=== PATIENT | female | born 1995 | race Caucasian/White ===

== ENCOUNTER 2016-02-24 20:31 | Emergency (ER) | payer OTHER ==
[~2016-02-24] VITALS: Ht 154.9 cm; Wt 54.4 kg
[~2016-02-24 20:31] MED LIST: AMOX500C2 PO; CEPH-507 PO; CIPR-225 PO; FLUC100T6 PO; HYDR25CA PO; IBUP-1780 PO; OMEP20TA7 PO; ONDA4TAB11 PO; ONDA8TAB13 PO; PANT40TA2 PO; POTA-51 PO; PRD20T PO; SUCR1TAB36 PO
--- OUTSIDE RECORDS SUMMARY | 2016-02-24 20:36 | XMS REPORT | Continuity of Care Document ---
Author Author [facility] Organization [facility] Address Unknown Phone Unavailable Care Team Providers Care Hand Molder Meat Name Role Phone NO, LOCAL PHYSICIAN PCP Unavailable Insurance Providers Payer Name Policy Number Subscriber Name Relationship Self Pay Approved Full Jenniffer [id number] Peyton Garner Lydia 17 Self / Same As Patient Advance Directives Directive Response Recorded Date/Time Advance Directives No 10/08/15 6:08pm Health Care Power of Price Checker No 10/08/15 6:08pm Organ Donor Yes 10/08/15 6:08pm Resuscitation Status Full Code 10/08/15 6:08pm Chief Complaint and Reason for Visit Chief Complaint UTI,SEPSIS,METHAMPHETAMINE USE Reason for Visit Sinusitis, acute maxillary Urinary tract infection Volume depletion Problems Active Problems Medical Problem Onset Date Status Anxiety about health Unknown Acute Anxiety disorder Unknown Acute Eileen infection Unknown Acute Epigastric pain Unknown Acute GERD (gastroesophageal reflux disease) Unknown Acute Gastritis and duodenitis Unknown Acute Gastroesophageal reflux disease Unknown Acute Menstruation Unknown Acute Methamphetamine use Unknown Acute Non-cardiac chest pain Unknown Acute Pain of left upper extremity Unknown Acute Periapical abscess Unknown Acute Sepsis Unknown Acute Sinusitis, acute maxillary Unknown Acute Urinary tract infection Unknown Acute Volume depletion Unknown Acute Medications Current Home Medications Medication Dose Units Route Directions Days/Qty Instructions Start Date Ciprofloxacin Hcl 500 Mg 500 Mg Oral Twice A Day 14 10/09/15 Past Home Medications Medication Directions Ordered Status Cephalexin 500 Mg Capsule, 500 Mg Oral Three Times A Day 06/24/15 Discontinued Prednisone 20 Mg Tab, 40 Mg Oral Daily 06/24/15 Discontinued Fluconazole 100 Mg Tablet, 100 Mg Oral Daily for 7 06/24/15 Discontinued Ondansetron 8 Mg Tab.rapdis, 8 Mg Oral Every 6 Hours as needed for Nausea 12/29 Discontinued Prednisone 20 Mg Tab, 40 Mg Oral Daily 06/24/15 Discontinued Fluconazole 100 Mg Tablet, 100 Mg Oral Daily for 7 06/24/15 Discontinued Ondansetron 8 Mg Tab.rapdis, 8 Mg Oral Every 6 Hours as needed for Nausea 12/29 Discontinued Amoxicillin 500 Mg Capsule, 1000 Mg Oral Three Times A Day 06/29/15 Discontinued Ibuprofen 800 Mg Tablet, 800 Mg Oral Every 8HRS as needed for Pain 06/29/15 Discontinued Omeprazole 20 Mg Tablet.dr, 20 Mg Oral 07/02/15 Discontinued Ondansetron 4 Mg Tab.rapdis, 4 Mg Oral Every 6 Hours as needed for Nausea Discontinued Omeprazole 20 Mg Tablet.dr, 20 Mg Oral Twice A Day 07/02/15 Discontinued Hydroxyzine Pamoate 25 Mg Capsule, 25 Mg Oral Every 6 Hours as needed for Anxiety 07/02/15 Discontinued Sucralfate 1 Gm Tablet, 1 Gm Oral Before Meals And At Bedtime 08/22/15 Discontinued Pantoprazole Sodium 40 Mg Tablet.dr, 40 Mg Oral Daily 08/25/15 Discontinued Social History Social History Problem Response Recorded Date/Time Alcohol Use Rarely Uses 08/22/2015 1:25am Recreational Drug Use No 08/22/2015 1:25am Recent Foreign Travel No 10/08/2015 6:14pm Recent Infectious Disease Exposure No 10/08/2015 6:14pm Hospitalization with Isolation Denies 10/09/2015 1:17pm Sexually Transmitted Disease No 10/08/2015 6:11pm HIV/AIDS No 10/08/2015 6:11pm Smoking Status Never a Smoker 10/08/2015 6:09pm Do you dip or chew tobacco? No 08/22/2015 1:25am Drug of Choice METHAMPHETAMIN 10/08/2015 6:11pm Recent Hopitalizations No 10/08/2015 6:11pm Sexually Transmitted Disease No 10/08/2015 6:11pm Hospitalization with Isolation Denies 10/09/2015 1:17pm Query Response Start Date Stop Date Smoking Status Never a Smoker Hospital Discharge Instructions Patient Instructions Physician Instructions New, Converted or Re-Newed RX: Transmitted to Pharmacy Goal/Follow Up Appt: Sonja De Leon, October 15:40 Patient Instructions: Please take all antibiotics as prescribed. You can call [facility] at [phone] to make an appointment with one of our addictions counselors regarding your substance abuse. Return to The Hospital For: fever, blood in urine Discharge Diet: No Restrictions Activity as Tolerated: Yes Care Plan Patient Instructions:: Please take all antibiotics as prescribed. [facility] at [phone] to make an appointment with oneof our addictions counselors regarding your substance abuse. Goal:: Sonja De Leon, October 15:40 Plan of Care Discharge Date 10/09/15 1:10pm Disposition 01 HOME, SELF-CARE Instructions/Education Provided ALCOHOL AND SUBSTANCE ABUSE Urinary Tract Infection in Women (DC) Prescriptions See Medication Section Care Plan and Goals See Discharge Instructions Section Functional Status Query Response Date Recorded Patient Orientation Person Place Time Situation Eyes Open October 09, 2015 1:17pm Comprehension Ability Understands Concepts October 08, 2015 6:34pm Allergies, Adverse Reactions, Alerts Allergen Type Severity Reaction Status Last Updated ENVIRONMENTAL Allergy Unknown Active 06/24/15 Immunizations No immunization records. Vital Signs Acute Vital Signs Vital Response Date/Time Temperature (Fahrenheit) 97.3 degrees F (97.6 - 99.5) 10/09/2015 10:00am Temperature (Calculated Celsius) 36.11722 degrees C (36.4 - 37.5) 10/09/2015 10:00am Temperature Source Tympanic 10/09/2015 10:00am Pulse Rate (adult) 84 bpm (60 - 90) 10/09/2015 10:00am Respiratory Rate 18 bpm (12 - 24) 10/09/2015 10:00am O2 Sat by Pulse Oximetry 98 % (88 - 100) 10/09/2015 10:00am Blood Pressure 115/80 mm Hg 10/09/2015 10:00am Blood Pressure Mean 92 mm Hg 10/09/2015 10:00am Pain Numeric Pain Scale 0-No Pain 10/09/2015 12:00pm Height (Feet) 5 feet 10/08/2015 6:14pm Height (Inches) 1.00 inches 10/08/2015 6:14pm Height (Calculated Centimeters) 154.883791 cm 10/08/2015 6:14pm Weight (Pounds) 123 pounds 10/08/2015 6:29pm Weight (Ounces) 0.0 oz 10/08/2015 6:29pm Weight (Calculated Grams) 81182.862 gm 10/08/2015 6:29pm Weight (Calculated Kilograms) 55.232504 kilograms 10/08/2015 6:29pm Calculated BMI 23.2 10/08/2015 6:14pm Capillary Refill Capillary Refill Less Than 3 Seconds 10/08/2015 3:30pm Results Laboratory Results Test Name Result Units Flags Reference Collection Date/Time Result Date/ Time Comments White Blood Count 8.6 10^3/uL 4.3-11.0 09/17/2015 6:50pm 09/17/2015 7: 05pm Red Blood Count 4.71 10^6/uL 4.35-5.85 09/17/2015 6:50pm 09/17/2015 7: 05pm Hemoglobin 14.5 G/DL 11.5-16.0 09/17/2015 6:50pm 09/17/2015 7:05pm Hematocrit 44 % 35-52 09/17/2015 6:50pm 09/17/2015 7:05pm Mean Corpuscular Volume 93 FL 80-99 09/17/2015 6:50pm 09/17/2015 7: 05pm Mean Corpuscular Hemoglobin 31 PG 25-34 09/17/2015 6:50pm 09/17/2015 7: 05pm Mean Corpuscular Hemoglobin Concent 33 G/DL 32-36 09/17/2015 6:50pm 05/2015 7:05pm Red Cell Distribution Width 12.5 % 10.0-14.5 09/17/2015 6:50pm 2015 7:05pm Platelet Count 234 10^3/uL 130-400 09/17/2015 6:50pm 09/17/2015 7:05pm Mean Platelet Volume 9.7 FL 7.4-10.4 09/17/2015 6:50pm 09/17/2015 7: 05pm Neutrophils (%) (Auto) 59 % 42-75 09/17/2015 6:50pm 09/17/2015 7:05pm Lymphocytes (%) (Auto) 31 % 12-44 09/17/2015 6:50pm 09/17/2015 7:05pm Monocytes (%) (Auto) 9 % 0-12 09/17/2015 6:50pm 09/17/2015 7:05pm Eosinophils (%) (Auto) 0 % 0-10 09/17/2015 6:50pm 09/17/2015 7:05pm Basophils (%) (Auto) 1 % 0-10 09/17/2015 6:50pm 09/17/2015 7:05pm Neutrophils # (Auto) 5.1 X 10^3 1.8-7.8 09/17/2015 6:50pm 09/17/2015 7: 05pm Lymphocytes # (Auto) 2.7 X 10^3 1.0-4.0 09/17/2015 6:50pm 09/17/2015 7: 05pm Monocytes # (Auto) 0.8 X 10^3 0.0-1.0 09/17/2015 6:50pm 09/17/2015 7: 05pm Eosinophils # (Auto) 0.0 10^3/uL 0.0-0.3 09/17/2015 6:50pm 09/17/2015 7 :05pm Basophils # (Auto) 0.0 10^3/uL 0.0-0.1 09/17/2015 6:50pm 09/17/2015 7: 05pm D-Dimer < 0.27 UG/ML 0.00-0.49 09/17/2015 6:50pm 09/17/2015 7:21pm Sodium Level 141 MMOL/L 135-145 09/17/2015 6:50pm 09/17/2015 7:23pm Potassium Level 4.2 MMOL/L 3.6-5.0 09/17/2015 6:50pm 09/17/2015 7:23pm Chloride Level 106 MMOL/L 98-107 09/17/2015 6:50pm 09/17/2015 7:23pm Carbon Dioxide Level 26 MMOL/L 21-32 09/17/2015 6:50pm 09/17/2015 7: 23pm Anion Gap 9 MMOL/L 5-14 09/17/2015 6:50pm 09/17/2015 7:23pm Blood Urea Nitrogen 9 MG/DL 7-18 09/17/2015 6:50pm 09/17/2015 7:23pm Creatinine 0.81 MG/DL 0.60-1.30 09/17/2015 6:50pm 09/17/2015 7:23pm BUN/Creatinine Ratio 11 09/17/2015 6:50pm 09/17/2015 7:23pm Estimat Glomerular Filtration Rate > 60 09/17/2015 6:50pm 2015 7:23pm GFR INTERPRETIVE DATA UNITS FOR ESTIMATED GFR (eGFR): mL/min/1.73 M2 REFERENCE RANGE FOR ESTIMATED GFR (eGFR) eGFR NORMAL eGFR >60 MODERATELY DECREASED eGFR 30-59 SEVERLY DECREASED eGFR 15-29 KIDNEY FAILURE <15 (OR DIALYSIS) Glucose Level 89 MG/DL 70-105 09/17/2015 6:50pm 09/17/2015 7:23pm Calcium Level 9.5 MG/DL 8.5-10.1 09/17/2015 6:50pm 09/17/2015 7:23pm Magnesium Level 2.6 MG/DL H 1.8-2.4 09/17/2015 6:50pm 09/17/2015 7:23pm Total Bilirubin 0.9 MG/DL 0.1-1.0 09/17/2015 6:50pm 09/17/2015 7:23pm Alkaline Phosphatase 72 U/L 40-136 09/17/2015 6:50pm 09/17/2015 7:23pm Aspartate Amino Transf (AST/SGOT) 12 U/L 5-34 09/17/2015 6:50pm 2015 7:23pm Alanine Aminotransferase (ALT/SGPT) 8 U/L 0-55 09/17/2015 6:50pm 2015 7:23pm Troponin I < 0.30 NG/ML <0.30 09/17/2015 6:50pm 09/17/2015 7:38pm Total Protein 7.6 G/DL 6.4-8.2 09/17/2015 6:50pm 09/17/2015 7:23pm Albumin 4.9 G/DL H 3.2-4.5 09/17/2015 6:50pm 09/17/2015 7:23pm Pending Laboratory Results Test Name Collection Date/Time Procedures Procedure Status Date Provider(s) Tracing only of electrocardiogram Completed 09/17/15 MICHELLE BYERS MD Encounters Encounter Location Arrival/Admit Date Discharge/Depart Date Attending Provider Discharged Inpatient [facility] 10/08/15 5:53pm 1:10pm ZOILA RIVERO MD Departed Emergency Room [facility] 09/22/15 2:05pm 09/21 3:22pm MICHELLE BYERS MD Departed Emergency Room [facility] 09/19/15 6:04pm 09/18 7:26pm TYESHA PAEZ DO Departed Emergency Room [facility] 09/17/15 6:07pm 09/16 8:23pm MICHELLE BYERS MD Recent Diagnosis Sinusitis, acute maxillary Urinary tract infection Volume depletion
[2016-02-24] MEDS ORDERED: IBUPROFEN 800 MG (MOTRIN) TAB PO STA (21:03)
--- NOTE | 2016-02-24 21:12 | ED Lower Extremity ---
General Chief Complaint: Lower Extremity Stated Complaint: L LEG PAIN Nursing Triage Note: Pt c/o L lower leg pain starting today. Pt denies any injury. Pt reports pain started in L foot and is now hurting up left leg near [place] below the knee. Nursing Sepsis Screen: No Definite Risk Source: patient Exam Limitations: no limitations History of Present Illness Time seen by provider: 20:55 Initial Comments Here with complaint of left lower leg pain that started today. Actually she states it started yesterday in her left foot. Denies recent trauma. She is not on control. She does not smoke. No recent long plane trips or car rides. No recent surgeries. No swelling to the leg. She was concerned about blood clots because she was reading the Internet reportedly. Denies breathing problems. Onset: yesterday Severity: mild Pain/Injury Location: left leg Method of Injury: unknown Modifying Factors: Improves With Rest Allergies and Home Medications Allergies Coded Allergies: No Known Drug Allergies (Unverified , 02/24/16) Home Medications No Active Prescriptions or Reported Meds Constitutional: see HPINo chills, No fever Respiratory: no symptoms reported Cardiovascular: no symptoms reported Musculoskeletal: see HPI muscle painNo muscle stiffness Skin: no symptoms reportedNo change in color, No lesions, No rash Psychiatric/Neurological: No Symptoms Reported Past Svmwzap-Uywtav-Kkxegh Hx Patient Social History Alcohol Use: Occasionally Uses Recreational Drug Use: No Drug of Choice: METH Smoking Status: Never a Smoker Recent Foreign Travel: No Contact w/Someone Who Travel: No Recent Infectious Disease Expo: No Recent Hopitalizations: No Physical Abuse Screen: No Sexual Abuse: No Immunizations Up To Date Tetanus Booster (TDap): More than 5yrs PED Vaccines UTD: Yes Seasonal Allergies Seasonal Allergies: No Surgeries HX Surgeries: Yes (EGD) Respiratory Hx Respiratory Disorders: No Cardiovascular Hx Cardiac Disorders: No Neurological Hx Neurological Disorders: No Reproductive System Hx Reproductive Disorders: No Sexually Transmitted Disease: No HIV/AIDS: No Female Reproductive Disorders: Denies Genitourinary Hx Genitourinary Disorders: No Gastrointestinal Hx Gastrointestinal Disorders: Yes (GASTRITIS, DUODENITIS) Gastrointestinal Disorders: Gastroesophageal Reflux, Esophagitis Musculoskeletal Hx Musculoskeletal Disorders: No Endocrine Hx Endocrine Disorders: No HEENT HX ENT Disorders: No Cancer Hx Cancer: No Psychosocial Hx Psychiatric Problems: Yes Behavioral Health Disorders: Anxiety Integumentary HX Skin/Integumentary Disorder: No Blood Transfusions Hx Blood Disorders: No Reviewed Nursing Assessment Reviewed/Agree w Nursing PMH: Yes Family Medical History Significant Family History: No Pertinent Family Hx Family Medial History: Arthritis G8 SISTER Hypertension 19 MOTHER Seizure disorder 19 MOTHER Physical Exam Vital Signs Vital Sign - Last 12Hours 02/24/16 20:55 Temp 98.7 Pulse 98 Resp 18 B/P 129/79 Pulse Ox 98 O2 Delivery Room Air Capillary Refill : Less Than 3 Seconds General Appearance: WD/WN no apparent distress Neck: full range of motion supple Cardiovascular: regular rate, rhythm no murmur Respiratory: lungs clear normal breath sounds Gastrointestinal: non tender soft Back: normal inspection no CVA tenderness no vertebral tenderness Legs: bilateral leg non-tender, bilateral leg normal inspection, bilateral leg normal range of motion, bilateral leg no evidence of injury Ankles: bilateral ankle non-tender, bilateral ankle normal inspection, bilateral ankle normal range of motion, bilateral ankle no evidence of injury Feet: bilateral foot non-tender, bilateral foot normal inspection, bilateral foot normal range of motion, bilateral foot no evidence of injury Neurologic/Psychiatric: alert oriented x 3 Skin: normal color warm/dryNo rash Progress/Results/Core Measures Results/Orders Lab Results Laboratory Tests Test 02/24/16 21:15 Range/Units D-Dimer < 0.27 0.00-0.49 UG/ML My Orders Orders-MICHELLE BYERS MD Fibrin Degradation Products (02/24/16 21:03) Ibuprofen Tablet (Motrin Tablet) (02/24/16 21:03) Vital Signs/I&O Vital Sign - Last 12Hours 02/24/16 20:55 Temp 98.7 Pulse 98 Resp 18 B/P 129/79 Pulse Ox 98 O2 Delivery Room Air Blood Pressure Mean: 96 Progress Note : Progress Note Seen and evaluated. Ibuprofen 800 mg by mouth. D-dimer ordered. Monitor patient. Physical exam findings of anything of concern related to blood clots so we will rule out with d-dimer currently. 2150: D-dimer negative. Discharged home with return precautions. Patient verbalize understanding instructions and agreement with plan. Departure Impression Impression: Primary Impression: Leg pain, left Disposition: 01 HOME, SELF-CARE Condition: Improved Departure-Patient Inst. Decision time for Depature: 21:54 Referrals: [facility] (PCP/Family) Primary Care Physician Patient Instructions: Lower Extremity Muscle Strain (DC) Add. Discharge Instructions: All discharge instructions reviewed with patient and/or family. Voiced understanding. You may take Tylenol 1000 mg every 8 hours as needed for pain. You may take ibuprofen 600 mg every 8 hours as needed for pain. Drink plenty of fluids. All of with your Dr. in a few days for recheck. Return for worse pain, fever, vomiting, weakness, swelling, breathing problems or other concerns as needed. Scripts No Active Prescriptions or Reported Meds MICHELLE BYERS MD Feb 24, 2016 21:12
[2016-02-24 22:04] VITALS: BP 125/75
== END 2016-02-24 22:04 | disposition home or self-care (01) ==
LOC: EDUNIT# 20:31 → ER 20:32
DX: M79.662 Pain in left lower leg (principal)
CPT/HCPCS: 36415; 85379; 99283

== ENCOUNTER 2016-04-01 22:31 | Emergency (ER) | payer OTHER ==
[~2016-04-01] VITALS: Ht 154.9 cm; Wt 54.4 kg
--- OUTSIDE RECORDS SUMMARY | 2016-04-01 22:38 | XMS REPORT | Continuity of Care Document ---
Author Author [facility] Organization [facility] Address Unknown Phone Unavailable Care Team Providers Care Switch Tender Name Role Phone NO, LOCAL PHYSICIAN PCP Unavailable Insurance Providers Payer Name Policy Number Subscriber Name Relationship Self Pay Approved Full Jenniffer [id number] Peyton Garner Lydia 18 Self / Same As Patient Advance Directives Directive Response Recorded Date/Time Advance Directives No 10/08/15 6:08pm Health Care Power of Nut Tightener No 10/08/15 6:08pm Organ Donor Yes 10/08/15 [...] all antibiotics as prescribed. You can call [facility] at [phone] to make an appointment with one of our addictions counselors regarding your substance abuse. Return to [facility] For: fever, blood in urine Discharge Diet: No Restrictions Activity as Tolerated: Yes Care Plan Patient Instructions:: Please take all antibiotics as prescribed. You [facility] call [facility] at [phone] to make an appointment with oneof our [...] - 99.5) 10/09/2015 10:00am Temperature (Calculated Celsius) 36.09802 degrees C (36.4 - 37.5) 10/09/2015 10:00am [...] 1.00 inches 10/08/2015 6:14pm Height (Calculated Centimeters) 154.652316 cm 10/08/2015 6:14pm Weight (Pounds) 123 pounds 10/08/2015 6:29pm Weight (Ounces) 0.0 oz 10/08/2015 6:29pm Weight (Calculated Grams) 59765.862 gm 10/08/2015 6:29pm Weight (Calculated Kilograms) 55.353677 kilograms 10/08/2015 6:29pm Calculated BMI 23.2 10/08/2015 [...] Discharge/Depart Date Attending Provider Discharged Inpatient [facility] 10/08/15 5:53pm 1:10pm ZOILA RIEVRO MD Departed Emergency Room [facility] 09/22/15 2:05pm 09/21 3:22pm MICHELLE BYERS MD Departed Emergency Room [facility] 09/19/15 6:04pm 09/18 7:26pm TYESHA PAEZ DO Departed Emergency Room [facility] 09/17/15 6:07pm 09/16 8:23pm MICHELLE BYERS MD Recent Diagnosis Sinusitis, acute maxillary Urinary tract infection Volume depletion
[2016-04-01 23:06] LABS: BASOPHILS % (AUTO) 0 % (0-10); EOSINOPHILS # (AUTO) 0.1 10^3/uL (0.0-0.3); EOSINOPHILS % (AUTO) 1 % (0-10); LYMPHOCYTES # (AUTO) 3.3 X 10^3 (1.0-4.0); LYMPHOCYTES % (AUTO) 39 % (12-44); MEAN CORPUSCULAR HEMOGLOBIN 29 PG (25-34); MEAN CORPUSCULAR HGB CONC 33 G/DL (32-36); MEAN CORPUSCULAR VOLUME 89 FL (80-99); MEAN PLATELET VOLUME 9.5 FL (7.4-10.4); MONOCYTES % (AUTO) 11 % (0-12); NEUTROPHILS # (AUTO) 4.1 X 10^3 (1.8-7.8); NEUTROPHILS % (AUTO) 49 % (42-75); PLATELET COUNT 292 10^3/uL (130-400); RED BLOOD COUNT 4.33 10^6/uL (4.35-5.85); RED CELL DISTRIBUTION WIDTH 14.7 % (10.0-14.5); WHITE BLOOD COUNT 8.5 10^3/uL (4.3-11.0)
[2016-04-01 23:22] LABS: ANION GAP 12 MMOL/L (5-14); BLOOD UREA NITROGEN 8 MG/DL (7-18); BUN/CREATININE RATIO 10; CALCIUM 8.9 MG/DL (8.5-10.1); CARBON DIOXIDE 21 MMOL/L (21-32); CHLORIDE 108 MMOL/L (98-107); GFR ESTIMATED > 60; GLUCOSE 67 MG/DL (70-105); POTASSIUM 3.5 MMOL/L (3.6-5.0); SODIUM 141 MMOL/L (135-145)
--- NOTE | 2016-04-01 23:30 | ED GU-Female ---
General Chief Complaint: -Female Stated Complaint: 6W, BLEEDING, CRAMPING Nursing Triage Note: patient reports being 6-7 weeks gestation. patient reports has started having cramps and spotting Nursing Sepsis Screen: No Definite Risk Source: patient History of Present Illness Time seen by provider: 22:45 Initial Comments PT STATES SHE THINKS SHE IS 6-7 WEEKS -LMP 03/15/16 2-3 HOURS AGO, BEGAN HAVING SPOTTING AND CRAMPING--MUCH LATER, MALE WITH PT STATES IT BEGAN AFTER HAVING INTERCOURSE HAS NOT GONE THROUGH ANY PADS NO NAUSEA/VOMITING NO FEVER NO RECENT ILLNESS NO URINARY SYMPTOMS PT IS AB 0 STATES SHE DID THE SAME WITH HER FIRST AND WENT ON TO HAVE A NORMAL AND HAS NOT SEEN ANYONE FOR THIS YET MULTITUDE OF VISITS--18 VISITS SINCE SHE BEGAN COMING TO THIS HOSPITAL 07/01/15- -MANY 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 USE PCP: [facility]--NEW OB APPOINTMENT 04/12/16 Allergies and Home Medications Allergies Coded Allergies: No Known Drug Allergies (Unverified , 02/24/16) Home Medications No Active Prescriptions or Reported Meds Constitutional: no symptoms reported Respiratory: no symptoms reported Cardiovascular: no symptoms reported Gastrointestinal: see HPI abdominal painNo nausea, No vomiting Genitourinary: see HPI : Yes LMP: Mar 15, 2016 (NORMALNO CONTROL) Musculoskeletal: no symptoms reportedNo back pain Skin: no symptoms reported Psychiatric/Neurological: No Symptoms Reported Endocrine: No Symptoms Reported Hematologic/Lymphatic: No Symptoms Reported Past Vzghbmv-Cavkiw-Ckjyto Hx Patient Social History Alcohol Use: Denies Use Recreational Drug Use: Yes Drug of Choice: METH Smoking Status: Never a Smoker Recent Foreign Travel: No Contact w/Someone Who Travel: No Recent Infectious Disease Expo: No Recent Hopitalizations: No Immunizations Up To Date Tetanus Booster (TDap): More than 5yrs PED Vaccines UTD: Yes Seasonal Allergies Seasonal Allergies: No Surgeries HX Surgeries: Yes (EGD) Respiratory Hx Respiratory Disorders: No Cardiovascular Hx Cardiac Disorders: No Neurological Hx Neurological Disorders: No Reproductive System : Yes Hx : 2 Hx Para: 1 () Hx Total # of Abortions (Spona: 0 Hx Reproductive Disorders: No Sexually Transmitted Disease: No HIV/AIDS: No Female Reproductive Disorders: Denies Genitourinary Hx Genitourinary Disorders: No Gastrointestinal Hx Gastrointestinal Disorders: Yes (GASTRITIS, DUODENITIS) Gastrointestinal Disorders: Gastroesophageal Reflux, Esophagitis Musculoskeletal Hx Musculoskeletal Disorders: No Endocrine Hx Endocrine Disorders: No HEENT HX ENT Disorders: No Cancer Hx Cancer: No Psychosocial Hx Psychiatric Problems: Yes Behavioral Health Disorders: Anxiety Integumentary HX Skin/Integumentary Disorder: No Blood Transfusions Hx Blood Disorders: No Family Medical History Significant Family History: No Pertinent Family Hx Family Medial History: Arthritis G8 SISTER Hypertension 19 MOTHER Seizure disorder 19 MOTHER Physical Exam Vital Signs Vital Sign - Last 12Hours 04/01/16 04/02/16 22:37 00:42 Temp 98.8 Pulse 97 Resp 18 B/P 134/93 Pulse Ox 98 O2 Delivery Room Air Capillary Refill : Less Than 3 Seconds General Appearance: WD/WN no apparent distress other (BIZARRE AFFECT--APPEARS TO BE UNDER THE INFLUENCE OF SOME SUBSTANCE/S) Cardiovascular: regular rate, rhythm no murmur Respiratory: normal breath sounds Gastrointestinal: non tender soft no organomegaly Pelvic: other (NO VAGINAL BLEEDING AT THIS TIME) Back: normal inspection no CVA tenderness Extremities: normal inspection no pedal edema normal capillary refill Neurologic/Psychiatric: no motor/sensory deficits alert oriented x 3 Skin: normal color warm/dry Progress/Results/Core Measures Results/Orders Lab Results Laboratory Tests Test 04/01/16 22:35 04/01/16 22:55 Range/Units Ur Tricyclic Antidepressants Screen NEGATIVE NEGATIVE Urine Amphetamines Screen NEGATIVE NEGATIVE Urine Barbiturates Screen NEGATIVE NEGATIVE Urine Benzodiazepines Screen NEGATIVE NEGATIVE Urine Cannabinoids Screen NEGATIVE NEGATIVE Urine Cocaine Screen NEGATIVE NEGATIVE Urine Methadone Screen NEGATIVE NEGATIVE Urine Methamphetamines Screen NEGATIVE NEGATIVE Urine Opiates Screen NEGATIVE NEGATIVE Urine Oxycodone Screen NEGATIVE NEGATIVE Urine Phencyclidine Screen NEGATIVE NEGATIVE Urine Propoxyphene Screen NEGATIVE NEGATIVE Anion Gap 12 5-14 MMOL/L BUN/Creatinine Ratio 10 Basophils # (Auto) 0.0 0.0-0.1 10^3/uL Basophils (%) (Auto) 0 0-10 % Blood Urea Nitrogen 8 7-18 MG/DL Calcium Level 8.9 8.5-10.1 MG/DL Carbon Dioxide Level 21 21-32 MMOL/L Chloride Level 108 H 98-107 MMOL/L Creatinine 0.80 0.60-1.30 MG/DL Eosinophils # (Auto) 0.1 0.0-0.3 10^3/uL Eosinophils (%) (Auto) 1 0-10 % Estimat Glomerular Filtration Rate > 60 Glucose Level 67 L 70-105 MG/DL Hematocrit 38 35-52 % Hemoglobin 12.6 11.5-16.0 G/DL Human Chorionic Gonadotropin, Quant 3630 H <5 MIU/ML Lymphocytes # (Auto) 3.3 1.0-4.0 X 10^3 Lymphocytes (%) (Auto) 39 12-44 % Mean Corpuscular Hemoglobin 29 25-34 PG Mean Corpuscular Hemoglobin Concent 33 32-36 G/DL Mean Corpuscular Volume 89 80-99 FL Mean Platelet Volume 9.5 7.4-10.4 FL Monocytes # (Auto) 1.0 0.0-1.0 X 10^3 Monocytes (%) (Auto) 11 0-12 % Neutrophils # (Auto) 4.1 1.8-7.8 X 10^3 Neutrophils (%) (Auto) 49 42-75 % Platelet Count 292 130-400 10^3/uL Potassium Level 3.5 L 3.6-5.0 MMOL/L Red Blood Count 4.33 L 4.35-5.85 10^6/uL Red Cell Distribution Width 14.7 H 10.0-14.5 % Sodium Level 141 135-145 MMOL/L White Blood Count 8.5 4.3-11.0 10^3/uL My Orders Orders-TYESHA PAEZ DO Abo Rh Type (04/01/16 22:47) Basic Metabolic Panel (04/01/16 22:47) Cbc With Automated Diff (04/01/16 22:47) Hcg,Quantitative (04/01/16 22:47) Drug Screen Stat (Urine) (04/01/16 22:53) Urine Bedside (04/01/16 22:53) Us Ob Transvaginal [id number] (04/01/16 22:47) Vital Signs/I&O Vital Sign - Last 12Hours 04/01/16 04/02/16 22:37 00:42 Temp 98.8 Pulse 97 95 Resp 18 20 B/P 134/93 Pulse Ox 98 O2 Delivery Room Air Blood Pressure Mean: 107 Point of Care Testing Urine -Bedside: Positive Progress Note : Progress Note BLOOD TYPE O+ NO VAGINAL BLEEDING DURING ER STAY Diagnostic Imaging Comments ULTRASOUND--5W 4 DAYS IUP GESTATIONAL SAC WITH PROBABLE POLE WITHOUT DEFINITE CARDIAC ACTIVITY--PER TECH REPORT @ 1726 AND PER [facility] VIA FAX @ 8222 Reviewed: Reviewed by Me Departure Impression Impression: Primary Impression: Threatened in first trimester Disposition: 01 HOME, SELF-CARE Condition: Stable Departure-Patient Inst. Referrals: [facility] (PCP/Family) Primary Care Physician Patient Instructions: Threatened Miscarriage (DC) Add. Discharge Instructions: NOTHING IN VAGINA--NO TAMPONS, DOUCHING OR INTERCOURSE TYLENOL NEEDED FOR PAIN KEEP AN ACCURATE PAD COUNT--RETURN IF SOAKING MORE THAN 1 MAXI PAD AN HOUR FOLLOW UP WITH [facility] NEXT WEEK FOR FURTHER CARE All discharge instructions reviewed with patient and/or family. Voiced understanding. Scripts No Active Prescriptions or Reported Meds TYESHA PAEZ DO Apr 01, 2016 23:30
[2016-04-02 00:42] VITALS: BP 128/88
--- NOTE | 2016-04-02 07:44 | Diagnostic Imaging Report ---
US OB TRANSVAGINAL [id number] INDICATION: with bleeding and cramping. TECHNIQUE: Transabdominal grayscale, color Doppler and pulse duplex imaging of the pelvis was performed. FINDINGS: There is an anechoic gestational sac present within the endometrium at the level of the fundus. The mean sac diameter corresponds to a gestational age of 5 weeks and 4 days. A yolk sac is seen. Possible embryo is seen. No cardiac activity is seen at this time. Ovaries are not identified. No suspicious adnexal mass or free fluid. IMPRESSION: 1. Single intrauterine gestational sac. Based on mean sac diameter, estimated gestational age is 5 weeks and 4 days. 2. A definitive embryo is not seen at this time and there is no heart activity. This may reflect early gestational age. Follow-up beta-hCG and ultrasound is advised to assess for appropriate development. Dictated by: Dictated on workstation # [id number]
== END 2016-04-02 00:43 | disposition home or self-care (01) ==
LOC: EDUNIT# 22:31 → ER 22:34
DX: O20.0 Threatened abortion (principal); Z3A.01 Less than 8 weeks gestation of pregnancy
CPT/HCPCS: 36415; 76817; 80048; 80306; 84702; 84703; 85025; 86900; 86901; 99282

== ENCOUNTER → 2016-04-08 | Outpatient (CLI) | payer OTHER ==
[~2016-04-08] MED LIST changes: +CEPH500C PO
--- OUTSIDE RECORDS SUMMARY | 2016-04-08 10:56 | XMS REPORT | Continuity of Care Document ---
Author Author [facility] Organization [facility] Address Unknown Phone Unavailable Care Team Providers Care Poultry Offal Icer Name Role Phone NO, LOCAL PHYSICIAN PCP Unavailable Insurance Providers Payer Name Policy Number Subscriber Name Relationship Self Pay Approved Full Jenniffer [id number] Peyton Garner Lydia 18 Self / Same As Patient Advance Directives Directive Response Recorded Date/Time Advance Directives No 10/08/15 6:08pm Health Care Power of [place] Fishing Boat Crewman No 10/08/15 6:08pm Organ Donor Yes 10/08/15 [...] as prescribed. You can call [facility] at [phone] to make an appointment with one of our addictions counselors regarding your substance abuse. Return to The Hospital For: fever, blood in urine Discharge Diet: No Restrictions Activity as Tolerated: Yes Care Plan Patient Instructions:: Please take all antibiotics as prescribed. [facility] at [phone] to make an appointment with oneof our [...] - 99.5) 10/09/2015 10:00am Temperature (Calculated Celsius) 36.39388 degrees C (36.4 - 37.5) 10/09/2015 10:00am [...] 1.00 inches 10/08/2015 6:14pm Height (Calculated Centimeters) 154.118704 cm 10/08/2015 6:14pm Weight (Pounds) 123 pounds 10/08/2015 6:29pm Weight (Ounces) 0.0 oz 10/08/2015 6:29pm Weight (Calculated Grams) 47581.862 gm 10/08/2015 6:29pm Weight (Calculated Kilograms) 55.908379 kilograms 10/08/2015 6:29pm Calculated BMI 23.2 10/08/2015 [...] Discharge/Depart Date Attending Provider Discharged Inpatient [facility] 10/08/15 5:53pm 1:10pm ZOILA RIVERO MD Departed Emergency Room [facility] 09/22/15 2:05pm 09/21 3:22pm MICHELLE BYERS MD Departed Emergency Room [facility] 09/19/15 6:04pm 09/18 7:26pm TYESHA PAEZ DO Departed Emergency Room [facility] 09/17/15 6:07pm 09/16 8:23pm MICHELLE BYERS MD Recent Diagnosis Sinusitis, acute maxillary Urinary tract infection Volume depletion
--- NOTE | 2016-04-08 16:01 | Diagnostic Imaging Report ---
INDICATION: Threatened AB. COMPARISON: 04/01/2016. FINDINGS: Findings are consistent with early intrauterine . [place]-rump length is 2.6 mm. No heartbeat was demonstrated with M-mode. There is no evidence of subchorionic hemorrhage. There is a cyst in the left ovary measuring 2 cm consistent with a corpus luteal cyst. There is no free fluid. Right ovary appears normal. There is normal blood flow to both ovaries. IMPRESSION: Findings are again consistent with intrauterine . There has been very little change in appearance. No significant growth has occurred since 04/01/2016. Quantitative hCG follow-up recommended. Blighted ovum is most likely. Dictated by: Dictated on workstation # [id number]
== END ==
LOC: RAD 10:52
PROVIDERS: ATTEND Family Medicine
DX: O20.0 Threatened abortion (principal)
CPT/HCPCS: 76817

== ENCOUNTER 2016-04-10 17:31 | Emergency (ER) | payer OTHER ==
[~2016-04-10] VITALS: Ht 154.9 cm; Wt 59.0 kg
[~2016-04-10 17:31] MED LIST changes: -CEPH500C PO
--- OUTSIDE RECORDS SUMMARY | 2016-04-10 17:37 | XMS REPORT | Continuity of Care Document ---
Author Author [facility] Organization [facility] Address Unknown Phone Unavailable Care Team Providers Care Job Recruiter Name Role Phone NO, LOCAL PHYSICIAN PCP Unavailable Insurance Providers Payer Name Policy Number Subscriber Name Relationship Self Pay Approved Full Jenniffer [id number] Peyton Garner Lydia 18 Self / Same As Patient Advance Directives Directive Response Recorded Date/Time Advance Directives No 10/08/15 6:08pm Health Care Power of Lead Ruby On Rails Developer No 10/08/15 6:08pm Organ Donor Yes 10/08/15 [...] RX: Transmitted to Pharmacy Goal/Follow Up Appt: Sojna De Leon, October 15:40 Patient Instructions: Please take all antibiotics as prescribed. You can call [facility] at [phone] to make an appointment with one of our addictions counselors regarding your substance abuse. Return to The Hospital For: fever, blood in urine Discharge Diet: No Restrictions Activity as Tolerated: Yes Care Plan Patient Instructions:: Please take all antibiotics as prescribed. [facility] at [phone] to make an appointment with oneof our [...] - 99.5) 10/09/2015 10:00am Temperature (Calculated Celsius) 36.76961 degrees C (36.4 - 37.5) 10/09/2015 10:00am [...] 1.00 inches 10/08/2015 6:14pm Height (Calculated Centimeters) 154.573128 cm 10/08/2015 6:14pm Weight (Pounds) 123 pounds 10/08/2015 6:29pm Weight (Ounces) 0.0 oz 10/08/2015 6:29pm Weight (Calculated Grams) 10722.862 gm 10/08/2015 6:29pm Weight (Calculated Kilograms) 55.706663 kilograms 10/08/2015 6:29pm Calculated BMI 23.2 10/08/2015 [...] Discharge/Depart Date Attending Provider Discharged Inpatient [facility] 10/08/15 5:53pm 1:10pm ZOILA RIVERO MD Departed Emergency Room [facility] 09/22/15 2:05pm 09/21 3:22pm MICHELLE BYERS MD Departed Emergency Room [facility] 09/19/15 6:04pm 09/18 7:26pm TYESHA PAEZ DO Departed Emergency Room [facility] 09/17/15 6:07pm 09/16 8:23pm MICHELLE BYERS MD Recent Diagnosis Sinusitis, acute maxillary Urinary tract infection Volume depletion
[2016-04-10 18:19] LABS: BILIRUBIN,URINE NEGATIVE (NEGATIVE); KETONES,URINE 1+ (NEGATIVE); LEUKOCYTE ESTERASE ,URINE 2+ (NEGATIVE); NITRITE,URINE NEGATIVE (NEGATIVE); PH,URINE 5 (5-9); PROTEIN,URINE 3+ (NEGATIVE); UROBILINOGEN,URINE NORMAL (NORMAL)
[2016-04-10 18:24] LABS: SQUAMOUS EPITHELIAL CELL,UR RARE /HPF
--- NOTE | 2016-04-10 18:33 | ED GU-Female ---
General Stated Complaint: 6 WKS PREG/VAG BLEEDING/PASSING CLOTS Nursing Triage Note: PT STATES HAS VAGINAL BLEEDING FOR 2 WEEKS, PT STATES WORSE TODAY. PT HAS + TEST LMP 02/18/16. Nursing Sepsis Screen: No Definite Risk Source: patient Exam Limitations: no limitations History of Present Illness Time seen by provider: 18:33 Initial Comments 20-year-old female patient presents to the emergency department complains of two -week onset vaginal bleeding. Patient states slightly worse today. States she has used for 5 pads today. Patient was seen on April 01 in the emergency department by Dr. Gee. Was also seen at [facility] on 08 April with outpatient ultrasound and blood work performed. Also states she did have a pelvic exam performed which was negative. Patient denies any fevers, dysuria, frequency, nausea, vomiting, diarrhea. Timing/Duration: getting worse, other (2 wk onset. ) Severity/Quality: moderate, cramping Location: suprapubic Radiation: none Activities at Onset: none Prior Genitourinary Problems: similar symptoms Sexual [place] History: less than 2 months ago, single partner Modifying Factors: Worsens With Other (denies modifying factors.) Allergies and Home Medications Allergies Coded Allergies: No Known Drug Allergies (Unverified , 02/24/16) Home Medications Cephalexin 500 Mg Capsule #15 500 MG PO TID Prescribed by: WILLI QUINONES on 04/10/161914 Constitutional: No chills, No diaphoresis, No dizziness, No fever, No malaise EENTM: no symptoms reported Respiratory: No cough, No dyspnea on exertion, No short of breath Cardiovascular: No chest pain, No edema, No palpitations, No syncope Gastrointestinal: see HPI abdominal pain (suprapubic cramping)No constipation , No diarrhea, No loss of appetite, No nausea, No vomiting Genitourinary: denies burning, denies discharge, denies dysuria, denies frequency, denies flank pain, denies hematuria, pain other (vaginal bleeding) Musculoskeletal: no symptoms reported Skin: no symptoms reported Psychiatric/Neurological: No Symptoms Reported All Other Systemes Reviewed Negative Unless Noted: Yes (Negative excepted noted.) Past Rkoajkz-Aewzvg-Zlxpjx Hx Patient Social History Alcohol Use: Denies Use Recreational Drug Use: Yes Drug of Choice: METH Smoking Status: Never a Smoker Recent Foreign Travel: No Contact w/Someone Who Travel: No Recent Infectious Disease Expo: No Recent Hopitalizations: No Immunizations Up To Date Tetanus Booster (TDap): More than 5yrs PED Vaccines UTD: Yes Seasonal Allergies Seasonal Allergies: No Surgeries HX Surgeries: Yes (EGD) Respiratory Hx Respiratory Disorders: No Cardiovascular Hx Cardiac Disorders: No Neurological Hx Neurological Disorders: No Reproductive System : Yes Hx : 2 Hx Para: 1 Hx Total # of Abortions (Spona: 0 Hx Reproductive Disorders: No Sexually Transmitted Disease: No HIV/AIDS: No Female Reproductive Disorders: Denies Genitourinary Hx Genitourinary Disorders: No Gastrointestinal Hx Gastrointestinal Disorders: Yes (GASTRITIS, DUODENITIS) Gastrointestinal Disorders: Gastroesophageal Reflux, Esophagitis Musculoskeletal Hx Musculoskeletal Disorders: No Endocrine Hx Endocrine Disorders: No HEENT HX ENT Disorders: No Cancer Hx Cancer: No Psychosocial Hx Psychiatric Problems: Yes Behavioral Health Disorders: Anxiety Integumentary HX Skin/Integumentary Disorder: No Blood Transfusions Hx Blood Disorders: No Reviewed Nursing Assessment Reviewed/Agree w Nursing PMH: Yes Family Medical History Significant Family History: No Pertinent Family Hx Family Medial History: Arthritis G8 SISTER Hypertension 19 MOTHER Seizure disorder 19 MOTHER Physical Exam Vital Signs Vital Sign - Last 12Hours 04/10/16 17:40 Temp 98.5 Pulse 101 Resp 20 B/P 124/80 Pulse Ox 98 Capillary Refill : Less Than 3 Seconds General Appearance: WD/WN no apparent distress HEENT: PERRL/EOMI pharynx normal Neck: supple normal inspection Cardiovascular: normal peripheral pulses regular rate, rhythm no edema no murmur Respiratory: lungs clear normal breath sounds no respiratory distress Gastrointestinal: normal bowel sounds non tender soft no organomegalyNo distended Back: normal inspection no CVA tenderness Extremities: no pedal edema normal capillary refill Neurologic/Psychiatric: alert normal mood/affect oriented x 3 Skin: normal color warm/dry Progress/Results/Core Measures Results/Orders Lab Results Laboratory Tests Test 04/10/16 17:45 04/10/16 17:56 Range/Units Urine Bacteria TRACE /HPF Urine Bilirubin NEGATIVE NEGATIVE Urine Casts NONE /LPF Urine Clarity VERY CLOUDY H Urine Color RED H Urine Crystals NONE /LPF Urine Culture Indicated YES Urine Glucose (UA) NEGATIVE NEGATIVE Urine Ketones 1+ H NEGATIVE Urine Leukocyte Esterase 2+ H NEGATIVE Urine Mucus NEGATIVE /LPF Urine Nitrite NEGATIVE NEGATIVE Urine Protein 3+ H NEGATIVE Urine RBC TNTC H /HPF Urine RBC (Auto) 5+ H NEGATIVE Urine Specific [place] 1.025 H 1.016-1.022 Urine Squamous Epithelial Cells RARE /HPF Urine Urobilinogen NORMAL NORMAL MG/DL Urine WBC 5-10 H /HPF Urine pH 5 5-9 Human Chorionic Gonadotropin, Quant 5456 H <5 MIU/ML Vital Signs/I&O Vital Sign - Last 12Hours 04/10/16 04/10/16 17:40 19:20 Temp 98.5 Pulse 101 100 Resp 20 18 B/P 124/80 Pulse Ox 98 99 Blood Pressure Mean: 95 Point of Care Testing Urine -Bedside: Positive Departure Communication Progress Notes Laboratory findings discussed with the patient. Patient is noted to have a beta hCG that is trending upward. This was discussed with the patient. Ultrasound on Monday did show an intrauterine most likely consistent with a blighted ovum as it had not shown much growth since 04/01/16. Patient is scheduled to see Dr. Dyson on Monday. I Have instructed patient that we'll have her follow-up on Monday with Dr. Dyson as previously scheduled for repeat blood work and scheduling outpatient repeat ultrasound. Patient reports cramping is subsiding. All return precautions were discussed with the patient as described in the discharge instructions of this report. Patient voices understanding and agrees with the treatment plan. Patient case discussed with Dr. Lee, he agrees with the plan of care. Impression Impression: Primary Impression: Threatened miscarriage in early Additional Impression: Urinary tract infection Disposition: 01 HOME, SELF-CARE Condition: Improved Departure-Patient Inst. Decision time for Depature: 19:13 Referrals: AC DYSON MD (PCP/Family) Primary Care Physician Patient Instructions: Threatened Miscarriage (DC) Add. Discharge Instructions: All discharge instructions reviewed with patient and/or family. Voiced understanding. medications as instructed. Tylenol [id number]-ulnlgta as directed for pain if needed. Push fluids. No intercourse, tampons, or strenuous activity until released by Dr. Dyson. Follow-up with Dr. Dyson Monday as previously scheduled. Return to the emergency department for worsened pain, vaginal bleeding with greater than 2 pads per hour for greater than 2 hours, fever, inability to urinate, or any other concerns. Scripts Cephalexin 500 Mg [id number] Mg PO TID #15 CAP Ref 0 Prov:WILLI QUINONES 04/10/16 WILLI QUINONES Apr 10, 2016 18:33
[2016-04-10] MEDS ORDERED: CEPH500C PO (19:15)
[2016-04-10 19:20] VITALS: BP 114/82
== END 2016-04-10 19:20 | disposition home or self-care (01) ==
LOC: EDUNIT# 17:31 → ER 17:33
DX: O20.0 Threatened abortion (principal); O23.41 Unspecified infection of urinary tract in pregnancy, first trimester; Z3A.01 Less than 8 weeks gestation of pregnancy
CPT/HCPCS: 36415; 81000; 84702; 84703; 87088; 99283

== ENCOUNTER 2016-04-11 18:57 | Emergency (ER) | payer OTHER ==
[~2016-04-11] VITALS: Ht 154.9 cm; Wt 59.0 kg
[~2016-04-11 18:57] MED LIST changes: +CEPH500C PO
--- OUTSIDE RECORDS SUMMARY | 2016-04-11 19:02 | XMS REPORT | Continuity of Care Document ---
Author Author [facility] Organization [facility] Address Unknown Phone Unavailable Care Team Providers Care Shucker Name Role Phone NO, LOCAL PHYSICIAN PCP Unavailable Insurance Providers Payer Name Policy Number Subscriber Name Relationship Self Pay Approved Full Jenniffer [id number] Peyton Garner Lydia 18 Self / Same As Patient Advance Directives Directive Response Recorded Date/Time Advance Directives No 10/08/15 6:08pm Health Care Power of Reformatory Attendant No 10/08/15 6:08pm Organ Donor Yes 10/08/15 [...] all antibiotics as prescribed. You can call [facility] at [phone] to make an appointment with one of our addictions counselors regarding your substance abuse. Return to The Hospital For: fever, blood in urine Discharge Diet: No Restrictions Activity as Tolerated: Yes Care Plan Patient Instructions:: Please take all antibiotics as prescribed. [facility] at [phone] to make an appointment with oneof our [...] - 99.5) 10/09/2015 10:00am Temperature (Calculated Celsius) 36.77302 degrees C (36.4 - 37.5) 10/09/2015 10:00am [...] 1.00 inches 10/08/2015 6:14pm Height (Calculated Centimeters) 154.792403 cm 10/08/2015 6:14pm Weight (Pounds) 123 pounds 10/08/2015 6:29pm Weight (Ounces) 0.0 oz 10/08/2015 6:29pm Weight (Calculated Grams) 75337.862 gm 10/08/2015 6:29pm Weight (Calculated Kilograms) 55.998906 kilograms 10/08/2015 6:29pm Calculated BMI 23.2 10/08/2015 [...] Discharge/Depart Date Attending Provider Discharged Inpatient [facility] 10/08/15 5:53pm 1:10pm ZOILA RIVERO MD Departed Emergency Room [facility] 09/22/15 2:05pm 09/21 3:22pm MICHELLE BYERS MD Departed Emergency Room [facility] 09/19/15 6:04pm 09/18 7:26pm TYESHA PAEZ DO Departed Emergency Room [facility] 09/17/15 6:07pm 09/16 8:23pm MICHELLE BYERS MD Recent Diagnosis Sinusitis, acute maxillary Urinary tract infection Volume depletion
--- NOTE | 2016-04-11 19:33 | ED GU-Female ---
General Chief Complaint: -Female Stated Complaint: VAGINAL BLEEDING Nursing Triage Note: patient reports vaginal bleeding continues and has used 10 pads today Nursing Sepsis Screen: No Definite Risk Source: patient, old records History of Present Illness Time seen by provider: 19:20 Initial Comments PT C/O PERSISTENT VAGINAL BLEEDING WITH CLOTS SINCE 04/01/16--STATES SHE HAS GONE THROUGH 10 PADS TODAY C/O LOWER BACK AND LOWER ABDOMINAL CRAMPING PT IS APPROXIMATELY 6 WEEKS --LMP 03/15/16 THIS IS 3RD VISIT TO ER SINCE 04/01/16 FOR THIS PROBLEM QUANT [facility] ON 04/01 WAS 3630 HAD OUTPT ULTRASOUND 04/08/16-UNCHANGED FROM ULTRASOUND DONE IN ER 04/01/16-- LIKELY BLIGHTED OVUM, PER RADIOLOGIST REPORT QUANT [facility] ON 04/11/16 WAS 5456 PT HAS APPOINTMENT TOMORROW AT [facility] WITH DR. DYSON BLOOD TYPE O+ PCP: [facility], DR. DYSON Allergies and Home Medications Allergies Coded Allergies: No Known Drug Allergies (Unverified , 02/24/16) Home Medications Cephalexin 500 Mg Capsule #15 500 MG PO TID Prescribed by: WILLI QUINONES on 04/10/161914 Constitutional: no symptoms reported Respiratory: no symptoms reported Cardiovascular: no symptoms reported Gastrointestinal: see HPI Genitourinary: see HPI : Yes LMP: Mar 15, 2016 Musculoskeletal: see HPI back pain Skin: no symptoms reported Psychiatric/Neurological: No Symptoms Reported Endocrine: No Symptoms Reported Hematologic/Lymphatic: See HPI Past Hvoapnv-Gwvqsj-Qiuxnc Hx Patient Social History Alcohol Use: Rarely Uses Recreational Drug Use: Yes (EXTENSIVE DRUG USE, INCLUDING METH) Drug of Choice: METH Smoking Status: Former Smoker Recent Foreign Travel: No Contact w/Someone Who Travel: No Recent Infectious Disease Expo: No Recent Hopitalizations: No Immunizations Up To Date Tetanus Booster (TDap): More than 5yrs PED Vaccines UTD: Yes Seasonal Allergies Seasonal Allergies: No Surgeries HX Surgeries: Yes (EGD) Respiratory Hx Respiratory Disorders: No Cardiovascular Hx Cardiac Disorders: No Neurological Hx Neurological Disorders: No Reproductive System : Yes Hx Reproductive Disorders: No Sexually Transmitted Disease: No HIV/AIDS: No Female Reproductive Disorders: Denies Genitourinary Hx Genitourinary Disorders: No Gastrointestinal Hx Gastrointestinal Disorders: Yes (GASTRITIS, DUODENITIS) Gastrointestinal Disorders: Gastroesophageal Reflux, Esophagitis Musculoskeletal Hx Musculoskeletal Disorders: No Endocrine Hx Endocrine Disorders: No HEENT HX ENT Disorders: No Cancer Hx Cancer: No Psychosocial Hx Psychiatric Problems: Yes Behavioral Health Disorders: Anxiety Integumentary HX Skin/Integumentary Disorder: No Blood Transfusions Hx Blood Disorders: No Family Medical History Significant Family History: No Pertinent Family Hx Family Medial History: Arthritis G8 SISTER Hypertension 19 MOTHER Seizure disorder 19 MOTHER Physical Exam Vital Signs Vital Sign - Last 12Hours 04/11/16 19:10 Temp 98.4 Pulse 130 Resp 18 B/P 145/100 Capillary Refill : Less Than 3 Seconds General Appearance: WD/WN no apparent distress Cardiovascular: regular rate, rhythm no murmur Respiratory: normal breath sounds no respiratory distress no accessory muscle use Gastrointestinal: normal bowel sounds soft tenderness (MILD SUPRAPUBIC TENDERNESS) Pelvic: vaginal bleeding (MODERATE AMOUNT OF BLEEDING WITH TISSUE / PRODUCTS OF CONCEPTION AT CERVICAL OS. NO CLOTS NOTED AT THIS TIME) Back: no CVA tenderness Extremities: normal inspection no pedal edema normal capillary refill Neurologic/Psychiatric: no motor/sensory deficits alert normal mood/affect oriented x 3 Skin: normal color warm/dry Progress/Results/Core Measures Results/Orders Lab Results Laboratory Tests Test 04/11/16 19:31 Range/Units Hematocrit 31 L 35-52 % Hemoglobin 10.2 L 11.5-16.0 G/DL Human Chorionic Gonadotropin, Quant 3188 H <5 MIU/ML Mean Corpuscular Hemoglobin 30 25-34 PG Mean Corpuscular Hemoglobin Concent 33 32-36 G/DL Mean Corpuscular Volume 89 80-99 FL Mean Platelet Volume 9.6 7.4-10.4 FL Platelet Count 268 130-400 10^3/uL Red Blood Count 3.45 L 4.35-5.85 10^6/uL Red Cell Distribution Width 14.5 10.0-14.5 % White Blood Count 7.8 4.3-11.0 10^3/uL My Orders Orders-TYESHA PAEZ DO Cbc No Diff (04/11/16 19:20) Hcg,Quantitative (04/11/16 19:20) Vital Signs/I&O Vital Sign - Last 12Hours 04/11/16 19:10 Temp 98.4 Pulse 130 Resp 18 B/P 145/100 Blood Pressure Mean: 115 Progress Note : Progress Note PT DID NOT GO THROUGH MORE THAN 1 PAD DURING ER STAY, AND NO C/O PAIN DURING ER STAY Departure Communication Progress Notes 1950--SPOKE WITH DR. MONTIEL, PT IS TO KEEP HER APPOINTMENT WITH DR. DYSON TOMORROW AND THEY WILL RECHECK LAB TOMORROW Impression Impression: Primary Impression: Incomplete spontaneous Additional Impression: MILD BLOOD LOSS ANEMIA Disposition: HOME, SELF-CARE Condition: Stable Departure-Patient Inst. Referrals: AC DYSON MD (PCP/Family) Primary Care Physician Patient Instructions: Dealing With Miscarriage, Miscarriage (DC) Add. Discharge Instructions: KEEP AN ACCURATE PAD COUNT LOTS OF FLUIDS-DRINK ENOUGH SO YOU ARE URINATING EVERY 2 HOURS WHILE AWAKE IBUPROFEN 800 MG AND TYLENOL 1 GRAM EVERY 6 HOURS NEEDED FOR PAIN CONTINUE VITAMIN EVERY DAY TAKE ADDITIONAL IRON TABLET DAILY NOTHING IN VAGINA--NO TAMPONS, DOUCHING OR INTERCOURSE KEEP YOUR APPOINTMENT WITH DR DYSON TOMORROW SCHEDULED All discharge instructions reviewed with patient and/or family. Voiced understanding. TYESHA PAEZ DO Apr 11, 2016 19:33
[2016-04-11 19:40] LABS: MEAN PLATELET VOLUME 9.6 FL (7.4-10.4); RED BLOOD COUNT 3.45 10^6/uL (4.35-5.85); RED CELL DISTRIBUTION WIDTH 14.5 % (10.0-14.5); WHITE BLOOD COUNT 7.8 10^3/uL (4.3-11.0)
[2016-04-11 20:37] VITALS: BP 138/94
== END 2016-04-11 20:37 | disposition home or self-care (01) ==
LOC: EDUNIT# 18:57 → ER 18:58
DX: O03.4 Incomplete spontaneous abortion without complication (principal); Z3A.01 Less than 8 weeks gestation of pregnancy
CPT/HCPCS: 36415; 84702; 85027; 99282

== ENCOUNTER 2017-07-04 20:35 | Emergency (ER) | payer SELFPAY ==
[~2017-07-04] VITALS: Ht 154.9 cm; Wt 54.4 kg
--- OUTSIDE RECORDS SUMMARY | 2017-07-04 20:40 | XMS REPORT ---
Author Author GIBSON PARRA Organization [facility] Address [address] [place] [address] Care Team Providers Care Diving Board Assembler Name Role Phone GIBSON PARRA Unavailable PROBLEMS Type Condition ICD9-CM Code [id number] Code Onset Dates Condition Status SNOMED Code Problem Anxiety F41.9 Active 22538968 Problem Methamphetamine abuse F15.10 Active 040965497 Problem Alcohol abuse F10.10 Active 68664465 Problem Drug use F19.90 Active 86796706 ALLERGIES No Known Allergies SOCIAL HISTORY No smoking Hx information available PLAN OF CARE VITAL SIGNS MEDICATIONS No Known Medications RESULTS Name Result Date Reference Range TEST, URINE (IN HOUSE) 2016-03-21 RESULTS Positive Lot # [id number] Control + Exp date 05/2017 PROCEDURES Procedure Date Ordered Related Diagnosis Body Site URINE TEST Mar 21, 2016 IMMUNIZATIONS No Known Immunizations
--- OUTSIDE RECORDS SUMMARY | 2017-07-04 20:40 | XMS REPORT ---
Author Author AC DYSON [facility] Address [address] [place] [address] Care Team Providers Care Temporary Help Agency Referral Clerk Name Role Phone AC DYSON Unavailable PROBLEMS Type Condition ICD9-CM Code [id number] Code Onset Dates Condition Status SNOMED Code Problem Anxiety F41.9 Active 75234641 Problem Methamphetamine abuse F15.10 Active 977550444 Problem Alcohol abuse F10.10 Active 62047298 Problem Drug use F19.90 Active 44521666 ALLERGIES No Information SOCIAL HISTORY Never Assessed PLAN OF CARE VITAL SIGNS MEDICATIONS No Known Medications RESULTS Name Result Date Reference Range HCG, QUANTITATIVE 2016-04-08 hCG,Beta Subunit,Qnt,Serum 6168 PROCEDURES Procedure Date Ordered Result Body Site CHORIONIC GONADOTROPIN TEST Apr 08, 2016 VENIPUNCT, ROUTINE* Apr 08, 2016 IMMUNIZATIONS No Known Immunizations MEDICAL (GENERAL) HISTORY Type Description Date Medical History gastritis-alcoholic Surgical History bronchoscopy -acid reflux Hospitalization History UTI, Sepsis. Methamphetamine Use 09/2015
--- OUTSIDE RECORDS SUMMARY | 2017-07-04 20:40 | XMS REPORT ---
Author Author AC DYSON [facility] Address [address] [place] [address] Care Team Providers Care Fourth Officer Name Role Phone AC DYSON Unavailable PROBLEMS Type Condition ICD9-CM Code [id number] Code Onset Dates Condition Status SNOMED Code Problem Anxiety F41.9 Active 92524171 Problem Methamphetamine abuse F15.10 Active 166290940 Problem Alcohol abuse F10.10 Active 27972614 Problem Drug use F19.90 Active 03515687 ALLERGIES Substance Reaction Event Type Date Status N.K.D.A. Unknown Non Drug Allergy Mar, Unknown SOCIAL HISTORY No smoking Hx information available PLAN OF CARE VITAL SIGNS MEDICATIONS No Known Medications RESULTS No Results PROCEDURES No Known procedures IMMUNIZATIONS No Known Immunizations
--- OUTSIDE RECORDS SUMMARY | 2017-07-04 20:40 | XMS REPORT ---
Author Author JOSE MONTIEL [facility] Address [address] [place] [address] Care Team Providers Care Space Officer Name Role Phone JOSE MONTIEL Unavailable PROBLEMS Type Condition ICD9-CM Code BAO25-OG Code Onset Dates Condition Status SNOMED Code Problem Anxiety F41.9 Active 18945245 Problem Methamphetamine abuse F15.10 Active 602908123 Problem Alcohol abuse F10.10 Active 02565068 Problem Drug use F19.90 Active 53108869 ALLERGIES No Information SOCIAL HISTORY Never Assessed PLAN OF CARE VITAL SIGNS Height 61 in 2016-04-08 Weight 130.9 lbs 2016-04-08 BMI 24.73 kg/m2 2016-04-08 MEDICATIONS No Known Medications RESULTS No Results PROCEDURES No Known procedures IMMUNIZATIONS No Known Immunizations MEDICAL (GENERAL) HISTORY Type Description Date Medical History gastritis-alcoholic Surgical History bronchoscopy -acid reflux Hospitalization History UTI, Sepsis. Methamphetamine Use 09/2015
--- OUTSIDE RECORDS SUMMARY | 2017-07-04 20:41 | XMS REPORT ---
Author Author GIBSON PARRA Organization [facility] Address [address] [place] [address] Care Team Providers Care Fire Official Name Role Phone NATHAN PARRANETTE Unavailable PROBLEMS Type Condition ICD9-CM Code XOL45-[id number] Code Onset Dates Condition Status SNOMED Code Problem Acute cystitis without hematuria N30.00 Active 11663329 Problem Drug use F19.90 Active 46540381 Problem Alcohol abuse F10.10 Active 89702865 Assessment Acute cystitis without hematuria N30.00 Oct, Active 87756965 ALLERGIES Substance Reaction Event Type Date Status N.K.D.A. Unknown Non Drug Allergy Oct, Unknown SOCIAL HISTORY No smoking Hx information available PLAN OF CARE VITAL SIGNS Height 61 in 2015-10-16 Weight 121 lbs 2015-10-16 Heart Rate 90 bpm 2015-10-16 Respiratory Rate 16 2015-10-16 BMI 22.86 kg/m2 2015-10-16 Blood pressure systolic 120 mmHg 2015-10-16 Blood pressure diastolic 70 mmHg 2015-10-16 MEDICATIONS Medication Instructions Dosage Frequency Start Date End Date Duration Status Cipro 500 MG Orally Twice a day 1 tablet 12h Active RESULTS No Results PROCEDURES Procedure Date Ordered Related Diagnosis Body Site Office Visit, Est Pt., Level 4 Oct 16, 2015 IMMUNIZATIONS No Known Immunizations
--- OUTSIDE RECORDS SUMMARY | 2017-07-04 20:41 | XMS REPORT ---
Author Author AC DYSON [facility] Address [address] [place] [address] Care Team Providers Care Senior Analyst Developer Name Role Phone AC DYSON Unavailable PROBLEMS Type Condition ICD9-CM Code LCG70-ZW Code Onset Dates Condition Status SNOMED Code Problem Anxiety F41.9 Active 66593335 Problem Methamphetamine abuse F15.10 Active 227810701 Problem Alcohol abuse F10.10 Active 57184811 Problem Drug use F19.90 Active 32225889 ALLERGIES No Information SOCIAL HISTORY Never Assessed PLAN OF CARE VITAL SIGNS MEDICATIONS No Known Medications RESULTS No Results PROCEDURES No Known procedures IMMUNIZATIONS No Known Immunizations MEDICAL (GENERAL) HISTORY Type Description Date Medical History gastritis-alcoholic Surgical History bronchoscopy -acid reflux Hospitalization History UTI, Sepsis. Methamphetamine Use 09/2015
--- OUTSIDE RECORDS SUMMARY | 2017-07-04 20:41 | XMS REPORT ---
Author Author AC DYSON [facility] Address [address] [place] [address] Care Team Providers Care Stick Inserter Name Role Phone AC DYSON Unavailable PROBLEMS Type Condition ICD9-CM Code DWK02-JE Code Onset Dates Condition Status SNOMED Code Problem Anxiety F41.9 Active 63057162 Problem Methamphetamine abuse F15.10 Active 520637160 Problem Alcohol abuse F10.10 Active 67709036 Problem Drug use F19.90 Active 98090890 ALLERGIES No Information SOCIAL HISTORY Never Assessed PLAN OF CARE VITAL SIGNS MEDICATIONS No Known Medications RESULTS Name Result Date Reference Range HCG, QUANTITATIVE 2016-04-04 hCG,Beta Subunit,Qnt,Serum 5562 PROCEDURES Procedure Date Ordered Result Body Site CHORIONIC GONADOTROPIN TEST Apr 04, 2016 VENIPUNCT, ROUTINE* Apr 04, 2016 IMMUNIZATIONS No Known Immunizations MEDICAL (GENERAL) HISTORY Type Description Date Medical History gastritis-alcoholic Surgical History bronchoscopy -acid reflux Hospitalization History UTI, Sepsis. Methamphetamine Use 09/2015
--- OUTSIDE RECORDS SUMMARY | 2017-07-04 20:41 | XMS REPORT ---
Author Author SHOLA ESCALERA Organization [facility] Address [address] [place] [address] Care Team Providers Care Biometrics Experimentalist Name Role Phone ESCALERADONNASHOLA Unavailable PROBLEMS Type Condition ICD9-CM Code ATT25-DH Code Onset Dates Condition Status SNOMED Code Problem Acute cystitis without hematuria N30.00 Active 23466400 Problem Drug use F19.90 Active 69871317 Assessment Vaginal lesion N89.8 13 Oct, 2015 Active 382607626 Problem Alcohol abuse F10.10 Active 91494526 Assessment Screening for STD (sexually transmitted disease) Z11.3 Oct Active 696042328 ALLERGIES Substance Reaction Event Type Date Status N.K.D.A. Unknown Non Drug Allergy Oct, Unknown SOCIAL HISTORY No smoking Hx information available PLAN OF CARE VITAL SIGNS Height 61 in 2015-10-27 Weight 118.6 lbs 2015-10-27 Heart Rate 68 bpm 2015-10-27 Respiratory Rate 18 2015-10-27 BMI 22.41 kg/m2 2015-10-27 Blood pressure systolic 104 mmHg 2015-10-27 Blood pressure diastolic 66 mmHg 2015-10-27 MEDICATIONS Medication Instructions Dosage Frequency Start Date End Date Duration Status Bactrim 400-80 MG Orally Once a day 2 tablets 24h Active RESULTS Name Result Date Reference Range TRICHOMONAS (IN HOUSE) 2015-10-27 TRICHOMONAS Negative Control + Lot # [id number] Exp date BACTERIAL VAGINOSIS (IN HOUSE) 2015-10-27 RESULTS Negative Control + Lot # [id number] Exp date CULTURE, VIRAL (HSV W/ TYPING) 2015-10-27 HSV Culture/Type CULTURE, GENITAL 2015-10-27 Genital Culture, Routine Final report Result 1 GC/CHLAM PROBE (STATE) 2015-10-27 CHLAMYDIA GC PROCEDURES Procedure Date Ordered Related Diagnosis Body Site CULTURE, BACTERIA, OTHER Oct 27, 2015 DESIREE VIRUS ISOLATE, HSV Oct 27, 2015 [facility] VAG, DNA, DIR PROBE Oct 27, 2015 No Charge Oct 27, 2015 Office Visit, Est Pt., Level 3 Oct 27, 2015 TRICHOMONAS ASSAY W/OPTIC Oct 27, 2015 IMMUNIZATIONS No Known Immunizations
--- OUTSIDE RECORDS SUMMARY | 2017-07-04 20:42 | XMS REPORT ---
Author Author JOSE MONTIEL Organization [facility] Address [address] [place] [address] Care Team Providers Care Drug Abuse Counselor Name Role Phone JOSE MONTIEL Unavailable PROBLEMS Type Condition ICD9-CM Code RPP64-VS Code Onset Dates Condition Status SNOMED Code Problem Anxiety F41.9 Active 60918856 Problem Methamphetamine abuse F15.10 Active 849109552 Problem Alcohol abuse F10.10 Active 54948594 Problem Drug use F19.90 Active 98695092 ALLERGIES No Known Allergies SOCIAL HISTORY Never Assessed PLAN OF CARE Activity Details Follow Up call when decided regarding control, prn Reason: VITAL SIGNS Height 61 in 2016-04-19 Weight 128.4 lbs 2016-04-19 Temperature 99.9 degrees Fahrenheit 2016-04-19 Heart Rate 76 bpm 2016-04-19 Respiratory Rate 18 2016-04-19 BMI 24.26 kg/m2 2016-04-19 Blood pressure systolic 116 mmHg 2016-04-19 Blood pressure diastolic 76 mmHg 2016-04-19 MEDICATIONS No Known Medications RESULTS Name Result Date Reference Range HCG, QUANTITATIVE 2016-04-19 hCG,Beta Subunit,Qnt,Serum 117 PROCEDURES Procedure Date Ordered Result Body Site CHORIONIC GONADOTROPIN TEST April 19, 2016 VENIPUNCT, ROUTINE* April 19, 2016 IMMUNIZATIONS No Known Immunizations MEDICAL (GENERAL) HISTORY Type Description Date Medical History gastritis-alcoholic Surgical History bronchoscopy -acid reflux Hospitalization History UTI, Sepsis. Methamphetamine Use 09/2015
--- OUTSIDE RECORDS SUMMARY | 2017-07-04 20:42 | XMS REPORT ---
Author Author AC DYSON [facility] Address [address] [place] [address] Care Team Providers Care Compliance Assistant Name Role Phone AC DYSON Unavailable PROBLEMS Type Condition ICD9-CM Code XZJ06-GS Code Onset Dates Condition Status SNOMED Code Problem Anxiety F41.9 Active 07823201 Problem Methamphetamine abuse F15.10 Active 177973271 Problem Alcohol abuse F10.10 Active 19848735 Problem Drug use F19.90 Active 37215380 ALLERGIES No Information SOCIAL HISTORY Never Assessed PLAN OF CARE VITAL SIGNS MEDICATIONS No Known Medications RESULTS No Results PROCEDURES No Known procedures IMMUNIZATIONS No Known Immunizations MEDICAL (GENERAL) HISTORY Type Description Date Medical History gastritis-alcoholic Surgical History bronchoscopy -acid reflux Hospitalization History UTI, Sepsis. Methamphetamine Use 09/2015
--- OUTSIDE RECORDS SUMMARY | 2017-07-04 20:43 | XMS REPORT ---
Author Author ZOILA RIVERO Organization [employer] Address Unknown Phone Unavailable Care Team Providers Care Beam Dyer Recessed Vat Name Role Phone ZOILA RIVERO CP Unavailable Allergies No Known Allergies Problems No Known Problems Medications No Known Medications Results No Known Results Summary Purpose [employer] Submission
--- OUTSIDE RECORDS SUMMARY | 2017-07-04 20:43 | XMS REPORT ---
Author GIBSON Rabago Organization [employer] Address Unknown Phone Unavailable Care Team Providers Care Door Maker Name Role Phone GIBSON PARRA CP Unavailable Allergies No Known Allergies Problems No Known Problems Medications Medication Code System Code Instructions Start Date End Date Status [facility]os[facility] [address]-39 500 MG Orally Twice a day for 7 days 1 tablet Results No Known Results Summary Purpose [employer] Submission
--- OUTSIDE RECORDS SUMMARY | 2017-07-04 20:43 | XMS REPORT ---
Author GIBSON Rabago Organization [employer] Address Unknown Phone Unavailable Care Team Providers Care Vegetable Handler Name Role Phone NATHAN PARRANETTE CP Unavailable Allergies, Adverse Reactions, Alerts Substance Reaction Event Type N.K.D.A. Info Not Available Non Drug Allergy Problems Problem Type Condition Code Onset Dates Condition Status Assessment Methamphetamine abuse F15.10 Active Problem Alcohol abuse F10.10 Active Assessment Anxiety F41.9 Active Problem Methamphetamine abuse F15.10 Active Problem Acute upper respiratory infection, unspecified J06.9 Active Problem Anxiety F41.9 Active Problem Acute cystitis without hematuria N30.00 Active Problem Drug use F19.90 Active Problem Other viral agents as the cause of diseases classified elsewhere B97.89 Active Problem Palpitations R00.2 Active Assessment Palpitations R00.2 Active Assessment Other viral agents as the cause of diseases classified elsewhere B97.89 Active Assessment Acute upper respiratory infection, unspecified J06.9 Active Medications Medication Code System Code Instructions Start Date End Date Status Dosage Zyrtec Allergy [facility] [address]-96 10 mg Orally Once a day Dec 31, 2015 Jan 30, 2016 1 tablet Procedures Procedure Coding System Code Date STREP A ASSAY W/OPTIC CPT-4 41315 Dec 31, 2015 Office Visit, Est Pt., Level 4 CPT-4 94551 Dec 31, 2015 ELECTROCARDIOGRAM, TRACING CPT-4 39965 Dec 31, 2015 Vital Signs Date/Time: Dec 31, 2015 Cardiac Monitoring Heart Rate 100 bpm Weight 123.5 lbs Height 61 in BMI 23.33 Index Blood Pressure Diastolic 84 mmHg Blood Pressure Systolic 136 mmHg Results Name Result Date Reference Range Unit Abnormality Flag STREP A (IN HOUSE) ----STREP A negative [id number] ----Control + [id number] ----Lot # [id number] ----Exp date 07/20/201720151231 EKG, TRACING (IN-HOUSE) Summary Purpose [employer] Submission
--- OUTSIDE RECORDS SUMMARY | 2017-07-04 20:43 | XMS REPORT ---
Author Author SHOLA ESCALERA [facility] Address [address] [place] [address] Care Team Providers Care Cable Inspector Name Role Phone SHOLA ESCALERA Unavailable PROBLEMS Type Condition ICD9-CM Code RJD60-PN Code Onset Dates Condition Status SNOMED Code Problem Acute cystitis without hematuria N30.00 Active 63716654 Problem Drug use F19.90 Active 39003406 Problem Alcohol abuse F10.10 Active 54363871 ALLERGIES Unknown Allergies SOCIAL HISTORY No smoking Hx information available PLAN OF CARE VITAL SIGNS MEDICATIONS Medication Instructions Dosage Frequency Start Date End Date Duration Status Acyclovir 200 MG Orally Five times a day 1 capsule Oct, 10 day(s) Active RESULTS No Results PROCEDURES No Known procedures IMMUNIZATIONS No Known Immunizations
--- OUTSIDE RECORDS SUMMARY | 2017-07-04 20:43 | XMS REPORT ---
Author Author AC DYSON [facility] Address [address] [place] [address] Care Team Providers Care Fly Worker Name Role Phone AC DYSON Unavailable PROBLEMS Type Condition ICD9-CM Code FWI05-ZK Code Onset Dates Condition Status SNOMED Code Problem Anxiety F41.9 Active 01911635 Problem Methamphetamine abuse F15.10 Active 331470182 Problem Alcohol abuse F10.10 Active 41918741 Problem Drug use F19.90 Active 75188586 ALLERGIES No Information SOCIAL HISTORY Never Assessed PLAN OF CARE VITAL SIGNS MEDICATIONS No Known Medications RESULTS Name Result Date Reference Range Ultrasound : OB, Early <14 WEEKS 2016-04-08 PROCEDURES No Known procedures IMMUNIZATIONS No Known Immunizations MEDICAL (GENERAL) HISTORY Type Description Date Medical History gastritis-alcoholic Surgical History bronchoscopy -acid reflux Hospitalization History UTI, Sepsis. Methamphetamine Use 09/2015
--- OUTSIDE RECORDS SUMMARY | 2017-07-04 20:44 | XMS REPORT | Continuity of Care Document ---
Author Author [facility] Organization [facility] Address Unknown Phone Unavailable Allergies Active Description Code Type Severity Reaction Onset Reported/Identified Relationship to Patient Clinical Status Yes ENVIRONMENTAL ENVIRONMENTAL Unknown N/A 06/24/2015 Yes No Known Drug Allergies [id number] Drug Allergy Unknown N/A 02/24/2016 Medications There is no data. Problems Date Dx Coded Attending Type Code Diagnosis Diagnosed By 06/24/2015 WILLI RILEY Ot E86.9 VOLUME DEPLETION, UNSPECIFIED 06/24/2015 WILLI RILEY Ot M79.602 PAIN IN LEFT ARM 06/24/2015 WILLI RILEY Ot R07.89 OTHER CHEST PAIN 06/25/2015 WILLI RILEY Ot E86.9 VOLUME DEPLETION, UNSPECIFIED 06/25/2015 WILLI RILEY Ot M79.602 PAIN IN LEFT ARM 06/25/2015 WILLI RILEY Ot R07.89 OTHER CHEST PAIN 06/29/2015 MICHELLE BYERS MD Ot J01.00 ACUTE MAXILLARY SINUSITIS, UNSPECIFIED 06/29/2015 MICHELLE BYERS MD Ot K04.7 PERIAPICAL ABSCESS WITHOUT SINUS 06/30/2015 MICHELLE BYERS MD Ot J01.00 ACUTE MAXILLARY SINUSITIS, UNSPECIFIED 06/30/2015 MICHELLE BYERS MD Ot K04.7 PERIAPICAL ABSCESS WITHOUT SINUS 07/02/2015 WILLI RILEY Ot F41.9 ANXIETY DISORDER, UNSPECIFIED 07/02/2015 WILLI RILEY Ot K21.9 GASTRO-ESOPHAGEAL REFLUX DISEASE WITHOUT 07/03/2015 WILLI RILEY Ot F41.9 ANXIETY DISORDER, UNSPECIFIED 07/03/2015 WILLI RILEY Ot K21.9 GASTRO-ESOPHAGEAL REFLUX DISEASE WITHOUT 07/24/2015 WILLI RILEY Ot F41.9 ANXIETY DISORDER, UNSPECIFIED 07/24/2015 WILLI RILEY Ot K21.9 GASTRO-ESOPHAGEAL REFLUX DISEASE WITHOUT 08/06/2015 MICHELLE BYERS MD Ot J01.00 ACUTE MAXILLARY SINUSITIS, UNSPECIFIED 08/06/2015 MICHELLE BYERS MD Ot K04.7 PERIAPICAL ABSCESS WITHOUT SINUS 08/22/2015 DILLON DOANN MARIETT D Ot K21.9 GASTRO-ESOPHAGEAL REFLUX DISEASE WITHOUT 08/22/2015 DILLON DO, FRANCK D Ot R10.13 EPIGASTRIC PAIN 08/22/2015 DILLON DO, FRANCK D Ot Z01.818 ENCOUNTER FOR OTHER PREPROCEDURAL EXAMIN 08/22/2015 LU STUART MD Ot K21.9 GASTRO-ESOPHAGEAL REFLUX DISEASE WITHOUT 08/22/2015 DILLON DO, RFANCK D Ot K21.9 GASTRO-ESOPHAGEAL REFLUX DISEASE WITHOUT 08/22/2015 DILLON DO, FRANCK D Ot R10.13 EPIGASTRIC PAIN 08/22/2015 DILLON DOANN MARIETT D Ot Z01.818 ENCOUNTER FOR OTHER PREPROCEDURAL EXAMIN 08/24/2015 LU STUART MD Ot K21.9 GASTRO-ESOPHAGEAL REFLUX DISEASE WITHOUT 08/25/2015 DILLON DOANN MARIETT D Ot K29.70 GASTRITIS, UNSPECIFIED, WITHOUT BLEEDING 08/25/2015 ANN MARIE DILLON DOTT D Ot K29.80 DUODENITIS WITHOUT BLEEDING 09/17/2015 MICHELLE BYERS MD Ot M79.602 PAIN IN LEFT ARM 09/17/2015 MICHELLE BYERS MD Ot R07.89 OTHER CHEST PAIN 09/17/2015 MICHELLE BYERS MD Ot R07.9 CHEST PAIN, UNSPECIFIED 09/18/2015 MICHELLE BYERS MD Ot M79.602 PAIN IN LEFT ARM 09/18/2015 MICHELLE BYERS MD Ot R07.89 OTHER CHEST PAIN 09/18/2015 MICHELLE BYERS MD Ot R07.9 CHEST PAIN, UNSPECIFIED 09/19/2015 PHILIPPE DO TYESHA K Ot K21.9 GASTRO-ESOPHAGEAL REFLUX DISEASE WITHOUT 09/19/2015 PHILIPPE DO TYESHA K Ot K29.70 GASTRITIS, UNSPECIFIED, WITHOUT BLEEDING 09/19/2015 PHILIPPE DO TYESHA K Ot R07.9 CHEST PAIN, UNSPECIFIED 09/21/2015 TYESHA PAEZ DO Ot K21.9 GASTRO-ESOPHAGEAL REFLUX DISEASE WITHOUT 09/21/2015 TYESHA PAEZ DO Ot K29.70 GASTRITIS, UNSPECIFIED, WITHOUT BLEEDING 09/21/2015 PHILIPPETYESHA Hickman DO Ot R07.9 CHEST PAIN, UNSPECIFIED 09/22/2015 ZEESHAN VIRK, MICHELLE Corrigan Ot E86.0 DEHYDRATION 09/22/2015 ZEESHAN VIRK, MICHELLE Corrigan Ot F10.10 ALCOHOL ABUSE, UNCOMPLICATED 09/22/2015 ZEESHAN VIRK, MICHELLE Corrigan Ot F41.9 ANXIETY DISORDER, UNSPECIFIED 09/22/2015 ZEESHAN VIRK, MICHELLE Corrigan Ot R10.13 EPIGASTRIC PAIN 10/09/2015 FRANCK DILLON DO Ot K21.9 GASTRO-ESOPHAGEAL REFLUX DISEASE WITHOUT 10/09/2015 FRANCK DILLON DO Ot R10.13 EPIGASTRIC PAIN 10/09/2015 FRANCK DILLON DO Ot Z01.818 ENCOUNTER FOR OTHER PREPROCEDURAL EXAMIN 10/09/2015 ZOILA RIVAS MD Ot A41.9 SEPSIS, UNSPECIFIED ORGANISM 10/09/2015 ZOILA RIVAS MD Ot F15.90 OTHER STIMULANT USE, UNSPECIFIED, UNCOMP 10/09/2015 ZOILA RIVAS MD Ot K21.9 GASTRO-ESOPHAGEAL REFLUX DISEASE WITHOUT 10/09/2015 ZOILA RIVAS MD Ot N39.0 URINARY TRACT INFECTION, SITE NOT SPECIF 10/10/2015 NIESHA BADILLO MACHINED PARTS QUALITY INSPECTOR Ot F15.10 OTHER STIMULANT ABUSE, UNCOMPLICATED 10/10/2015 NIESHA BADILLO MACHINED [employer]S QUALITY INSPECTOR Ot F41.9 ANXIETY DISORDER, UNSPECIFIED 10/10/2015 NIESHA BADILLO MACHINED [employer]S QUALITY INSPECTOR Ot R53.1 WEAKNESS 10/18/2015 ANDRE VIRK, JAD Pickett Ot F10.10 ALCOHOL ABUSE, UNCOMPLICATED 10/18/2015 ANDRE VIRK, JAD Pickett Ot F15.10 OTHER STIMULANT ABUSE, UNCOMPLICATED 10/18/2015 ANDRE VIRK, JAD Pickett Ot F41.9 ANXIETY DISORDER, UNSPECIFIED 10/18/2015 ANDRE VIRK, JAD Pickett Ot R00.0 TACHYCARDIA, UNSPECIFIED 10/18/2015 ANDRE VIRK, JAD Pickett Ot R00.2 PALPITATIONS 11/06/2015 PHILIPPE MORENO, TYESHA K Ot N93.9 ABNORMAL UTERINE AND VAGINAL BLEEDING, U 11/07/2015 STACIE HAMMOND WILLI L Ot E87.6 HYPOKALEMIA 11/07/2015 WILLI RILEY Ot F10.129 ALCOHOL ABUSE WITH INTOXICATION, UNSPECI 11/07/2015 WILLI RILEY Ot R42 DIZZINESS AND GIDDINESS 11/09/2015 WILLI RILEY Ot E87.6 HYPOKALEMIA 11/09/2015 WILLI RILEY Ot F10.129 ALCOHOL ABUSE WITH INTOXICATION, UNSPECI 11/09/2015 WILLI RILEY Ot R42 DIZZINESS AND GIDDINESS 11/10/2015 ANISHA PAEZ DOA K Ot N93.9 ABNORMAL UTERINE AND VAGINAL BLEEDING, U 12/02/2015 WILLI RILEY Ot R07.81 PLEURODYNIA 12/02/2015 WILLI RILEY Ot Z76.5 MALINGERER [CONSCIOUS SIMULATION] 12/03/2015 WILLI RILEY Ot R07.81 PLEURODYNIA 12/03/2015 WILLI RILEY Ot Z76.5 MALINGERER [CONSCIOUS SIMULATION] 12/28/2015 NIESHA BADILLO APRN Ot D72.829 ELEVATED WHITE BLOOD CELL COUNT, UNSPECI 12/28/2015 NIESHA BADILLO APRN Ot F15.10 OTHER STIMULANT ABUSE, UNCOMPLICATED 12/28/2015 NIESHA BADILLO APRN Ot R06.02 SHORTNESS OF BREATH 12/28/2015 NIESHA BADILLO APRN Ot R07.89 OTHER CHEST PAIN 12/29/2015 NIESHA BADILLO APRN Ot D72.829 ELEVATED WHITE BLOOD CELL COUNT, UNSPECI 12/29/2015 NIESHA BADILLO APRN Ot F15.10 OTHER STIMULANT ABUSE, UNCOMPLICATED 12/29/2015 NIESHA BADILLO APRN Ot R06.02 SHORTNESS OF BREATH 12/29/2015 NIESHA BADILLO APRN Ot R07.89 OTHER CHEST PAIN 01/07/2016 NIESHA BADILLO APRN Ot D72.829 ELEVATED WHITE BLOOD CELL COUNT, UNSPECI 01/07/2016 NIESHA BADILLO APRN Ot F15.10 OTHER STIMULANT ABUSE, UNCOMPLICATED 01/07/2016 NIESHA BADILLO APRN Ot R06.02 SHORTNESS OF BREATH 01/07/2016 NIESHA BADILLO MACHINED PARTS QUALITY INSPECTOR Ot R07.89 OTHER CHEST PAIN 02/13/2016 NIESHA BADILLO MACH[employer]ED [employer]S QUALITY INSPECTOR Ot F41.1 GENERALIZED ANXIETY DISORDER 02/13/2016 NIESHA BADILLO MACHINED [employer]S QUALITY INSPECTOR Ot R51 HEADACHE 02/16/2016 NIESHA BADILLO MACHINED [employer]S QUALITY INSPECTOR Ot F41.1 GENERALIZED ANXIETY DISORDER 02/16/2016 NIESHA BADILLO MACHINED [employer]S QUALITY INSPECTOR Ot R51 HEADACHE 02/19/2016 NIESHA BADILLO MACHINED [employer]S QUALITY INSPECTOR Ot F41.1 GENERALIZED ANXIETY DISORDER 02/19/2016 NIESHA BADILLO MACHINED [employer]S QUALITY INSPECTOR Ot R51 HEADACHE 02/24/2016 ZEESHAN VIRK, MICHELLE Corrigan Ot M79.662 PAIN IN LEFT LOWER LEG 02/25/2016 ZEESHAN VIRK, MICHELLE Corrigan Ot M79.662 PAIN IN LEFT LOWER LEG 03/01/2016 ZEESHAN VIRK, MICHELLE Corrigan Ot M79.662 PAIN IN LEFT LOWER LEG 04/02/2016 PHILIPPE MORENO, TYESHA K Ot O20.0 THREATENED 04/02/2016 MARSHFIELD , TYESHA K Ot Z3A.01 LESS THAN 8 WEEKS GESTATION OF 04/04/2016 MARSHFIELD , TYESHA K Ot O20.0 THREATENED 04/04/2016 MARSHFIELD , TYESHA K Ot Z3A.01 LESS THAN 8 WEEKS GESTATION OF 04/07/2016 MARSHFIELD , TYESHA K Ot O20.0 THREATENED 04/07/2016 MARSHFIELD , TYESHA K Ot Z3A.01 LESS THAN 8 WEEKS GESTATION OF 04/10/2016 WILLI RILEY Ot O20.0 THREATENED 04/10/2016 WILLI RILEY Ot O23.41 UNSP INFCT OF URINARY TRACT IN 04/10/2016 WILLI RILEY Ot O46.91 ANTEPARTUM HEMORRHAGE, UNSPECIFIED, FIRS 04/10/2016 WILLI RILEY Ot Z3A.01 LESS THAN 8 WEEKS GESTATION OF 04/11/2016 ANISHA PAEZ DOA K Ot O03.4 INCOMPLETE SPONTANEOUS WITHOUT 04/11/2016 ANISHA PAEZ DOA K Ot O46.91 ANTEPARTUM HEMORRHAGE, UNSPECIFIED, FIRS 04/11/2016 PHILIPPE MORENO TYESHA K Ot Z3A.01 LESS THAN 8 WEEKS GESTATION OF 04/12/2016 WILLI RILEY Ot O20.0 THREATENED 04/12/2016 WILLI RILEY Ot O23.41 UNSP INFCT OF URINARY TRACT IN 04/12/2016 WILLI RILEY Ot O46.91 ANTEPARTUM HEMORRHAGE, UNSPECIFIED, FIRS 04/12/2016 WILLI RILEY Ot Z3A.01 LESS THAN 8 WEEKS GESTATION OF 04/13/2016 PHILIPPE DO, TYESHA K Ot O03.4 INCOMPLETE SPONTANEOUS WITHOUT 04/13/2016 PHILIPPE DO, TYESHA K Ot O46.91 ANTEPARTUM HEMORRHAGE, UNSPECIFIED, FIRS 04/13/2016 PHILIPPE DO, TYESHA K Ot Z3A.01 LESS THAN 8 WEEKS GESTATION OF 04/13/2016 KIEL VIRK, AC N Ot O20.0 THREATENED 04/14/2016 KIEL VIRK, AC N Ot O20.0 THREATENED 05/03/2016 KIEL VIRK, AC N Ot O20.0 THREATENED 05/03/2016 KIEL VIRK, AC N Ot O20.0 THREATENED 05/03/2016 KIEL VIRK, AC N Ot O20.0 THREATENED 05/04/2016 WILLI RILEY Ot E87.6 HYPOKALEMIA 05/04/2016 WILLI RILEY Ot F10.129 ALCOHOL ABUSE WITH INTOXICATION, UNSPECI 05/04/2016 WILLI RILEY Ot R42 DIZZINESS AND GIDDINESS 05/04/2016 ANISHA PAEZ DOA K Ot O20.0 THREATENED 05/04/2016 PHILIPPE DO TYESHA K Ot Z3A.01 LESS THAN 8 WEEKS GESTATION OF 05/04/2016 WILLI RILEY Ot O20.0 THREATENED 05/04/2016 WILLI RILEY Ot O23.41 UNSP INFCT OF URINARY TRACT IN 05/04/2016 WILLI RILEY Ot O46.91 ANTEPARTUM HEMORRHAGE, UNSPECIFIED, FIRS 05/04/2016 WILLI RILEY Ot Z3A.01 LESS THAN 8 WEEKS GESTATION OF 05/27/2016 NIESHA BADILLO APRN Ot F15.10 OTHER STIMULANT ABUSE, UNCOMPLICATED 05/27/2016 NIESHA BADILLO APRN Ot F41.9 ANXIETY DISORDER, UNSPECIFIED 05/27/2016 NIESHA BADILLO APRN Ot R53.1 WEAKNESS 05/27/2016 TYESHA PAEZ DO Ot N93.9 ABNORMAL UTERINE AND VAGINAL BLEEDING, U 06/10/2016 FRANCK DILLON DO Ot K21.9 GASTRO-ESOPHAGEAL REFLUX DISEASE WITHOUT 06/10/2016 FRANCK DILLON DO Ot R10.13 EPIGASTRIC PAIN 06/10/2016 FRANCK DILLON DO Ot Z01.818 ENCOUNTER FOR OTHER PREPROCEDURAL EXAMIN 06/10/2016 AC DYSON MD Ot O20.0 THREATENED 10/28/2016 AC DYSON MD Ot O20.0 THREATENED 11/10/2016 AC DYSON MD Ot O20.0 THREATENED 11/11/2016 AC DYSON MD Ot O20.0 THREATENED Procedures There is no data. Results Test Result Range Complete blood count (CBC) with automated white blood cell (WBC) differential - 09/17/15 18:50 Blood leukocytes automated count (number/volume) 8.6 10*3/uL 4.3-11.0 Blood erythrocytes automated count (number/volume) 4.71 10*6/uL 4.35-5.85 Venous blood hemoglobin measurement (mass/volume) 14.5 g/dL 11.5-16.0 Blood hematocrit (volume fraction) 44 % 35-52 Automated erythrocyte mean corpuscular volume 93 [foz_us] 80-99 Automated erythrocyte mean corpuscular hemoglobin (mass per erythrocyte) 31 pg 25-34 Automated erythrocyte mean corpuscular hemoglobin concentration measurement ( mass/volume) 33 g/dL 32-36 Automated erythrocyte distribution width ratio 12.5 % 10.0-14.5 Automated blood platelet count (count/volume) 234 10*3/uL 130-400 Automated blood platelet mean volume measurement 9.7 [foz_us] 7.4-10.4 Automated blood neutrophils/100 leukocytes 59 % 42-75 Automated blood lymphocytes/100 leukocytes 31 % 12-44 Blood monocytes/100 leukocytes 9 % 0-12 Automated blood eosinophils/100 leukocytes 0 % 0-10 Automated blood basophils/100 leukocytes 1 % 0-10 Blood neutrophils automated count (number/volume) 5.1 10*3 1.8-7.8 Blood lymphocytes automated count (number/volume) 2.7 10*3 1.0-4.0 Blood monocytes automated count (number/volume) 0.8 10*3 0.0-1.0 Automated eosinophil count 0.0 10*3/uL 0.0-0.3 Automated blood basophil count (count/volume) 0.0 10*3/uL 0.0-0.1 Fibrin D-dimer FEU measurement in platelet poor plasma (mass/volume) - 18:50 Fibrin D-dimer FEU measurement in platelet poor plasma (mass/volume) < ug/mL 0.00-0.49 Comprehensive metabolic panel - 09/17/15 18:50 Serum or plasma sodium measurement (moles/volume) 141 mmol/L 135-145 Serum or plasma potassium measurement (moles/volume) 4.2 mmol/L 3.6-5.0 Serum or plasma chloride measurement (moles/volume) 106 mmol/L 98-107 Carbon dioxide 26 mmol/L 21-32 Serum or plasma anion gap determination (moles/volume) 9 mmol/L 5-14 Serum or plasma urea nitrogen measurement (mass/volume) 9 mg/dL 7-18 Serum or plasma creatinine measurement (mass/volume) 0.81 mg/dL 0.60-1.30 Serum or plasma urea nitrogen/creatinine mass ratio 11 NRG Serum or plasma creatinine measurement with calculation of estimated glomerular filtration rate > NRG Serum or plasma glucose measurement (mass/volume) 89 mg/dL 70-105 Serum or plasma calcium measurement (mass/volume) 9.5 mg/dL 8.5-10.1 Serum or plasma total bilirubin measurement (mass/volume) 0.9 mg/dL 0.1-1.0 Serum or plasma alkaline phosphatase measurement (enzymatic activity/volume) 72 U/L 40-136 Serum or plasma aspartate aminotransferase measurement (enzymatic activity/ volume) 12 U/L 5-34 Serum or plasma alanine aminotransferase measurement (enzymatic activity/volume ) 8 U/L 0-55 Serum or plasma protein measurement (mass/volume) 7.6 g/dL 6.4-8.2 Serum or plasma albumin measurement (mass/volume) 4.9 g/dL 3.2-4.5 Magnesium - 09/17/15 18:50 Magnesium 2.6 mg/dL 1.8-2.4 Serum or plasma troponin i.cardiac measurement (mass/volume) - 09/17/15 18:50 Serum or plasma troponin i.cardiac measurement (mass/volume) < ng/ mL <0.30 Complete blood count (CBC) with automated white blood cell (WBC) differential - 09/22/15 14:12 Blood leukocytes automated count (number/volume) 6.4 10*3/uL 4.3-11.0 Blood erythrocytes automated count (number/volume) 4.44 10*6/uL 4.35-5.85 Venous blood hemoglobin measurement (mass/volume) 13.8 g/dL 11.5-16.0 Blood hematocrit (volume fraction) 42 % 35-52 Automated erythrocyte mean corpuscular volume 94 [foz_us] 80-99 Automated erythrocyte mean corpuscular hemoglobin (mass per erythrocyte) 31 pg 25-34 Automated erythrocyte mean corpuscular hemoglobin concentration measurement ( mass/volume) 33 g/dL 32-36 Automated erythrocyte distribution width ratio 12.7 % 10.0-14.5 Automated blood platelet count (count/volume) 230 10*3/uL 130-400 Automated blood platelet mean volume measurement 9.5 [foz_us] 7.4-10.4 Automated blood neutrophils/100 leukocytes 52 % 42-75 Automated blood lymphocytes/100 leukocytes 38 % 12-44 Blood monocytes/100 leukocytes 9 % 0-12 Automated blood eosinophils/100 leukocytes 1 % 0-10 Automated blood basophils/100 leukocytes 0 % 0-10 Blood neutrophils automated count (number/volume) 3.3 10*3 1.8-7.8 Blood lymphocytes automated count (number/volume) 2.4 10*3 1.0-4.0 Blood monocytes automated count (number/volume) 0.6 10*3 0.0-1.0 Automated eosinophil count 0.0 10*3/uL 0.0-0.3 Automated blood basophil count (count/volume) 0.0 10*3/uL 0.0-0.1 Comprehensive metabolic panel - 09/22/15 14:12 Serum or plasma sodium measurement (moles/volume) 140 mmol/L 135-145 Serum or plasma potassium measurement (moles/volume) 3.8 mmol/L 3.6-5.0 Serum or plasma chloride measurement (moles/volume) 105 mmol/L 98-107 Carbon dioxide 28 mmol/L 21-32 Serum or plasma anion gap determination (moles/volume) 7 mmol/L 5-14 Serum or plasma urea nitrogen measurement (mass/volume) 8 mg/dL 7-18 Serum or plasma creatinine measurement (mass/volume) 0.75 mg/dL 0.60-1.30 Serum or plasma urea nitrogen/creatinine mass ratio 11 NRG Serum or plasma creatinine measurement with calculation of estimated glomerular filtration rate > NRG Serum or plasma glucose measurement (mass/volume) 92 mg/dL 70-105 Serum or plasma calcium measurement (mass/volume) 9.7 mg/dL 8.5-10.1 Serum or plasma total bilirubin measurement (mass/volume) 0.7 mg/dL 0.1-1.0 Serum or plasma alkaline phosphatase measurement (enzymatic activity/volume) 76 U/L 40-136 Serum or plasma aspartate aminotransferase measurement (enzymatic activity/ volume) 19 U/L 5-34 Serum or plasma alanine aminotransferase measurement (enzymatic activity/volume ) 21 U/L 0-55 Serum or plasma protein measurement (mass/volume) 7.6 g/dL 6.4-8.2 Serum or plasma albumin measurement (mass/volume) 4.7 g/dL 3.2-4.5 Lipase - 09/22/15 14:12 Lipase 11 U/L 8-78 Streptococcus pyogenes antigen detection - 10/08/15 15:26 Streptococcus pyogenes antigen detection NEGATIVE NEGATIVE Bacterial throat culture - 10/08/15 15:26 Bacterial throat culture [id number] NRG FREE TEXT EXTERNAL WITH MODERATE STAPH. AUREUS NRG QUANTITY OF GROWTH Abundant Growth NRG FREE TEXT EXTERNAL 2 NO FURTHER STUDIES UNLESS REQUESTED NRG Complete blood count (CBC) with automated white blood cell (WBC) differential - 10/08/15 15:28 Blood leukocytes automated count (number/volume) 23.1 10*3/uL 4.3-11.0 Blood erythrocytes automated count (number/volume) 4.39 10*6/uL 4.35-5.85 Venous blood hemoglobin measurement (mass/volume) 13.6 g/dL 11.5-16.0 Blood hematocrit (volume fraction) 41 % 35-52 Automated erythrocyte mean corpuscular volume 92 [foz_us] 80-99 Automated erythrocyte mean corpuscular hemoglobin (mass per erythrocyte) 31 pg 25-34 Automated erythrocyte mean corpuscular hemoglobin concentration measurement ( mass/volume) 34 g/dL 32-36 Automated erythrocyte distribution width ratio 12.9 % 10.0-14.5 Automated blood platelet count (count/volume) 268 10*3/uL 130-400 Automated blood platelet mean volume measurement 9.6 [foz_us] 7.4-10.4 Automated blood neutrophils/100 leukocytes 84 % 42-75 Automated blood lymphocytes/100 leukocytes 7 % 12-44 Blood monocytes/100 leukocytes 10 % 0-12 Automated blood eosinophils/100 leukocytes 0 % 0-10 Automated blood basophils/100 leukocytes 0 % 0-10 Blood neutrophils automated count (number/volume) 19.3 10*3 1.8-7.8 Blood lymphocytes automated count (number/volume) 1.5 10*3 1.0-4.0 Blood monocytes automated count (number/volume) 2.2 10*3 0.0-1.0 Automated eosinophil count 0.0 10*3/uL 0.0-0.3 Automated blood basophil count (count/volume) 0.0 10*3/uL 0.0-0.1 Serum heterophile antibody titer - 10/08/15 15:28 Serum heterophile antibody titer NEGATIVE NEGATIVE Comprehensive metabolic panel - 10/08/15 15:28 Serum or plasma sodium measurement (moles/volume) 140 mmol/L 135-145 Serum or plasma potassium measurement (moles/volume) 3.7 mmol/L 3.6-5.0 Serum or plasma chloride measurement (moles/volume) 105 mmol/L 98-107 Carbon dioxide 20 mmol/L 21-32 Serum or plasma anion gap determination (moles/volume) 15 mmol/L 5-14 Serum or plasma urea nitrogen measurement (mass/volume) 8 mg/dL 7-18 Serum or plasma creatinine measurement (mass/volume) 0.80 mg/dL 0.60-1.30 Serum or plasma urea nitrogen/creatinine mass ratio 10 NRG Serum or plasma creatinine measurement with calculation of estimated glomerular filtration rate > NRG Serum or plasma glucose measurement (mass/volume) 119 mg/dL 70-105 Serum or plasma calcium measurement (mass/volume) 10.1 mg/dL 8.5-10.1 Serum or plasma total bilirubin measurement (mass/volume) 1.1 mg/dL 0.1-1.0 Serum or plasma alkaline phosphatase measurement (enzymatic activity/volume) 72 U/L 40-136 Serum or plasma aspartate aminotransferase measurement (enzymatic activity/ volume) 16 U/L 5-34 Serum or plasma alanine aminotransferase measurement (enzymatic activity/volume ) 11 U/L 0-55 Serum or plasma protein measurement (mass/volume) 7.8 g/dL 6.4-8.2 Serum or plasma albumin measurement (mass/volume) 4.9 g/dL 3.2-4.5 Serum or plasma ethanol measurement (mass/volume) - 10/08/15 15:28 Serum or plasma ethanol measurement (mass/volume) < mg/dL <10 Blood manual differential performed detection - 10/08/15 15:28 Blood monocytes/100 leukocytes 1 % NRG Manual blood segmented neutrophils/100 leukocytes 87 % NRG Blood band neutrophils/100 leukocytes 0 % NRG Manual blood lymphocytes/100 leukocytes 12 % NRG Manual eosinophils/100 leukocytes in nose 0 % NRG Manual blood basophils/100 leukocytes 0 % NRG Blood erythrocyte morphology finding identification NORMAL NRG Complete urinalysis with reflex to culture - 10/08/15 15:30 Urine color determination YELLOW NRG Urine clarity determination CLEAR NRG Urine pH measurement by test strip 6 5-9 Specific gravity of urine by test strip 1.025 1.016- 1.022 Urine protein assay by test strip, semi-quantitative 2+ NEGATIVE Urine glucose detection by automated test strip NEGATIVE NEGATIVE Erythrocytes detection in urine sediment by light microscopy 4+ NEGATIVE Urine ketones detection by automated test strip 2+ NEGATIVE Urine nitrite detection by test strip NEGATIVE NEGATIVE Urine total bilirubin detection by test strip NEGATIVE NEGATIVE Urine urobilinogen measurement by automated test strip (mass/volume) NORMAL NORMAL Urine leukocyte esterase detection by dipstick 2+ NEGATIVE Automated urine sediment erythrocyte count by microscopy (number/high power field) [HPF] NRG Automated urine sediment leukocyte count by microscopy (number/high power field ) [HPF] NRG Bacteria detection in urine sediment by light microscopy MODERATE NRG Squamous epithelial cells detection in urine sediment by light microscopy 10-25 NRG Crystals detection in urine sediment by light microscopy NONE NRG Casts detection in urine sediment by light microscopy NONE NRG Mucus detection in urine sediment by light microscopy LARGE NRG Complete urinalysis with reflex to culture YES NRG Urine drug screening test - 10/08/15 15:30 Urine acetaminophen detection by screening method NEGATIVE NEGATIVE Urine phencyclidine detection by screening method NEGATIVE NEGATIVE Urine benzodiazepines detection by screening method NEGATIVE NEGATIVE Urine cocaine detection NEGATIVE NEGATIVE Urine amphetamines detection by screening method POSITIVE NEGATIVE Urine methamphetamine detection by screening method POSITIVE NEGATIVE Urine cannabinoids detection by screening method NEGATIVE NEGATIVE Urine opiates detection by screening method NEGATIVE NEGATIVE Urine barbiturates detection NEGATIVE NEGATIVE Screening urine tricyclic antidepressants detection NEGATIVE NEGATIVE Urine methadone detection by screening method NEGATIVE NEGATIVE Bacterial urine culture - 10/08/15 15:30 URINE CULTURE RESULTS <10,000/ML NRG Blood lactic acid measurement (moles/volume) - 10/08/15 16:06 Blood lactic acid measurement (moles/volume) 2.6 mmol/L 0.5-2.0 PT panel in platelet poor plasma by coagulation assay - 10/08/15 16:06 Prothrombin time (PT) in platelet poor plasma by coagulation assay 15.1 s 12.2-14.7 INR in platelet poor plasma or blood by coagulation assay 1.2 0.8-1.4 Activated partial thromboplastin time (aPTT) in platelet poor plasma bycoagulation assay - 10/08/15 16:06 Activated partial thromboplastin time (aPTT) in platelet poor plasma bycoagulation assay 30 s 24-35 Bacterial blood culture - 10/08/15 16:06 Bacterial blood culture NG NRG Bacterial blood culture - 10/08/15 16:12 Bacterial blood culture NG NRG Serum or plasma lactate measurement (moles/volume) - 10/08/15 19:15 Serum or plasma lactate measurement (moles/volume) 1.0 mmol/L 0.5-2.0 Bacterial throat culture - 10/08/15 22:20 Bacterial throat culture NBS NRG Complete blood count (CBC) with automated white blood cell (WBC) differential - 10/09/15 06:31 Blood leukocytes automated count (number/volume) 9.3 10*3/uL 4.3-11.0 Blood erythrocytes automated count (number/volume) 3.93 10*6/uL 4.35-5.85 Venous blood hemoglobin measurement (mass/volume) 12.3 g/dL 11.5-16.0 Blood hematocrit (volume fraction) 37 % 35-52 Automated erythrocyte mean corpuscular volume 95 [foz_us] 80-99 Automated erythrocyte mean corpuscular hemoglobin (mass per erythrocyte) 31 pg 25-34 Automated erythrocyte mean corpuscular hemoglobin concentration measurement ( mass/volume) 33 g/dL 32-36 Automated erythrocyte distribution width ratio 13.0 % 10.0-14.5 Automated blood platelet count (count/volume) 229 10*3/uL 130-400 Automated blood platelet mean volume measurement 10.0 [foz_us] 7.4-10.4 Automated blood neutrophils/100 leukocytes 60 % 42-75 Automated blood lymphocytes/100 leukocytes 29 % 12-44 Blood monocytes/100 leukocytes 11 % 0-12 Automated blood eosinophils/100 leukocytes 0 % 0-10 Automated blood basophils/100 leukocytes 0 % 0-10 Blood neutrophils automated count (number/volume) 5.5 10*3 1.8-7.8 Blood lymphocytes automated count (number/volume) 2.7 10*3 1.0-4.0 Blood monocytes automated count (number/volume) 1.0 10*3 0.0-1.0 Automated eosinophil count 0.0 10*3/uL 0.0-0.3 Automated blood basophil count (count/volume) 0.0 10*3/uL 0.0-0.1 Comprehensive metabolic panel - 10/09/15 06:31 Serum or plasma sodium measurement (moles/volume) 138 mmol/L 135-145 Serum or plasma potassium measurement (moles/volume) 4.3 mmol/L 3.6-5.0 Serum or plasma chloride measurement (moles/volume) 111 mmol/L 98-107 Carbon dioxide 19 mmol/L 21-32 Serum or plasma anion gap determination (moles/volume) 8 mmol/L 5-14 Serum or plasma urea nitrogen measurement (mass/volume) 7 mg/dL 7-18 Serum or plasma creatinine measurement (mass/volume) 0.61 mg/dL 0.60-1.30 Serum or plasma urea nitrogen/creatinine mass ratio 11 NRG Serum or plasma creatinine measurement with calculation of estimated glomerular filtration rate > NRG Serum or plasma glucose measurement (mass/volume) 86 mg/dL 70-105 Serum or plasma calcium measurement (mass/volume) 8.7 mg/dL 8.5-10.1 Serum or plasma total bilirubin measurement (mass/volume) 1.8 mg/dL 0.1-1.0 Serum or plasma alkaline phosphatase measurement (enzymatic activity/volume) 64 U/L 40-136 Serum or plasma aspartate aminotransferase measurement (enzymatic activity/ volume) 15 U/L 5-34 Serum or plasma alanine aminotransferase measurement (enzymatic activity/volume ) 12 U/L 0-55 Serum or plasma protein measurement (mass/volume) 6.3 g/dL 6.4-8.2 Serum or plasma albumin measurement (mass/volume) 3.9 g/dL 3.2-4.5 Complete blood count (CBC) with automated white blood cell (WBC) differential - 10/10/15 14:11 Blood leukocytes automated count (number/volume) 6.9 10*3/uL 4.3-11.0 Blood erythrocytes automated count (number/volume) 4.13 10*6/uL 4.35-5.85 Venous blood hemoglobin measurement (mass/volume) 12.7 g/dL 11.5-16.0 Blood hematocrit (volume fraction) 39 % 35-52 Automated erythrocyte mean corpuscular volume 94 [foz_us] 80-99 Automated erythrocyte mean corpuscular hemoglobin (mass per erythrocyte) 31 pg 25-34 Automated erythrocyte mean corpuscular hemoglobin concentration measurement ( mass/volume) 33 g/dL 32-36 Automated erythrocyte distribution width ratio 12.7 % 10.0-14.5 Automated blood platelet count (count/volume) 222 10*3/uL 130-400 Automated blood platelet mean volume measurement 9.1 [foz_us] 7.4-10.4 Automated blood neutrophils/100 leukocytes 64 % 42-75 Automated blood lymphocytes/100 leukocytes 26 % 12-44 Blood monocytes/100 leukocytes 9 % 0-12 Automated blood eosinophils/100 leukocytes 0 % 0-10 Automated blood basophils/100 leukocytes 0 % 0-10 Blood neutrophils automated count (number/volume) 4.4 10*3 1.8-7.8 Blood lymphocytes automated count (number/volume) 1.8 10*3 1.0-4.0 Blood monocytes automated count (number/volume) 0.6 10*3 0.0-1.0 Automated eosinophil count 0.0 10*3/uL 0.0-0.3 Automated blood basophil count (count/volume) 0.0 10*3/uL 0.0-0.1 Whole blood basic metabolic panel - 10/10/15 14:11 Serum or plasma sodium measurement (moles/volume) 140 mmol/L 135-145 Serum or plasma potassium measurement (moles/volume) 3.7 mmol/L 3.6-5.0 Serum or plasma chloride measurement (moles/volume) 107 mmol/L 98-107 Carbon dioxide 23 mmol/L 21-32 Serum or plasma anion gap determination (moles/volume) 10 mmol/L 5-14 Serum or plasma urea nitrogen measurement (mass/volume) 8 mg/dL 7-18 Serum or plasma creatinine measurement (mass/volume) 0.79 mg/dL 0.60-1.30 Serum or plasma urea nitrogen/creatinine mass ratio 10 NRG Serum or plasma creatinine measurement with calculation of estimated glomerular filtration rate > NRG Serum or plasma glucose measurement (mass/volume) 104 mg/dL 70-105 Serum or plasma calcium measurement (mass/volume) 9.4 mg/dL 8.5-10.1 Urine drug screening test - 10/18/15 11:40 Urine phencyclidine detection by screening method NEGATIVE NEGATIVE Urine benzodiazepines detection by screening method NEGATIVE NEGATIVE Urine cocaine detection NEGATIVE NEGATIVE Urine amphetamines detection by screening method NEGATIVE NEGATIVE Urine methamphetamine detection by screening method POSITIVE NEGATIVE Urine cannabinoids detection by screening method NEGATIVE NEGATIVE Urine opiates detection by screening method NEGATIVE NEGATIVE Urine barbiturates detection NEGATIVE NEGATIVE Screening urine tricyclic antidepressants detection NEGATIVE NEGATIVE Urine methadone detection by screening method NEGATIVE NEGATIVE Urine oxycodone detection NEGATIVE NEGATIVE Urine propoxyphene detection NEGATIVE NEGATIVE Urine buprenophrine screen NEGATIVE NEGATIVE Complete urinalysis with reflex to culture - 10/18/15 11:40 Urine color determination YELLOW NRG Urine clarity determination SLIGHTLY CLOUDY NRG Urine pH measurement by test strip 7 5-9 Specific gravity of urine by test strip 1.010 1.016- 1.022 Urine protein assay by test strip, semi-quantitative NEGATIVE NEGATIVE Urine glucose detection by automated test strip NEGATIVE NEGATIVE Erythrocytes detection in urine sediment by light microscopy NEGATIVE NEGATIVE Urine ketones detection by automated test strip NEGATIVE NEGATIVE Urine nitrite detection by test strip NEGATIVE NEGATIVE Urine total bilirubin detection by test strip NEGATIVE NEGATIVE Urine urobilinogen measurement by automated test strip (mass/volume) NORMAL NORMAL Urine leukocyte esterase detection by dipstick NEGATIVE NEGATIVE Automated urine sediment erythrocyte count by microscopy (number/high power field) NONE NRG Automated urine sediment leukocyte count by microscopy (number/high power field ) NONE NRG Bacteria detection in urine sediment by light microscopy TRACE NRG Squamous epithelial cells detection in urine sediment by light microscopy 2-5 NRG Crystals detection in urine sediment by light microscopy NONE NRG Casts detection in urine sediment by light microscopy NONE NRG Mucus detection in urine sediment by light microscopy SMALL NRG Complete urinalysis with reflex to culture NO NRG Serum or plasma choriogonadotropin ( test) detection - 10/18/15 11:42 Serum or plasma choriogonadotropin ( test) detection NEGATIVE NEGATIVE Comprehensive metabolic panel - 10/18/15 11:42 Serum or plasma sodium measurement (moles/volume) 142 mmol/L 135-145 Serum or plasma potassium measurement (moles/volume) 3.5 mmol/L 3.6-5.0 Serum or plasma chloride measurement (moles/volume) 108 mmol/L 98-107 Carbon dioxide 21 mmol/L 21-32 Serum or plasma anion gap determination (moles/volume) 13 mmol/L 5-14 Serum or plasma urea nitrogen measurement (mass/volume) 6 mg/dL 7-18 Serum or plasma creatinine measurement (mass/volume) 0.77 mg/dL 0.60-1.30 Serum or plasma urea nitrogen/creatinine mass ratio 8 NRG Serum or plasma creatinine measurement with calculation of estimated glomerular filtration rate > NRG Serum or plasma glucose measurement (mass/volume) 105 mg/dL 70-105 Serum or plasma calcium measurement (mass/volume) 9.5 mg/dL 8.5-10.1 Serum or plasma total bilirubin measurement (mass/volume) 0.3 mg/dL 0.1-1.0 Serum or plasma alkaline phosphatase measurement (enzymatic activity/volume) 82 U/L 40-136 Serum or plasma aspartate aminotransferase measurement (enzymatic activity/ volume) 21 U/L 5-34 Serum or plasma alanine aminotransferase measurement (enzymatic activity/volume ) 24 U/L 0-55 Serum or plasma protein measurement (mass/volume) 8.1 g/dL 6.4-8.2 Serum or plasma albumin measurement (mass/volume) 4.9 g/dL 3.2-4.5 Magnesium - 10/18/15 11:42 Magnesium 2.2 mg/dL 1.8-2.4 Serum or plasma thyrotropin measurement by detection limit <=0.05 miu/l (units/ volume) - 10/18/15 11:42 Serum or plasma thyrotropin measurement by detection limit <=0.05 miu/l (units/ volume) 2.61 u[iU]/mL 0.35-4.94 Complete blood count (CBC) with automated white blood cell (WBC) differential - 10/18/15 11:42 Blood leukocytes automated count (number/volume) 3.4 10*3/uL 4.3-11.0 Blood erythrocytes automated count (number/volume) 4.53 10*6/uL 4.35-5.85 Venous blood hemoglobin measurement (mass/volume) 13.8 g/dL 11.5-16.0 Blood hematocrit (volume fraction) 42 % 35-52 Automated erythrocyte mean corpuscular volume 93 [foz_us] 80-99 Automated erythrocyte mean corpuscular hemoglobin (mass per erythrocyte) 31 pg 25-34 Automated erythrocyte mean corpuscular hemoglobin concentration measurement ( mass/volume) 33 g/dL 32-36 Automated erythrocyte distribution width ratio 12.8 % 10.0-14.5 Automated blood platelet count (count/volume) 198 10*3/uL 130-400 Automated blood platelet mean volume measurement 9.7 [foz_us] 7.4-10.4 Automated blood neutrophils/100 leukocytes 30 % 42-75 Automated blood lymphocytes/100 leukocytes 52 % 12-44 Blood monocytes/100 leukocytes 17 % 0-12 Automated blood eosinophils/100 leukocytes 0 % 0-10 Automated blood basophils/100 leukocytes 0 % 0-10 Blood neutrophils automated count (number/volume) 1.0 10*3 1.8-7.8 Blood lymphocytes automated count (number/volume) 1.8 10*3 1.0-4.0 Blood monocytes automated count (number/volume) 0.6 10*3 0.0-1.0 Automated eosinophil count 0.0 10*3/uL 0.0-0.3 Automated blood basophil count (count/volume) 0.0 10*3/uL 0.0-0.1 Blood manual differential performed detection - 10/18/15 11:42 Blood monocytes/100 leukocytes 12 % NRG Manual blood segmented neutrophils/100 leukocytes 29 % NRG Manual blood lymphocytes/100 leukocytes 58 % NRG Manual eosinophils/100 leukocytes in nose 1 % NRG Blood erythrocyte morphology finding identification NORMAL NRG Serum or plasma ethanol measurement (mass/volume) - 10/18/15 11:42 Serum or plasma ethanol measurement (mass/volume) 18 mg/dL <10 Iron and TIBC - 10/27/16 09:46 Iron Bind.Cap.(TIBC) 394 ug/dL 250-450 UIBC 345 ug/dL 131-425 Iron, Serum 49 ug/dL 27-159 Iron Saturation 12 % 15-55 Ferritin, Serum - 10/27/16 09:46 Ferritin, Serum 9 ng/mL 15-150 Genital Culture, Routine - 10/27/15 15:56 Genital Culture, Routine Note Complete blood count (CBC) with automated white blood cell (WBC) differential - 11/07/15 20:00 Blood leukocytes automated count (number/volume) 7.9 10*3/uL 4.3-11.0 Blood erythrocytes automated count (number/volume) 4.28 10*6/uL 4.35-5.85 Venous blood hemoglobin measurement (mass/volume) 13.3 g/dL 11.5-16.0 Blood hematocrit (volume fraction) 40 % 35-52 Automated erythrocyte mean corpuscular volume 93 [foz_us] 80-99 Automated erythrocyte mean corpuscular hemoglobin (mass per erythrocyte) 31 pg 25-34 Automated erythrocyte mean corpuscular hemoglobin concentration measurement ( mass/volume) 33 g/dL 32-36 Automated erythrocyte distribution width ratio 13.0 % 10.0-14.5 Automated blood platelet count (count/volume) 267 10*3/uL 130-400 Automated blood platelet mean volume measurement 9.5 [foz_us] 7.4-10.4 Automated blood neutrophils/100 leukocytes 32 % 42-75 Automated blood lymphocytes/100 leukocytes 59 % 12-44 Blood monocytes/100 leukocytes 8 % 0-12 Automated blood eosinophils/100 leukocytes 1 % 0-10 Automated blood basophils/100 leukocytes 1 % 0-10 Blood neutrophils automated count (number/volume) 2.5 10*3 1.8-7.8 Blood lymphocytes automated count (number/volume) 4.6 10*3 1.0-4.0 Blood monocytes automated count (number/volume) 0.6 10*3 0.0-1.0 Automated eosinophil count 0.1 10*3/uL 0.0-0.3 Automated blood basophil count (count/volume) 0.1 10*3/uL 0.0-0.1 Comprehensive metabolic panel - 11/07/15 20:00 Serum or plasma sodium measurement (moles/volume) 142 mmol/L 135-145 Serum or plasma potassium measurement (moles/volume) 3.0 mmol/L 3.6-5.0 Serum or plasma chloride measurement (moles/volume) 107 mmol/L 98-107 Carbon dioxide 19 mmol/L 21-32 Serum or plasma anion gap determination (moles/volume) 16 mmol/L 5-14 Serum or plasma urea nitrogen measurement (mass/volume) 8 mg/dL 7-18 Serum or plasma creatinine measurement (mass/volume) 0.87 mg/dL 0.60-1.30 Serum or plasma urea nitrogen/creatinine mass ratio 9 NRG Serum or plasma creatinine measurement with calculation of estimated glomerular filtration rate > NRG Serum or plasma glucose measurement (mass/volume) 102 mg/dL 70-105 Serum or plasma calcium measurement (mass/volume) 9.5 mg/dL 8.5-10.1 Serum or plasma total bilirubin measurement (mass/volume) 0.4 mg/dL 0.1-1.0 Serum or plasma alkaline phosphatase measurement (enzymatic activity/volume) 77 U/L 40-136 Serum or plasma aspartate aminotransferase measurement (enzymatic activity/ volume) 19 U/L 5-34 Serum or plasma alanine aminotransferase measurement (enzymatic activity/volume ) 18 U/L 0-55 Serum or plasma protein measurement (mass/volume) 7.7 g/dL 6.4-8.2 Serum or plasma albumin measurement (mass/volume) 4.8 g/dL 3.2-4.5 Serum or plasma ethanol measurement (mass/volume) - 11/07/15 20:00 Serum or plasma ethanol measurement (mass/volume) < mg/dL <10 Urine drug screening test - 11/07/15 20:40 Urine phencyclidine detection by screening method NEGATIVE NEGATIVE Urine benzodiazepines detection by screening method NEGATIVE NEGATIVE Urine cocaine detection NEGATIVE NEGATIVE Urine amphetamines detection by screening method NEGATIVE NEGATIVE Urine methamphetamine detection by screening method NEGATIVE NEGATIVE Urine cannabinoids detection by screening method NEGATIVE NEGATIVE Urine opiates detection by screening method NEGATIVE NEGATIVE Urine barbiturates detection NEGATIVE NEGATIVE Screening urine tricyclic antidepressants detection NEGATIVE NEGATIVE Urine methadone detection by screening method NEGATIVE NEGATIVE Urine oxycodone detection NEGATIVE NEGATIVE Urine propoxyphene detection NEGATIVE NEGATIVE Urine buprenophrine screen NEGATIVE NEGATIVE Complete urinalysis with reflex to culture - 11/07/15 20:40 Urine color determination DAINA NRG Urine clarity determination CLEAR NRG Urine pH measurement by test strip 6 5-9 Specific gravity of urine by test strip 1.025 1.016- 1.022 Urine protein assay by test strip, semi-quantitative 2+ NEGATIVE Urine glucose detection by automated test strip NEGATIVE NEGATIVE Erythrocytes detection in urine sediment by light microscopy 5+ NEGATIVE Urine ketones detection by automated test strip NEGATIVE NEGATIVE Urine nitrite detection by test strip NEGATIVE NEGATIVE Urine total bilirubin detection by test strip NEGATIVE NEGATIVE Urine urobilinogen measurement by automated test strip (mass/volume) 1 mg/dL NORMAL Urine leukocyte esterase detection by dipstick 1+ NEGATIVE Automated urine sediment erythrocyte count by microscopy (number/high power field) TNTC NRG Automated urine sediment leukocyte count by microscopy (number/high power field ) [HPF] NRG Bacteria detection in urine sediment by light microscopy FEW NRG Squamous epithelial cells detection in urine sediment by light microscopy 5-10 NRG Crystals detection in urine sediment by light microscopy NONE NRG Casts detection in urine sediment by light microscopy NONE NRG Mucus detection in urine sediment by light microscopy LARGE NRG Complete urinalysis with reflex to culture NO NRG Urine beta human chorionic gonadotropin (hCG) measurement - 11/07/15 20:40 Urine beta human chorionic gonadotropin (hCG) measurement NEGATIVE NEGATIVE Complete blood count (CBC) with automated white blood cell (WBC) differential - 12/28/15 15:19 Blood leukocytes automated count (number/volume) 17.6 10*3/uL 4.3-11.0 Blood erythrocytes automated count (number/volume) 4.36 10*6/uL 4.35-5.85 Venous blood hemoglobin measurement (mass/volume) 13.0 g/dL 11.5-16.0 Blood hematocrit (volume fraction) 40 % 35-52 Automated erythrocyte mean corpuscular volume 91 [foz_us] 80-99 Automated erythrocyte mean corpuscular hemoglobin (mass per erythrocyte) 30 pg 25-34 Automated erythrocyte mean corpuscular hemoglobin concentration measurement ( mass/volume) 33 g/dL 32-36 Automated erythrocyte distribution width ratio 13.6 % 10.0-14.5 Automated blood platelet count (count/volume) 304 10*3/uL 130-400 Automated blood platelet mean volume measurement 9.2 [foz_us] 7.4-10.4 Automated blood neutrophils/100 leukocytes 82 % 42-75 Automated blood lymphocytes/100 leukocytes 10 % 12-44 Blood monocytes/100 leukocytes 8 % 0-12 Automated blood eosinophils/100 leukocytes 0 % 0-10 Automated blood basophils/100 leukocytes 0 % 0-10 Blood neutrophils automated count (number/volume) 14.4 10*3 1.8-7.8 Blood lymphocytes automated count (number/volume) 1.8 10*3 1.0-4.0 Blood monocytes automated count (number/volume) 1.4 10*3 0.0-1.0 Automated eosinophil count 0.0 10*3/uL 0.0-0.3 Automated blood basophil count (count/volume) 0.0 10*3/uL 0.0-0.1 Complete urinalysis with reflex to culture - 12/28/15 15:19 Urine color determination YELLOW NRG Urine clarity determination VERY CLOUDY NRG Urine pH measurement by test strip 6 5-9 Specific gravity of urine by test strip 1.020 1.016- 1.022 Urine protein assay by test strip, semi-quantitative 2+ NEGATIVE Urine glucose detection by automated test strip NEGATIVE NEGATIVE Erythrocytes detection in urine sediment by light microscopy 3+ NEGATIVE Urine ketones detection by automated test strip 1+ NEGATIVE Urine nitrite detection by test strip NEGATIVE NEGATIVE Urine total bilirubin detection by test strip NEGATIVE NEGATIVE Urine urobilinogen measurement by automated test strip (mass/volume) NORMAL NORMAL Urine leukocyte esterase detection by dipstick 2+ NEGATIVE Automated urine sediment erythrocyte count by microscopy (number/high power field) [HPF] NRG Automated urine sediment leukocyte count by microscopy (number/high power field ) [HPF] NRG Bacteria detection in urine sediment by light microscopy TRACE NRG Squamous epithelial cells detection in urine sediment by light microscopy 5-10 NRG Crystals detection in urine sediment by light microscopy NONE NRG Casts detection in urine sediment by light microscopy NONE NRG Mucus detection in urine sediment by light microscopy SMALL NRG Complete urinalysis with reflex to culture NO NRG Urine drug screening test - 12/28/15 15:19 Urine phencyclidine detection by screening method NEGATIVE NEGATIVE Urine benzodiazepines detection by screening method NEGATIVE NEGATIVE Urine cocaine detection NEGATIVE NEGATIVE Urine amphetamines detection by screening method POSITIVE NEGATIVE Urine methamphetamine detection by screening method POSITIVE NEGATIVE Urine cannabinoids detection by screening method NEGATIVE NEGATIVE Urine opiates detection by screening method NEGATIVE NEGATIVE Urine barbiturates detection NEGATIVE NEGATIVE Screening urine tricyclic antidepressants detection NEGATIVE NEGATIVE Urine methadone detection by screening method NEGATIVE NEGATIVE Urine oxycodone detection NEGATIVE NEGATIVE Urine propoxyphene detection NEGATIVE NEGATIVE Whole blood basic metabolic panel - 12/28/15 15:19 Serum or plasma sodium measurement (moles/volume) 142 mmol/L 135-145 Serum or plasma potassium measurement (moles/volume) 4.0 mmol/L 3.6-5.0 Serum or plasma chloride measurement (moles/volume) 105 mmol/L 98-107 Carbon dioxide 23 mmol/L 21-32 Serum or plasma anion gap determination (moles/volume) 14 mmol/L 5-14 Serum or plasma urea nitrogen measurement (mass/volume) 13 mg/dL 7-18 Serum or plasma creatinine measurement (mass/volume) 0.79 mg/dL 0.60-1.30 Serum or plasma urea nitrogen/creatinine mass ratio 16 NRG Serum or plasma creatinine measurement with calculation of estimated glomerular filtration rate > NRG Serum or plasma glucose measurement (mass/volume) 96 mg/dL 70-105 Serum or plasma calcium measurement (mass/volume) 10.3 mg/dL 8.5-10.1 Blood manual differential performed detection - 12/28/15 15:19 Blood monocytes/100 leukocytes 2 % NRG Manual blood segmented neutrophils/100 leukocytes 75 % NRG Blood band neutrophils/100 leukocytes 0 % NRG Manual blood lymphocytes/100 leukocytes 21 % NRG Manual eosinophils/100 leukocytes in nose 0 % NRG Manual blood basophils/100 leukocytes 0 % NRG Blood lymphocytes variant/100 leukocytes 2 % NRG Blood erythrocyte morphology finding identification NORMAL NRG Complete urinalysis with reflex to culture - 02/13/16 14:55 Urine color determination YELLOW NRG Urine clarity determination CLEAR NRG Urine pH measurement by test strip 6.5 5-9 Specific gravity of urine by test strip 1.010 1.016- 1.022 Urine protein assay by test strip, semi-quantitative NEGATIVE NEGATIVE Urine glucose detection by automated test strip NEGATIVE NEGATIVE Erythrocytes detection in urine sediment by light microscopy NEGATIVE NEGATIVE Urine ketones detection by automated test strip NEGATIVE NEGATIVE Urine nitrite detection by test strip NEGATIVE NEGATIVE Urine total bilirubin detection by test strip NEGATIVE NEGATIVE Urine urobilinogen measurement by automated test strip (mass/volume) NORMAL NORMAL Urine leukocyte esterase detection by dipstick NEGATIVE NEGATIVE Automated urine sediment erythrocyte count by microscopy (number/high power field) NONE NRG Automated urine sediment leukocyte count by microscopy (number/high power field ) RARE NRG Bacteria detection in urine sediment by light microscopy NEGATIVE NRG Squamous epithelial cells detection in urine sediment by light microscopy RARE NRG Crystals detection in urine sediment by light microscopy NONE NRG Casts detection in urine sediment by light microscopy NONE NRG Mucus detection in urine sediment by light microscopy NEGATIVE NRG Complete urinalysis with reflex to culture NO NRG Urine drug screening test - 02/13/16 14:55 Urine phencyclidine detection by screening method NEGATIVE NEGATIVE Urine benzodiazepines detection by screening method NEGATIVE NEGATIVE Urine cocaine detection NEGATIVE NEGATIVE Urine amphetamines detection by screening method NEGATIVE NEGATIVE Urine methamphetamine detection by screening method NEGATIVE NEGATIVE Urine cannabinoids detection by screening method NEGATIVE NEGATIVE Urine opiates detection by screening method NEGATIVE NEGATIVE Urine barbiturates detection NEGATIVE NEGATIVE Screening urine tricyclic antidepressants detection NEGATIVE NEGATIVE Urine methadone detection by screening method NEGATIVE NEGATIVE Urine oxycodone detection NEGATIVE NEGATIVE Urine propoxyphene detection NEGATIVE NEGATIVE Fibrin D-dimer FEU measurement in platelet poor plasma (mass/volume) - 21:15 Fibrin D-dimer FEU measurement in platelet poor plasma (mass/volume) < ug/mL 0.00-0.49 Urine drug screening test - 04/01/16 22:35 Urine phencyclidine detection by screening method NEGATIVE NEGATIVE Urine benzodiazepines detection by screening method NEGATIVE NEGATIVE Urine cocaine detection NEGATIVE NEGATIVE Urine amphetamines detection by screening method NEGATIVE NEGATIVE Urine methamphetamine detection by screening method NEGATIVE NEGATIVE Urine cannabinoids detection by screening method NEGATIVE NEGATIVE Urine opiates detection by screening method NEGATIVE NEGATIVE Urine barbiturates detection NEGATIVE NEGATIVE Screening urine tricyclic antidepressants detection NEGATIVE NEGATIVE Urine methadone detection by screening method NEGATIVE NEGATIVE Urine oxycodone detection NEGATIVE NEGATIVE Urine propoxyphene detection NEGATIVE NEGATIVE Complete blood count (CBC) with automated white blood cell (WBC) differential - 04/01/16 22:55 Blood leukocytes automated count (number/volume) 8.5 10*3/uL 4.3-11.0 Blood erythrocytes automated count (number/volume) 4.33 10*6/uL 4.35-5.85 Venous blood hemoglobin measurement (mass/volume) 12.6 g/dL 11.5-16.0 Blood hematocrit (volume fraction) 38 % 35-52 Automated erythrocyte mean corpuscular volume 89 [foz_us] 80-99 Automated erythrocyte mean corpuscular hemoglobin (mass per erythrocyte) 29 pg 25-34 Automated erythrocyte mean corpuscular hemoglobin concentration measurement ( mass/volume) 33 g/dL 32-36 Automated erythrocyte distribution width ratio 14.7 % 10.0-14.5 Automated blood platelet count (count/volume) 292 10*3/uL 130-400 Automated blood platelet mean volume measurement 9.5 [foz_us] 7.4-10.4 Automated blood neutrophils/100 leukocytes 49 % 42-75 Automated blood lymphocytes/100 leukocytes 39 % 12-44 Blood monocytes/100 leukocytes 11 % 0-12 Automated blood eosinophils/100 leukocytes 1 % 0-10 Automated blood basophils/100 leukocytes 0 % 0-10 Blood neutrophils automated count (number/volume) 4.1 10*3 1.8-7.8 Blood lymphocytes automated count (number/volume) 3.3 10*3 1.0-4.0 Blood monocytes automated count (number/volume) 1.0 10*3 0.0-1.0 Automated eosinophil count 0.1 10*3/uL 0.0-0.3 Automated blood basophil count (count/volume) 0.0 10*3/uL 0.0-0.1 ABO+Rh group - 04/01/16 22:55 ABO+Rh group OP NRG Transfusion band number TNP NRG Whole blood basic metabolic panel - 04/01/16 22:55 Serum or plasma sodium measurement (moles/volume) 141 mmol/L 135-145 Serum or plasma potassium measurement (moles/volume) 3.5 mmol/L 3.6-5.0 Serum or plasma chloride measurement (moles/volume) 108 mmol/L 98-107 Carbon dioxide 21 mmol/L 21-32 Serum or plasma anion gap determination (moles/volume) 12 mmol/L 5-14 Serum or plasma urea nitrogen measurement (mass/volume) 8 mg/dL 7-18 Serum or plasma creatinine measurement (mass/volume) 0.80 mg/dL 0.60-1.30 Serum or plasma urea nitrogen/creatinine mass ratio 10 NRG Serum or plasma creatinine measurement with calculation of estimated glomerular filtration rate > NRG Serum or plasma glucose measurement (mass/volume) 67 mg/dL 70-105 Serum or plasma calcium measurement (mass/volume) 8.9 mg/dL 8.5-10.1 Serum or plasma choriogonadotropin measurement (units/volume) - 04/01/16 22:55 Serum or plasma choriogonadotropin measurement (units/volume) 3630 m [iU]/mL <5 hCG,Beta Subunit, Qnt, Serum - 04/04/16 15:05 hCG,Beta Subunit,Qnt,Serum 5562 mIU/mL hCG,Beta Subunit, Qnt, Serum - 04/08/16 15:06 hCG,Beta Subunit,Qnt,Serum 6168 mIU/mL Complete urinalysis with reflex to culture - 04/10/16 17:45 Urine color determination RED NRG Urine clarity determination VERY CLOUDY NRG Urine pH measurement by test strip 5 5-9 Specific gravity of urine by test strip 1.025 1.016- 1.022 Urine protein assay by test strip, semi-quantitative 3+ NEGATIVE Urine glucose detection by automated test strip NEGATIVE NEGATIVE Erythrocytes detection in urine sediment by light microscopy 5+ NEGATIVE Urine ketones detection by automated test strip 1+ NEGATIVE Urine nitrite detection by test strip NEGATIVE NEGATIVE Urine total bilirubin detection by test strip NEGATIVE NEGATIVE Urine urobilinogen measurement by automated test strip (mass/volume) NORMAL NORMAL Urine leukocyte esterase detection by dipstick 2+ NEGATIVE Automated urine sediment erythrocyte count by microscopy (number/high power field) TNTC NRG Automated urine sediment leukocyte count by microscopy (number/high power field ) [HPF] NRG Bacteria detection in urine sediment by light microscopy TRACE NRG Squamous epithelial cells detection in urine sediment by light microscopy RARE NRG Crystals detection in urine sediment by light microscopy NONE NRG Casts detection in urine sediment by light microscopy NONE NRG Mucus detection in urine sediment by light microscopy NEGATIVE NRG Complete urinalysis with reflex to culture YES NRG Bacterial urine culture - 04/10/16 17:45 URINE CULTURE RESULTS <10,000/ML NRG Serum or plasma choriogonadotropin measurement (units/volume) - 04/10/16 17:56 Serum or plasma choriogonadotropin measurement (units/volume) 5456 m [iU]/mL <5 Automated blood complete blood count (hemogram) panel - 04/11/16 19:31 Blood leukocytes automated count (number/volume) 7.8 10*3/uL 4.3-11.0 Blood erythrocytes automated count (number/volume) 3.45 10*6/uL 4.35-5.85 Venous blood hemoglobin measurement (mass/volume) 10.2 g/dL 11.5-16.0 Blood hematocrit (volume fraction) 31 % 35-52 Automated erythrocyte mean corpuscular volume 89 [foz_us] 80-99 Automated erythrocyte mean corpuscular hemoglobin (mass per erythrocyte) 30 pg 25-34 Automated erythrocyte mean corpuscular hemoglobin concentration measurement ( mass/volume) 33 g/dL 32-36 Automated erythrocyte distribution width ratio 14.5 % 10.0-14.5 Automated blood platelet count (count/volume) 268 10*3/uL 130-400 Automated blood platelet mean volume measurement 9.6 [foz_us] 7.4-10.4 Serum or plasma choriogonadotropin measurement (units/volume) - 04/11/16 19:31 Serum or plasma choriogonadotropin measurement (units/volume) 3188 m [iU]/mL <5 hCG,Beta Subunit, Qnt, Serum - 04/19/16 16:28 hCG,Beta Subunit,Qnt,Serum 117 mIU/mL Encounters ACCT No. Visit Date/Time Discharge Status Pt. Type Provider Facility Loc./Unit Complaint [id number] 04/11/2016 18:58:00 04/11/2016 20:37:00 DIS Emergency TYESHA PAEZ DO Via [facility] ER VAGINAL BLEEDING [id number] 04/10/2016 17:33:00 04/10/2016 19:20:00 DIS Emergency WILLI RILEY Via [facility] ER 6 WKS PREG/VAG BLEEDING/PASSING CLOTS [id number] 04/08/2016 10:52:00 04/08/2016 23:59:59 CLS Outpatient KIEL VIRK, AC Olivia Via [facility] RAD THREATENED MISCARRIAGE IN EARLY [id number] 04/01/2016 22:34:00 04/02/2016 00:43:00 DIS Emergency TYESHA PAEZ DO Via [facility] ER 5 WKS PREG, BLEEDING, CRAMPING [id number] 02/24/2016 20:32:00 02/24/2016 22:04:00 DIS Emergency MICHELLE BYERS MD Via [facility] ER L LEG PAIN [id number] 02/13/2016 14:39:00 02/13/2016 15:45:00 DIS Emergency NIESHA BADILLO APRN Via [facility] ER HEADACHE/ENLARGED L PUPIL [id number] 12/28/2015 14:55:00 12/28/2015 16:44:00 DIS Emergency NIESHA BADILLO APRN Via [facility] ER CHEST PAIN/SOA [id number] 12/02/2015 15:38:00 12/02/2015 16:41:00 DIS Emergency WILLI RILEY [facility] ER RIB PAIN [id number] 11/07/2015 19:28:00 11/07/2015 21:50:00 DIS Emergency WILLI RILEY Via [facility] ER SHAKY, LIGHTHEADED, STOMACH PAIN, HEART RACING [id number] 11/06/2015 02:44:00 11/06/2015 03:17:00 DIS Emergency TYESHA PAEZ DO Via [facility] ER CRAMPING WITH BLOOD CLOTS [id number] 10/18/2015 11:23:00 10/18/2015 14:14:00 DIS Emergency JAD POWELL MD Via [facility] ER FEELS LIKE HEART IS RACING [id number] 10/10/2015 13:48:00 10/10/2015 14:50:00 DIS Emergency NIESHA BADILLO APRN Via [facility] ER WEAKNESS/LIGHT HEADED [id number] 10/08/2015 17:53:00 10/09/2015 13:10:00 DIS Inpatient ROB VIRK, ZOILA Rodríguez Via [facility] 4TH UTI,SEPSIS, METHAMPHETAMINE USE [id number] 09/22/2015 14:05:00 09/22/2015 15:22:00 DIS Emergency MICHELLE BYERS MD Via [facility] ER VOMITING/POSS DEHYDRATED [id number] 09/19/2015 18:04:00 09/19/2015 19:26:00 DIS Emergency TYESHA PAEZ DO Via [facility] ER CHEST PAIN [id number] 09/17/2015 18:07:00 09/17/2015 20:23:00 DIS Emergency MICHELLE BYERS MD Via [facility] ER CHEST PAIN;LEFT ARM PAIN [id number] 08/25/2015 09:58:00 08/25/2015 12:50:00 DIS Outpatient FRANCK DILLON DO Via [facility] SDC EPIGASTRIC PAIN [id number] 08/22/2015 01:12:00 08/22/2015 01:38:00 DIS Emergency LU STUART MD Via [facility] ER POSS CP [id number] 08/19/2015 06:12:00 08/19/2015 23:59:59 CLS Outpatient FRANCK DILLON DO Via [facility] PREOP EPIGASTRIC PAIN [id number] 07/02/2015 14:30:00 07/02/2015 17:59:00 DIS Emergency WILLI RILEY Via [facility] ER VAG BLEEDING DEC APPETITE [id number] 06/28/2015 22:44:00 06/29/2015 01:37:00 DIS Emergency MICHELLE BYERS MD Via [facility] ER HEADACHE [id number] 06/24/2015 16:02:00 06/24/2015 18:31:00 DIS Emergency WILLI RILEY Via [facility] ER LEFT ARM PAIN; DULL CHEST ACHES [id number] 10/28/2016 10:08:00 Document Registration [id number] 10/31/2015 07:06:00 Document Registration [id number] 04/20/2016 08:07:00 Document Registration [id number] 10/30/2015 18:05:00 Document Registration [id number] 04/05/2016 08:06:00 Document Registration [id number] 04/09/2016 08:06:00 Document Registration [id number] 06/23/2017 16:20:00 06/23/2017 23:59:59 CLS Outpatient [facility]
[2017-07-04 20:59] LABS: BILIRUBIN,URINE NEGATIVE (NEGATIVE); CLARITY,URINE CLEAR; COLOR,URINE YELLOW; GLUCOSE, URINE (UA) NEGATIVE (NEGATIVE); KETONES,URINE NEGATIVE (NEGATIVE); LEUKOCYTE ESTERASE ,URINE 1+ (NEGATIVE); NITRITE,URINE NEGATIVE (NEGATIVE); PH,URINE 6 (5-9); PROTEIN,URINE NEGATIVE (NEGATIVE); UROBILINOGEN,URINE NORMAL (NORMAL)
[2017-07-04 21:18] LABS: BACTERIA,URINE MODERATE /HPF
--- NOTE | 2017-07-04 21:19 | ED GU-Female ---
General Chief Complaint: -Female Stated Complaint: ABD CRAMPS; 10-12 WKS Nursing Triage Note: ABDOMINAL CRAMPING, VAGINAL DISCHARGE Nursing Sepsis Screen: No Definite Risk Source: patient Exam Limitations: no limitations History of Present Illness Date Seen by Provider: July 04, 2017 Time Seen by Provider: 20:45 Initial Comments 21-year-old female patient presents to the emergency department complains of lower abdominal cramping and whitish-clear vaginal discharge. Patient states she is approximately 10-12 weeks . Last menstrual period was in "April sometime". Denies seeing an block sawyer for establishing care. Denies vaginal bleeding, yellow or green discharge, fever, nausea, vomiting, frequency , hematuria, or dysuria. Timing/Duration: just prior to arrival Severity/Quality: cramping Location: suprapubic Radiation: none Activities at Onset: none Prior Genitourinary Problems: similar symptoms Sexual Peggs History: less than 2 months ago, single partner Modifying Factors: Worsens With Other (denies modifying factors) Allergies and Home Medications Allergies Coded Allergies: No Known Drug Allergies (Unverified , 02/24/16) Home Medications Cephalexin 500 Mg Capsule, 500 MG PO TID Prescribed by: WILLI QUINONES on 04/10/16 089 Patient Home Medication List Home Medication List Reviewed: Yes Review of Systems Constitutional: No chills, No fever, No malaise Respiratory: no symptoms reported Cardiovascular: no symptoms reported Gastrointestinal: see HPI, abdominal pain; No constipation, No diarrhea, No loss of appetite, No melena, No nausea, No vomiting Genitourinary: see HPI; denies burning; discharge; denies dysuria, denies frequency, denies flank pain, denies hematuria; pain (suprapubic abdominal cramping) : Yes Musculoskeletal: no symptoms reported Skin: no symptoms reported Psychiatric/Neurological: No Symptoms Reported All Other Systemes Reviewed Negative Unless Noted: Yes (Negative excepted noted.) Past Psqebwk-Mzpcmb-Flcmtu Hx Patient Social History Alcohol Use: Denies Use Recreational Drug Use: Yes Drug of Choice: METH HX Smoking Status: Never a Smoker Recent Foreign Travel: No Contact w/Someone Who Travel: No Recent Infectious Disease Expo: No Recent Hopitalizations: No Immunizations Up To Date Tetanus Booster (TDap): More than 5yrs PED Vaccines UTD: Yes Seasonal Allergies Seasonal Allergies: No Past Medical History Surgeries: Yes (EGD) Respiratory: No Cardiac: No Neurological: No : Yes Last Menstrual Period: May 10, 2017 Hx : 3 Hx Para: 1 Hx Total # of Abortions (Sp): 1 Reproductive Disorders: No Female Reproductive Disorders: Denies Sexually Transmitted Disease: No HIV/AIDS: No Genitourinary: No Gastrointestinal: Yes (GASTRITIS, DUODENITIS) Gastroesophageal Reflux, Esophagitis Musculoskeletal: No Endocrine: No HEENT: No Cancer: No Psychosocial: Yes Anxiety Integumentary: No Blood Disorders: No Family Medical History Reviewed Nursing Family Hx Arthritis G8 SISTER Hypertension 19 MOTHER Seizure disorder 19 MOTHER No Pertinent Family Hx Physical Exam Vital Signs Vital Signs - First Documented 07/04/17 20:45 Temp 98.2 Pulse 98 Resp 18 B/P (MAP) 135/73 (93) Pulse Ox 99 O2 Delivery Room Air Capillary Refill : Less Than 3 Seconds General Appearance: WD/WN, no apparent distress Cardiovascular: normal peripheral pulses, regular rate, rhythm, no edema, no murmur Respiratory: lungs clear, normal breath sounds, no respiratory distress, no accessory muscle use Gastrointestinal: normal bowel sounds, soft, no organomegaly; No distended; tenderness (mild suprapubic tenderness) Back: normal inspection, no CVA tenderness Extremities: no pedal edema, normal capillary refill Neurologic/Psychiatric: alert, normal mood/affect, oriented x 3 Skin: normal color, warm/dry, tattoos/piercings Progress/Results/Core Measures Suspected Sepsis Recent Fever Within 48 Hours: No Infection Criteria Present: None New/Unexplained Altered Menta: No Sepsis Screen: No Definite Risk SIRS Temperature:98.2 Pulse: 98 Respiratory Rate: 18 Laboratory Tests 07/04/17 21:05: White Blood Count 10.2 Blood Pressure 135 /73 Mean: 93 Laboratory Tests 07/04/17 21:05: Creatinine 0.62, Platelet Count 305, Total Bilirubin 0.2 Results/Orders Lab Results Laboratory Tests Test 07/04/17 20:51 07/04/17 21:05 07/04/17 22:02 Range/Units Urine Color YELLOW Urine Clarity CLEAR Urine pH 6 5-9 Urine Specific [place] 1.015 L 1.016-1.022 Urine Protein NEGATIVE NEGATIVE Urine Glucose (UA) NEGATIVE NEGATIVE Urine Ketones NEGATIVE NEGATIVE Urine Nitrite NEGATIVE NEGATIVE Urine Bilirubin NEGATIVE NEGATIVE Urine Urobilinogen NORMAL NORMAL MG/DL Urine Leukocyte Esterase 1+ H NEGATIVE Urine RBC (Auto) NEGATIVE NEGATIVE Urine RBC NONE /HPF Urine WBC 2-5 /HPF Urine Squamous Epithelial Cells 10-25 H /HPF Urine Crystals NONE /LPF Urine Bacteria MODERATE H /HPF Urine Casts NONE /LPF Urine Mucus NEGATIVE /LPF Urine Culture Indicated NO Urine Opiates Screen NEGATIVE NEGATIVE Urine Oxycodone Screen NEGATIVE NEGATIVE Urine Methadone Screen NEGATIVE NEGATIVE Urine Propoxyphene Screen NEGATIVE NEGATIVE Urine Barbiturates Screen NEGATIVE NEGATIVE Ur Tricyclic Antidepressants Screen NEGATIVE NEGATIVE Urine Phencyclidine Screen NEGATIVE NEGATIVE Urine Amphetamines Screen NEGATIVE NEGATIVE Urine Methamphetamines Screen NEGATIVE NEGATIVE Urine Benzodiazepines Screen NEGATIVE NEGATIVE Urine Cocaine Screen NEGATIVE NEGATIVE Urine Cannabinoids Screen NEGATIVE NEGATIVE White Blood Count 10.2 4.3-11.0 10^3/uL Red Blood Count 3.81 L 4.35-5.85 10^6/uL Hemoglobin 10.5 L 11.5-16.0 G/DL Hematocrit 32 L 35-52 % Mean Corpuscular Volume 84 80-99 FL Mean Corpuscular Hemoglobin 28 25-34 PG Mean Corpuscular Hemoglobin Concent 33 32-36 G/DL Red Cell Distribution Width 15.6 H 10.0-14.5 % Platelet Count 305 130-400 10^3/uL Mean Platelet Volume 9.3 7.4-10.4 FL Neutrophils (%) (Auto) 65 42-75 % Lymphocytes (%) (Auto) 26 12-44 % Monocytes (%) (Auto) 8 0-12 % Eosinophils (%) (Auto) 1 0-10 % Basophils (%) (Auto) 0 0-10 % Neutrophils # (Auto) 6.6 1.8-7.8 X 10^3 Lymphocytes # (Auto) 2.7 1.0-4.0 X 10^3 Monocytes # (Auto) 0.8 0.0-1.0 X 10^3 Eosinophils # (Auto) 0.1 0.0-0.3 10^3/uL Basophils # (Auto) 0.0 0.0-0.1 10^3/uL Sodium Level 136 135-145 MMOL/L Potassium Level 3.5 L 3.6-5.0 MMOL/L Chloride Level 105 98-107 MMOL/L Carbon Dioxide Level 19 L 21-32 MMOL/L Anion Gap 12 5-14 MMOL/L Blood Urea Nitrogen 8 7-18 MG/DL Creatinine 0.62 0.60-1.30 MG/DL Estimat Glomerular Filtration Rate > 60 BUN/Creatinine Ratio 13 Glucose Level 74 70-105 MG/DL Calcium Level 9.2 8.5-10.1 MG/DL Total Bilirubin 0.2 0.1-1.0 MG/DL Aspartate Amino Transf (AST/SGOT) 16 5-34 U/L Alanine Aminotransferase (ALT/SGPT) 14 0-55 U/L Alkaline Phosphatase 75 40-136 U/L C-Reactive Protein High Sensitivity 0.97 H 0.00-0.50 MG/DL Total Protein 7.2 6.4-8.2 GM/DL Albumin 4.0 3.2-4.5 GM/DL Human Chorionic Gonadotropin, Quant [id number] H <5 MIU/ML Serum Alcohol < 10 <10 MG/DL My Orders Orders - WILLI QUINONES Heart Tones (07/04/17 20:46) Cbc With Automated Diff (07/04/17 20:46) Comprehensive Metabolic Panel (07/04/17 20:46) Hs C Reactive Protein (07/04/17 20:46) Hcg,Quantitative (07/04/17 20:46) Ua Culture If Indicated (07/04/17 20:46) Wet Prep (07/04/17 21:44) Neisseria Gonorrhea Dna (07/04/17 21:44) Genital Culture (07/04/17 21:44) Chlamydia Dna Urine Test (07/04/17 21:44) Alcohol (07/04/17 21:44) Drug Screen Stat (Urine) (07/04/17 21:44) Vital Signs/I&O 07/04/17 20:45 Temp 98.2 Pulse 98 Resp 18 B/P (MAP) 135/73 (93) Pulse Ox 99 O2 Delivery Room Air Capillary Refill : Less Than 3 Seconds Blood Pressure Mean: 93 Point of Care Testing Urine -Bedside: Positive Departure Impression Primary Impression: BV (bacterial vaginosis) Additional Impression: Qualified Codes: Z3A.12 - 12 weeks gestation of Disposition: 01 HOME, SELF-CARE Condition: Improved Departure-Patient Inst. Decision time for Depature: 22:25 Referrals: AMELIE BRAMBILA DENNIS G MD SHAW, ANGELA C DO [facility] Patient Instructions: How to Plan and Prepare for a Healthy Add. Discharge Instructions: All discharge instructions reviewed with patient and/or family. Voiced understanding. Tylenol extra strength [id number] as directed for pain. Stable hydrated. Diet as tolerated. Follow-up with the block sawyer of your choice to establish care and for recheck. The block sawyer will order an outpatient ultrasound and may repeat labs as an outpatient. Call tomorrow morning for an appointment time. Return to the emergency department for worsened symptoms, vaginal bleeding with greater than 2 pads per hour for greater than 2 hours, fever, inability to urinate, decreased urination, pain, or any other concerns. Scripts Metronidazole (Metrogel-Vaginal) 70 Gm Gel.w.appl 70 GM VG UD, #1 TUBE 0 Refills 1 applicatorful qHS x5days. Prov: WILLI QUINONES 07/04/17 WILLI QUINONES July 04, 2017 21:19
[2017-07-04 21:26] LABS: BASOPHILS % (AUTO) 0 % (0-10); EOSINOPHILS # (AUTO) 0.1 10^3/uL (0.0-0.3); EOSINOPHILS % (AUTO) 1 % (0-10); HEMATOCRIT 32 % (35-52); HEMOGLOBIN 10.5 G/DL (11.5-16.0); LYMPHOCYTES # (AUTO) 2.7 X 10^3 (1.0-4.0); LYMPHOCYTES % (AUTO) 26 % (12-44); MEAN CORPUSCULAR HEMOGLOBIN 28 PG (25-34); MEAN CORPUSCULAR HGB CONC 33 G/DL (32-36); MEAN CORPUSCULAR VOLUME 84 FL (80-99); MEAN PLATELET VOLUME 9.3 FL (7.4-10.4); MONOCYTES # (AUTO) 0.8 X 10^3 (0.0-1.0); MONOCYTES % (AUTO) 8 % (0-12); NEUTROPHILS # (AUTO) 6.6 X 10^3 (1.8-7.8); NEUTROPHILS % (AUTO) 65 % (42-75); PLATELET COUNT 305 10^3/uL (130-400); RED BLOOD COUNT 3.81 10^6/uL (4.35-5.85); RED CELL DISTRIBUTION WIDTH 15.6 % (10.0-14.5); WHITE BLOOD COUNT 10.2 10^3/uL (4.3-11.0)
[2017-07-04 21:42] LABS: ALANINE AMINOTRANSFERASE 14 U/L (0-55); ALKALINE PHOSPHATASE 75 U/L (40-136); BILIRUBIN,TOTAL 0.2 MG/DL (0.1-1.0); BUN/CREATININE RATIO 13; CALCIUM 9.2 MG/DL (8.5-10.1); CARBON DIOXIDE 19 MMOL/L (21-32); CHLORIDE 105 MMOL/L (98-107); CREATININE SERUM 0.62 MG/DL (0.60-1.30); GFR ESTIMATED > 60; GLUCOSE 74 MG/DL (70-105); POTASSIUM 3.5 MMOL/L (3.6-5.0); SODIUM 136 MMOL/L (135-145); TOTAL PROTEIN 7.2 GM/DL (6.4-8.2)
[2017-07-04 22:05] LABS: AMPHETAMINE SCREEN, URINE NEGATIVE (NEGATIVE); BARBITURATE SCREEN URINE NEGATIVE (NEGATIVE); BENZODIAZEPINES SCREEN URINE NEGATIVE (NEGATIVE); CANNABINOID SCREEN, URINE NEGATIVE (NEGATIVE); COCAINE SCREEN URINE NEGATIVE (NEGATIVE); METHADONE STAT NEGATIVE (NEGATIVE); METHAMPHETAMINE SCREEN URINE S NEGATIVE (NEGATIVE); OPIATE SCREEN URINE NEGATIVE (NEGATIVE); OXYCODONE STAT NEGATIVE (NEGATIVE); PROPOXYPHENE STAT NEGATIVE (NEGATIVE); TRICYCLIC ANTIDEPRESSANTS SCRE NEGATIVE (NEGATIVE)
[2017-07-04] MEDS ORDERED: METR70GE16 VG (22:47)
[2017-07-04 22:54] VITALS: BP 126/69
== END 2017-07-04 22:54 | disposition home or self-care (01) ==
LOC: EDUNIT# 20:35 → ER 20:37
DX: O23.591 Infection of other part of genital tract in pregnancy, first trimester (principal); N76.0 Acute vaginitis; O99.341 Other mental disorders complicating pregnancy, first trimester; F41.9 Anxiety disorder, unspecified; O99.611 Diseases of the digestive system complicating pregnancy, first trimester; K21.9 Gastro-esophageal reflux disease without esophagitis; Z3A.12 12 weeks gestation of pregnancy
CPT/HCPCS: 36415; 80053; 80306; 80320; 81000; 84702; 84703; 85025; 86141; 87070; 87210; 87491; 87591; 99284

== ENCOUNTER → 2017-08-14 | Outpatient (CLI) | payer MEDICAID ==
[~2017-08-14] MED LIST changes: +METR70GE16 VG; +NITR-65 PO
--- NOTE | 2017-08-14 15:16 | Diagnostic Imaging Report ---
PROCEDURE: US OB SINGLE FETUS <14 WKS. TECHNIQUE: Multiple real-time grayscale images were obtained over the gravid uterus in various projections. INDICATION: Dating. FINDINGS: There is a single live intrauterine approximately 15 weeks 6 days gestation. heart rate was recorded at 155 beats per minute. Placenta is developing posteriorly. Amniotic fluid volume is normal. Cervical length is 4.6 cm. IMPRESSION: Single live IUP 15 weeks 6 days gestational age. Estimated date of confinement sonographically is 01/30/2018. No complicating features are detected. Dictated by: Dictated on workstation # [id number]
== END ==
LOC: RAD 14:21
PROVIDERS: ATTEND Family Medicine
DX: Z34.81 Encounter for supervision of other normal pregnancy, first trimester (principal); Z3A.15 15 weeks gestation of pregnancy
CPT/HCPCS: 76801

== ENCOUNTER 2017-09-11 18:27 | Emergency (ER) | payer MEDICAID ==
[~2017-09-11] VITALS: Ht 154.9 cm; Wt 54.4 kg
[~2017-09-11 18:27] MED LIST changes: -NITR-65 PO
[2017-09-11 18:53] LABS: BILIRUBIN,URINE NEGATIVE (NEGATIVE); CLARITY,URINE CLEAR; COLOR,URINE YELLOW; GLUCOSE, URINE (UA) NEGATIVE (NEGATIVE); KETONES,URINE NEGATIVE (NEGATIVE); LEUKOCYTE ESTERASE ,URINE 2+ (NEGATIVE); NITRITE,URINE NEGATIVE (NEGATIVE); PH,URINE 6 (5-9); PROTEIN,URINE NEGATIVE (NEGATIVE); UROBILINOGEN,URINE NORMAL (NORMAL)
--- NOTE | 2017-09-11 18:59 | ED Fall/Injury ---
General Chief Complaint: Trauma-Non Activation Stated Complaint: FALL;CRAMPING;19 WKS Nursing Triage Note: states she was going up stairs and slipped. Tried to catch herself but hit gravid stomach on stairs. No other injuries noted. Reddness noted to ledt side of abd. States that she is having cramping but no bleeding Source: patient Exam Limitations: other (SOMEWHAT DIFFICULT HISTORIAN) History of Present Illness Date Seen by Provider: Sep 11, 2017 Time Seen by Provider: 18:41 Initial Comments PT ARRIVES VIA POV FROM HOME STATES SHE WAS WALKING UP WET STEPS, AND SLIPPED AND LEFT ABDOMEN HIT A STEP OCCURRED IMMEDIATELY PRIOR TO ARRIVAL PT STATES SHE THOUGHT SHE WAS 21 WEEKS , BUT WAS JUST TOLD SHE IS ONLY 19 WEEKS --EDC 01/30/18 HAD SLIGHT CRAMPING AFTER THE INCIDENT, BUT IS NOT OCCURRING NOW NO VAGINAL BLEEDING PT HAS NOT HAD ANY PROBLEMS WITH THIS LAST OB VISIT WITH DR. MONTIEL --THINKS WAS "A MONTH OR MORE AGO" AND THINKS NEXT OB VISIT IS IN "A COUPLE OF WEEKS"--BUT IS NOT SURE PT IS AB1--MISCARRIAGE AT 8 WEEKS PT WITH MULTIPLE VISITS, MANY FOR METH-RELATED ISSUES PCP: DR. MONTIEL Allergies and Home Medications Allergies Coded Allergies: No Known Drug Allergies (Unverified , 09/11/17) Home Medications Nitrofurantoin Monohyd/M-Cryst 100 Mg Capsule, 100 MG PO BID Prescribed by: TYESHA PAEZ on 09/11/171940 Patient Home Medication List Home Medication List Reviewed: Yes Review of Systems Constitutional: no symptoms reported Respiratory: no symptoms reported Cardiovascular: no symptoms reported Gastrointestinal: see HPI Genitourinary: see HPI : Yes Musculoskeletal: no symptoms reported; No back pain Skin: no symptoms reported Psychiatric/Neurological: No Symptoms Reported Past Ybagkfy-Awoejg-Fpwsmb Hx Patient Social History Alcohol Use: Denies Use (OCCASIONALLY USES ALCOHOL, BUT NOT SINCE BEING ) Recreational Drug Use: Yes (EXTENSIVE DRUG USE, ESPECIALLY METH) Drug of Choice: METH HX Smoking Status: Former Smoker Recent Foreign Travel: No Contact w/Someone Who Travel: No Recent Infectious Disease Expo: No Recent Hopitalizations: No Physical Abuse: No Sexual Abuse: No Mistreated: No Fear: No Immunizations Up To Date Tetanus Booster (TDap): More than 5yrs PED Vaccines UTD: Yes Seasonal Allergies Seasonal Allergies: No Past Medical History Surgeries: Yes (EGD) Respiratory: No Cardiac: No Neurological: No Hx : 3 Hx Para: 1 Hx Total # of Abortions (Sp): 1 (MISCARRIAGE AT 8 WEEKS) Reproductive Disorders: No Female Reproductive Disorders: Denies Sexually Transmitted Disease: No HIV/AIDS: No Genitourinary: Yes Kidney Infection, Bladder Infection Gastrointestinal: Yes (GASTRITIS, DUODENITIS) Gastroesophageal Reflux, Esophagitis Musculoskeletal: No Endocrine: No HEENT: No Cancer: No Psychosocial: Yes (SUBSTANCE ABUSE) Anxiety Nursing Suicide Risk Score: 0 Integumentary: No Blood Disorders: No Family Medical History Arthritis G8 SISTER Hypertension 19 MOTHER Seizure disorder 19 MOTHER No Pertinent Family Hx Physical Exam Vital Signs Vital Signs - First Documented Capillary Refill : Less Than 3 Seconds Height, Weight, BMI Height: 5'1" Weight: 120lbs. 0.0oz. 54.215007jq; 23.2 BMI Method:Stated General Appearance: WD/WN, no apparent distress Respiratory: normal breath sounds, no respiratory distress, no accessory muscle use Gastrointestinal: normal bowel sounds, soft, other (GRAVID UTERUS--2 FB'S ABOVE UMBILICUS. NON-TENDER. SLIGHT ERYTHEMA TO LEFT MID ABDOMEN, SLIGHT TENDERNESS OVER THE AREA. FHR 152) Back: normal inspection, no CVA tenderness, no vertebral tenderness Extremities: normal inspection, no pedal edema, no calf tenderness, normal capillary refill Neurologic/Psychiatric: lapel padder II-XII nml as tested, no motor/sensory deficits, alert, oriented x 3 Skin: normal color, warm/dry, tattoos/piercings (INCLUDING FACIAL TATTOO) Progress/Results/Core Measures Results/Orders Lab Results Laboratory Tests Test 09/11/17 18:35 Range/Units Urine Color YELLOW Urine Clarity CLEAR Urine pH 6 5-9 Urine Specific [place] 1.015 L 1.016-1.022 Urine Protein NEGATIVE NEGATIVE Urine Glucose (UA) NEGATIVE NEGATIVE Urine Ketones NEGATIVE NEGATIVE Urine Nitrite NEGATIVE NEGATIVE Urine Bilirubin NEGATIVE NEGATIVE Urine Urobilinogen NORMAL NORMAL MG/DL Urine Leukocyte Esterase 2+ H NEGATIVE Urine RBC (Auto) NEGATIVE NEGATIVE Urine RBC NONE /HPF Urine WBC 5-10 H /HPF Urine Squamous Epithelial Cells 10-25 H /HPF Urine Crystals NONE /LPF Urine Bacteria MODERATE H /HPF Urine Casts NONE /LPF Urine Mucus NEGATIVE /LPF Urine Culture Indicated YES Urine Opiates Screen NEGATIVE NEGATIVE Urine Oxycodone Screen NEGATIVE NEGATIVE Urine Methadone Screen NEGATIVE NEGATIVE Urine Propoxyphene Screen NEGATIVE NEGATIVE Urine Barbiturates Screen NEGATIVE NEGATIVE Ur Tricyclic Antidepressants Screen NEGATIVE NEGATIVE Urine Phencyclidine Screen NEGATIVE NEGATIVE Urine Amphetamines Screen NEGATIVE NEGATIVE Urine Methamphetamines Screen NEGATIVE NEGATIVE Urine Benzodiazepines Screen NEGATIVE NEGATIVE Urine Cocaine Screen NEGATIVE NEGATIVE Urine Cannabinoids Screen NEGATIVE NEGATIVE My Orders Orders - TYESHA PAEZ DO Ua Culture If Indicated (09/11/17 18:48) Drug Screen Stat (Urine) (09/11/17 18:55) Urine Culture (09/11/17 18:35) [place] [id number] (09/11/17 18:48) Vital Signs/I&O 09/11/17 09/11/17 09/11/17 18:31 18:31 19:55 Temp 98.0 98.0 Pulse 82 82 72 Resp 16 16 16 B/P (MAP) 119/81 (94) 119/81 (94) 116/71 Pulse Ox 97 97 99 Blood Pressure Mean: 94 Progress Progress Note : Progress Note ON RETURN FROM ULTRASOUND, ABDOMEN IS NON-TENDER, AND NO ERYTHEMA, BRUISING OR ANY EXTERNAL EVIDENCE OF TRAUMA TO AREA. UNEVENTFUL ER STAY Diagnostic Imaging Comments OB ULTRASOUND--19 WEEKS, 6 DAYS, NORMAL IUP, NO EVIDENCE OF TRAUMA. PER TECH REPORT @ 1939 Reviewed: Reviewed by Me Departure Impression Primary Impression: 19 weeks gestation of Additional Impressions: Abdominal contusion UTI (urinary tract infection) Disposition: 01 HOME, SELF-CARE Condition: Improved Departure-Patient Inst. Referrals: JOSE MONTIEL MD (PCP/Family) Primary Care Physician Patient Instructions: Abdominal Trauma in (DC), Urinary Tract Infection, Adult (DC) Add. Discharge Instructions: LOTS OF CLEAR LIQUIDS TYLENOL NEEDED FOR PAIN FOLLOW UP WITH DR. MONTIEL THIS WEEK FOR FURTHER CARE All discharge instructions reviewed with patient and/or family. Voiced understanding. Scripts Nitrofurantoin Monohyd/M-Cryst (Macrobid 100 mg Capsule) 100 Mg Capsule 100 MG PO BID, #20 CAP Prov: TYESHA PAEZ DO 09/11/17 TYESHA PAEZ DO Sep 11, 2017 18:59
[2017-09-11 19:01] LABS: BACTERIA,URINE MODERATE /HPF
[2017-09-11] MEDS ORDERED: NITR-65 PO (19:41)
[2017-09-11 19:54] LABS: AMPHETAMINE SCREEN, URINE NEGATIVE (NEGATIVE); BARBITURATE SCREEN URINE NEGATIVE (NEGATIVE); BENZODIAZEPINES SCREEN URINE NEGATIVE (NEGATIVE); CANNABINOID SCREEN, URINE NEGATIVE (NEGATIVE); COCAINE SCREEN URINE NEGATIVE (NEGATIVE); METHADONE STAT NEGATIVE (NEGATIVE); METHAMPHETAMINE SCREEN URINE S NEGATIVE (NEGATIVE); OPIATE SCREEN URINE NEGATIVE (NEGATIVE); OXYCODONE STAT NEGATIVE (NEGATIVE); PROPOXYPHENE STAT NEGATIVE (NEGATIVE); TRICYCLIC ANTIDEPRESSANTS SCRE NEGATIVE (NEGATIVE)
[2017-09-11 19:55] VITALS: BP 116/71
--- NOTE | 2017-09-11 20:02 | Diagnostic Imaging Report ---
INDICATION: Fall, abdominal pain, cramping COMPARISON: None FINDINGS: Single live intrauterine is identified with a heart rate of 161 beats per minute. The placenta is located posteriorly and has a normal appearance. There is a Hitesh Starr contraction present. There is no obvious subchorionic hemorrhage. Fetus is in cephalic presentation. There is no sonographic evidence of previa. Visualized anatomy is normal. IMPRESSION: 1. Single live intrauterine 19 weeks 6 days with a due date of 01/30/2018 by today's ultrasound. 2. No acute abnormalities identified. Dictated by: Dictated on workstation # [id number]
== END 2017-09-11 19:55 | disposition home or self-care (01) ==
LOC: EDUNIT# 18:27 → ER 18:28
DX: O9A.212 Injury, poisoning and certain other consequences of external causes complicating pregnancy, second trimester (principal); S30.1XXA Contusion of abdominal wall, initial encounter; O23.42 Unspecified infection of urinary tract in pregnancy, second trimester; O99.322 Drug use complicating pregnancy, second trimester; F15.10 Other stimulant abuse, uncomplicated; O99.342 Other mental disorders complicating pregnancy, second trimester; F41.9 Anxiety disorder, unspecified; O99.612 Diseases of the digestive system complicating pregnancy, second trimester; K21.9 Gastro-esophageal reflux disease without esophagitis; Z3A.19 19 weeks gestation of pregnancy; Z87.891 Personal history of nicotine dependence; Z87.59 Personal history of other complications of pregnancy, childbirth and the puerperium; Z87.19 Personal history of other diseases of the digestive system; Z87.448 Personal history of other diseases of urinary system; W10.9XXA Fall (on) (from) unspecified stairs and steps, initial encounter; W22.09XA Striking against other stationary object, initial encounter
CPT/HCPCS: 76815; 80306; 81000; 87088

== ENCOUNTER 2018-01-31 19:28 | Inpatient (IN) | payer MEDICAID ==
[~2018-01-31] VITALS: Ht 154.9 cm; Wt 65.3 kg
[~2018-01-31 19:28] MED LIST changes: +NITR-65 PO
[2018-01-31 19:34] VITALS: BP 124/74
[2018-01-31] MEDS ORDERED: ACYC400T PO (19:46)
[2018-01-31] MEDS ORDERED: PREN-159 PO (19:46)
[2018-01-31] MEDS ORDERED: MINERAL OIL CONCENTRATE 99.9% 15 ML UDC TOP PRN (20:00)
[2018-01-31] MEDS: D5 LR IV SOLUTION 1,000 ML IV SCH (21:15)
[2018-01-31 21:37] LABS: BASOPHILS % (AUTO) 0 % (0-10); EOSINOPHILS # (AUTO) 0.1 10^3/uL (0.0-0.3); EOSINOPHILS % (AUTO) 1 % (0-10); HEMATOCRIT 36 % (35-52); HEMOGLOBIN 12.2 G/DL (11.5-16.0); LYMPHOCYTES # (AUTO) 2.4 X 10^3 (1.0-4.0); LYMPHOCYTES % (AUTO) 21 % (12-44); MEAN CORPUSCULAR HEMOGLOBIN 31 PG (25-34); MEAN CORPUSCULAR HGB CONC 34 G/DL (32-36); MEAN CORPUSCULAR VOLUME 91 FL (80-99); MEAN PLATELET VOLUME 9.6 FL (7.4-10.4); MONOCYTES % (AUTO) 9 % (0-12); NEUTROPHILS # (AUTO) 7.8 X 10^3 (1.8-7.8); NEUTROPHILS % (AUTO) 70 % (42-75); PLATELET COUNT 174 10^3/uL (130-400); RED CELL DISTRIBUTION WIDTH 13.1 % (10.0-14.5); WHITE BLOOD COUNT 11.2 10^3/uL (4.3-11.0)
[2018-01-31] MEDS: CATHETER FLUSH 10 ML SYR IV SCH (22:01)
[2018-01-31 22:18] LABS: AMPHETAMINE SCREEN, URINE NEGATIVE (NEGATIVE); BARBITURATE SCREEN URINE NEGATIVE (NEGATIVE); BENZODIAZEPINES SCREEN URINE NEGATIVE (NEGATIVE); CANNABINOID SCREEN, URINE NEGATIVE (NEGATIVE); COCAINE SCREEN URINE NEGATIVE (NEGATIVE); METHADONE STAT NEGATIVE (NEGATIVE); METHAMPHETAMINE SCREEN URINE S NEGATIVE (NEGATIVE); OPIATE SCREEN URINE NEGATIVE (NEGATIVE); OXYCODONE STAT NEGATIVE (NEGATIVE); PROPOXYPHENE STAT NEGATIVE (NEGATIVE); TRICYCLIC ANTIDEPRESSANTS SCRE NEGATIVE (NEGATIVE)
[2018-01-31 23:38] VITALS: BP 125/72
[2018-02-01] VITALS (55 sets, daily range): BP systolic 80–146; BP diastolic 47–82
[2018-02-01] MEDS: D5 LR IV SOLUTION 1,000 ML IV SCH ×2 (05:08→13:31)
[2018-02-01] MEDS: CATHETER FLUSH 10 ML SYR IV SCH (05:08)
[2018-02-01] MEDS ORDERED: OXYTOCIN/NORMAL SALINE 500 ML IV SCH ×2 (06:00→15:06)
[2018-02-01] MEDS ORDERED: LACTATED RINGERS 1,000 ML IV ONE ×2 (08:45→09:59)
[2018-02-01] MEDS ORDERED: SUFENTA 0.6MCG/ML BUPIVA 0.125 100 ML ONE (08:50)
--- NOTE | 2018-02-01 08:50 | Labor Progress Note ---
Labor Progress Note Labor Progress Note Date Seen by Provider: Feb 01, 2018 Time Seen by Provider: 08:30 Subjective: Pt denies complaints. Contractions are mild but regular. Objective: (Can we insert 24 hour vitals here?) Cervical exam: 4-5cm Consistency: soft Position: -2 Presentation: vtx heart tones: 140 beats per minute, normal variability, reactive FHT Tocometer: q3 min Assessment/Plan: Peyton Koch is a (22 /Para / ,Gestational Age (wks)40 here for IOL. CEFM/TOCO Continue pitocin/ AROM with abundant clear fluid. head well applied to the cervix following ROM. Anticipate vaginal delivery. Dr. Scruggs updated. Vitals - Labs Vital Signs - I&O Vital Signs Date Time Temp Pulse Resp B/P (MAP) Pulse Ox O2 Delivery O2 Flow Rate FiO2 02/01/18 08:00 76 18 102/65 (77) Room Air 02/01/18 07:45 Room Air 02/01/18 07:30 81 18 111/63 (79) Room Air 02/01/18 07:15 80 18 101/60 (74) Room Air 02/01/18 07:00 81 18 108/63 (78) Room Air 02/01/18 06:45 75 18 112/71 (85) Room Air 02/01/18 06:30 73 18 109/66 (80) Room Air 02/01/18 06:15 79 18 106/64 (78) Room Air 02/01/18 06:05 97.4 108 18 131/80 (97) Room Air 02/01/18 03:32 97.0 87 18 134/72 (92) Room Air 01/31/18 23:38 97.7 90 18 125/72 (89) Room Air 01/31/18 19:34 98.0 113 18 124/74 (91) Room Air I & O 02/01/18 07:00 Intake Total 1400 ml Balance 1400 ml Labs Laboratory Tests 01/31/18 20:45: Urine Opiates Screen NEGATIVE, Urine Oxycodone Screen NEGATIVE, Urine Methadone Screen NEGATIVE, Urine Propoxyphene Screen NEGATIVE, Urine Barbiturates Screen NEGATIVE, Ur Tricyclic Antidepressants Screen NEGATIVE, Urine Phencyclidine Screen NEGATIVE, Urine Amphetamines Screen NEGATIVE, Urine Methamphetamines Screen NEGATIVE, Urine Benzodiazepines Screen NEGATIVE, Urine Cocaine Screen NEGATIVE, Urine Cannabinoids Screen NEGATIVE 01/31/18 21:15: White Blood Count 11.2H, Red Blood Count 4.00L, Hemoglobin 12.2, Hematocrit 36, Mean Corpuscular Volume 91, Mean Corpuscular Hemoglobin 31, Mean Corpuscular Hemoglobin Concent 34, Red Cell Distribution Width 13.1, Platelet Count 174, Mean Platelet Volume 9.6, Neutrophils (%) (Auto) 70, Lymphocytes (%) (Auto) 21, Monocytes (%) (Auto) 9, Eosinophils (%) (Auto) 1, Basophils (%) (Auto) 0, Neutrophils # (Auto) 7.8, Lymphocytes # (Auto) 2.4, Monocytes # (Auto) 1.0, Eosinophils # (Auto) 0.1, Basophils # (Auto) 0.0 MIMI BETANCOURT DO Feb 01, 2018 08:50
[2018-02-01] MEDS ORDERED: BUPIVACAINE 0.25% 30 ML (SENSORCAINE) VIAL ONE (09:17)
[2018-02-01] MEDS ORDERED: fentaNYL INJECTION 100 MCG/2 ML AMP ONE (09:18)
[2018-02-01] MEDS ORDERED: NALOXONE 0.4 MG/ML 1 ML (NARCAN) VIAL IV PRN (10:00)
[2018-02-01] MEDS ORDERED: EPIDURAL (SUFENTA 0.6MCG/ML BUPIVA 0.125%) 100 ML BAG EPI SCH (10:00)
[2018-02-01] MEDS ORDERED: CATHETER FLUSH 10 ML SYR IV PRN (10:00)
[2018-02-01] MEDS ORDERED: LIDOCAINE 1% INJ 20 ML 20 ML VIAL ONE (13:55)
[2018-02-01] MEDS ORDERED: MISOPROSTOL 200 MCG (CYTOTEC) TABLET ONE (14:17)
--- NOTE | 2018-02-01 14:53 | History & Physical-OB ---
OB - Chief Complaint & HPI Date/Time Date of Admission: Date of Admission: Jan 31, 2018 at 19:28 Date seen by a Provider: Feb 01, 2018 Time Seen by a Provider: 14:00 Chief Complaint/History OB-Reason for Admission/Chief: Induction of Labor Hx : 3 Hx Para: 1 Expected Date of Delivery: Jan 30, 2018 Gestational Age in Weeks: 40 Gestational Age in Days: 1 Indication for induction: post dates History of Labs O+, Ab neg Rub NON IMMUNE GC/Chyl neg HIV/HepB/RPR NR H/o HSV no lesions Normal 1 hr GTT GBS neg Allergies and Home Medications Allergies Coded Allergies: No Known Drug Allergies (Unverified , 09/11/17) Home Medications Acyclovir 400 Mg Tablet, 400 MG PO BID, (Reported) No.137/Iron/Folic Acd 1 Each Tablet, 1 EACH PO DAILY, (Reported) Patient Home Medication List Home Medication List Reviewed: Yes OB - History Hx of Present Ultrasounds: Normal mid trimester US Obstetrical Complications: None, Other (H/o HSV no active lesions at time of delivery) Medical Complications: Other (h/o Drug use) Information Induced Hypertension: No Maternal Gestational Diabetes: No Hemorrhage: No Obstetrical History Hx : 3 Hx Para: 1 Hx # Term Pregnancies: 1 Number of Living Children: 1 Delivery History Hx Blood Disorders: No Patient Past Medical History Substance Abuse with Meth Social History/Family History HIV/AIDS: No Recent Infectious Disease Expo: No Sexually Transmitted Disease: Yes Alcohol Use: Denies Use Recreational Drug Use: Yes (on Record, UDS + Meth 07/24/17) Immunizations Tetanus Booster (TDap): Less than 5yrs (11/21/17) Date of Influenza Vaccine: Nov 21, 2017 Rubella: not immune RPR/VDRL: Negative GBS Status: Negative HBsAG: Negative OB - Admission Exam Physical Exam Vitals: Vital Signs 02/01/18 02/01/18 08:45 12:30 Temp 98.2 Pulse 87 Resp 18 B/P (MAP) 105/64 (78) Pulse Ox 98 O2 Delivery Room Air HEENT: NCAT Heart: Rhythm Normal Lungs: Clear Abdomen: Gravid Extremities: Normal Reflexes: Normal Cervical Dilatation: 10cm Effacement: 100% Station: +1 Membranes: Ruptured Amniotic Fluid: Thin Meconium Heart Rate: 150's Accelerations: Accelerations Present Decelerations: Early Decelerations Short Term Variability: Present Contractions on Admission: < 5 Minutes Apart Labs Laboratory Tests Test 01/31/18 20:45 01/31/18 21:15 Range/Units Urine Opiates Screen NEGATIVE NEGATIVE Urine Oxycodone Screen NEGATIVE NEGATIVE Urine Methadone Screen NEGATIVE NEGATIVE Urine Propoxyphene Screen NEGATIVE NEGATIVE Urine Barbiturates Screen NEGATIVE NEGATIVE Ur Tricyclic Antidepressants Screen NEGATIVE NEGATIVE Urine Phencyclidine Screen NEGATIVE NEGATIVE Urine Amphetamines Screen NEGATIVE NEGATIVE Urine Methamphetamines Screen NEGATIVE NEGATIVE Urine Benzodiazepines Screen NEGATIVE NEGATIVE Urine Cocaine Screen NEGATIVE NEGATIVE Urine Cannabinoids Screen NEGATIVE NEGATIVE White Blood Count 11.2 H 4.3-11.0 10^3/uL Red Blood Count 4.00 L 4.35-5.85 10^6/uL Hemoglobin 12.2 11.5-16.0 G/DL Hematocrit 36 35-52 % Mean Corpuscular Volume 91 80-99 FL Mean Corpuscular Hemoglobin 31 25-34 PG Mean Corpuscular Hemoglobin Concent 34 32-36 G/DL Red Cell Distribution Width 13.1 10.0-14.5 % Platelet Count 174 130-400 10^3/uL Mean Platelet Volume 9.6 7.4-10.4 FL Neutrophils (%) (Auto) 70 42-75 % Lymphocytes (%) (Auto) 21 12-44 % Monocytes (%) (Auto) 9 0-12 % Eosinophils (%) (Auto) 1 0-10 % Basophils (%) (Auto) 0 0-10 % Neutrophils # (Auto) 7.8 1.8-7.8 X 10^3 Lymphocytes # (Auto) 2.4 1.0-4.0 X 10^3 Monocytes # (Auto) 1.0 0.0-1.0 X 10^3 Eosinophils # (Auto) 0.1 0.0-0.3 10^3/uL Basophils # (Auto) 0.0 0.0-0.1 10^3/uL OB - Assessment/Plan/Diagnosis Assessment Assessment: active labor, induction of labor Admission Dx Induction of Labor Post Dates Admission Status: Inpatient Order (span 2 midnights) Reason for Inpatient Admission: Delivery Plan Plan: Induction Induction Method: per Pitocin Protocol Other Plan 22 yo @ 40.1 wga here for IOL for post date Plan - Continue Pit protocol - Epidural for pain control - GBS neg Copy Copies To 1: JOSE MONTIEL MD, HOLLY R MD Feb 01, 2018 14:53
--- NOTE | 2018-02-01 15:05 | OB Labor & Delivery Record ---
Vag Delivery Note Vag Delivery Note Date of Delivery: 02/01/18 Preoperative Diagnosis: Peyton Koch is a (22 /Para 3 / 1,Gestational Age (wks)40.1 wga here for IOL for post date Postoperative Diagnosis: Same Surgeon: JOSE MONTIEL MD Weekend Caregiver: None Anesthesia: Epidural Delivery Type: @ 1414 Findings: Term male infant, Normal placenta Viable Male infant, apgars 9/9, weight 8#8, 3850 Lacerations: perineal skin abrasion and left periurethral laceration Intact placenta with 3 vessel cord. nuchal cord x1, No body cord or shoulder dystocia Cytotec 800 mcg placed for hemorrhage prophylaxis Estimated Blood Loss: 400 ml Complications: None Condition: Stable Description of Procedure: The patient is a 22 yo @ 40.1 wga who presented for IOL for post dates. She was admitted and informed consent was obtained. Her labor course was unremarkable. She progressed to complete dilatation and began to push. She was then set up for delivery. The 's head was delivered atraumatically in the SELMA position. The shoulders and remainder of the 's body were then delivered thru nuchal cord x1. Upon delivery, the head was held below the level of the perineum and the mouth and nares were bulb suctioned. The cord was doubly clamped after 2 min delay and cut by FOB and the infant was placed on maternal abdomen and attended to be pediatric staff. An intact placenta with 3-vessel cord delivered via Ofelia and there was found to be moderate bleeding.~ Vigorous fundal massage was performed and the fundus was found to be firm. IV oxytocin was given as well as rectal cytotec. Examination of the vagina and perineum revealed a perineal skin tear and left periurethral laceration repaired in the usual fashion with 3-0 vicryl suture. Following the repair, sponge, instrument and needle counts were correct. Mom and baby were both in stable condition in the labor suite. Vitals - Labs Vital Signs - I&O Vital Signs Date Time Temp Pulse Resp B/P (MAP) Pulse Ox O2 Delivery O2 Flow Rate FiO2 02/01/18 12:30 87 18 105/64 (78) 98 Room Air 02/01/18 12:15 90 18 94 Room Air 02/01/18 12:00 69 18 99/58 (72) 97 Room Air 02/01/18 11:45 60 18 103/68 (80) 98 Room Air 02/01/18 11:30 74 18 96/54 (68) 97 Room Air 02/01/18 11:15 78 18 105/59 (74) 98 Room Air 02/01/18 11:00 75 18 94/51 (65) 97 Room Air 02/01/18 10:45 84 18 102/55 (71) 98 Room Air 02/01/18 10:30 79 18 98 Room Air 02/01/18 10:23 91 18 116/72 (87) 99 Room Air 02/01/18 10:20 105 18 115/69 (84) 97 Room Air 02/01/18 10:17 97 18 116/70 (85) Room Air 02/01/18 10:15 106 18 105/67 (80) 98 Room Air 02/01/18 10:11 110 18 109/65 (80) 98 Room Air 02/01/18 10:08 118 18 110/71 (84) 97 Room Air 02/01/18 10:05 114 18 93/56 (68) 98 Room Air 02/01/18 10:02 100 18 97/58 (71) Room Air 02/01/18 10:00 98 18 97/58 (71) 98 Room Air 02/01/18 09:56 96 18 97/57 (70) 97 Room Air 02/01/18 09:53 87 18 97/57 (70) Room Air 02/01/18 09:52 100 18 106/61 (76) Room Air 02/01/18 09:49 92 18 80/47 (58) 98 Room Air 02/01/18 09:46 121 18 117/74 (88) 100 Room Air 02/01/18 09:45 128 18 98 Room Air 02/01/18 09:40 118 18 99 Room Air 02/01/18 09:37 139 18 144/82 (102) Room Air 02/01/18 09:35 134 18 143/81 (101) 100 Room Air 02/01/18 09:32 133 18 146/82 (103) Room Air 02/01/18 09:30 119 18 127/72 (90) 98 Room Air 02/01/18 09:15 100 18 118/79 (92) Room Air 02/01/18 09:00 92 18 114/73 (87) Room Air 02/01/18 08:45 98.2 91 18 117/63 (81) Room Air 02/01/18 08:30 82 18 121/73 (89) Room Air 02/01/18 08:15 68 18 99/58 (72) Room Air 02/01/18 08:00 76 18 102/65 (77) Room Air 02/01/18 07:45 Room Air 02/01/18 07:30 81 18 111/63 (79) Room Air 02/01/18 07:15 80 18 101/60 (74) Room Air 02/01/18 07:00 81 18 108/63 (78) Room Air 02/01/18 06:45 75 18 112/71 (85) Room Air 02/01/18 06:30 73 18 109/66 (80) Room Air 02/01/18 06:15 79 18 106/64 (78) Room Air 02/01/18 06:05 97.4 108 18 131/80 (97) Room Air 02/01/18 03:32 97.0 87 18 134/72 (92) Room Air 01/31/18 23:38 97.7 90 18 125/72 (89) Room Air 01/31/18 19:34 98.0 113 18 124/74 (91) Room Air I & O 02/01/18 07:00 Intake Total 1400 ml Balance 1400 ml Labs Laboratory Tests 01/31/18 20:45: Urine Opiates Screen NEGATIVE, Urine Oxycodone Screen NEGATIVE, Urine Methadone Screen NEGATIVE, Urine Propoxyphene Screen NEGATIVE, Urine Barbiturates Screen NEGATIVE, Ur Tricyclic Antidepressants Screen NEGATIVE, Urine Phencyclidine Screen NEGATIVE, Urine Amphetamines Screen NEGATIVE, Urine Methamphetamines Screen NEGATIVE, Urine Benzodiazepines Screen NEGATIVE, Urine Cocaine Screen NEGATIVE, Urine Cannabinoids Screen NEGATIVE 01/31/18 21:15: White Blood Count 11.2H, Red Blood Count 4.00L, Hemoglobin 12.2, Hematocrit 36, Mean Corpuscular Volume 91, Mean Corpuscular Hemoglobin 31, Mean Corpuscular Hemoglobin Concent 34, Red Cell Distribution Width 13.1, Platelet Count 174, Mean Platelet Volume 9.6, Neutrophils (%) (Auto) 70, Lymphocytes (%) (Auto) 21, Monocytes (%) (Auto) 9, Eosinophils (%) (Auto) 1, Basophils (%) (Auto) 0, Neutrophils # (Auto) 7.8, Lymphocytes # (Auto) 2.4, Monocytes # (Auto) 1.0, Eosinophils # (Auto) 0.1, Basophils # (Auto) 0.0 JOSE MONTIEL MD Feb 01, 2018 15:05
[2018-02-01] MEDS ORDERED: MEASLES,MUMPS,RUBELLA 1 EA INJ SQ ONE (15:15)
[2018-02-01] MEDS: IBUPROFEN 600 MG (MOTRIN) TAB PO SCH (17:49)
[2018-02-01] MEDS: WITCH HAZEL(TUCKS) 40 EA JAR TOP PRN (17:49)
[2018-02-01] MEDS: BENZOCAINE/MENTHOL (DERMOPLAST) 56 ML CAN TP PRN (17:49)
[2018-02-01] MEDS ORDERED: CATHETER FLUSH 10 ML SYR IV SCH (22:00)
[2018-02-02 00:53] VITALS: BP 116/75
[2018-02-02] MEDS: IBUPROFEN 600 MG (MOTRIN) TAB PO SCH ×4 (00:53→20:09)
[2018-02-02 05:00] VITALS: BP 115/84
[2018-02-02 06:36] LABS: BASOPHILS % (AUTO) 0 % (0-10); EOSINOPHILS # (AUTO) 0.1 10^3/uL (0.0-0.3); EOSINOPHILS % (AUTO) 1 % (0-10); HEMATOCRIT 29 % (35-52); HEMOGLOBIN 9.7 G/DL (11.5-16.0); LYMPHOCYTES # (AUTO) 2.3 X 10^3 (1.0-4.0); LYMPHOCYTES % (AUTO) 23 % (12-44); MEAN CORPUSCULAR HEMOGLOBIN 31 PG (25-34); MEAN CORPUSCULAR HGB CONC 33 G/DL (32-36); MEAN CORPUSCULAR VOLUME 93 FL (80-99); MEAN PLATELET VOLUME 9.2 FL (7.4-10.4); MONOCYTES # (AUTO) 1.3 X 10^3 (0.0-1.0); MONOCYTES % (AUTO) 12 % (0-12); NEUTROPHILS # (AUTO) 6.6 X 10^3 (1.8-7.8); NEUTROPHILS % (AUTO) 64 % (42-75); PLATELET COUNT 146 10^3/uL (130-400); RED BLOOD COUNT 3.13 10^6/uL (4.35-5.85); WHITE BLOOD COUNT 10.4 10^3/uL (4.3-11.0)
[2018-02-02 08:00] VITALS: BP 114/69
[2018-02-02] MEDS: FERROUS SULF 325 MG (IRON) TAB PO SCH (08:00)
--- NOTE | 2018-02-02 10:04 | Anesthesia-General Post-Op ---
General Patient Condition Mental Status/LOC: Same as Preop Cardiovascular: Satisfactory Nausea/Vomiting: Absent Respiratory: Satisfactory Pain: Controlled Complications: Absent Post Op Complications Complications None Follow Up Care/Instructions Patient Instructions None needed. Anesthesia/Patient Condition Patient Condition Patient is doing well, no complaints, stable vital signs, no apparent adverse anesthesia problems. No complications reported per nursing. LEILANI WATT CRNA Feb 02, 2018 10:04
[2018-02-02 14:00] VITALS: BP 114/65
[2018-02-02 20:09] VITALS: BP 114/70
--- NOTE | 2018-02-02 21:47 | Progress Note (SOAP) ---
Subjective Subjective/Events-last exam Doing well. Pain well controlled. Minimal bleeding. Review of Systems Date Seen by Provider: Feb 02, 2018 Time Seen by Provider: 08:00 Objective Exam Last Set of Vital Signs Vital Signs Date Time Temp Pulse Resp B/P (MAP) Pulse Ox O2 Delivery O2 Flow Rate FiO2 02/02/18 20:09 98.0 75 18 114/70 (85) 98 Room Air Capillary Refill : I&O Intake and Output 02/02/18 00:00 Intake Total 1400 ml Balance 1400 ml Intake Oral 400 ml IV Total 1000 ml # Voids 4 General: Alert, Oriented X3, Cooperative Psych/Mental Status: Mood NL Results/Procedures Lab Laboratory Tests 02/02/18 06:25: White Blood Count 10.4, Red Blood Count 3.13L, Hemoglobin 9.7#L, Hematocrit 29L , Mean Corpuscular Volume 93, Mean Corpuscular Hemoglobin 31, Mean Corpuscular Hemoglobin Concent 33, Red Cell Distribution Width 13.0, Platelet Count 146, Mean Platelet Volume 9.2, Neutrophils (%) (Auto) 64, Lymphocytes (%) (Auto) 23, Monocytes (%) (Auto) 12, Eosinophils (%) (Auto) 1, Basophils (%) (Auto) 0, Neutrophils # (Auto) 6.6, Lymphocytes # (Auto) 2.3, Monocytes # (Auto) 1.3H, Eosinophils # (Auto) 0.1, Basophils # (Auto) 0.0 Assessment/Plan Assessment/Plan Assessment & Plan PPD #1 s/p Hx of meth use earlier in - SS consulted. Routine care. Anticipate DC home tomorrow. Clinical Quality Measures DVT/VTE Risk/Contraindication: Risk Factor Score Per Nursin RFS Level Per Nursing on Admit: 1=Low/No VTE PPX MIMI BETANCOURT DO Feb 02, 2018 21:47
[2018-02-03 01:40] VITALS: BP 102/61
[2018-02-03] MEDS: IBUPROFEN 600 MG (MOTRIN) TAB PO SCH ×2 (01:40→09:02)
[2018-02-03] MEDS ORDERED: FERR325T18 PO (07:42)
[2018-02-03] MEDS ORDERED: IBUP-844 PO (07:42)
--- NOTE | 2018-02-03 07:44 | Discharge Instructions ---
Discharge Inst-Women's Serv Depart Medications New, Converted or Re-Newed RX: Transmitted to Pharmacy New Medications: Ferrous Sulfate (Ferrous Sulfate) 325 Mg Tablet 325 MG PO DAILY@0700, #30 TAB 0 Refills Ibuprofen (Ibu) 600 Mg Tablet 600 MG PO Q6H, #60 TAB 0 Refills Continued Medications: No.137/Iron/Folic Acd ( Vitamin Tablet) 1 Each Tablet 1 EACH PO DAILY, TAB Discontinued Medications: Acyclovir (Acyclovir) 400 Mg Tablet 400 MG PO BID, TAB Follow Up/Instructions Goal/Follow Up: Follow up with Dr. Scruggs in 6 weeks for visit. Activity Activity: Activity as Tolerated (avoid strenuous activity x 6 weeks) Nothing Inside Vagina: No Douching, No Grover, No Tampons Diet Discharge Diet: Regular Diet Symptoms to Report to : Swelling Increased, Fever Over 101 Degrees F, Pain/ Pressure in Chest, Vaginal Bleeding Increase, Vaginal Discharge Foul, Shortness of Breath For Any Problems or Questions: Contact Your Physician Copies To 1: JOSE SCRUGGS MD, BETHANY N MD Feb 03, 2018 07:44
--- NOTE | 2018-02-03 08:40 | Discharge Summary ---
Diagnosis/Chief Complaint Date of Admission Jan 31, 2018 at 19:28 Date of Discharge Feb 03, 2018 Admission Diagnosis Admission Diagnosis Term intrauterine at 40 weeks Induction of labor Discharge Diagnosis s/p Spontaneous vaginal delivery- unremarkable induction and course anemia- started iron daily Chief Complaint/HPI Chief Complaint/HPI 22 yo @ 40.1 wga here for IOL for post date Discharge Summary-Simple/Stand Procedures Spontaneous vaginal delivery Discharge Physical Examination Allergies: Coded Allergies: No Known Drug Allergies (Unverified , 09/11/17) Vitals & I&Os Vital Sign - Last 12Hours Date Time Temp Pulse Resp B/P (MAP) Pulse Ox O2 Delivery O2 Flow Rate FiO2 02/03/18 01:40 98.0 65 18 102/61 (75) 97 Room Air General Appearance: Alert, No Acute Distress Respiratory: Clear to Auscultation, Normal Air Movement Cardiovascular: Regular Rate, No Murmurs Extremities: Other (fundus firm below umbilicus, non-tender) Psych/Mental Status: Mental Status NL Hospital Course See final discharge diagnosis. Labs Laboratory Tests Test 02/02/18 06:25 Range/Units White Blood Count 10.4 4.3-11.0 10^3/uL Red Blood Count 3.13 L 4.35-5.85 10^6/uL Hemoglobin 9.7 #L 11.5-16.0 G/DL Hematocrit 29 L 35-52 % Mean Corpuscular Volume 93 80-99 FL Mean Corpuscular Hemoglobin 31 25-34 PG Mean Corpuscular Hemoglobin Concent 33 32-36 G/DL Red Cell Distribution Width 13.0 10.0-14.5 % Platelet Count 146 130-400 10^3/uL Mean Platelet Volume 9.2 7.4-10.4 FL Neutrophils (%) (Auto) 64 42-75 % Lymphocytes (%) (Auto) 23 12-44 % Monocytes (%) (Auto) 12 0-12 % Eosinophils (%) (Auto) 1 0-10 % Basophils (%) (Auto) 0 0-10 % Neutrophils # (Auto) 6.6 1.8-7.8 X 10^3 Lymphocytes # (Auto) 2.3 1.0-4.0 X 10^3 Monocytes # (Auto) 1.3 H 0.0-1.0 X 10^3 Eosinophils # (Auto) 0.1 0.0-0.3 10^3/uL Basophils # (Auto) 0.0 0.0-0.1 10^3/uL Discharge Instructions to patient/family Please see electronic discharge instructions given to patient. Discharge Medications Reviewed and agree with Discharge Medication list on patient's Discharge Instruction sheet Clinical Quality Measures DVT/VTE Risk/Contraindication: Risk Factor Score Per Nursin RFS Level Per Nursing on Admit: 1=Low/No VTE PPX Copy Copies To 1: JOSE MONTIEL MD, BETHANY N MD Feb 03, 2018 08:40
[2018-02-03] MEDS ORDERED: MEASLES,MUMPS,RUBELLA 1 EA INJ ONE (08:47)
[2018-02-03 09:00] VITALS: BP 98/53
[2018-02-03] MEDS: WITCH HAZEL(TUCKS) 40 EA JAR TOP PRN (09:01)
[2018-02-03] MEDS: FERROUS SULF 325 MG (IRON) TAB PO SCH (09:02)
[2018-02-03] MEDS: BENZOCAINE/MENTHOL (DERMOPLAST) 56 ML CAN TP PRN (09:02)
== END 2018-02-03 12:45 | disposition home or self-care (01) | DRG 806 ==
LOC: LDRP 19:28
PROVIDERS: ADMIT Family Medicine; ATTEND Family Medicine
PROC: 10E0XZZ Delivery of Products of Conception, External Approach (ICD-10-PCS; principal; 2018-02-01)
PROC: 0UQMXZZ Repair Vulva, External Approach (ICD-10-PCS; 2018-02-01)
DX: O48.0 Post-term pregnancy (principal); O98.313 Other infections with a predominantly sexual mode of transmission complicating pregnancy, third trimester; A60.09 Herpesviral infection of other urogenital tract; O99.323 Drug use complicating pregnancy, third trimester; F15.90 Other stimulant use, unspecified, uncomplicated; O71.82 Other specified trauma to perineum and vulva; O69.81X0 Labor and delivery complicated by cord around neck, without compression, not applicable or unspecified; O90.81 Anemia of the puerperium; D64.9 Anemia, unspecified; O99.613 Diseases of the digestive system complicating pregnancy, third trimester; K21.9 Gastro-esophageal reflux disease without esophagitis; Z3A.40 40 weeks gestation of pregnancy; Z37.0 Single live birth
CPT/HCPCS: 36415; 80306; 85025; 86850; 86900; 86901; 88307; 90707

== ENCOUNTER 2018-04-27 04:12 | Emergency (ER) | payer SELFPAY ==
[~2018-04-27] VITALS: Ht 154.9 cm; Wt 54.4 kg
[~2018-04-27 04:12] MED LIST changes: +ACYC400T PO; +FERR325T18 PO; +IBUP-844 PO; +PREN-164 PO
--- OUTSIDE RECORDS SUMMARY | 2018-04-27 04:18 | XMS REPORT ---
Author Author JOSE MONTIEL [facility] Address [address] [place] [address] Care Team Providers Care Supply Aide Name Role Phone JOSE MONTIEL Unavailable PROBLEMS Type Condition ICD9-CM Code [id number] Code Onset Dates Condition Status SNOMED Code Problem Anxiety F41.9 Active 83342273 Problem Methamphetamine abuse F15.10 Active 813335125 Problem Alcohol abuse F10.10 Active 67908201 Problem Drug use F19.90 Active 04401511 ALLERGIES No Information ENCOUNTERS Encounter Location Date Diagnosis [place] [id number] [address] 18 Jan, 2018 [place] [address] [place] [id number] [place] [phone] Jan, [facility] [address] [place] [id number] [place] [address] 04 Jan, 2018 Third trimester Z34.93 and 38 weeks gestation of Z3A.38 [place] [address] [place] [id number] [place] [address] 27 Dec, 2017 Normal in multigravida Z34.80 ; Third trimester Z34.93 ; 37 weeks gestation of Z3A.37 ; Other viral diseases complicating , third trimester O98.513 and Herpesviral infection, unspecified B00.9 [facility] [address] [place] [id number] [place] [address] 20 Dec, 2017 Third trimester Z34.93 ; 36 weeks gestation of Z3A.36 and Herpesviral infection, unspecified B00.9 [place] [address] [place] [id number] [place] [address] Dec, Third trimester Z34.93 ; Herpes simplex virus (HSV ) infection B00.9 and 34 weeks gestation of Z3A.34 [facility] [address] [place] [id number] [place] [address] Nov, Third trimester Z34.93 and 32 weeks gestation of Z3A.32 [place] [address] [place] [id number] [place] [phone] Nov, care in third trimester Z34.93 ; 30 weeks gestation of Z3A.30 ; Encounter for immunization Z23 and Methamphetamine abuse F15.10 [place] [address] [place] [id number] [place] [address] Oct, Second trimester Z33.1 [place] [address] [place] [id number] [place] [address]- [address] Oct, 25 weeks gestation of Z3A.25 ; Second trimester Z34.92 and Drug use affecting in second trimester O99.322 [place] [address] [place] [id number] [place] [address]07[address] Sep, [place] [address] [place] [id number] [place] [address] Sep, 21 weeks gestation of Z3A.21 ; Second trimester Z34.92 and Drug use affecting in second trimester O99.322 [place] [address] [place] [id number] [place] [address]5969- [address] Sep, [place] [address] [place] [id number] [place] [address] 58[address] Aug, Second trimester Z33.1 ; 16 weeks gestation of Z3A.16 and Drug use affecting in second trimester O99.322 [facility] [address] [place] [id number] [place] [address]- [address] Jul, [place] [address] [place] [id number] [place] [address] Jul, [facility] [address] [place] [id number] [place] [address]- [address] Jul, Second trimester Z33.1 ; Normal in multigravida Z34.80 ; 14 weeks gestation of Z3A.14 and Methamphetamine abuse F15.10 [place] [address] [place] [id number] [place] [address] June, [place] [address] [address] June, Encounter for test, result unknown Z32.00 [place] [address] [address] Apr, Complete miscarriage O03.9 and control counseling Z30.09 [place] [address] [address] Mar, [place] [address] [address] Mar, [place] [address] [address] Mar, Threatened miscarriage in early O20.0 [place] [address] [place] [id number] [place] [address] Mar, Threatened miscarriage in early O20.0 [place] [address] [place] [id number] [place] [address]90- 16[address] Mar, Threatened miscarriage in early O20.0 [place] [address] [place] [id number] [place] [address] 15094- 89[address] Mar, Threatened miscarriage in early O20.0 [place] [address] [place] [id number] [place] [address]- [address]000 Mar, [place] [address] [place] [id number] [place] [address]- [address] Mar, Encounter for test, result unknown Z32.00 [place] [address] [address] Dec, Anxiety F41.9 ; Methamphetamine abuse F15.10 ; Acute upper respiratory infection, unspecified J06.9 ; Other viral agents as the cause of diseases classified elsewhere B97.89 and Palpitations R00.2 [facility] [id number] [place] [address] 17 Oct, 2015 [facility] [address] [place] [id number] [place], [place] [address] 13 Oct, 2015 Screening for STD sexually transmitted disease Z11.3 and Vaginal lesion N89.8 [place] [address] [place] [id number] [place] [address] 02 Oct, 2015 Acute cystitis without hematuria N30.00 ; Drug use F19.90 and Alcohol abuse F10.10 [place] [address] [place] [id number] [place] [address] Sep, [place] [address] [place] [id number] [place] [address] Sep, IMMUNIZATIONS No Known Immunizations SOCIAL HISTORY Never Assessed REASON FOR VISIT OB 1wk f/u, check cervix today, OB dip-awoods PLAN OF CARE Activity Details Follow Up 1 Week Reason: Pending Test STREP A (IN HOUSE) Pending Test UA OB DIP (IN HOUSE) VITAL SIGNS Height 61 in 2018-01-16 Weight 140.9 lbs 2018-01-16 Temperature 98.3 degrees Fahrenheit 2018-01-16 Heart Rate 100 bpm 2018-01-16 Respiratory Rate 20 2018-01-16 BMI 26.623 kg/m2 2018-01-16 Blood pressure systolic 108 mmHg 2018-01-16 Blood pressure diastolic 68 mmHg 2018-01-16 MEDICATIONS Medication Instructions Dosage Frequency Start Date End Date Duration Status Active Acyclovir 400 mg Orally Twice a day 1 tablet 12h Dec, 30 days Active RESULTS No Results PROCEDURES Procedure Date Ordered Result Body Site URINE-NO MICRO Jan 16, 2018 STREP A ASSAY W/OPTIC Jan 16, 2018 INSTRUCTIONS MEDICATIONS ADMINISTERED No Known Medications MEDICAL (GENERAL) HISTORY Type Description Date Medical History gastritis-alcoholic Medical History Seasonal Allergies Surgical History bronchoscopy -acid reflux Hospitalization History UTI, Sepsis. Methamphetamine Use 09/2015
--- OUTSIDE RECORDS SUMMARY | 2018-04-27 04:19 | XMS REPORT ---
Author Author JOSE MONTIEL [facility] Address [address] [place] [address] Care Team Providers Care Hospital Housekeeper Name Role Phone JOSE MONTIEL Unavailable PROBLEMS Type Condition ICD9-CM Code [id number] Code Onset Dates Condition Status SNOMED Code Problem Anxiety F41.9 Active 26118895 Problem Methamphetamine abuse F15.10 Active 761451500 Problem Alcohol abuse F10.10 Active 92870931 Problem Drug use F19.90 Active 61161370 ALLERGIES No Information ENCOUNTERS Encounter Location Date Diagnosis [place] [address] [address]843 Jan, [place] [id number] 20164[address] Jan, [facility] [address] [address]- [address]275 Jan, [place] [address] 09593- 8616 Dec, [place] [address] [place] [id number] [place] [address] 26847- 1079 Dec, [place] [address] 58070- 7344 Dec, Third trimester Z34.93 ; Herpes simplex virus (HSV ) infection B00.9 and 34 weeks gestation of Z3A.34 [place] [address] 84066- 5307 23 Nov, 2017 Third trimester Z34.93 and 32 weeks gestation of Z3A.32 [place] [address] 06970- 8182 09 Oct, 2018 care in third trimester Z34.93 ; 30 weeks gestation of Z3A.30 ; Encounter for immunization Z23 and Methamphetamine abuse F15.10 [facility] [address] [place] [id number] [place] [address] 53007- 9258 Oct, Second trimester Z33.1 [facility] [address] [place] [id number] [place] [address] 23221- 1749 Oct, 25 weeks gestation of Z3A.25 ; Second trimester Z34.92 and Drug use affecting in second trimester O99.322 [facility] [address] [place] [id number] [place] [address] 54427- 1661 Sep, [facility] [address] [place] [id number] [place] [address] 98010- 0818 Sep, 21 weeks gestation of Z3A.21 ; Second trimester Z34.92 and Drug use affecting in second trimester O99.322 [facility] [address] [place] [id number] [place] [address] 92796- 1867 Sep, [facility] [address] [place] [id number] [place] [address] 53705- 1407 Aug, Second trimester Z33.1 ; 16 weeks gestation of Z3A.16 and Drug use affecting in second trimester O99.322 [facility] [address], [place] [address] Jul, [facility] [address] [place] [id number] [place] [address] 05731- 2387 Jul, [facility] [address] [place] [id number] [place] [address] 05789- 3630 Jul, Second trimester Z33.1 ; Normal in multigravida Z34.80 ; 14 weeks gestation of Z3A.14 and Methamphetamine abuse F15.10 [facility] [address] [place] [id number] [place] [address] 31729- 7509 June, [facility] [address] [place] [id number] [place] [address] 37059- 8517 June, Encounter for test, result unknown Z32.00 [facility] [address] [place] [address] 59678- 3931 Apr, Complete miscarriage O03.9 and control counseling Z30.09 [facility] [address] [place] [address] 78388- 0145 Mar, [facility] [address] [place] [id number] [place] [address] 09429- 6513 Mar, [facility] [address] [place] [id number] [place] [address] 45216- 8728 Mar, Threatened miscarriage in early O20.0 [place] [address] [place] [id number] [place] [address] 55804- 4787 Mar, Threatened miscarriage in early O20.0 [place] [address] [place] [id number] [place] [address] 59110- 3613 Mar, Threatened miscarriage in early O20.0 [facility] [address] [place] [id number] [place] [address] 15240- 4074 Mar, Threatened miscarriage in early O20.0 [facility] [address] [place] [address] 22639- 4994 Mar, [facility] [address] [place] [address] 37370- 5460 Mar, Encounter for test, result unknown Z32.00 [facility] [address] [place] [address] 92507- 0756 Dec, Anxiety F41.9 ; Methamphetamine abuse F15.10 ; Acute upper respiratory infection, unspecified J06.9 ; Other viral agents as the cause of diseases classified elsewhere B97.89 and Palpitations R00.2 [facility] [address], [place] [address] Oct, [facility] [address], [place] [address] 13 Oct, 2015 Screening for STD sexually transmitted disease Z11.3 and Vaginal lesion N89.8 [facility] [address] [place] [id number] [address] 02 Oct, 2015 Acute cystitis without hematuria N30.00 ; Drug use F19.90 and Alcohol abuse F10.10 [facility] [address], [place] [address]99 Sep, [facility] [address] [facility] [id number] [address] Sep, IMMUNIZATIONS No Known Immunizations SOCIAL HISTORY Never Assessed REASON FOR VISIT OB 2wk f/u -- lisset worley PLAN OF CARE Activity Details Follow Up 1 Week Reason: VITAL SIGNS Height 61 in 2017-12-20 Weight 142.0 lbs 2017-12-20 Temperature 98.3 degrees Fahrenheit 2017-12-20 BMI 26.831 kg/m2 2017-12-20 Blood pressure systolic 102 mmHg 2017-12-20 Blood pressure diastolic 66 mmHg 2017-12-20 MEDICATIONS Medication Instructions Dosage Frequency Start Date End Date Duration Status Acyclovir 400 mg Orally Twice a day 1 tablet 12h Dec, 30 days Active Active RESULTS Name Result Date Reference Range UA OB DIP (IN HOUSE) 2017-12-20 Glucose negative Protein trace PROCEDURES Procedure Date Ordered Result Body Site URINE-NO MICRO Dec 20, 2017 INSTRUCTIONS MEDICATIONS ADMINISTERED No Known Medications MEDICAL (GENERAL) HISTORY Type Description Date Medical History gastritis-alcoholic Medical History Seasonal Allergies Surgical History bronchoscopy -acid reflux Hospitalization History UTI, Sepsis. Methamphetamine Use 09/2015
--- OUTSIDE RECORDS SUMMARY | 2018-04-27 04:19 | XMS REPORT ---
Author Author JOSE MONTIEL [facility] Address [address] [place] [address] Care Team Providers Care Systems Navigator Name Role Phone JOSE MONTIEL Unavailable PROBLEMS Type Condition ICD9-CM Code QDW82-ON Code Onset Dates Condition Status SNOMED Code Problem Anxiety F41.9 Active 01453701 Problem Methamphetamine abuse F15.10 Active 902794062 Problem Alcohol abuse F10.10 Active 54032090 Problem Drug use F19.90 Active 59274359 ALLERGIES No Information ENCOUNTERS Encounter Location Date Diagnosis [place] [address] [place] [id number] [place] [address] 20134- 6746 Nov, [place] [address] [place] [id number] [place] [address] 12464- 5131 13 Oct, 2017 Second trimester Z33.1 [place] [address] [place] [id number] [place] [address] 71579- 0519 10 Oct, 2017 25 weeks gestation of Z3A.25 ; Second trimester Z34.92 and Drug use affecting in second trimester O99.322 [place] [address] [place] [id number] [place] [address] 25377- 7604 Sep, [facility] [address] [place] [id number] [place] [address] 63371- 8224 Sep, 21 weeks gestation of Z3A.21 ; Second trimester Z34.92 and Drug use affecting in second trimester O99.322 [place] [address] [place] [id number] [place] [address] 14026- 4700 Sep, [place] [address] [place] [id number] [place] [address] 80955- 4466 Aug, Second trimester Z33.1 ; 16 weeks gestation of Z3A.16 and Drug use affecting in second trimester O99.322 [facility] [address] [place] [id number] [address] 355[address] Jul, [facility] [address] [place] [id number] [place] [address] 73567- 0154 Jul, [facility] [address] [place] [id number] [place] [address] 46344- 3817 Jul, Second trimester Z33.1 ; Normal in multigravida Z34.80 ; 14 weeks gestation of Z3A.14 and Methamphetamine abuse F15.10 [facility] [address] [place] [id number] [place] [address] 32872- 0307 June, [facility] [address] [place] [id number] [place] [address] 30668- 6115 June, Encounter for test, result unknown Z32.00 [facility] [address] [place] [id number] [place] [address] 48724- 3143 Apr, Complete miscarriage O03.9 and control counseling Z30.09 [facility] [address] [place] [id number] [place] [address] 49272- 0792 Mar, [facility] [address] [place] [id number] [place] [address] 03039- 3692 Mar, [facility] [address] [place] [address] 08940- 9249 Mar, Threatened miscarriage in early O20.0 [facility] [address] [place] [address] 85845- 8283 Mar, Threatened miscarriage in early O20.0 [facility] [address] [place] [id number] [place] [address] 66080- 5526 Mar, Threatened miscarriage in early O20.0 [facility] [address] [place] [id number] [place] [address] 99388- 6610 Mar, Threatened miscarriage in early O20.0 [place] [address] [place] [id number] [place] [address] 31990- 3716 07 Mar, 2016 [place] [address] [place] [address]605[place]- 6959 06 Mar, 2016 Encounter for test, result unknown Z32.00 [place] [address] [address] 9627 Dec, Anxiety F41.9 ; Methamphetamine abuse F15.10 ; Acute upper respiratory infection, unspecified J06.9 ; Other viral agents as the cause of diseases classified elsewhere B97.89 and Palpitations R00.2 [facility] [place] [address] 81588 -6018 17 Oct, 2015 [facility] [place] [address] 07646 -9505 13 Oct, 2015 Screening for STD sexually transmitted disease Z11.3 and Vaginal lesion N89.8 [place] [address] 59916- 0491 Oct, Acute cystitis without hematuria N30.00 ; Drug use F19.90 and Alcohol abuse F10.10 [place] [address] [place] [id number] [place] [address] 81166- 5809 Sep, [place] [address] [place] [id number] [place] [address] 49092- 0683 Sep, IMMUNIZATIONS No Known Immunizations SOCIAL HISTORY Never Assessed REASON FOR VISIT OB 4wk f/u-awoods PLAN OF CARE Activity Details Follow Up 4 Weeks Reason: VITAL SIGNS Height 61 in 2017-10-23 Weight 138.4 lbs 2017-10-23 Temperature 98.4 degrees Fahrenheit 2017-10-23 Heart Rate 90 bpm 2017-10-23 Respiratory Rate 18 2017-10-23 BMI 26.15 kg/m2 2017-10-23 Blood pressure systolic 106 mmHg 2017-10-23 Blood pressure diastolic 60 mmHg 2017-10-23 MEDICATIONS Medication Instructions Dosage Frequency Start Date End Date Duration Status Active RESULTS Name Result Date Reference Range UA OB DIP (IN HOUSE) 2017-10-23 Glucose negative Protein trace PROCEDURES Procedure Date Ordered Result Body Site URINE-NO MICRO Oct 23, 2017 INSTRUCTIONS MEDICATIONS ADMINISTERED No Known Medications MEDICAL (GENERAL) HISTORY Type Description Date Medical History gastritis-alcoholic Medical History Seasonal Allergies Surgical History bronchoscopy -acid reflux Hospitalization History UTI, Sepsis. Methamphetamine Use 09/2015
--- OUTSIDE RECORDS SUMMARY | 2018-04-27 04:19 | XMS REPORT ---
Author Author JOSE MONTIEL [facility] Address [address] [place] [address] Care Team Providers Care Tea Leaf Reader Name Role Phone JOSE MONTIEL Unavailable PROBLEMS Type Condition ICD9-CM Code IBN04-TN Code Onset Dates Condition Status SNOMED Code Problem Anxiety F41.9 Active 90746978 Problem Methamphetamine abuse F15.10 Active 639651102 Problem Alcohol abuse F10.10 Active 19671674 Problem Drug use F19.90 Active 41855285 ALLERGIES No Information ENCOUNTERS Encounter Location Date Diagnosis [place] [address] 627[address]- 1117 Dec, [place] [address] 10736- 5407 Dec, [place] [address] [place] [id number] [place] [address] 00330- 4537 Dec, [place] [address] 43798- 7872 Nov, Third trimester Z34.93 and 32 weeks gestation of Z3A.32 [place] [address] [place] [id number] [place] [address] 52274- 8836 09 Nov, 2017 care in third trimester Z34.93 ; 30 weeks gestation of Z3A.30 ; Encounter for immunization Z23 and Methamphetamine abuse F15.10 [place] [address] [place] [id number] [place] [address] 32106- 3865 13 Oct, 2017 Second trimester Z33.1 [place] [address] [place] [id number] [place] [address] 75127- 6493 10 Oct, 2017 25 weeks gestation of Z3A.25 ; Second trimester Z34.92 and Drug use affecting in second trimester O99.322 [facility] [place] [address], [place] [address]- 9544 Sep, [facility] [place] [address] [place] [id number] [place] [address] 43168- 7450 Sep, 21 weeks gestation of Z3A.21 ; Second trimester Z34.92 and Drug use affecting in second trimester O99.322 [facility] [place] [address] [place] [id number] [place] [address] 98761- 6127 Sep, [facility] [place] [address] [place] [id number] [place] [address] 83069- 0153 Aug, Second trimester Z33.1 ; 16 weeks gestation of Z3A.16 and Drug use affecting in second trimester O99.322 [place] [address] [place] [id number] [place] [address] 98136- 1054 Jul, [place] [address] [place] [id number] [place] [address] 28887- 3423 Jul, [facility] [place] [address] [place] [id number] [place] [address] 33472- 9504 Jul, Second trimester Z33.1 ; Normal in multigravida Z34.80 ; 14 weeks gestation of Z3A.14 and Methamphetamine abuse F15.10 [place] [address] [place] [id number] [place] [address] 66562- 1514 June, [facility] [place] [address] [place] [id number] [place] [address] 61716- 5967 June, Encounter for test, result unknown Z32.00 [place] [address] [place] [id number] [place] [address] 33424- 1895 07 Apr, 2016 Complete miscarriage O03.9 and control counseling Z30.09 [facility] [place] [address] [place] [id number] [place] [address] 82676- 8380 Mar, [facility] [place] [address] [place] [id number] [place] [address] 68243- 5034 Mar, [facility] [place] [address] [place] [address] 30854- 3916 Mar, Threatened miscarriage in early O20.0 [facility] [place] [address] [place] [id number] [place] [address] 19236- 3013 Mar, Threatened miscarriage in early O20.0 [place] [address] [place] [id number] [place] [address] 21944- 9663 Mar, Threatened miscarriage in early O20.0 [place] [address] [place] [id number] [place] [address] 32011- 2382 Mar, Threatened miscarriage in early O20.0 [place] [address] [place] [id number] [place] [address] 68502- 1038 Mar, [place] [address] [place] [id number] [place] [address] 38703- 2592 Mar, Encounter for test, result unknown Z32.00 [place] [address] [place] [id number] [place] [address] 19421- 5921 Dec, Anxiety F41.9 ; Methamphetamine abuse F15.10 ; Acute upper respiratory infection, unspecified J06.9 ; Other viral agents as the cause of diseases classified elsewhere B97.89 and Palpitations R00.2 [facility] [address] [place] [id number] [place] [address] 43620 -9014 Oct, [facility] [address] [place] [id number] [place] [address] 42984 -0654 13 Oct, 2015 Screening for STD sexually transmitted disease Z11.3 and Vaginal lesion N89.8 [place] [id number] [place] [address] 98570- 5265 02 Oct, 2015 Acute cystitis without hematuria N30.00 ; Drug use F19.90 and Alcohol abuse F10.10 [place] [address] [place] [id number] [place] [address] 55856- 0007 Sep, [facility] [place] [address] [facility] [id number] [place] [address]- 4242 Sep, IMMUNIZATIONS No Known Immunizations SOCIAL HISTORY Never Assessed REASON FOR VISIT OB 2wk f/u-awoods PLAN OF CARE Activity Details Follow Up 2 Weeks Reason: Pending Test UA OB DIP (IN HOUSE) VITAL SIGNS Height 61 in 2017-12-05 Weight 140.9 lbs 2017-12-05 Temperature 99.4 degrees Fahrenheit 2017-12-05 Heart Rate 100 bpm 2017-12-05 Respiratory Rate 20 2017-12-05 BMI 26.623 kg/m2 2017-12-05 Blood pressure systolic 108 mmHg 2017-12-05 Blood pressure diastolic 58 mmHg 2017-12-05 MEDICATIONS Medication Instructions Dosage Frequency Start Date End Date Duration Status Active RESULTS No Results PROCEDURES Procedure Date Ordered Result Body Site URINE-NO MICRO Dec 05, 2017 INSTRUCTIONS MEDICATIONS ADMINISTERED No Known Medications MEDICAL (GENERAL) HISTORY Type Description Date Medical History gastritis-alcoholic Medical History Seasonal Allergies Surgical History bronchoscopy -acid reflux Hospitalization History UTI, Sepsis. Methamphetamine Use 09/2015
--- OUTSIDE RECORDS SUMMARY | 2018-04-27 04:19 | XMS REPORT ---
Author Author JOSE MONTIEL [facility] Address [address] [place] [address] Care Team Providers Care Veterans' Coordinator Name Role Phone JOSE MONTIEL Unavailable PROBLEMS Type Condition ICD9-CM Code [id number] Code Onset Dates Condition Status SNOMED Code Problem Anxiety F41.9 Active 35660357 Problem Methamphetamine abuse F15.10 Active 947221467 Problem Alcohol abuse F10.10 Active 58550556 Problem Drug use F19.90 Active 78864084 ALLERGIES No Information ENCOUNTERS Encounter Location Date Diagnosis [place] [id number] [place] [address] 83818- 1863 Jan, [facility] [id number] [place] [address] 52671- 4363 Jan, [facility] [id number] [place] [address] 28747- 1888 Jan, [facility] [id number] [place] [address] 95702- 2261 Dec, [facility] [id number] [place] [address] 66402- 6441 Dec, Third trimester Z34.93 ; 36 weeks gestation of Z3A.36 and Herpesviral infection, unspecified B00.9 [facility] [id number] [place] [address] 19243- 6258 07 Dec, 2017 Third trimester Z34.93 ; Herpes simplex virus (HSV ) infection B00.9 and 34 weeks gestation of Z3A.34 [place] [id number] [place] [address] 91188- 8404 23 Nov, 2017 Third trimester Z34.93 and 32 weeks gestation of Z3A.32 [facility] [address] [address] 09 Nov, 2017 care in third trimester Z34.93 ; 30 weeks gestation of Z3A.30 ; Encounter for immunization Z23 and Methamphetamine abuse F15.10 [place] [address] [address] 3959 13 Oct, 2017 Second trimester Z33.1 [place] [id number] [place] [address] 96173- 0447 Oct, 25 weeks gestation of Z3A.25 ; Second trimester Z34.92 and Drug use affecting in second trimester O99.322 [place] [id number] [place] [address] 07291- 0843 Sep, [place] [id number] [place] [address] 78190- 5360 Sep, 21 weeks gestation of Z3A.21 ; Second trimester Z34.92 and Drug use affecting in second trimester O99.322 [place] [id number] [place] [address] 72409- 1240 Sep, [place] [id number] [place] [address] 42509- 7733 Aug, Second trimester Z33.1 ; 16 weeks gestation of Z3A.16 and Drug use affecting in second trimester O99.322 [place] [address] [address] 8588 Jul, [place] [address] [place] [address] 72167- 3666 Jul, [place] [id number] [place] [address] 45934- 0806 Jul, Second trimester Z33.1 ; Normal in multigravida Z34.80 ; 14 weeks gestation of Z3A.14 and Methamphetamine abuse F15.10 [place] [address] [address] 8913 June, [facility] [id number] [place] [address] 72034- 8507 June, Encounter for test, result unknown Z32.00 [facility] [id number] [place] [address] 50051- 6432 Apr, Complete miscarriage O03.9 and control counseling Z30.09 [facility] [address] 53927- 4292 Mar, [facility] [id number] [place] [address] 48379- 3980 Mar, [facility] [id number] [place] [address] 82332- 6174 Mar, Threatened miscarriage in early O20.0 [facility] [id number] [place] [address] 34616- 7320 Mar, Threatened miscarriage in early O20.0 [facility] [id number] [place] [address] 13212- 2155 Mar, Threatened miscarriage in early O20.0 [facility] [id number] [place] [address] 97164- 8213 Mar, Threatened miscarriage in early O20.0 [facility] [id number] [place] [address] 10108- 4142 Mar, [facility] [id number] [place] [address] 11272- 3312 Mar, Encounter for test, result unknown Z32.00 [facility] [id number] [place] [address] 15866- 0629 Dec, Anxiety F41.9 ; Methamphetamine abuse F15.10 ; Acute upper respiratory infection, unspecified J06.9 ; Other viral agents as the cause of diseases classified elsewhere B97.89 and Palpitations R00.2 [facility] [id number] [address] 17 Oct, 2015 [facility] [id number] [address] 13 Oct, 2015 Screening for STD sexually transmitted disease Z11.3 and Vaginal lesion N89.8 [facility] [address] [address]- 6570 02 Oct, 2015 Acute cystitis without hematuria N30.00 ; Drug use F19.90 and Alcohol abuse F10.10 [facility] [address] [address]- 4498 Sep, [facility] [id number] [place] [address] 71800- 9440 Sep, IMMUNIZATIONS No Known Immunizations SOCIAL HISTORY Never Assessed REASON FOR VISIT OB 2wk f/u -- lisset worley PLAN OF CARE Activity Details Follow Up 1 Week Reason: Pending Test CULTURE, GROUP B STREP (VAGINAL) VITAL SIGNS Height 61 in 2018-01-02 Weight 143.0 lbs 2018-01-02 Temperature 97.8 degrees Fahrenheit 2018-01-02 BMI 27.02 kg/m2 2018-01-02 Blood pressure systolic 104 mmHg 2018-01-02 Blood pressure diastolic 68 mmHg 2018-01-02 MEDICATIONS Medication Instructions Dosage Frequency Start Date End Date Duration Status Active Acyclovir 400 mg Orally Twice a day 1 tablet 12h Dec, 30 days Active RESULTS Name Result Date Reference Range UA OB DIP (IN HOUSE) 2018-01-02 Glucose negative Protein trace PROCEDURES Procedure Date Ordered Result Body Site URINE-NO MICRO Jan 02, 2018 LAB NOT BILLED BY [facility] Jan 02, 2018 INSTRUCTIONS MEDICATIONS ADMINISTERED No Known Medications MEDICAL (GENERAL) HISTORY Type Description Date Medical History gastritis-alcoholic Medical History Seasonal Allergies Surgical History bronchoscopy -acid reflux Hospitalization History UTI, Sepsis. Methamphetamine Use 09/2015
--- OUTSIDE RECORDS SUMMARY | 2018-04-27 04:19 | XMS REPORT ---
Author Author JOSE MONTIEL [facility] Address [address] [place] [address] Care Team Providers Care Director Loan Name Role Phone JOSE MONTIEL Unavailable PROBLEMS Type Condition ICD9-CM Code NAL76-RS Code Onset Dates Condition Status SNOMED Code Problem Anxiety F41.9 Active 00340569 Problem Methamphetamine abuse F15.10 Active 523098048 Problem Alcohol abuse F10.10 Active 28313185 Problem Drug use F19.90 Active 49028458 ALLERGIES No Information ENCOUNTERS Encounter Location Date Diagnosis [place] [address] 43589- 1278 Dec, [facility] [address] [address]- 0430 Dec, [facility] [id number] [place] [address] 85039- 2276 Dec, [facility] [address] 41632- 2379 Nov, [place] [address] [id number] [place] [address] 11117- 6138 09 Nov, 2017 care in third trimester Z34.93 ; 30 weeks gestation of Z3A.30 ; Encounter for immunization Z23 and Methamphetamine abuse F15.10 [facility] [id number] [place] [address] 05416- 3886 13 Oct, 2017 Second trimester Z33.1 [place] [id number] [place] [address] 75928- 4653 10 Oct, 2017 25 weeks gestation of Z3A.25 ; Second trimester Z34.92 and Drug use affecting in second trimester O99.322 [place] [address] [place] [address]- 1392 Sep, [facility] [id number] [place] [address] 59346- 8905 Sep, 21 weeks gestation of Z3A.21 ; Second trimester Z34.92 and Drug use affecting in second trimester O99.322 [facility] [id number] [place] [address] 32222- 7649 Sep, [facility] [id number] [place] [address] 78556- 9355 Aug, Second trimester Z33.1 ; 16 weeks gestation of Z3A.16 and Drug use affecting in second trimester O99.322 [place] [id number] [place] [address] 50357- 2781 Jul, [place] [address] [id number] [place] [address] 01407- 6729 Jul, [facility] [id number] [place] [address] 61809- 3636 Jul, Second trimester Z33.1 ; Normal in multigravida Z34.80 ; 14 weeks gestation of Z3A.14 and Methamphetamine abuse F15.10 [facility] [id number] [place] [address] 10532- 0632 June, [place] [address] [id number] [place] [address] 25239- 0809 June, Encounter for test, result unknown Z32.00 [facility] [id number] [place] [address] 07108- 7255 Apr, Complete miscarriage O03.9 and control counseling Z30.09 [facility] [id number] [place] [address] 51159- 9017 Mar, [facility] [id number] [place] [address] 54435- 1322 Mar, [facility] [id number] [place] [address] 44158- 7948 Mar, Threatened miscarriage in early O20.0 [place] [id number] [place] [address] 11423- 2529 Mar, Threatened miscarriage in early O20.0 [place] [id number] [place] [address] 74840- 2493 Mar, Threatened miscarriage in early O20.0 [place] [id number] [place] [address] 11472- 2402 Mar, Threatened miscarriage in early O20.0 [place] [address] 17832- 9393 Mar, [place] [address] [address] [id number] [place] [address] 96862- 3558 Mar, Encounter for test, result unknown Z32.00 [place] [id number] [place] [address] 04042- 1191 Dec, Anxiety F41.9 ; Methamphetamine abuse F15.10 ; Acute upper respiratory infection, unspecified J06.9 ; Other viral agents as the cause of diseases classified elsewhere B97.89 and Palpitations R00.2 [facility] [place] [id number] [place] [address] 33763 -0688 17 Oct, 2015 [facility] [id number] [place] [address] 35389 -4554 13 Oct, 2015 Screening for STD sexually transmitted disease Z11.3 and Vaginal lesion N89.8 [place] [id number] [place] [address] 93597- 9042 02 Oct, 2015 Acute cystitis without hematuria N30.00 ; Drug use F19.90 and Alcohol abuse F10.10 [place] [id number] [place] [address] 11057- 4475 Sep, [place] [address] [place] [address]- 6054 Sep, IMMUNIZATIONS Vaccine Route Administration Date Status FLULAVAL QUAD 0.5ML (6 MO & UP) 2018 IM Intramuscular Nov 21, 2017 Administered TDAP (BOOSTRIX) IM Intramuscular Nov 21, 2017 Administered SOCIAL HISTORY Never Assessed REASON FOR VISIT OB 4wk f/u,-- lisset worley PLAN OF CARE Activity Details Follow Up 2 Weeks Reason: VITAL SIGNS Height 61 in 2017-11-21 Weight 138.8 lbs 2017-11-21 Temperature 98.2 degrees Fahrenheit 2017-11-21 Heart Rate 88 bpm 2017-11-21 Respiratory Rate 20 2017-11-21 BMI 26.226 kg/m2 2017-11-21 Blood pressure systolic 100 mmHg 2017-11-21 Blood pressure diastolic 68 mmHg 2017-11-21 MEDICATIONS Medication Instructions Dosage Frequency Start Date End Date Duration Status Active RESULTS Name Result Date Reference Range UA OB DIP (IN HOUSE) 2017-11-21 Glucose neg Protein trace PROCEDURES Procedure Date Ordered Result Body Site URINE-NO MICRO Nov 21, 2017 TDAP (BOOSTRIX) Nov 21, 2017 SINGLE IMMUNIZATION ADMIN Nov 21, 2017 FLULAVAL QUAD 0.5ML (6 MO AND UP) 2018 Nov 21, 2017 IMMUNIZATION ADMIN, EACH ADD (please include units) Nov 21, 2017 INSTRUCTIONS MEDICATIONS ADMINISTERED No Known Medications MEDICAL (GENERAL) HISTORY Type Description Date Medical History gastritis-alcoholic Medical History Seasonal Allergies Surgical History bronchoscopy -acid reflux Hospitalization History UTI, Sepsis. Methamphetamine Use 09/2015
--- OUTSIDE RECORDS SUMMARY | 2018-04-27 04:19 | XMS REPORT ---
Author Author JOSE MONTIEL [facility] Address [address] [place] [address] Care Team Providers Care Physics Faculty Member Name Role Phone JOSE MONTIEL Unavailable PROBLEMS Type Condition ICD9-CM Code HCW41-BA Code Onset Dates Condition Status SNOMED Code Problem Anxiety F41.9 Active 46895902 Problem Methamphetamine abuse F15.10 Active 864832902 Problem Alcohol abuse F10.10 Active 77813287 Problem Drug use F19.90 Active 01626672 ALLERGIES No Information ENCOUNTERS Encounter Location Date Diagnosis [place] [id number] [place] [address] 38500- 7045 Nov, [place] [id number] [place] [address] 68101- 0937 13 Oct, 2017 Second trimester Z33.1 [place] [id number] [place] [address] 32405- 0132 10 Oct, 2017 25 weeks gestation of Z3A.25 ; Second trimester Z34.92 and Drug use affecting in second trimester O99.322 [place] [id number] [place] [address] 21023- 1232 Sep, [facility] [id number] [place] [address] 16894- 0902 09 Sep, 2017 21 weeks gestation of Z3A.21 ; Second trimester Z34.92 and Drug use affecting in second trimester O99.322 [place] [id number] [place] [address] 54513- 9187 Sep, [place] [id number] [place] [address] 82745- 2227 Aug, Second trimester Z33.1 ; 16 weeks gestation of Z3A.16 and Drug use affecting in second trimester O99.322 [facility] [id number], [place] [address]- 4542 Jul, [facility] [id number] [place] [address] 07677- 7144 Jul, [facility] [id number] [place] [address] 09065- 8036 Jul, Second trimester Z33.1 ; Normal in multigravida Z34.80 ; 14 weeks gestation of Z3A.14 and Methamphetamine abuse F15.10 [facility] [id number] [place] [address] 77914- 5298 June, [facility] [id number] [place] [address] 18570- 4500 June, Encounter for test, result unknown Z32.00 [facility] [id number] [place] [address] 08857- 6154 Apr, Complete miscarriage O03.9 and control counseling Z30.09 [facility] [id number] [place] [address] 20755- 9251 Mar, [facility] [id number] [place] [address] 53732- 5876 Mar, [facility] [address] [place] [address] 53479- 2526 Mar, Threatened miscarriage in early O20.0 [facility] [address] [place] [address] 26956- 9519 Mar, Threatened miscarriage in early O20.0 [facility] [id number] [place] [address] 82379- 0071 Mar, Threatened miscarriage in early O20.0 [facility] [id number] [place] [address] 35911- 9952 Mar, Threatened miscarriage in early O20.0 [place] [address] [place] [address] 61074- 1641 Mar, [place] [address] 34165- 7632 06 Mar, 2016 Encounter for test, result unknown Z32.00 [place] [id number] [place] [address] 30203- 7450 Dec, Anxiety F41.9 ; Methamphetamine abuse F15.10 ; Acute upper respiratory infection, unspecified J06.9 ; Other viral agents as the cause of diseases classified elsewhere B97.89 and Palpitations R00.2 [facility] [address] [id number] [place] [address] 09005 -4441 Oct, [facility] [place] [id number] [place] [address] 72216 -2769 Oct, Screening for STD sexually transmitted disease Z11.3 and Vaginal lesion N89.8 [place] [id number] [place] [address] 38235- 2348 Oct, Acute cystitis without hematuria N30.00 ; Drug use F19.90 and Alcohol abuse F10.10 [place] [id number] [place] [address] 27412- 6390 Sep, [place] [id number] [place] [address] 94710- 4610 Sep, IMMUNIZATIONS No Known Immunizations SOCIAL HISTORY Never Assessed REASON FOR VISIT Lab (walk-in) PLAN OF CARE Activity Details Pending Test GLUCOSE JEFF 1 HOUR Pending Test CBC VITAL SIGNS MEDICATIONS Unknown Medications RESULTS No Results PROCEDURES Procedure Date Ordered Result Body Site LAB NOT BILLED BY [facility] Oct 26, 2017 ALEXA KENNEY* Oct 26, 2017 INSTRUCTIONS MEDICATIONS ADMINISTERED No Known Medications MEDICAL (GENERAL) HISTORY Type Description Date Medical History gastritis-alcoholic Medical History Seasonal Allergies Surgical History bronchoscopy -acid reflux Hospitalization History UTI, Sepsis. Methamphetamine Use 09/2015
--- OUTSIDE RECORDS SUMMARY | 2018-04-27 04:19 | XMS REPORT ---
Author Author JOSE MONTIEL [facility] Address [address] [place] [address] Care Team Providers Care Puff Iron Operator Name Role Phone JOSE MONTIEL Unavailable PROBLEMS Type Condition ICD9-CM Code [id number] Code Onset Dates Condition Status SNOMED Code Problem Anxiety F41.9 Active 08486266 Problem Methamphetamine abuse F15.10 Active 161745708 Problem Alcohol abuse F10.10 Active 65616835 Problem Drug use F19.90 Active 20281972 ALLERGIES No Information ENCOUNTERS Encounter Location Date Diagnosis [place] [id number] 41549- 8275 Jan, [facility] [address] [id number] [place] [address] 38811- 0335 Jan, [facility] [id number] [place] [address] 77121- 7956 Jan, [facility] [id number] [place] [address] 79408- 6345 Dec, Normal in multigravida Z34.80 ; Third trimester Z34.93 ; 37 weeks gestation of Z3A.37 ; Other viral diseases complicating , third trimester O98.513 and Herpesviral infection, unspecified B00.9 [facility] [id number] [place] [address] 52481- 8319 20 Dec, 2017 Third trimester Z34.93 ; 36 weeks gestation of Z3A.36 and Herpesviral infection, unspecified B00.9 [place] [address] [place] [id number] [place] [address] 62485- 5657 07 Dec, 2017 Third trimester Z34.93 ; Herpes simplex virus (HSV ) infection B00.9 and 34 weeks gestation of Z3A.34 [place] [address] [place] [address] 05100- 2606 Nov, Third trimester Z34.93 and 32 weeks gestation of Z3A.32 [place] [address] [place] [id number] [place] [address] 35933- 7627 Nov, care in third trimester Z34.93 ; 30 weeks gestation of Z3A.30 ; Encounter for immunization Z23 and Methamphetamine abuse F15.10 [place] [address] [place] [address] [id number] [place] [address] 35489- 5299 Oct, Second trimester Z33.1 [place] [address] [place] [id number] [place] [address] 51147- 1928 Oct, 25 weeks gestation of Z3A.25 ; Second trimester Z34.92 and Drug use affecting in second trimester O99.322 [place] [address] [place] [id number] [place] [address] 20510- 3187 Sep, [place] [address] [place] [id number] [place] [address] 64789- 6494 Sep, 21 weeks gestation of Z3A.21 ; Second trimester Z34.92 and Drug use affecting in second trimester O99.322 [place] [address] [place] [address] 54226- 4811 Sep, [place] [address] [place] [id number] [place] [address] 04797- 9144 Aug, Second trimester Z33.1 ; 16 weeks gestation of Z3A.16 and Drug use affecting in second trimester O99.[address] [place] [address] [address] [place] [id number] [place] [address] 58825- 2952 Jul, [place] [address] [place] [id number] [place] [address] 73177- 7433 Jul, [facility] [address] [place] [address] [id number] [place] [address] 60422- 4341 Jul, Second trimester Z33.1 ; Normal in multigravida Z34.80 ; 14 weeks gestation of Z3A.14 and Methamphetamine abuse F15.10 [place] [address] 59229- 2954 June, [place] [address] 21412- 5982 June, Encounter for test, result unknown Z32.00 [place] [address] 77482- 9233 Apr, Complete miscarriage O03.9 and control counseling Z30.09 [place] [address] 81294- 8352 Mar, [place] [address] 83211- 9760 Mar, [place] [address] 15182- 6203 Mar, Threatened miscarriage in early O20.0 [place] [address] [place] [id number] [place] [address] 77601- 4758 Mar, Threatened miscarriage in early O20.0 [place] [address] [place] [id number] [place] [address] 62578- 7463 Mar, Threatened miscarriage in early O20.0 [place] [address] [place] [id number] [place] [address] 89548- 2752 Mar, Threatened miscarriage in early O20.0 [place] [address] [place] [id number] [place] [address] 80930- 6025 Mar, [place] [address] [place] [id number] [place] [address] 74877- 9446 Mar, Encounter for test, result unknown Z32.00 [place] [address] [place] [id number] [place] [address] 08208- 5367 Dec, Anxiety F41.9 ; Methamphetamine abuse F15.10 ; Acute upper respiratory infection, unspecified J06.9 ; Other viral agents as the cause of diseases classified elsewhere B97.89 and Palpitations R00.2 [facility]ALK [facility] [address] [address] 17 Oct, 2015 [facility] IN [facility] [address] [address] 13 Oct, 2015 Screening for STD sexually transmitted disease Z11.3 and Vaginal lesion N89.8 [facility] [address] [place] [id number] [place] [address] 71595- 0539 02 Oct, 2015 Acute cystitis without hematuria N30.00 ; Drug use F19.90 and Alcohol abuse F10.10 [facility] [address] [place] [address] 81972- 5882 Sep, [place] [address] [place] [id number] [place] [address] 500757- 4454 Sep, IMMUNIZATIONS No Known Immunizations SOCIAL HISTORY Never Assessed REASON FOR VISIT OB 1wk f/u -- lisset worley PLAN OF CARE Activity Details Follow Up 1 Week Reason: VITAL SIGNS Height 61 in 2018-01-09 Weight 144.4 lbs 2018-01-09 Temperature 97.0 degrees Fahrenheit 2018-01-09 Heart Rate 82 bpm 2018-01-09 Respiratory Rate 20 2018-01-09 BMI 27.284 kg/m2 2018-01-09 Blood pressure systolic 106 mmHg 2018-01-09 Blood pressure diastolic 66 mmHg 2018-01-09 MEDICATIONS Medication Instructions Dosage Frequency Start Date End Date Duration Status Active Acyclovir 400 mg Orally Twice a day 1 tablet 12h 07 Dec, 2017 30 days Active RESULTS Name Result Date Reference Range UA OB DIP (IN HOUSE) 2018-01-09 Glucose neg Protein 1+ PROCEDURES Procedure Date Ordered Result Body Site URINE-NO MICRO Jan 09, 2018 INSTRUCTIONS MEDICATIONS ADMINISTERED No Known Medications MEDICAL (GENERAL) HISTORY Type Description Date Medical History gastritis-alcoholic Medical History Seasonal Allergies Surgical History bronchoscopy -acid reflux Hospitalization History UTI, Sepsis. Methamphetamine Use 09/2015
--- OUTSIDE RECORDS SUMMARY | 2018-04-27 04:20 | XMS REPORT ---
Author Author JOSE MONTIEL [facility] Address [address] [place] [address] Care Team Providers Care Branch Account Manager Name Role Phone JOSE MONTIEL Unavailable PROBLEMS Type Condition ICD9-CM Code [id number] Code Onset Dates Condition Status SNOMED Code Problem Anxiety F41.9 Active 68401527 Problem Methamphetamine abuse F15.10 Active 758440498 Problem Alcohol abuse F10.10 Active 26608017 Problem Drug use F19.90 Active 90051225 ALLERGIES No Information ENCOUNTERS Encounter Location Date Diagnosis [facility] [address] [place] [address] [id number] [place] [address] 16869- 2302 Oct, [facility] [address] [place] [address] [id number] [place] [address] 97469- 6074 Oct, [facility] [address] [place] [address] [id number] [place] [address] 85024- 4934 Sep, [facility] [address] [place] [id number] [place] [address] 31624- 7065 Sep, 21 weeks gestation of Z3A.21 and Second trimester Z34.92 [facility] [address] [place] [id number] [place] [address] 08927- 5549 Sep, [facility] [address] [place] [address] [id number] [place] [address] 97146- 3414 Aug, Second trimester Z33.1 [facility] [address] 92098- 8064 Jul, [facility] [address] [place] [id number] [place] [address] 25176- 7713 Jul, [place] [address] [place] [id number] [place] [address] 07894- 5238 Jul, Second trimester Z33.1 ; Normal in multigravida Z34.80 ; 14 weeks gestation of Z3A.14 and Methamphetamine abuse F15.10 [place] [address] [place] [id number] [place] [address] 48572- 8908 June, [place] [address] 28199- 9527 June, Encounter for test, result unknown Z32.00 [place] [address] 32939- 6830 Apr, Complete miscarriage O03.9 and control counseling Z30.09 [place] [address] 69761- 1367 Mar, [place] [address] 81917- 6308 Mar, [place] [address] 15481- 2094 Mar, Threatened miscarriage in early O20.0 [place] [address] 15815- 1844 Mar, Threatened miscarriage in early O20.0 [place] [address] [place] [id number] [place] [address] 37355- 4057 Mar, Threatened miscarriage in early O20.0 [place] [address] [place] [id number] [place] [address] 24317- 7472 Mar, Threatened miscarriage in early O20.0 [place] [address] [place] [id number] [place] [address] 80896- 9182 Mar, [place] [address] 37126- 7929 Mar, Encounter for test, result unknown Z32.00 [place] [address] 77934- 8746 Dec, Anxiety F41.9 ; Methamphetamine abuse F15.10 ; Acute upper respiratory infection, unspecified J06.9 ; Other viral agents as the cause of diseases classified elsewhere B97.89 and Palpitations R00.2 [facility] [address] [place] [address] 89555 -1788 Oct, [facility] [address] [place] [id number] [place] [address] 34047 -5784 Oct, Screening for STD sexually transmitted disease Z11.3 and Vaginal lesion N89.8 [place] [address] 58130- 0397 Oct, Acute cystitis without hematuria N30.00 ; Drug use F19.90 and Alcohol abuse F10.10 [place] [address] [place] [id number] [place] [address] 04027- 8457 Sep, [place] [address] [place] [id number] [place] [address] 72196- 5559 Sep, IMMUNIZATIONS No Known Immunizations SOCIAL HISTORY Never Assessed REASON FOR VISIT Presumptive Eligibility PLAN OF CARE VITAL SIGNS MEDICATIONS Unknown Medications RESULTS No Results PROCEDURES No Known procedures INSTRUCTIONS MEDICATIONS ADMINISTERED No Known Medications MEDICAL (GENERAL) HISTORY Type Description Date Medical History gastritis-alcoholic Medical History Seasonal Allergies Surgical History bronchoscopy -acid reflux Hospitalization History UTI, Sepsis. Methamphetamine Use 09/2015
--- OUTSIDE RECORDS SUMMARY | 2018-04-27 04:20 | XMS REPORT ---
Author Author JOSE MONTIEL [facility] Address [address] [place] [address] Care Team Providers Care Foundry Supervisor Name Role Phone JOSE MONTIEL Unavailable PROBLEMS Type Condition ICD9-CM Code [id number] Code Onset Dates Condition Status SNOMED Code Problem Anxiety F41.9 Active 96497774 Problem Methamphetamine abuse F15.10 Active 285160512 Problem Alcohol abuse F10.10 Active 42967087 Problem Drug use F19.90 Active 48702087 ALLERGIES No Information ENCOUNTERS Encounter Location Date Diagnosis [place] [address] [place] [address] [id number] [place] [address] 12668- 1117 Nov, [place] [address] [place] [id number] [place] [address] 95628- 4475 13 Oct, 2017 Second trimester Z33.1 [place] [address] [place] [id number] [place] [address] 49108- 3041 10 Oct, 2017 25 weeks gestation of Z3A.25 ; Second trimester Z34.92 and Drug use affecting in second trimester O99.322 [place] [address] [place] [id number] [place] [address] 04656- 4592 Sep, [facility] [address] [id number] [place] [address] 61329- 9055 Sep, 21 weeks gestation of Z3A.21 ; Second trimester Z34.92 and Drug use affecting in second trimester O99.322 [place] [address] [place] [id number] [place] [address] 16335- 0965 Sep, [place] [address] [place] [id number] [place] [address] 92073- 3730 Aug, Second trimester Z33.1 ; 16 weeks gestation of Z3A.16 and Drug use affecting in second trimester O99.322 [facility] [address] [place] [id number] [address] 27[address] Jul, [facility] [address] [id number] [place] [address] 83601- 8769 Jul, [facility] [address] [id number] [place] [address] 29154- 8670 Jul, Second trimester Z33.1 ; Normal in multigravida Z34.80 ; 14 weeks gestation of Z3A.14 and Methamphetamine abuse F15.10 [facility] [address] [place] [id number] [place] [address] 55463- 2563 June, [facility] [address] [place] [id number] [place] [address] 81853- 4417 June, Encounter for test, result unknown Z32.00 [facility] [address] [place] [id number] [place] [address] 26748- 8620 Apr, Complete miscarriage O03.9 and control counseling Z30.09 [facility] [address] [place] [address] [id number] [place] [address] 27062- 2544 Mar, [facility] [address] [place] [id number] [place] [address] 42175- 7139 Mar, [facility] [address] [place] [address] 71777- 6060 Mar, Threatened miscarriage in early O20.0 [facility] [address] [place] [address] 62576- 1302 Mar, Threatened miscarriage in early O20.0 [facility] [id number] [place] [address] 11672- 6211 Mar, Threatened miscarriage in early O20.0 [facility] [id number] [place] [address] 90866- 5714 Mar, Threatened miscarriage in early O20.0 [place] [address] [place] [address] [id number] [place] [address] 07149- 3508 Mar, [place] [address] 74648- 7102 06 Mar, 2016 Encounter for test, result unknown Z32.00 [place] [address] [place] [id number] [place] [address] 62083- 6979 Dec, Anxiety F41.9 ; Methamphetamine abuse F15.10 ; Acute upper respiratory infection, unspecified J06.9 ; Other viral agents as the cause of diseases classified elsewhere B97.89 and Palpitations R00.2 [facility] [place] [address] [id number] [place] [address] 01518 -3718 17 Oct, 2015 [facility] [place] [address] [place] [address] [id number] [place] [address] 54168 -0727 Oct, Screening for STD sexually transmitted disease Z11.3 and Vaginal lesion N89.8 [place] [address] [place] [address] [id number] [place] [address] 59244- 7038 Oct, Acute cystitis without hematuria N30.00 ; Drug use F19.90 and Alcohol abuse F10.10 [place] [address] [place] [address] [id number] [place] [address] 24539- 2239 Sep, [place] [address] [place] [address] [id number] [place] [address] 98429- 8040 Sep, IMMUNIZATIONS No Known Immunizations SOCIAL HISTORY Never Assessed REASON FOR VISIT [facility] Intake PLAN OF CARE VITAL SIGNS MEDICATIONS Unknown Medications RESULTS No Results PROCEDURES No Known procedures INSTRUCTIONS MEDICATIONS ADMINISTERED No Known Medications MEDICAL (GENERAL) HISTORY Type Description Date Medical History gastritis-alcoholic Medical History Seasonal Allergies Surgical History bronchoscopy -acid reflux Hospitalization History UTI, Sepsis. Methamphetamine Use 09/2015
--- OUTSIDE RECORDS SUMMARY | 2018-04-27 04:20 | XMS REPORT ---
Author Author JOSE MONTIEL [facility] Address [address] [place] [address] Care Team Providers Care Hand Touch Up Painter Name Role Phone JOSE MONTIEL Unavailable PROBLEMS Type Condition ICD9-CM Code [id number] Code Onset Dates Condition Status SNOMED Code Problem Anxiety F41.9 Active 27354924 Problem Methamphetamine abuse F15.10 Active 595528376 Problem Alcohol abuse F10.10 Active 55215085 Problem Drug use F19.90 Active 18694772 ALLERGIES No Known Allergies ENCOUNTERS Encounter Location Date Diagnosis [facility] [id number] [place] [address] 75634- 9037 Oct, [facility] [id number] [place] [address] 23605- 2195 Oct, [facility] [address] [id number] [place] [address] 35985- 3550 Sep, [facility] [address] [place] [id number] [place] [address] 73079- 2336 Sep, 21 weeks gestation of Z3A.21 and Second trimester Z34.92 [facility] [id number] [place] [address] 20162- 1483 Sep, [facility] [id number] [place] [address] 18469- 5906 Aug, Second trimester Z33.1 [facility] [address] 56125- 2090 Jul, [facility] [address] [id number] [place] [address] 28431- 0007 Jul, [facility] [address] [id number] [place] [address] 05703- 4523 Jul, Second trimester Z33.1 ; Normal in multigravida Z34.80 ; 14 weeks gestation of Z3A.14 and Methamphetamine abuse F15.10 [place] [id number] [place] [address] 96505- 0277 June, [place] [address] 86595- 8464 June, Encounter for test, result unknown Z32.00 [place] [address] 19202- 5816 Apr, Complete miscarriage O03.9 and control counseling Z30.09 [place] [address] 24214- 6346 Mar, [place] [address] 07857- 7392 Mar, [place] [address] 65178- 5458 Mar, Threatened miscarriage in early O20.0 [place] [id number] [place] [address] 36702- 8325 Mar, Threatened miscarriage in early O20.0 [place] [id number] [place] [address] 38190- 8645 Mar, Threatened miscarriage in early O20.0 [place] [id number] [place] [address] 79454- 4434 Mar, Threatened miscarriage in early O20.0 [place] [address] 50548- 8524 Mar, [place] [address] [place] [id number] [place] [address] 22858- 5981 Mar, Encounter for test, result unknown Z32.00 [place] [address] 05252- 2913 Dec, Anxiety F41.9 ; Methamphetamine abuse F15.10 ; Acute upper respiratory infection, unspecified J06.9 ; Other viral agents as the cause of diseases classified elsewhere B97.89 and Palpitations R00.2 [facility] [address] [place] [address] 17 Oct, 2015 [facility] [address] [place] [address] 742882 -1464 13 Oct, 2015 Screening for STD sexually transmitted disease Z11.3 and Vaginal lesion N89.8 [place] [id number] [place] [address] 69220- 9695 02 Oct, 2015 Acute cystitis without hematuria N30.00 ; Drug use F19.90 and Alcohol abuse F10.10 [place] [address] [place] [address] 32990- 8883 Sep, [facility] [address] [place] [address] 67603- 1747 Sep, IMMUNIZATIONS No Known Immunizations SOCIAL HISTORY Never Assessed REASON FOR VISIT OB-intake - JOEL Hodge PLAN OF CARE Activity Details Follow Up 4 Weeks Reason: VITAL SIGNS Height 61 in 2017-07-24 Weight 125.4 lbs 2017-07-24 Temperature 98.6 degrees Fahrenheit 2017-07-24 Heart Rate 100 bpm 2017-07-24 Respiratory Rate 18 2017-07-24 BMI 23.694 kg/m2 2017-07-24 Blood pressure systolic 118 mmHg 2017-07-24 Blood pressure diastolic 68 mmHg 2017-07-24 MEDICATIONS Medication Instructions Dosage Frequency Start Date End Date Duration Status Active RESULTS No Results PROCEDURES Procedure Date Ordered Result Body Site URINALYSIS, AUTO, W/O SCOPE July 24, 2017 URINE CULTURE/COLONY COUNT July 24, 2017 TRICHOMONAS ASSAY W/OPTIC July 24, 2017 DRUG TEST PRSMV DIR OPT OBS July 24, 2017 CULTURE, BACTERIA, OTHER July 24, 2017 INSTRUCTIONS MEDICATIONS ADMINISTERED No Known Medications MEDICAL (GENERAL) HISTORY Type Description Date Medical History gastritis-alcoholic Medical History Seasonal Allergies Surgical History bronchoscopy -acid reflux Hospitalization History UTI, Sepsis. Methamphetamine Use 09/2015
--- OUTSIDE RECORDS SUMMARY | 2018-04-27 04:20 | XMS REPORT ---
Author Author MIMI BETANCOURT [facility] Address [address] [place] [address] Care Team Providers Care Maintenance Of Way Clerk Name Role Phone ASIA MIMI Unavailable PROBLEMS Type Condition ICD9-CM Code UDS28-WX Code Onset Dates Condition Status SNOMED Code Problem Anxiety F41.9 Active 53798549 Problem Methamphetamine abuse F15.10 Active 438074995 Problem Alcohol abuse F10.10 Active 08857478 Problem Drug use F19.90 Active 98871008 ALLERGIES No Information ENCOUNTERS Encounter Location Date Diagnosis [facility] [id number] [place] [address] 03918- 6711 Oct, [facility] [id number] [place] [address] 20178- 9459 Oct, [facility] [id number] [place] [address] 95101- 7931 Sep, [facility] [id number] [place] [address] 49199- 1565 Sep, 21 weeks gestation of Z3A.21 and Second trimester Z34.92 [facility] [id number] [place] [address] 54711- 5688 Sep, [facility] [id number] [place] [address] 88899- 3865 Aug, Second trimester Z33.1 [facility] [address] 71330- 5333 Jul, [facility] [id number] [place] [address] 68976- 2099 Jul, [facility] [id number] [place] [address] 75498- 0936 Jul, Second trimester Z33.1 ; Normal in multigravida Z34.80 ; 14 weeks gestation of Z3A.14 and Methamphetamine abuse F15.10 [place] [address] 46367- 2986 June, [place] [address] 08515- 1548 June, Encounter for test, result unknown Z32.00 [place] [address] 53472- 3223 Apr, Complete miscarriage O03.9 and control counseling Z30.09 [place] [address] 72313- 8610 Mar, [place] [address] 27085- 5763 Mar, [place] [address] 44711- 6540 Mar, Threatened miscarriage in early O20.0 [place] [address] 92665- 7710 Mar, Threatened miscarriage in early O20.0 [place] [address] 03170- 3693 Mar, Threatened miscarriage in early O20.0 [place] [address] 15499- 0343 Mar, Threatened miscarriage in early O20.0 [place] [address] 99955- 9021 Mar, [place] [address] 69047- 5638 Mar, Encounter for test, result unknown Z32.00 [place] [address] 46718- 1008 Dec, Anxiety F41.9 ; Methamphetamine abuse F15.10 ; Acute upper respiratory infection, unspecified J06.9 ; Other viral agents as the cause of diseases classified elsewhere B97.89 and Palpitations R00.2 [facility] [address] [address] Oct, [facility] [id number] [place] [address] 19225 -6658 13 Oct, 2015 Screening for STD sexually transmitted disease Z11.3 and Vaginal lesion N89.8 [place] [id number] [place] [address] 30753- 5246 Oct, Acute cystitis without hematuria N30.00 ; Drug use F19.90 and Alcohol abuse F10.10 [place] [address] [place] [address] 28397- 7489 Sep, [facility] [id number] [place] [address] 60524- 1033 Sep, IMMUNIZATIONS No Known Immunizations SOCIAL HISTORY Never Assessed REASON FOR VISIT test (walk-in) PLAN OF CARE VITAL SIGNS MEDICATIONS Unknown Medications RESULTS Name Result Date Reference Range TEST, URINE (IN HOUSE) 2017-06-23 RESULTS Positive Lot # [id number] Control + Exp date 08/2018 PROCEDURES Procedure Date Ordered Result Body Site URINE TEST June 23, 2017 INSTRUCTIONS MEDICATIONS ADMINISTERED No Known Medications MEDICAL (GENERAL) HISTORY Type Description Date Medical History gastritis-alcoholic Medical History Seasonal Allergies Surgical History bronchoscopy -acid reflux Hospitalization History UTI, Sepsis. Methamphetamine Use 09/2015
--- OUTSIDE RECORDS SUMMARY | 2018-04-27 04:20 | XMS REPORT ---
Author Author JOSE MONTIEL [facility] Address [address] [place] [address] Care Team Providers Care Welder Experimental Name Role Phone JOSE MONTIEL Unavailable PROBLEMS Type Condition ICD9-CM Code KQI59-OH Code Onset Dates Condition Status SNOMED Code Problem Anxiety F41.9 Active 88489821 Problem Methamphetamine abuse F15.10 Active 158193752 Problem Alcohol abuse F10.10 Active 18344529 Problem Drug use F19.90 Active 19318462 ALLERGIES No Information ENCOUNTERS Encounter Location Date Diagnosis [place] [id number] [place] [address] 56264- 3834 Nov, [place] [id number] [place] [address] 20966- 0810 13 Oct, 2017 Second trimester Z33.1 [place] [id number] [place] [address] 26728- 4813 10 Oct, 2017 25 weeks gestation of Z3A.25 ; Second trimester Z34.92 and Drug use affecting in second trimester O99.322 [place] [id number] [place] [address] 55322- 1657 Sep, [facility] [id number] [place] [address] 13119- 0325 Sep, 21 weeks gestation of Z3A.21 ; Second trimester Z34.92 and Drug use affecting in second trimester O99.322 [place] [id number] [place] [address] 76634- 8559 Sep, [place] [id number] [place] [address] 22233- 2076 Aug, Second trimester Z33.1 ; 16 weeks gestation of Z3A.16 and Drug use affecting in second trimester O99.322 [facility] [id number] [address] 6857 Jul, [facility] [id number] [place] [address] 22527- 1337 Jul, [facility] [id number] [place] [address] 13962- 9432 Jul, Second trimester Z33.1 ; Normal in multigravida Z34.80 ; 14 weeks gestation of Z3A.14 and Methamphetamine abuse F15.10 [facility] [id number] [place] [address] 49403- 8091 June, [facility] [id number] [place] [address] 49438- 8499 June, Encounter for test, result unknown Z32.00 [place] [id number] [place] [address] 87401- 5823 Apr, Complete miscarriage O03.9 and control counseling Z30.09 [facility] [id number] [place] [address] 28053- 0358 Mar, [facility] [id number] [place] [address] 07707- 3231 Mar, Threatened miscarriage in early O20.0 [facility] [id number] [place] [address] 14354- 2693 Mar, [facility] [id number] [place] [address] 86611- 8969 Mar, Threatened miscarriage in early O20.0 [facility] [id number] [place] [address] 61340- 0307 Mar, Threatened miscarriage in early O20.0 [facility] [address] [place] [address] 36966- 7903 Mar, Threatened miscarriage in early O20.0 [place] [address] [place] [address] 92206- 9197 07 Mar, 2016 [place] [address] 20739- 3745 06 Mar, 2016 Encounter for test, result unknown Z32.00 [place] [id number] [place] [address] 80699- 1690 Dec, Anxiety F41.9 ; Methamphetamine abuse F15.10 ; Acute upper respiratory infection, unspecified J06.9 ; Other viral agents as the cause of diseases classified elsewhere B97.89 and Palpitations R00.2 [facility] [place] [id number] [place] [address] 18029 -3901 17 Oct, 2015 [facility] [place] [id number] [place] [address] 94587 -8141 Oct, Screening for STD sexually transmitted disease Z11.3 and Vaginal lesion N89.8 [place] [id number] [place] [address] 09769- 8571 Oct, Acute cystitis without hematuria N30.00 ; Drug use F19.90 and Alcohol abuse F10.10 [place] [id number] [place] [address] 56559- 4968 Sep, [place] [id number] [place] [address] 65365- 5926 Sep, IMMUNIZATIONS No Known Immunizations SOCIAL HISTORY Never Assessed REASON FOR VISIT OB appt scheduling PLAN OF CARE VITAL SIGNS MEDICATIONS Unknown Medications RESULTS No Results PROCEDURES No Known procedures INSTRUCTIONS MEDICATIONS ADMINISTERED No Known Medications MEDICAL (GENERAL) HISTORY Type Description Date Medical History gastritis-alcoholic Medical History Seasonal Allergies Surgical History bronchoscopy -acid reflux Hospitalization History UTI, Sepsis. Methamphetamine Use 09/2015
--- OUTSIDE RECORDS SUMMARY | 2018-04-27 04:20 | XMS REPORT ---
Author Author JOSE MONTIEL [facility] Address [address] [place] [address] Care Team Providers Care Reference Assistant Name Role Phone JOSE MONTIEL Unavailable PROBLEMS Type Condition ICD9-CM Code WDI03-HT Code Onset Dates Condition Status SNOMED Code Problem Anxiety F41.9 Active 03454882 Problem Methamphetamine abuse F15.10 Active 171205376 Problem Alcohol abuse F10.10 Active 77183478 Problem Drug use F19.90 Active 13501612 ALLERGIES No Information ENCOUNTERS Encounter Location Date Diagnosis [facility] [id number] [place] [address] 83839- 0260 Oct, [facility] [id number] [place] [address] 06087- 5951 Oct, [facility] [id number] [place] [address] 19289- 3907 Sep, [facility] [id number] [place] [address] 88728- 1547 Sep, 21 weeks gestation of Z3A.21 and Second trimester Z34.92 [facility] [id number] [place] [address] 93587- 3593 Sep, [facility] [id number] [place] [address] 00332- 7575 Aug, Second trimester Z33.1 [facility] [address] 44048- 7162 Jul, [facility] [id number] [place] [address] 97565- 1087 Jul, [place] [id number] [place] [address] 12587- 0849 Jul, Second trimester Z33.1 ; Normal in multigravida Z34.80 ; 14 weeks gestation of Z3A.14 and Methamphetamine abuse F15.10 [place] [id number] [place] [address] 62318- 8794 June, [place] [address] 33744- 6823 June, Encounter for test, result unknown Z32.00 [place] [address] 51502- 5660 Apr, Complete miscarriage O03.9 and control counseling Z30.09 [place] [address] 56187- 5624 Mar, [place] [address] 22859- 4591 Mar, [place] [address] 56697- 1622 Mar, Threatened miscarriage in early O20.0 [place] [address] 82836- 0874 Mar, Threatened miscarriage in early O20.0 [place] [id number] [place] [address] 97799- 7685 Mar, Threatened miscarriage in early O20.0 [place] [id number] [place] [address] 97215- 1513 Mar, Threatened miscarriage in early O20.0 [place] [id number] [place] [address] 20419- 3585 Mar, [place] [address] 81069- 9100 Mar, Encounter for test, result unknown Z32.00 [place] [address] 06239- 1108 Dec, Anxiety F41.9 ; Methamphetamine abuse F15.10 ; Acute upper respiratory infection, unspecified J06.9 ; Other viral agents as the cause of diseases classified elsewhere B97.89 and Palpitations R00.2 [facility] [id number] [place] [address] 22014 -0945 Oct, [facility] [id number] [place] [address] 04769 -9422 Oct, Screening for STD sexually transmitted disease Z11.3 and Vaginal lesion N89.8 [place] [address] 23914- 4692 Oct, Acute cystitis without hematuria N30.00 ; Drug use F19.90 and Alcohol abuse F10.10 [place] [id number] [place] [address] 39349- 3184 Sep, [place] [id number] [place] [address] 46909- 6519 Sep, IMMUNIZATIONS No Known Immunizations SOCIAL HISTORY Never Assessed REASON FOR VISIT BH/AT phone response PLAN OF CARE VITAL SIGNS MEDICATIONS Unknown Medications RESULTS No Results PROCEDURES No Known procedures INSTRUCTIONS MEDICATIONS ADMINISTERED No Known Medications MEDICAL (GENERAL) HISTORY Type Description Date Medical History gastritis-alcoholic Medical History Seasonal Allergies Surgical History bronchoscopy -acid reflux Hospitalization History UTI, Sepsis. Methamphetamine Use 09/2015
--- OUTSIDE RECORDS SUMMARY | 2018-04-27 04:20 | XMS REPORT ---
Author Author MIMI BETANCOURT [facility] Address [address] [place] [address] Care Team Providers Care Support Director Name Role Phone ASIAMIMI Unavailable PROBLEMS Type Condition ICD9-CM Code WNA99-QH Code Onset Dates Condition Status SNOMED Code Problem Anxiety F41.9 Active 88960898 Problem Methamphetamine abuse F15.10 Active 316992048 Problem Alcohol abuse F10.10 Active 15549387 Problem Drug use F19.90 Active 70802021 ALLERGIES No Known Allergies ENCOUNTERS Encounter Location Date Diagnosis [facility] [id number] [place] [address] 98504- 5103 Oct, [facility] [id number] [place] [address] 83900- 3643 Oct, [facility] [id number] [place] [address] 47298- 9137 Sep, [facility] [id number] [place] [address] 00551- 3496 Sep, 21 weeks gestation of Z3A.21 and Second trimester Z34.92 [facility] [id number] [place] [address] 58107- 2541 Sep, [facility] [id number] [place] [address] 69315- 9075 Aug, Second trimester Z33.1 [facility] [id number] [place] [address] 96457- 3374 Jul, [facility] [id number] [place] [address] 16452- 2018 Jul, [place] [id number] [place] [address] 42717- 4005 Jul, Second trimester Z33.1 ; Normal in multigravida Z34.80 ; 14 weeks gestation of Z3A.14 and Methamphetamine abuse F15.10 [place] [address] 39506- 3388 June, [place] [address] 83878- 2055 June, Encounter for test, result unknown Z32.00 [place] [address] 57473- 1810 Apr, Complete miscarriage O03.9 and control counseling Z30.09 [place] [address] 30622- 0682 Mar, [place] [address] 96630- 8367 Mar, [place] [address] 32017- 2777 Mar, Threatened miscarriage in early O20.0 [place] [address] 37173- 9107 Mar, Threatened miscarriage in early O20.0 [place] [address] 31707- 0239 Mar, Threatened miscarriage in early O20.0 [place] [address] 84888- 9690 Mar, Threatened miscarriage in early O20.0 [place] [address] 10871- 2805 Mar, [place] [address] 99460- 8516 Mar, Encounter for test, result unknown Z32.00 [place] [address] 40756- 3988 Dec, Anxiety F41.9 ; Methamphetamine abuse F15.10 ; Acute upper respiratory infection, unspecified J06.9 ; Other viral agents as the cause of diseases classified elsewhere B97.89 and Palpitations R00.2 [facility] [address] [place] [address] 24495 -1263 Oct, [facility] [id number] [place] [address] 36460 -8159 Oct, Screening for STD sexually transmitted disease Z11.3 and Vaginal lesion N89.8 [place] [address] 69459- 1654 Oct, Acute cystitis without hematuria N30.00 ; Drug use F19.90 and Alcohol abuse F10.10 [place] [id number] [place] [address] 86330- 2294 Sep, [place] [id number] [place] [address] 64472- 9160 Sep, IMMUNIZATIONS No Known Immunizations SOCIAL HISTORY Never Assessed REASON FOR VISIT ob/hx PLAN OF CARE VITAL SIGNS MEDICATIONS Medication Instructions Dosage Frequency Start Date End Date Duration Status Active RESULTS No Results PROCEDURES No Known procedures INSTRUCTIONS MEDICATIONS ADMINISTERED No Known Medications MEDICAL (GENERAL) HISTORY Type Description Date Medical History gastritis-alcoholic Medical History Seasonal Allergies Surgical History bronchoscopy -acid reflux Hospitalization History UTI, Sepsis. Methamphetamine Use 09/2015
--- OUTSIDE RECORDS SUMMARY | 2018-04-27 04:20 | XMS REPORT ---
Author Author JOSE MONTIEL [facility] Address [address] [place] [address] Care Team Providers Care Cafeteria Manager Name Role Phone JOSE MONTIEL Unavailable PROBLEMS Type Condition ICD9-CM Code UUD64-OI Code Onset Dates Condition Status SNOMED Code Problem Anxiety F41.9 Active 52570889 Problem Methamphetamine abuse F15.10 Active 107525437 Problem Alcohol abuse F10.10 Active 37810074 Problem Drug use F19.90 Active 59185962 ALLERGIES No Information ENCOUNTERS Encounter Location Date Diagnosis [place] [id number] [place] [address] 52954- 1464 Nov, [place] [id number] [place] [address] 25066- 9372 13 Oct, 2017 Second trimester Z33.1 [place] [id number] [place] [address] 30445- 6378 10 Oct, 2017 25 weeks gestation of Z3A.25 ; Second trimester Z34.92 and Drug use affecting in second trimester O99.322 [place] [id number] [place] [address] 94821- 7854 Sep, [facility] [id number] [place] [address] 06963- 5563 Sep, 21 weeks gestation of Z3A.21 ; Second trimester Z34.92 and Drug use affecting in second trimester O99.322 [place] [id number] [place] [address] 35477- 2851 Sep, [place] [id number] [place] [address] 40147- 5894 Aug, Second trimester Z33.1 ; 16 weeks gestation of Z3A.16 and Drug use affecting in second trimester O99.322 [facility] [id number] [address]- 0393 Jul, [facility] [id number] [place] [address] 48089- 8186 Jul, [facility] [id number] [place] [address] 36828- 5494 Jul, Second trimester Z33.1 ; Normal in multigravida Z34.80 ; 14 weeks gestation of Z3A.14 and Methamphetamine abuse F15.10 [facility] [id number] [place] [address] 71244- 1764 June, [facility] [id number] [place] [address] 21559- 0342 June, Encounter for test, result unknown Z32.00 [facility] [id number] [place] [address] 97483- 8163 Apr, Complete miscarriage O03.9 and control counseling Z30.09 [facility] [id number] [place] [address] 70166- 5055 Mar, [facility] [id number] [place] [address] 45756- 2680 Mar, [facility] [address] [place] [address] 03765- 0532 Mar, Threatened miscarriage in early O20.0 [facility] [address] [place] [address] 55314- 5108 Mar, Threatened miscarriage in early O20.0 [facility] [id number] [place] [address] 02191- 7045 Mar, Threatened miscarriage in early O20.0 [facility] [id number] [place] [address] 44810- 3662 Mar, Threatened miscarriage in early O20.0 [place] [id number] [place] [address] 07823- 3896 Mar, [place] [address] [place] 356058- 3262 06 Mar, 2016 Encounter for test, result unknown Z32.00 [place] [address] [address] 4053 Dec, Anxiety F41.9 ; Methamphetamine abuse F15.10 ; Acute upper respiratory infection, unspecified J06.9 ; Other viral agents as the cause of diseases classified elsewhere B97.89 and Palpitations R00.2 [facility] WALK IN [place] [address] 67252 -3362 17 Oct, 2015 [facility] W[facility] IN [place] [address] 70945 -8008 Oct, Screening for STD sexually transmitted disease Z11.3 and Vaginal lesion N89.8 [place] [address] 98995- 4294 Oct, Acute cystitis without hematuria N30.00 ; Drug use F19.90 and Alcohol abuse F10.10 [place] [id number] [place] [address] 26288- 1809 Sep, [place] [id number] [place] [address] 85140- 5337 Sep, IMMUNIZATIONS No Known Immunizations SOCIAL HISTORY Never Assessed REASON FOR VISIT 4wk f/u -- lisset worley PLAN OF CARE Activity Details Follow Up 4 Weeks Reason: VITAL SIGNS Height 61 in 2017-08-21 Weight 132.9 lbs 2017-08-21 Temperature 97.9 degrees Fahrenheit 2017-08-21 Heart Rate 82 bpm 2017-08-21 Respiratory Rate 18 2017-08-21 BMI 25.111 kg/m2 2017-08-21 Blood pressure systolic 116 mmHg 2017-08-21 Blood pressure diastolic 72 mmHg 2017-08-21 MEDICATIONS Medication Instructions Dosage Frequency Start Date End Date Duration Status Not-Taking RESULTS No Results PROCEDURES Procedure Date Ordered Result Body Site URINE-NO MICRO August 21, 2017 No Charge August 21, 2017 RUBELLA ANTIBODY August 21, 2017 ASSAY THYROID STIM HORMONE August 21, 2017 VENIPUNCT, ROUTINE* August 21, 2017 BLOOD TYPING, RH (D) August 21, 2017 COMPLETE CBC W/AUTO DIFF WBC August 21, 2017 RBC ANTIBODY SCREEN August 21, 2017 BLOOD TYPING, ABO August 21, 2017 INSTRUCTIONS MEDICATIONS ADMINISTERED No Known Medications MEDICAL (GENERAL) HISTORY Type Description Date Medical History gastritis-alcoholic Medical History Seasonal Allergies Surgical History bronchoscopy -acid reflux Hospitalization History UTI, Sepsis. Methamphetamine Use 09/2015
--- OUTSIDE RECORDS SUMMARY | 2018-04-27 04:25 | XMS REPORT | Continuity of Care Document ---
Author Author [facility] Organization [facility] Address Unknown Phone Unavailable Allergies Active Description Code Type Severity Reaction Onset Reported/Identified Relationship to Patient Clinical Status Yes ENVIRONMENTAL ENVIRONMENTAL Unknown N/A 06/24/2015 Yes No Known Drug Allergies [id number] Drug Allergy Unknown N/A 09/11/2017 Medications There is no data. Problems Date [...] WITHOUT 08/22/2015 DILLON DO, FRANCK D Ot K21.9 GASTRO-ESOPHAGEAL REFLUX DISEASE WITHOUT 08/22/2015 DILLON DO, FRANCK D Ot R10.13 EPIGASTRIC PAIN 08/22/2015 DILLON DOANN MARIETT D Ot Z01.818 ENCOUNTER FOR OTHER PREPROCEDURAL EXAMIN 08/24/2015 LU STUART MD Ot K21.9 GASTRO-ESOPHAGEAL REFLUX DISEASE WITHOUT 08/25/2015 DILLON DOANN MARIETT D Ot K29.70 GASTRITIS, UNSPECIFIED, WITHOUT BLEEDING 08/25/2015 FRANCK DILLON DO D Ot K29.80 DUODENITIS WITHOUT BLEEDING 09/17/2015 MICHELLE BYERS MD Ot M79.602 PAIN IN LEFT ARM 09/17/2015 MICHELLE BYERS MD Ot R07.89 OTHER CHEST PAIN 09/17/2015 MICHELLE BYERS MD Ot R07.9 CHEST PAIN, UNSPECIFIED 09/18/2015 MICHELLE BYERS MD Ot M79.602 PAIN IN LEFT ARM 09/18/2015 MICHELLE BYERS MD Ot R07.89 OTHER CHEST PAIN 09/18/2015 MICHELLE BYERS MD Ot R07.9 CHEST PAIN, UNSPECIFIED 09/19/2015 TYESHA PAEZ DO Ot K21.9 GASTRO-ESOPHAGEAL REFLUX DISEASE WITHOUT 09/19/2015 ANISHA PAEZ DOA K Ot K29.70 GASTRITIS, UNSPECIFIED, WITHOUT BLEEDING 09/19/2015 ANISHA PAEZ DOA K Ot R07.9 CHEST PAIN, UNSPECIFIED 09/21/2015 TYESHA PAEZ DO Ot K21.9 GASTRO-ESOPHAGEAL REFLUX DISEASE WITHOUT 09/21/2015 TYESHA PAEZ DO Ot K29.70 GASTRITIS, UNSPECIFIED, WITHOUT BLEEDING 09/21/2015 TYESHA PAEZ DO Ot R07.9 CHEST PAIN, UNSPECIFIED 09/22/2015 [...] INFECTION, SITE NOT SPECIF 10/10/2015 NIESHA BADILLO BUSINESS DEVELOPMENT ASSOCIATE Ot F15.10 OTHER STIMULANT ABUSE, UNCOMPLICATED 10/10/2015 NIESHA BADILLO BUSINESS DEVELOPMENT ASSOCIATE Ot F41.9 ANXIETY DISORDER, UNSPECIFIED 10/10/2015 NIESHA BADILLO BUSINESS DEVELOPMENT ASSOCIATE Ot R53.1 WEAKNESS 10/18/2015 ANDRE VIRK, JAD [...] HAMMOND WILLI L Ot E87.6 HYPOKALEMIA 11/07/2015 STACIE HAMMOND WILLI L Ot F10.129 ALCOHOL ABUSE WITH INTOXICATION, UNSPECI 11/07/2015 WILLI RILEY Ot R42 DIZZINESS AND GIDDINESS 11/09/2015 WILLI RILEY Ot E87.6 HYPOKALEMIA 11/09/2015 STACIE HAMMOND WILLI L Ot F10.129 ALCOHOL ABUSE WITH INTOXICATION, UNSPECI 11/09/2015 WILLI RILEY Ot R42 DIZZINESS AND GIDDINESS 11/10/2015 PHILIPPE MORENO, TYESHA K Ot N93.9 ABNORMAL [...] BLOOD CELL COUNT, UNSPECI 12/29/2015 NIESHA BADILLO BUSINESS DEVELOPMENT ASSOCIATE Ot F15.10 OTHER STIMULANT ABUSE, UNCOMPLICATED 12/29/2015 NIESHA BADILLO APRN Ot R06.02 SHORTNESS OF BREATH 12/29/2015 NIESHA BADILLO BUSINESS DEVELOPMENT ASSOCIATE Ot R07.89 OTHER CHEST PAIN 01/07/2016 NIESHA BADILLO APRN Ot D72.829 ELEVATED WHITE BLOOD CELL COUNT, UNSPECI 01/07/2016 NIESHA BADILLO BUSINESS DEVELOPMENT ASSOCIATE Ot F15.10 OTHER STIMULANT ABUSE, UNCOMPLICATED 01/07/2016 NIESHA BADILLO BUSINESS DEVELOPMENT ASSOCIATE Ot R06.02 SHORTNESS OF BREATH 01/07/2016 NIESHA BADILLO BUSINESS DEVELOPMENT ASSOCIATE Ot R07.89 OTHER CHEST PAIN 02/13/2016 NIESHA BADILLO BUSINESS DEVELOPMENT ASSOCIATE Ot F41.1 GENERALIZED ANXIETY DISORDER 02/13/2016 NIESHA BADILLO BUSINESS DEVELOPMENT ASSOCIATE Ot R51 HEADACHE 02/16/2016 NIESHA BADILLO BUSINESS DEVELOPMENT ASSOCIATE Ot F41.1 GENERALIZED ANXIETY DISORDER 02/16/2016 NIESHA BADILLO BUSINESS DEVELOPMENT ASSOCIATE Ot R51 HEADACHE 02/19/2016 NIESHA BADILLO BUSINESS DEVELOPMENT ASSOCIATE Ot F41.1 GENERALIZED ANXIETY DISORDER 02/19/2016 NIESHA BADILLO BUSINESS DEVELOPMENT ASSOCIATE Ot R51 HEADACHE 02/24/2016 ZEESHAN VIRK, MICHELLE Corrigan Ot M79.662 PAIN IN LEFT LOWER LEG 02/25/2016 ZEESHAN VIRK, MICHELLE Corrigan Ot M79.662 PAIN IN LEFT LOWER LEG 03/01/2016 ZEESHAN VIRK, MICHELLE Corrigan Ot M79.662 PAIN IN LEFT LOWER LEG 04/02/2016 ANISHA PAEZ DOA K Ot O20.0 THREATENED 04/02/2016 CANYON DO TYESHA K Ot Z3A.01 LESS THAN 8 WEEKS GESTATION OF 04/04/2016 CANYON DO TYESHA K Ot O20.0 THREATENED 04/04/2016 CANYON , TYESHA K Ot Z3A.01 LESS THAN 8 WEEKS GESTATION OF 04/07/2016 CANYON DO TYESHA K Ot O20.0 THREATENED 04/07/2016 CANYON DO TYESHA K Ot Z3A.01 LESS THAN 8 WEEKS GESTATION OF 04/10/2016 WILLI RILEY Ot O20.0 THREATENED 04/10/2016 WILLI RILEY Ot O23.41 UNSP INFCT OF URINARY TRACT IN 04/10/2016 WILLI RILEY Ot O46.91 ANTEPARTUM HEMORRHAGE, UNSPECIFIED, FIRS 04/10/2016 WILLI RILEY Ot Z3A.01 LESS THAN 8 WEEKS GESTATION OF 04/11/2016 TYESHA PAEZ DO Ot O03.4 INCOMPLETE SPONTANEOUS WITHOUT 04/11/2016 ANISHA PAEZ DOA K Ot O46.91 ANTEPARTUM HEMORRHAGE, UNSPECIFIED, FIRS 04/11/2016 PHILIPPE DO, TYESHA K Ot Z3A.01 LESS [...] LESS THAN 8 WEEKS GESTATION OF 04/13/2016 KEIL VIRK, AC N Ot O20.0 THREATENED 04/14/2016 KIEL VIRK, AC N Ot O20.0 THREATENED 05/03/2016 KIEL VIRK, AC N Ot O20.0 THREATENED 05/03/2016 KIEL VIRK, AC N Ot O20.0 THREATENED 05/03/2016 KIEL VIRK, AC N Ot O20.0 THREATENED 05/04/2016 WILLI RILEY Ot E87.6 HYPOKALEMIA 05/04/2016 WILLI RILEY Ot F10.129 ALCOHOL ABUSE WITH INTOXICATION, UNSPECI 05/04/2016 WILLI RILEY Ot R42 DIZZINESS AND GIDDINESS 05/04/2016 PHILIPPE DO TYESHA K Ot O20.0 THREATENED 05/04/2016 PHILIPPE DO [...] OTHER STIMULANT ABUSE, UNCOMPLICATED 05/27/2016 NIESHA BADILLO BUSINESS DEVELOPMENT ASSOCIATE Ot F41.9 ANXIETY DISORDER, UNSPECIFIED 05/27/2016 NIESHA BADILLO APRN Ot R53.1 WEAKNESS 05/27/2016 TEYSHA PAEZ DO Ot N93.9 ABNORMAL UTERINE AND [...] 11/11/2016 AC DYSON MD Ot O20.0 THREATENED 07/04/2017 WILLI RILEY Ot F41.9 ANXIETY DISORDER, UNSPECIFIED 07/04/2017 WILLI RILEY Ot K21.9 GASTRO-ESOPHAGEAL REFLUX DISEASE WITHOUT 07/04/2017 WILLI RILEY Ot N76.0 ACUTE VAGINITIS 07/04/2017 WILLI RILEY Ot O23.591 INFECTION OTH PRT GENITL TRCT IN PREGNAN 07/04/2017 WILLI RILEY Ot O99.341 OTH MENTAL DISORDERS COMPLICATING PREGNA 07/04/2017 WILLI RILEY Ot O99.611 DISEASES OF THE DGSTV SYS COMP 07/04/2017 WILLI RIELY Ot O99.89 OTH DISEASES AND CONDITIONS COMPL PREG/C 07/04/2017 WILLI RILEY Ot Z3A.12 12 WEEKS GESTATION OF 07/04/2017 AC DYSON MD Ot O20.0 THREATENED 07/06/2017 WILLI RILEY Ot F41.9 ANXIETY DISORDER, UNSPECIFIED 07/06/2017 WILLI RILEY Ot K21.9 GASTRO-ESOPHAGEAL REFLUX DISEASE WITHOUT 07/06/2017 WILLI RILEY Ot N76.0 ACUTE VAGINITIS 07/06/2017 WILLI RILEY Ot O23.591 INFECTION OTH PRT GENITL TRCT IN PREGNAN 07/06/2017 WILLI RILEY Ot O99.341 OTH MENTAL DISORDERS COMPLICATING PREGNA 07/06/2017 WILLI RILEY Ot O99.611 DISEASES OF THE DGSTV SYS COMP 07/06/2017 WILLI RILEY Ot O99.89 OTH DISEASES AND CONDITIONS COMPL PREG/C 07/06/2017 WILLI RILEY Ot Z3A.12 12 WEEKS GESTATION OF 07/13/2017 FRANCK DILLON DO Ot K21.9 GASTRO-ESOPHAGEAL REFLUX DISEASE WITHOUT 07/13/2017 FRANCK DILLON DO Ot R10.13 EPIGASTRIC PAIN 07/13/2017 FRANCK DILLON DO Ot Z01.818 ENCOUNTER FOR OTHER PREPROCEDURAL EXAMIN 07/13/2017 AC DYSON MD Ot O20.0 THREATENED 08/11/2017 AC DYSON MD N Ot O20.0 THREATENED 08/15/2017 JOSE MONTIEL MD Ot Z34.81 ENCOUNTER FOR SUPRVSN OF NORMAL PREGNANC 08/15/2017 JOSE MONTIEL MD Ot Z3A.15 15 WEEKS GESTATION OF 08/20/2017 JOSE MONTIEL MD Ot Z34.81 ENCOUNTER FOR SUPRVSN OF NORMAL PREGNANC 08/20/2017 JOSE MONTIEL MD R Ot Z3A.15 15 WEEKS GESTATION OF 09/11/2017 TYESHA PAEZ DO Ot F15.10 OTHER STIMULANT ABUSE, UNCOMPLICATED 09/11/2017 TYESHA PAEZ DO Ot F41.9 ANXIETY DISORDER, UNSPECIFIED 09/11/2017 TYESHA PAEZ DO Ot K21.9 GASTRO-ESOPHAGEAL REFLUX DISEASE WITHOUT 09/11/2017 TYESHA PAEZ DO K Ot O23.42 UNSP INFCT OF URINARY TRACT IN 09/11/2017 TYESHA PAEZ DO Ot O99.322 DRUG USE COMPLICATING , SECOND 09/11/2017 TYESHA PAEZ DO K Ot O99.342 OTH MENTAL DISORDERS COMP , SEC 09/11/2017 TYESHA PAEZ DO Ot O99.612 DISEASES OF THE DGSTV SYS COMP 09/11/2017 TYESHA PAEZ DO Ot O9A.212 INJ/POISN/OTH CONSEQ OF EXTRN CAUSES COM 09/11/2017 TYESHA PAEZ DO Ot S30.1XXA CONTUSION OF ABDOMINAL WALL, INITIAL ENC 09/11/2017 TYESHA PAEZ DO Ot W10.9XXA FALL (ON) (FROM) UNSPECIFIED STAIRS AND 09/11/2017 PHILIPPE TYESHA Keke Ot W22.09XA STRIKING AGAINST OTHER STATIONARY OBJECT 09/11/2017 PHILIPPE MORENO TYESHA K Ot Z3A.19 19 WEEKS GESTATION OF 09/11/2017 PHILIPPE MORENO TYESHA K Ot Z87.19 PERSONAL HISTORY OF OTHER DISEASES OF TH 09/11/2017 PHILIPPE MORENOTYESHA Ot Z87.448 PERSONAL HISTORY OF OTHER DISEASES OF UR 09/11/2017 PHILIPPE MORENOTYESHA Ot Z87.59 PERSONAL HISTORY OF COMP OF PREG, CHLDBR 09/11/2017 PHILIPPE MORENO TYESHA Keke Ot Z87.891 PERSONAL HISTORY OF NICOTINE DEPENDENCE 09/13/2017 PHILIPPE MORENO TYESHA K Ot F15.10 OTHER STIMULANT ABUSE, UNCOMPLICATED 09/13/2017 PHILIPPE MORENO TYESHA K Ot F41.9 ANXIETY DISORDER, UNSPECIFIED 09/13/2017 PHILIPPE MORENO TYESHA K Ot K21.9 GASTRO-ESOPHAGEAL REFLUX DISEASE WITHOUT 09/13/2017 PHILIPPE MORENO TYESHA Keke Ot O23.42 UNSP INFCT OF URINARY TRACT IN 09/13/2017 PHILIPPE MORENO TYESHA Davies Ot O99.322 DRUG USE COMPLICATING , SECOND 09/13/2017 PHILIPPE MORENO TYESHA Davies Ot O99.342 OTH MENTAL DISORDERS COMP , SEC 09/13/2017 PHILIPPE MORENO TYESHA K Ot O99.612 DISEASES OF THE STV SYS COMP 09/13/2017 PHILIPPE MORENO TYESHA Davies Ot O9A.212 INJ/POISN/OTH CONSEQ OF EXTRN CAUSES COM 09/13/2017 PHILIPPE MORENO TYESHA Keke Ot S30.1XXA CONTUSION OF ABDOMINAL WALL, INITIAL ENC 09/13/2017 PHILIPPE MORENO TYESHA Davies Ot W10.9XXA FALL (ON) (FROM) UNSPECIFIED STAIRS AND 09/13/2017 TYESHA PAEZ DO Ot W22.09XA STRIKING AGAINST OTHER STATIONARY OBJECT 09/13/2017 TYESHA PAEZ DO Ot Z3A.19 19 WEEKS GESTATION OF 09/13/2017 TYESHA PAEZ DO Ot Z87.19 PERSONAL HISTORY OF OTHER DISEASES OF TH 09/13/2017 TYESHA PAEZ DO Ot Z87.448 PERSONAL HISTORY OF OTHER DISEASES OF UR 09/13/2017 TYESHA PAEZ DO Ot Z87.59 PERSONAL HISTORY OF COMP OF PREG, CHLDBR 09/13/2017 TYESHA PAEZ DO Ot Z87.891 PERSONAL HISTORY OF NICOTINE DEPENDENCE 10/06/2017 KIEL VIRK, AC Olivia Ot O20.0 THREATENED 10/06/2017 JOSE MONTIEL MD Ot Z34.81 ENCOUNTER FOR SUPRVSN OF NORMAL PREGNANC 10/06/2017 JOSE MONTIEL MD Ot Z3A.15 15 WEEKS GESTATION OF 10/11/2017 FRANCK DILLON DO Ot K21.9 GASTRO-ESOPHAGEAL REFLUX DISEASE WITHOUT 10/11/2017 FRANCK DILLON DO Ot R10.13 EPIGASTRIC PAIN 10/11/2017 FRANCK DILLON DO Ot Z01.818 ENCOUNTER FOR OTHER PREPROCEDURAL EXAMIN 10/11/2017 AC DYSON MD Ot O20.0 THREATENED 10/11/2017 JOSE MONTIEL MD Ot Z34.81 ENCOUNTER FOR SUPRVSN OF NORMAL PREGNANC 10/11/2017 JOSE MONTIEL MD Ot Z3A.15 15 WEEKS GESTATION OF 10/11/2017 JOSE MONTIEL MD Ot Z36.89 ENCOUNTER FOR OTHER SPECIFIED 10/11/2017 JOSE MONTIEL MD Ot Z3A.22 22 WEEKS GESTATION OF 10/12/2017 JOSE MONTIEL MD Ot Z36.89 ENCOUNTER FOR OTHER SPECIFIED 10/12/2017 JOSE MONTIEL MD Ot Z3A.22 22 WEEKS GESTATION OF 11/29/2017 JOSE MONTIEL MD Ot Z36.89 ENCOUNTER FOR OTHER SPECIFIED 11/29/2017 JOSE MONTIEL MD Ot Z3A.22 22 WEEKS GESTATION OF 01/12/2018 JOSE MONTIEL MD Ot Z34.81 ENCOUNTER FOR SUPRVSN OF NORMAL PREGNANC 01/12/2018 JOSE MONTIEL MD Ot Z3A.15 15 WEEKS GESTATION OF 02/02/2018 KIEL VIRK, AC Olivia Ot O20.0 THREATENED 02/02/2018 JOSE MONTIEL MD Ot Z34.81 ENCOUNTER FOR SUPRVSN OF NORMAL PREGNANC 02/02/2018 JOSE MONTIEL MD, Ot Z3A.15 15 WEEKS GESTATION OF 02/02/2018 JOSE MONTIEL MD, Ot Z36.89 ENCOUNTER FOR OTHER SPECIFIED 02/02/2018 JOSE MONTIEL MD, Ot Z3A.22 22 WEEKS GESTATION OF 02/03/2018 JOSE MONTIEL MD, Ot A60.09 HERPESVIRAL INFECTION OF OTHER UROGENITA 02/03/2018 JOSE MONTIEL MD, Ot D64.9 ANEMIA, UNSPECIFIED 02/03/2018 JOSE MONTIEL MD Ot F15.90 OTHER STIMULANT USE, UNSPECIFIED, UNCOMP 02/03/2018 JOSE MONTIEL MD, Ot K21.9 GASTRO-ESOPHAGEAL REFLUX DISEASE WITHOUT 02/03/2018 JOSE MONTIEL MD, Ot O48.0 POST-TERM 02/03/2018 JOSE MONTIEL MD, Ot O69.81X0 LABOR AND DEL COMP BY CORD AROUND NECK, 02/03/2018 JOSE MONTIEL MD, Ot O71.82 OTHER SPECIFIED TRAUMA TO PERINEUM AND V 02/03/2018 JOSE MONTIEL MD, Ot O90.81 ANEMIA OF THE PUERPERIUM 02/03/2018 JOSE MONTIEL MD, Ot O98.313 OTH INFECT W SEXL MODE OF TRANSMISS COMP 02/03/2018 JOSE MONTIEL MD, Ot O99.323 DRUG USE COMPLICATING , THIRD T 02/03/2018 JOSE MONTIEL MD, Ot O99.613 DISEASES OF THE DGSTV SYS COMP 02/03/2018 JOSE MONTIEL MD, Ot Z37.0 SINGLE LIVE 02/03/2018 JOSE MONTIEL MD, Ot Z3A.40 40 WEEKS GESTATION OF Procedures Code Description Performed By Performed On [id number] REPAIR VULVA, EXTERNAL APPROACH 02/01/2018 [id number] DELIVERY OF PRODUCTS OF CONCEPTION, EXTE 02/01/2018 Results Test Result Range Complete blood count [...] culture - 10/08/15 15:26 Bacterial throat culture [id number] NRG FREE TEXT EXTERNAL WITH MODERATE STAPH. [...] - 04/19/16 16:28 hCG,Beta Subunit,Qnt,Serum 117 mIU/mL Complete urinalysis with reflex to culture - 07/04/17 20:51 Urine color determination YELLOW NRG Urine clarity determination CLEAR NRG Urine pH measurement by test strip 6 5-9 Specific gravity of urine by test strip 1.015 1.016- 1.022 Urine protein assay by test [...] NO NRG Urine drug screening test - 07/04/17 20:51 Urine phencyclidine detection by screening method NEGATIVE [...] automated white blood cell (WBC) differential - 07/04/17 21:05 Blood leukocytes automated count (number/volume) 10.2 10*3/uL 4.3-11.0 Blood erythrocytes automated count (number/volume) 3.81 10*6/uL 4.35-5.85 Venous blood hemoglobin measurement (mass/volume) 10.5 g/dL 11.5-16.0 Blood hematocrit (volume fraction) 32 % 35-52 Automated erythrocyte mean corpuscular volume 84 [foz_us] 80-99 Automated erythrocyte mean corpuscular hemoglobin (mass per erythrocyte) 28 pg 25-34 Automated erythrocyte mean corpuscular hemoglobin concentration measurement ( mass/volume) 33 g/dL 32-36 Automated erythrocyte distribution width ratio 15.6 % 10.0-14.5 Automated blood platelet count (count/volume) 305 10*3/uL 130-400 Automated blood platelet mean volume measurement 9.3 [foz_us] 7.4-10.4 Automated blood neutrophils/100 leukocytes 65 % 42-75 Automated blood lymphocytes/100 leukocytes 26 % 12-44 Blood monocytes/100 leukocytes 8 % 0-12 Automated blood eosinophils/100 leukocytes 1 % 0-10 Automated blood basophils/100 leukocytes 0 % 0-10 Blood neutrophils automated count (number/volume) 6.6 10*3 1.8-7.8 Blood lymphocytes automated count (number/volume) 2.7 10*3 1.0-4.0 Blood monocytes automated count (number/volume) 0.8 10*3 0.0-1.0 Automated eosinophil count 0.1 10*3/uL 0.0-0.3 Automated blood basophil count (count/volume) 0.0 10*3/uL 0.0-0.1 Comprehensive metabolic panel - 07/04/17 21:05 Serum or plasma sodium measurement (moles/volume) 136 mmol/L 135-145 Serum or plasma potassium measurement (moles/volume) 3.5 mmol/L 3.6-5.0 Serum or plasma chloride measurement (moles/volume) 105 mmol/L 98-107 Carbon dioxide 19 mmol/L 21-32 Serum or plasma anion gap determination (moles/volume) 12 mmol/L 5-14 Serum or plasma urea nitrogen measurement (mass/volume) 8 mg/dL 7-18 Serum or plasma creatinine measurement (mass/volume) 0.62 mg/dL 0.60-1.30 Serum or plasma urea nitrogen/creatinine mass ratio 13 NRG Serum or plasma creatinine measurement with calculation of estimated glomerular filtration rate > NRG Serum or plasma glucose measurement (mass/volume) 74 mg/dL 70-105 Serum or plasma calcium measurement (mass/volume) 9.2 mg/dL 8.5-10.1 Serum or plasma total bilirubin measurement (mass/volume) 0.2 mg/dL 0.1-1.0 Serum or plasma alkaline phosphatase measurement (enzymatic activity/volume) 75 U/L 40-136 Serum or plasma aspartate aminotransferase measurement (enzymatic activity/ volume) 16 U/L 5-34 Serum or plasma alanine aminotransferase measurement (enzymatic activity/volume ) 14 U/L 0-55 Serum or plasma protein measurement (mass/volume) 7.2 g/dL 6.4-8.2 Serum or plasma albumin measurement (mass/volume) 4.0 g/dL 3.2-4.5 Serum or plasma choriogonadotropin measurement (units/volume) - 07/04/17 21:05 Serum or plasma choriogonadotropin measurement (units/volume) [id number] m[iU]/mL <5 Serum or plasma ethanol measurement (mass/volume) - 07/04/17 21:05 Serum or plasma ethanol measurement (mass/volume) < mg/dL <10 Serum or plasma C reactive protein measurement (mass/volume) - 07/04/17 21:05 Serum or plasma C reactive protein measurement (mass/volume) 0.97 mg /dL 0.00-0.50 Chlamydia DNA amp probe, urine - 07/04/17 22:00 Chlamydia DNA amp probe, urine Not Detected Not Detected Bacteria identification in genital specimen by aerobe culture - 07/04/17 22:02 QUANTITY OF GROWTH Isolated NRG Bacteria identification in genital specimen by aerobe culture [id number] NRG Microscopic examination by wet preparation - 07/04/17 22:02 WET PREP RESULTS BY MH/KD NRG Neisseria gonorrhoeae DNA detection by probe and signal amplification method - 07/04/17 22:02 Gonorrhea amp DNA-urine Not Detected Not Detected CULTURE, GENITAL - 07/24/17 18:28 CULTURE, GENITAL SEE NOTE NRG CBC - 08/21/17 15:24 WHITE BLOOD CELL COUNT 8.8 Thousand/uL 3.8-10.8 RED BLOOD CELL COUNT 3.77 Million/uL 3.80-5.10 HEMOGLOBIN 11.2 g/dL 11.7-15.5 HEMATOCRIT 33.6 % 35.0-45.0 MCV 89.1 fL 80.0-100.0 MCH 29.7 pg 27.0-33.0 MCHC 33.3 g/dL 32.0-36.0 RDW 15.8 % 11.0-15.0 PLATELET COUNT 223 Thousand/uL 140-400 MPV 9.8 fL 7.5-12.5 ABSOLUTE NEUTROPHILS 6345 cells/uL 8066-4993 ABSOLUTE LYMPHOCYTES 1786 cells/uL 850-3900 ABSOLUTE MONOCYTES 581 cells/uL 200-950 ABSOLUTE EOSINOPHILS 70 cells/uL 15-500 ABSOLUTE BASOPHILS 18 cells/uL 0-200 NEUTROPHILS 72.1 % NRG LYMPHOCYTES 20.3 % NRG MONOCYTES 6.6 % NRG EOSINOPHILS 0.8 % NRG BASOPHILS 0.2 % NRG Complete urinalysis with reflex to culture - 09/11/17 18:35 Urine color determination YELLOW NRG Urine clarity determination CLEAR NRG Urine pH measurement by test strip 6 5-9 Specific gravity of urine by test strip 1.015 1.016- 1.022 Urine protein assay by test [...] YES NRG Urine drug screening test - 09/11/17 18:35 Urine phencyclidine detection by screening method NEGATIVE [...] NEGATIVE NEGATIVE Urine propoxyphene detection NEGATIVE NEGATIVE Bacterial urine culture - 09/11/17 18:35 Bacterial urine culture RML NRG COLONY COUNT . NRG GLUCOSE JEFF 1 HOUR - 10/26/17 17:37 GLUCOSE, POSTPRANDIAL/ 1 HOUR 108 mg/dL See Note: CULTURE, GROUP B STREP (VAGINAL) - 01/02/18 16:09 STREPTOCOCCUS, GROUP B CULTURE SEE NOTE NRG Urine drug screening test - 01/31/18 20:45 Urine phencyclidine detection by screening method NEGATIVE [...] automated white blood cell (WBC) differential - 01/31/18 21:15 Blood leukocytes automated count (number/volume) 11.2 10*3/uL 4.3-11.0 Blood erythrocytes automated count (number/volume) 4.00 10*6/uL 4.35-5.85 Venous blood hemoglobin measurement (mass/volume) 12.2 g/dL 11.5-16.0 Blood hematocrit (volume fraction) 36 % 35-52 Automated erythrocyte mean corpuscular volume 91 [foz_us] 80-99 Automated erythrocyte mean corpuscular hemoglobin (mass per erythrocyte) 31 pg 25-34 Automated erythrocyte mean corpuscular hemoglobin concentration measurement ( mass/volume) 34 g/dL 32-36 Automated erythrocyte distribution width ratio 13.1 % 10.0-14.5 Automated blood platelet count (count/volume) 174 10*3/uL 130-400 Automated blood platelet mean volume measurement 9.6 [foz_us] 7.4-10.4 Automated blood neutrophils/100 leukocytes 70 % 42-75 Automated blood lymphocytes/100 leukocytes 21 % 12-44 Blood monocytes/100 leukocytes 9 % 0-12 Automated blood eosinophils/100 leukocytes 1 % 0-10 Automated blood basophils/100 leukocytes 0 % 0-10 Blood neutrophils automated count (number/volume) 7.8 10*3 1.8-7.8 Blood lymphocytes automated count (number/volume) 2.4 10*3 1.0-4.0 Blood monocytes automated count (number/volume) 1.0 10*3 0.0-1.0 Automated eosinophil count 0.1 10*3/uL 0.0-0.3 Automated blood basophil count (count/volume) 0.0 10*3/uL 0.0-0.1 Blood type T Indirect antibody screen panel - 01/31/18 21:15 ABO+Rh group OP NRG Transfusion band number [id number] NRG Blood group antibody screen NEGATIVE NRG Complete blood count (CBC) with automated white blood cell (WBC) differential - 02/02/18 06:25 Blood leukocytes automated count (number/volume) 10.4 10*3/uL 4.3-11.0 Blood erythrocytes automated count (number/volume) 3.13 10*6/uL 4.35-5.85 Venous blood hemoglobin measurement (mass/volume) 9.7 g/dL 11.5-16.0 Blood hematocrit (volume fraction) 29 % 35-52 Automated erythrocyte mean corpuscular volume 93 [foz_us] 80-99 Automated erythrocyte mean corpuscular hemoglobin (mass per erythrocyte) 31 pg 25-34 Automated erythrocyte mean corpuscular hemoglobin concentration measurement ( mass/volume) 33 g/dL 32-36 Automated erythrocyte distribution width ratio 13.0 % 10.0-14.5 Automated blood platelet count (count/volume) 146 10*3/uL 130-400 Automated blood platelet mean volume measurement 9.2 [foz_us] 7.4-10.4 Automated blood neutrophils/100 leukocytes 64 % 42-75 Automated blood lymphocytes/100 leukocytes 23 % 12-44 Blood monocytes/100 leukocytes 12 % 0-12 Automated blood eosinophils/100 leukocytes 1 % 0-10 Automated blood basophils/100 leukocytes 0 % 0-10 Blood neutrophils automated count (number/volume) 6.6 10*3 1.8-7.8 Blood lymphocytes automated count (number/volume) 2.3 10*3 1.0-4.0 Blood monocytes automated count (number/volume) 1.3 10*3 0.0-1.0 Automated eosinophil count 0.1 10*3/uL 0.0-0.3 Automated blood basophil count (count/volume) 0.0 10*3/uL 0.0-0.1 Encounters ACCT No. Visit Date/Time Discharge Status Pt. Type Provider Facility Loc./Unit Complaint [id number] 01/31/2018 19:28:00 02/03/2018 12:45:00 DIS Inpatient JOSE MONTIEL MD [facility] LDRP INDUCTION [id number] 10/06/2017 12:13:00 10/06/2017 23:59:59 CLS Outpatient JOSE MONTIEL MD [facility] RAD SECOND TRIMESTER [id number] 09/12/2017 18:12:00 09/12/2017 18:12:00 CAN Preadmit JOSE MONTIEL MD [facility] WSo FALL;CRAMPING [id number] 09/11/2017 18:28:00 09/11/2017 19:55:00 DIS Emergency TYESHA PAEZ DO [facility] ER FALL;CRAMPING;19 WKS [id number] 08/14/2017 14:21:00 08/14/2017 23:59:59 CLS Outpatient JOSE MONTIEL MD [facility] RAD NORMAL IN MULTIGRAVIDA [id number] 07/04/2017 20:37:00 07/04/2017 22:54:00 DIS Emergency WILLI RILEY [facility] ER ABD CRAMPS; 10 -12 WKS [id number] 04/11/2016 18:58:00 04/11/2016 20:37:00 DIS Emergency TYESHA PAEZ DO [facility] ER VAGINAL BLEEDING [id number] 04/10/2016 17:33:00 04/10/2016 19:20:00 DIS Emergency WILLI RILEY [facility] ER 6 WKS PREG/VAG BLEEDING/PASSING CLOTS [id number] 04/08/2016 10:52:00 04/08/2016 23:59:59 CLS Outpatient AC DYSON MD [facility] RAD THREATENED MISCARRIAGE IN EARLY [id number] 04/01/2016 22:34:00 04/02/2016 00:43:00 DIS Emergency TYESHA PAEZ DO [facility] ER 5 WKS PREG, BLEEDING, CRAMPING [id number] 02/24/2016 20:32:00 02/24/2016 22:04:00 DIS Emergency MICHELLE BYERS MD [facility] ER L LEG PAIN [id number] 02/13/2016 14:39:00 02/13/2016 15:45:00 DIS Emergency NIESHA BADILLO APRN [facility] ER HEADACHE/ENLARGED L PUPIL [id number] 12/28/2015 14:55:00 12/28/2015 16:44:00 DIS Emergency NIESHA BADILLO APRN [facility] ER CHEST PAIN/SOA [id number] 12/02/2015 15:38:00 12/02/2015 16:41:00 DIS Emergency WILLI RILEY [facility] ER RIB PAIN [id number] 11/07/2015 19:28:00 11/07/2015 21:50:00 DIS Emergency WILLI RILEY [facility] ER SHAKY, LIGHTHEADED, STOMACH PAIN, HEART RACING [id number] 11/06/2015 02:44:00 11/06/2015 03:17:00 DIS Emergency TYESHA PAEZ DO [facility] ER CRAMPING WITH BLOOD CLOTS [id number] 10/18/2015 11:23:00 10/18/2015 14:14:00 DIS Emergency JAD POWELL MD [facility] ER FEELS LIKE HEART IS RACING [id number] 10/10/2015 13:48:00 10/10/2015 14:50:00 DIS Emergency [facility] [facility] WEAKNESS/LIGHT HEADED [id number] 10/08/2015 17:53:00 10/09/2015 13:10:00 DIS Inpatient ROB VIRK, ZOILA Rodríguez [facility] 4TH UTI,SEPSIS, METHAMPHETAMINE USE [id number] 09/22/2015 14:05:00 09/22/2015 15:22:00 DIS Emergency MICHELLE BYERS MD [facility] ER VOMITING/POSS DEHYDRATED [id number] 09/19/2015 18:04:00 09/19/2015 19:26:00 DIS Emergency TYESHA PAEZ DO [facility] ER CHEST PAIN [id number] 09/17/2015 18:07:00 09/17/2015 20:23:00 DIS Emergency MICHELLE BYERS MD [facility] ER CHEST PAIN;LEFT ARM PAIN [id number] 08/25/2015 09:58:00 08/25/2015 12:50:00 DIS Out[facility] [id number] 08/22/2015 01:12:00 08/22/2015 01:38:00 DIS Emergency LU STUART MD [facility] POSS CP [id number] 08/19/2015 06:12:00 08/19/2015 23:59:59 CLS Outpatient FRANCK DILLON DO [facility] PREOP EPIGASTRIC PAIN [id number] 07/02/2015 14:30:00 07/02/2015 17:59:00 DIS Emergency WILLI RILEY [facility] ER VAG BLEEDING DEC APPETITE [id number] 06/28/2015 22:44:00 06/29/2015 01:37:00 DIS Emergency ZEESHAN VIRK, MICHELLE Corrigan [facility] ER HEADACHE [id number] 06/24/2015 16:02:00 06/24/2015 18:31:00 DIS Emergency WILLI RILEY [facility] ER LEFT ARM PAIN; DULL CHEST ACHES [id number] 04/27/2018 04:15:00 ACT Emergency TRE VIRK, VIRIDIANA Biggs [facility] ER RT SIDE ABD PAIN [id number] 10/28/2016 10:08:00 Document Registration [id number] 10/31/2015 07:06:00 Document Registration [id number] 04/20/2016 08:07:00 Document Registration [id number] 10/30/2015 18:05:00 Document Registration [id number] 04/05/2016 08:06:00 Document Registration [id number] 04/09/2016 08:06:00 Document Registration [id number] 02/09/2018 09:00:00 02/09/2018 23:59:59 [facility] [id number] 01/02/2018 14:40:00 Document Registration [id number] 10/26/2017 16:20:00 Document Registration [id number] 08/21/2017 14:20:00 Document Registration [id number] 07/24/2017 13:20:00 Document Registration
[2018-04-27 04:44] LABS: BILIRUBIN,URINE NEGATIVE (NEGATIVE); CLARITY,URINE CLEAR; COLOR,URINE YELLOW; GLUCOSE, URINE (UA) NEGATIVE (NEGATIVE); KETONES,URINE NEGATIVE (NEGATIVE); LEUKOCYTE ESTERASE ,URINE 1+ (NEGATIVE); NITRITE,URINE NEGATIVE (NEGATIVE); PH,URINE 5 (5-9); PROTEIN,URINE 1+ (NEGATIVE); UROBILINOGEN,URINE NORMAL (NORMAL)
--- NOTE | 2018-04-27 04:49 | ED Abdominal Pain ---
General Stated Complaint: RT SIDE ABD PAIN Source of Information: Patient Exam Limitations: No Limitations History of Present Illness Date Seen by Provider: Apr 27, 2018 Time Seen by Provider: 04:37 Initial Comments The patient presents to ER by private conveyance with chief complaint of some abdominal pain that woke her up from sleep about an hour prior to arrival. It was moderate in nature with some nausea but no vomiting. No diarrhea last bowel movement was yesterday. No history of abdominal surgeries, irritable bowel syndrome, inflammatory bowel disease. She's had no fevers or chills. She has had a cough for a couple days but nothing significant. No nasal congestion ears under water or fever. She has little sore throat. She's not taken anything for her symptoms but she was concerned because her pain started about all over and then migrated to her right side right flank. She has no history of kidney stones but she thought she might have an appendicitis so she decided to come the ER to be checked out. By the time she got to the ER her pain had nearly subsided and her nausea was gone. She thinks her last period was sometime in March. She's not on control and she delivered a spontaneous vaginal delivery approximately 3 months ago. Allergies and Home Medications Allergies Coded Allergies: No Known Drug Allergies (Unverified , 09/11/17) Home Medications Ferrous Sulfate 325 Mg Tablet, 325 MG PO DAILY@0700 Prescribed by: AC DYSON on 02/03/18 0742 Ibuprofen 600 Mg Tablet, 600 MG PO Q6H Prescribed by: AC DYSON on 02/03/18 0742 No.137/Iron/Folic Acd 1 Each Tablet, 1 EACH PO DAILY, (Reported) Patient Home Medication List Home Medication List Reviewed: Yes Review of Systems Review of Systems Constitutional: No chills, No diaphoresis EENTM: No Blurred Vision, No Double Vision Respiratory: Cough; Denies Shortness of Air Cardiovascular: Denies Chest Pain, Denies Edema Gastrointestinal: See HPI; Denies Abdomen Distended; Abdominal Pain; Denies Constipated, Denies Diarrhea; Nausea; Denies Poor Appetite, Denies Poor Fluid Intake, Denies Vomiting Genitourinary: Denies Burning, Denies Discharge Musculoskeletal: No back pain, No joint pain Skin: No pruritus, No rash Past Ckxjbns-Mkmuwa-Ixrxiy Hx Patient Social History Alcohol Use: Denies Use Recreational Drug Use: Yes Drug of Choice: Meth & Amp Smoking Status: Never a Smoker Recent Foreign Travel: No Contact w/Someone Who Travel: No Recent Hopitalizations: No Immunizations Up To Date Tetanus Booster (TDap): Less than 5yrs PED Vaccines UTD: Yes Date of Influenza Vaccine: Nov 21, 2017 Seasonal Allergies Seasonal Allergies: Yes Past Medical History Surgeries: No Respiratory: No Cardiac: No Neurological: No Reproductive Disorders: No Female Reproductive Disorders: Denies Sexually Transmitted Disease: Yes HIV/AIDS: No Genitourinary: No Kidney Infection, Bladder Infection Gastrointestinal: No Gastroesophageal Reflux, Esophagitis Musculoskeletal: No Endocrine: No HEENT: No Cancer: No Psychosocial: No Anxiety Integumentary: No Blood Disorders: No Family Medical History Arthritis G8 SISTER Cardiovascular disease PATERNAL GRANDFATHER Hypertension 19 MOTHER Seizure disorder 19 MOTHER No Pertinent Family Hx Physical Exam Vital Signs Vital Signs - First Documented 04/27/18 04:29 Temp 98.9 Pulse 82 Resp 17 B/P (MAP) 125/84 (98) Pulse Ox 99 O2 Delivery Room Air Capillary Refill : Height/Weight/BMI Height: 5'1.00" Weight: 144lbs. 0.0oz. [id number]; 27.2 BMI Method:Stated General Appearance: WD/WN, no apparent distress HEENT: PERRL/EOMI, pharynx normal Neck: supple, normal inspection Respiratory: no respiratory distress, no accessory muscle use Cardiovascular: normal peripheral pulses, regular rate, rhythm, no edema Peripheral Pulses: 2+ Dorsalis Pedis (R), 2+ Left Dors-Pedis (L) Gastrointestinal: normal bowel sounds, soft, tenderness (Mild, diffuse), other (negative for Jack sign, rebound tenderness over McBurney's point, Rovsing's, psoas sign or other mesenteric signs.) Back: normal inspection, no CVA tenderness Neurologic/Psychiatric: alert, normal mood/affect, oriented x 3 Skin: normal color, warm/dry Progress/Results/Core Measures Results/Orders Lab Results Laboratory Tests Test 04/27/18 04:37 Range/Units White Blood Count 9.4 4.3-11.0 10^3/uL Red Blood Count 4.33 L 4.35-5.85 10^6/uL Hemoglobin 12.7 11.5-16.0 G/DL Hematocrit 38 35-52 % Mean Corpuscular Volume 88 80-99 FL Mean Corpuscular Hemoglobin 29 25-34 PG Mean Corpuscular Hemoglobin Concent 33 32-36 G/DL Red Cell Distribution Width 13.6 10.0-14.5 % Platelet Count 246 130-400 10^3/uL Mean Platelet Volume 9.6 7.4-10.4 FL Neutrophils (%) (Auto) 73 42-75 % Lymphocytes (%) (Auto) 16 12-44 % Monocytes (%) (Auto) 11 0-12 % Eosinophils (%) (Auto) 1 0-10 % Basophils (%) (Auto) 0 0-10 % Neutrophils # (Auto) 6.9 1.8-7.8 X 10^3 Lymphocytes # (Auto) 1.5 1.0-4.0 X 10^3 Monocytes # (Auto) 1.0 0.0-1.0 X 10^3 Eosinophils # (Auto) 0.1 0.0-0.3 10^3/uL Basophils # (Auto) 0.0 0.0-0.1 10^3/uL Urine Color YELLOW Urine Clarity CLEAR Urine pH 5 5-9 Urine Specific [place] 1.030 H 1.016-1.022 Urine Protein 1+ H NEGATIVE Urine Glucose (UA) NEGATIVE NEGATIVE Urine Ketones NEGATIVE NEGATIVE Urine Nitrite NEGATIVE NEGATIVE Urine Bilirubin NEGATIVE NEGATIVE Urine Urobilinogen NORMAL NORMAL MG/DL Urine Leukocyte Esterase 1+ H NEGATIVE Urine RBC (Auto) 1+ H NEGATIVE Urine RBC RARE /HPF Urine WBC 0-2 /HPF Urine Squamous Epithelial Cells 5-10 /HPF Urine Crystals NONE /LPF Urine Bacteria FEW H /HPF Urine Casts NONE /LPF Urine Mucus MODERATE H /LPF Urine Culture Indicated NO Sodium Level 137 135-145 MMOL/L Potassium Level 4.0 3.6-5.0 MMOL/L Chloride Level 105 98-107 MMOL/L Carbon Dioxide Level 21 21-32 MMOL/L Anion Gap 11 5-14 MMOL/L Blood Urea Nitrogen 10 7-18 MG/DL Creatinine 0.82 0.60-1.30 MG/DL Estimat Glomerular Filtration Rate > 60 BUN/Creatinine Ratio 12 Glucose Level 107 H 70-105 MG/DL Calcium Level 9.6 8.5-10.1 MG/DL Corrected Calcium 8.5-10.1 MG/DL Total Bilirubin 0.6 0.1-1.0 MG/DL Aspartate Amino Transf (AST/SGOT) 27 5-34 U/L Alanine Aminotransferase (ALT/SGPT) 32 0-55 U/L Alkaline Phosphatase 102 40-136 U/L Total Protein 7.4 6.4-8.2 GM/DL Albumin 4.6 H 3.2-4.5 GM/DL Urine Opiates Screen NEGATIVE NEGATIVE Urine Oxycodone Screen NEGATIVE NEGATIVE Urine Methadone Screen NEGATIVE NEGATIVE Urine Propoxyphene Screen NEGATIVE NEGATIVE Urine Barbiturates Screen NEGATIVE NEGATIVE Ur Tricyclic Antidepressants Screen NEGATIVE NEGATIVE Urine Phencyclidine Screen NEGATIVE NEGATIVE Urine Amphetamines Screen POSITIVE H NEGATIVE Urine Methamphetamines Screen POSITIVE H NEGATIVE Urine Benzodiazepines Screen NEGATIVE NEGATIVE Urine Cocaine Screen NEGATIVE NEGATIVE Urine Cannabinoids Screen NEGATIVE NEGATIVE My Orders Orders - VIRIDIANA TOLEDO Ua Culture If Indicated (04/27/18 04:20) Urine Bedside (04/27/18 04:20) Cbc With Automated Diff (04/27/18 04:51) Comprehensive Metabolic Panel (04/27/18 04:51) Drug Screen Stat (Urine) (04/27/18 04:51) Vital Signs/I&O 04/27/18 04:29 Temp 98.9 Pulse 82 Resp 17 B/P (MAP) 125/84 (98) Pulse Ox 99 O2 Delivery Room Air Progress Progress Note : Time: 04:49 Progress Note We discussed conservative management with some nausea medicines versus a workup of the patient is still concerned even though her symptoms have abated by the time she arrived. We will obtain labs. She has had a septic set of vital signs, nonacute abdomen on exam without any evidence of mesenteric signs. If her laboratory examination is unremarkable we'll let her go home. Departure Impression Primary Impression: Abdominal wall pain Additional Impression: Methamphetamine abuse Disposition: 01 HOME, SELF-CARE Condition: Stable Departure-Patient Inst. Decision time for Depature: 05:23 Referrals: JOSE MONTIEL MD (PCP/Family) Primary Care Physician Patient Instructions: Acute Abdomen (Belly Pain), Adult (DC) Add. Discharge Instructions: Try some Tylenol, ibuprofen or antacids. Heating pads and rest. Drink plenty of fluids. Follow-up with primary care if your symptoms persist. VIRIDIANA TOLEDO Apr 27, 2018 04:49
[2018-04-27 04:51] LABS: BACTERIA,URINE FEW /HPF; RBC,URINE RARE /HPF; WBC,URINE 0-2 /HPF
[2018-04-27 05:00] LABS: BASOPHILS % (AUTO) 0 % (0-10); EOSINOPHILS # (AUTO) 0.1 10^3/uL (0.0-0.3); EOSINOPHILS % (AUTO) 1 % (0-10); HEMATOCRIT 38 % (35-52); HEMOGLOBIN 12.7 G/DL (11.5-16.0); LYMPHOCYTES # (AUTO) 1.5 X 10^3 (1.0-4.0); LYMPHOCYTES % (AUTO) 16 % (12-44); MEAN CORPUSCULAR HEMOGLOBIN 29 PG (25-34); MEAN CORPUSCULAR HGB CONC 33 G/DL (32-36); MEAN CORPUSCULAR VOLUME 88 FL (80-99); MEAN PLATELET VOLUME 9.6 FL (7.4-10.4); MONOCYTES % (AUTO) 11 % (0-12); NEUTROPHILS # (AUTO) 6.9 X 10^3 (1.8-7.8); NEUTROPHILS % (AUTO) 73 % (42-75); PLATELET COUNT 246 10^3/uL (130-400); RED CELL DISTRIBUTION WIDTH 13.6 % (10.0-14.5); WHITE BLOOD COUNT 9.4 10^3/uL (4.3-11.0)
[2018-04-27 05:11] LABS: AMPHETAMINE SCREEN, URINE POSITIVE (NEGATIVE); BARBITURATE SCREEN URINE NEGATIVE (NEGATIVE); BENZODIAZEPINES SCREEN URINE NEGATIVE (NEGATIVE); CANNABINOID SCREEN, URINE NEGATIVE (NEGATIVE); COCAINE SCREEN URINE NEGATIVE (NEGATIVE); METHADONE STAT NEGATIVE (NEGATIVE); METHAMPHETAMINE SCREEN URINE S POSITIVE (NEGATIVE); OPIATE SCREEN URINE NEGATIVE (NEGATIVE); OXYCODONE STAT NEGATIVE (NEGATIVE); PROPOXYPHENE STAT NEGATIVE (NEGATIVE); TRICYCLIC ANTIDEPRESSANTS SCRE NEGATIVE (NEGATIVE)
[2018-04-27 05:14] LABS: ALANINE AMINOTRANSFERASE 32 U/L (0-55); ALBUMIN 4.6 GM/DL (3.2-4.5); ALKALINE PHOSPHATASE 102 U/L (40-136); BILIRUBIN,TOTAL 0.6 MG/DL (0.1-1.0); BUN/CREATININE RATIO 12; CALCIUM 9.6 MG/DL (8.5-10.1); CARBON DIOXIDE 21 MMOL/L (21-32); CHLORIDE 105 MMOL/L (98-107); CREATININE SERUM 0.82 MG/DL (0.60-1.30); GFR ESTIMATED > 60; GLUCOSE 107 MG/DL (70-105); SODIUM 137 MMOL/L (135-145); TOTAL PROTEIN 7.4 GM/DL (6.4-8.2)
[2018-04-27 05:30] VITALS: BP 121/75
== END 2018-04-27 05:30 | disposition home or self-care (01) ==
LOC: EDUNIT# 04:12 → ER 04:15
DX: R10.84 Generalized abdominal pain (principal); F15.10 Other stimulant abuse, uncomplicated; K21.0 Gastro-esophageal reflux disease with esophagitis; F41.9 Anxiety disorder, unspecified; Z87.440 Personal history of urinary (tract) infections; Z82.49 Family history of ischemic heart disease and other diseases of the circulatory system
CPT/HCPCS: 36415; 80053; 80306; 81000; 84703; 85025

== ENCOUNTER 2020-02-24 17:40 | Emergency (ER) | payer SELFPAY ==
[~2020-02-24] VITALS: Ht 154.9 cm; Wt 49.8 kg
[2020-02-24 18:14] LABS: BASOPHILS % (AUTO) 0 % (0-10); EOSINOPHILS % (AUTO) 0 % (0-10); HEMATOCRIT 39 % (35-52); HEMOGLOBIN 12.7 g/dL (11.5-16.0); LYMPHOCYTES # (AUTO) 1.8 10^3/uL (1.0-4.0); LYMPHOCYTES % (AUTO) 23 % (12-44); MEAN CORPUSCULAR HEMOGLOBIN 30 pg (25-34); MEAN CORPUSCULAR HGB CONC 33 g/dL (32-36); MEAN CORPUSCULAR VOLUME 90 fL (80-99); MEAN PLATELET VOLUME 9.3 fL (9.0-12.2); MONOCYTES # (AUTO) 0.5 10^3/uL (0.0-1.0); MONOCYTES % (AUTO) 6 % (0-12); NEUTROPHILS # (AUTO) 5.7 10^3/uL (1.8-7.8); NEUTROPHILS % (AUTO) 71 % (42-75); PLATELET COUNT 282 10^3/uL (130-400); WHITE BLOOD COUNT 8.1 10^3/uL (4.3-11.0)
[2020-02-24] MEDS ORDERED: ONDANSETRON 4 MG/2 ML (SDV) Z0FRAN IVP ONE (18:15)
[2020-02-24 18:21] LABS: BILIRUBIN,URINE NEGATIVE (NEGATIVE); CLARITY,URINE SL CLOUDY; COLOR,URINE YELLOW; GLUCOSE, URINE (UA) NEGATIVE (NEGATIVE); KETONES,URINE NEGATIVE (NEGATIVE); LEUKOCYTE ESTERASE ,URINE 2+ (NEGATIVE); NITRITE,URINE NEGATIVE (NEGATIVE); PROTEIN,URINE NEGATIVE (NEGATIVE)
--- NOTE | 2020-02-24 18:23 | ED General ---
General Stated Complaint: N/V,LOSS OF ENERGY,COLD SWEATS Source of Information: Patient Exam Limitations: No Limitations History of Present Illness Date Seen by Provider: Feb 24, 2020 Time Seen by Provider: 18:00 Initial Comments To ER with c/o n/v onset today. Thinks she might be . No fever or chills, no abdominal pain, no fevers or chills. No vaginal bleeding. Timing/Duration: 1-2 Days Severity: Moderate Associated Systoms: Nausea/Vomiting Allergies and Home Medications Allergies Coded Allergies: No Known Drug Allergies (Unverified , 09/11/17) Home Medications Ferrous Sulfate 325 Mg Tablet, 325 MG PO DAILY@0700 Prescribed by: AC DYSON on 02/03/18 07 Ibuprofen 600 Mg Tablet, 600 MG PO Q6H Prescribed by: AC DYSON on 02/03/18 0742 No.137/Iron/Folic Acd 1 Each Tablet, 1 EACH PO DAILY, (Reported) Patient Home Medication List Home Medication List Reviewed: Yes Review of Systems Review of Systems Constitutional: see HPI EENTM: see HPI Respiratory: no symptoms reported Cardiovascular: no symptoms reported Gastrointestinal: nausea, vomiting Genitourinary: no symptoms reported Musculoskeletal: no symptoms reported Skin: no symptoms reported Psychiatric/Neurological: No Symptoms Reported Hematologic/Lymphatic: No Symptoms Reported Past Mfklutm-Djenyt-Hilkan Hx Patient Social History Drug of Choice: HX: Meth & Amp 2nd Hand Smoke Exposure: No Recent Hopitalizations: No Immunizations Up To Date Tetanus Booster (TDap): Less than 5yrs PED Vaccines UTD: Yes Date of Influenza Vaccine: Nov 21, 2017 Seasonal Allergies Seasonal Allergies: Yes Past Medical History Surgeries: No Respiratory: No Cardiac: No Neurological: No Reproductive Disorders: No Female Reproductive Disorders: Denies Sexually Transmitted Disease: Yes HIV/AIDS: No Genitourinary: No Kidney Infection, Bladder Infection Gastrointestinal: No Gastroesophageal Reflux, Esophagitis Musculoskeletal: No Endocrine: No HEENT: No Cancer: No Psychosocial: No Anxiety Integumentary: No Blood Disorders: No Family Medical History Arthritis G8 SISTER Cardiovascular disease PATERNAL GRANDFATHER Hypertension 19 MOTHER Seizure disorder 19 MOTHER No Pertinent Family Hx Physical Exam Vital Signs Vital Signs - First Documented 02/24/20 17:55 Temp 36.9 Pulse 103 Resp 20 B/P (MAP) 120/94 (103) Pulse Ox 98 O2 Delivery Nasal Cannula Capillary Refill : Height, Weight, BMI Height: 5'1.00" Weight: 120lbs. 0.0oz. 54.334328aa; 27.2 BMI Method:Stated General Appearance: No Apparent Distress, WD/WN Eyes: Bilateral Eye Normal Inspection, Bilateral Eye PERRL Neck: Full Range of Motion, Normal Inspection Respiratory: No Accessory Muscle Use, No Respiratory Distress Cardiovascular: Regular Rate, Rhythm, Normal Peripheral Pulses Extremity: Normal Capillary Refill, Normal Inspection Neurologic/Psychiatric: Alert, Oriented x3 Skin: Normal Color, Warm/Dry Progress/Results/Core Measures Suspected Sepsis SIRS Temperature: Pulse: Respiratory Rate: Laboratory Tests 02/24/20 18:05: White Blood Count 8.1 Blood Pressure / Mean: Laboratory Tests 02/24/20 18:05: Creatinine 0.67, Platelet Count 282, Total Bilirubin 0.4 Results/Orders Lab Results Laboratory Tests Test 02/24/20 18:05 02/24/20 18:07 Range/Units White Blood Count 8.1 4.3-11.0 10^3/uL Red Blood Count 4.30 3.80-5.11 10^6/uL Hemoglobin 12.7 11.5-16.0 g/dL Hematocrit 39 35-52 % Mean Corpuscular Volume 90 80-99 fL Mean Corpuscular Hemoglobin 30 25-34 pg Mean Corpuscular Hemoglobin Concent 33 32-36 g/dL Red Cell Distribution Width 14.0 10.0-14.5 % Platelet Count 282 130-400 10^3/uL Mean Platelet Volume 9.3 9.0-12.2 fL Immature Granulocyte % (Auto) 0 % Neutrophils (%) (Auto) 71 42-75 % Lymphocytes (%) (Auto) 23 12-44 % Monocytes (%) (Auto) 6 0-12 % Eosinophils (%) (Auto) 0 0-10 % Basophils (%) (Auto) 0 0-10 % Neutrophils # (Auto) 5.7 1.8-7.8 10^3/uL Lymphocytes # (Auto) 1.8 1.0-4.0 10^3/uL Monocytes # (Auto) 0.5 0.0-1.0 10^3/uL Eosinophils # (Auto) 0.0 0.0-0.3 10^3/uL Basophils # (Auto) 0.0 0.0-0.1 10^3/uL Immature Granulocyte # (Auto) 0.0 0.0-0.1 10^3/uL Sodium Level 134 L 135-145 MMOL/L Potassium Level 3.6 3.6-5.0 MMOL/L Chloride Level 103 98-107 MMOL/L Carbon Dioxide Level 23 21-32 MMOL/L Anion Gap 8 5-14 MMOL/L Blood Urea Nitrogen 7 7-18 MG/DL Creatinine 0.67 0.60-1.30 MG/DL Estimat Glomerular Filtration Rate > 60 BUN/Creatinine Ratio 10 Glucose Level 107 H 70-105 MG/DL Calcium Level 9.2 8.5-10.1 MG/DL Corrected Calcium 9.1 8.5-10.1 MG/DL Total Bilirubin 0.4 0.1-1.0 MG/DL Aspartate Amino Transf (AST/SGOT) 18 5-34 U/L Alanine Aminotransferase (ALT/SGPT) 18 0-55 U/L Alkaline Phosphatase 67 40-136 U/L Total Protein 7.3 6.4-8.2 GM/DL Albumin 4.1 3.2-4.5 GM/DL Human Chorionic Gonadotropin, Quant [id number] H <5 MIU/ML Serum Test, Qualitative POSITIVE NEGATIVE Urine Color YELLOW Urine Clarity SL CLOUDY Urine pH 6.0 5-9 Urine Specific [place] 1.025 H 1.016-1.022 Urine Protein NEGATIVE NEGATIVE Urine Glucose (UA) NEGATIVE NEGATIVE Urine Ketones NEGATIVE NEGATIVE Urine Nitrite NEGATIVE NEGATIVE Urine Bilirubin NEGATIVE NEGATIVE Urine Urobilinogen 0.2 < = 1.0 MG/DL Urine Leukocyte Esterase 2+ H NEGATIVE Urine RBC (Auto) NEGATIVE NEGATIVE Urine RBC NONE /HPF Urine WBC 10-25 H /HPF Urine Squamous Epithelial Cells 10-25 H /HPF Urine Crystals PRESENT H /LPF Urine Amorphous Sediment MOD KINA URATES H /LPF Urine Bacteria TRACE /HPF Urine Casts NONE /LPF Urine Mucus NEGATIVE /LPF Urine Culture Indicated YES Urine Opiates Screen NEGATIVE NEGATIVE Urine Oxycodone Screen NEGATIVE NEGATIVE Urine Methadone Screen NEGATIVE NEGATIVE Urine Propoxyphene Screen NEGATIVE NEGATIVE Urine Barbiturates Screen NEGATIVE NEGATIVE Ur Tricyclic Antidepressants Screen NEGATIVE NEGATIVE Urine Phencyclidine Screen NEGATIVE NEGATIVE Urine Amphetamines Screen NEGATIVE NEGATIVE Urine Methamphetamines Screen NEGATIVE NEGATIVE Urine Benzodiazepines Screen NEGATIVE NEGATIVE Urine Cocaine Screen NEGATIVE NEGATIVE Urine Cannabinoids Screen NEGATIVE NEGATIVE My Orders Orders - BADILLO,PETER J IRB COMPLIANCE COORDINATOR Ua Culture If Indicated (02/24/20 17:48) Drug Screen Stat (Urine) (02/24/20 17:48) Cbc With Automated Diff (02/24/20 17:48) Comprehensive Metabolic Panel (02/24/20 17:48) Hcg,Qualitative Serum (02/24/20 17:48) Ondansetron Injection (Zofran Injectio (02/24/20 18:15) Hcg,Quantitative (02/24/20 18:26) Urine Culture (02/24/20 18:07) Cephalexin Capsule (Keflex Capsule) (02/24/20 18:45) Medications Given in ED Current Medications Medications Dose Ordered Sig/Yovani Route Start Time Stop Time Status Last Admin Dose Admin Cephalexin HCl 500 mg ONCE ONCE PO 02/24/20 18:45 02/24/20 18:46 DC 02/24/20 18:46 500 MG Ondansetron HCl 8 mg ONCE ONCE IVP 02/24/20 18:15 02/24/20 18:16 DC 02/24/20 18:41 8 MG Vital Signs/I&O 02/24/20 17:55 Temp 36.9 Pulse 103 Resp 20 B/P (MAP) 120/94 (103) Pulse Ox 98 O2 Delivery Nasal Cannula Capillary Refill : Departure Communication (Admissions) States her last menstrual was sometime in December. Impression Primary Impression: test positive Additional Impression: UTI (urinary tract infection) Disposition: HOME, SELF-CARE Condition: Stable Departure-Patient Inst. Decision time for Depature: 18:40 Referrals: JOSE SCRUGGS MD (PCP/Family) Primary Care Physician Patient Instructions: Symptoms, Urinary Tract Infection, Adult (DC) Add. Discharge Instructions: 1. Follow-up with Dr. Scruggs. Call tomorrow to make an appointment to be seen to schedule ultrasound for further evaluation. Return to ER for any concerns. Scripts Cephalexin (Keflex) 500 Mg Capsule 500 MG PO TID, #15 CAP Prov: NIESHA BADILLO IRB COMPLIANCE COORDINATOR 02/24/20 NIESHA BADILLO IRB COMPLIANCE COORDINATOR Feb 24, 2020 18:23
[2020-02-24 18:31] LABS: BACTERIA,URINE TRACE /HPF
[2020-02-24 18:32] LABS: AMORPHOUS SEDIMENT,UR MOD AMOR URATES /LPF
[2020-02-24 18:35] LABS: AMPHETAMINE SCREEN, URINE NEGATIVE (NEGATIVE); BARBITURATE SCREEN URINE NEGATIVE (NEGATIVE); BENZODIAZEPINES SCREEN URINE NEGATIVE (NEGATIVE); CANNABINOID SCREEN, URINE NEGATIVE (NEGATIVE); COCAINE SCREEN URINE NEGATIVE (NEGATIVE); METHADONE STAT NEGATIVE (NEGATIVE); METHAMPHETAMINE SCREEN URINE S NEGATIVE (NEGATIVE); OPIATE SCREEN URINE NEGATIVE (NEGATIVE); OXYCODONE STAT NEGATIVE (NEGATIVE); PROPOXYPHENE STAT NEGATIVE (NEGATIVE); TRICYCLIC ANTIDEPRESSANTS SCRE NEGATIVE (NEGATIVE)
[2020-02-24 18:35] LABS: ALBUMIN 4.1 GM/DL (3.2-4.5); CHLORIDE 103 MMOL/L (98-107); POTASSIUM 3.6 MMOL/L (3.6-5.0); SODIUM 134 MMOL/L (135-145)
[2020-02-24 18:36] LABS: CALCIUM 9.2 MG/DL (8.5-10.1)
[2020-02-24 18:37] LABS: GLUCOSE 107 MG/DL (70-105)
[2020-02-24 18:38] LABS: TOTAL PROTEIN 7.3 GM/DL (6.4-8.2)
[2020-02-24 18:39] LABS: BILIRUBIN,TOTAL 0.4 MG/DL (0.1-1.0); CARBON DIOXIDE 23 MMOL/L (21-32)
[2020-02-24 18:41] LABS: ALKALINE PHOSPHATASE 67 U/L (40-136); CREATININE SERUM 0.67 MG/DL (0.60-1.30); GFR ESTIMATED > 60
[2020-02-24 18:42] LABS: BUN/CREATININE RATIO 10
[2020-02-24 18:44] LABS: ALANINE AMINOTRANSFERASE 18 U/L (0-55)
[2020-02-24] MEDS ORDERED: CEPHALEXIN 250 MG (KEFLEX) CAP PO ONE (18:45)
[2020-02-24 19:19] VITALS: BP 118/90
[2020-02-24] MEDS ORDERED: CEPH-507 PO (19:20)
== END 2020-02-24 19:23 | disposition home or self-care (01) ==
LOC: EDUNIT# 17:40 → ER 17:43
DX: N39.0 Urinary tract infection, site not specified (principal); Z32.01 Encounter for pregnancy test, result positive; Z82.49 Family history of ischemic heart disease and other diseases of the circulatory system; Z82.61 Family history of arthritis
CPT/HCPCS: 36415; 80053; 80306; 81000; 84702; 84703; 85025; 87077; 87088

== ENCOUNTER 2020-05-18 08:43 | Outpatient (CLI) | payer SELFPAY ==
[~2020-05-18] VITALS: Ht 154.9 cm; Wt 56.0 kg
[2020-05-18 09:20] VITALS: BP 119/76
[2020-05-18 09:20] LABS: BILIRUBIN,URINE NEGATIVE (NEGATIVE); CLARITY,URINE CLEAR; COLOR,URINE YELLOW; GLUCOSE, URINE (UA) NEGATIVE (NEGATIVE); KETONES,URINE NEGATIVE (NEGATIVE); LEUKOCYTE ESTERASE ,URINE NEGATIVE (NEGATIVE); NITRITE,URINE NEGATIVE (NEGATIVE); PROTEIN,URINE NEGATIVE (NEGATIVE)
[2020-05-18 09:34] LABS: BACTERIA,URINE MODERATE /HPF
[2020-05-18 09:35] LABS: AMPHETAMINE SCREEN, URINE POSITIVE (NEGATIVE); BARBITURATE SCREEN URINE NEGATIVE (NEGATIVE); BENZODIAZEPINES SCREEN URINE NEGATIVE (NEGATIVE); CANNABINOID SCREEN, URINE NEGATIVE (NEGATIVE); COCAINE SCREEN URINE NEGATIVE (NEGATIVE); METHADONE STAT NEGATIVE (NEGATIVE); METHAMPHETAMINE SCREEN URINE S POSITIVE (NEGATIVE); OPIATE SCREEN URINE NEGATIVE (NEGATIVE); OXYCODONE STAT NEGATIVE (NEGATIVE); PROPOXYPHENE STAT NEGATIVE (NEGATIVE); TRICYCLIC ANTIDEPRESSANTS SCRE NEGATIVE (NEGATIVE)
[2020-05-18 09:57] VITALS: BP 119/76
--- NOTE | 2020-05-18 16:19 | Physician Query-Final Dx ---
Final Diagnosis Give Final Diagnosis Please give Final Diagnosis 21 week gestation no care + drug screen decreased movement MORENITA GONZALEZ DO May 18, 2020 16:19
== END 2020-05-18 10:12 ==
LOC: WSo 08:43 → LDRP 08:44 → WSo 10:12
PROVIDERS: ATTEND Obstetrics & Gynecology
DX: O36.8120 Decreased fetal movements, second trimester, not applicable or unspecified (principal); Z3A.21 21 weeks gestation of pregnancy
CPT/HCPCS: 80306; 81000; 87088; G0463; 99213

== ENCOUNTER 2020-07-25 14:54 | Outpatient (CLI) | payer MEDICAID ==
[~2020-07-25] VITALS: Ht 154.9 cm; Wt 62.0 kg
[~2020-07-25 14:54] MED LIST changes: -ACYC400T PO; +ACYC400T21 PO
[2020-07-25 15:20] VITALS: BP 111/63
[2020-07-25 15:33] LABS: BILIRUBIN,URINE NEGATIVE (NEGATIVE); CLARITY,URINE SL CLOUDY; COLOR,URINE YELLOW; GLUCOSE, URINE (UA) NEGATIVE (NEGATIVE); KETONES,URINE NEGATIVE (NEGATIVE); LEUKOCYTE ESTERASE ,URINE 2+ (NEGATIVE); NITRITE,URINE NEGATIVE (NEGATIVE); PROTEIN,URINE NEGATIVE (NEGATIVE)
[2020-07-25 15:38] LABS: BACTERIA,URINE FEW /HPF; RBC,URINE 0-2 /HPF
--- NOTE | 2020-07-27 07:42 | Physician Query-Final Dx ---
NANDO BANDA 07/27/20 0742: Clinic Account Progress/Dx Physician Query: Please give diagnosis Please include # weeks gestation Date of Service Jul 25, 2020 at 14:54 ROSIE OLIVER MD 07/29/20 0733: Clinic Account Progress/Dx DIAGNOSIS: Diagnosis 1. IUP at 30 weeks gestation 2. Vaginal irritation/yeast infection NANDO BANDA Jul 27, 2020 07:42 ROSIE OLIVER MD Jul 29, 2020 07:33
== END 2020-07-25 16:22 | disposition home or self-care (01) ==
LOC: WSo 14:54 → LDRP 14:54 → WSo 16:22
PROVIDERS: ATTEND Family Medicine
DX: O26.899 Other specified pregnancy related conditions, unspecified trimester (principal); Z3A.00 Weeks of gestation of pregnancy not specified
CPT/HCPCS: 81000; 87088; G0463; 99212

== ENCOUNTER 2020-09-07 20:09 | Emergency (ER) | payer MEDICAID ==
[~2020-09-07] VITALS: Ht 155 cm; Wt 64.5 kg
--- NOTE | 2020-09-07 21:50 | ED EENT ---
History of Present Illness General Chief Complaint: Cough/Cold/Flu Symptoms Stated Complaint: SORE THROAT / NAUSEA Source: patient History of Present Illness Date Seen by Provider: Sep 07, 2020 Time Seen by Provider: 21:11 Initial Comments PT ARRIVES VIA POV PT IS HOMELESS, SHE AND BOYFRIEND ARE CURRENTLY STAYING AT [facility]/HOUSING FOR THE HOMELESS PT STATES SHE STARTED HAVING A SCRATCHY THROAT LAST NIGHT, THROAT IS SORE TODAY HAS HAD SLIGHT NAUSEA, NO VOMITING. NO DIARRHEA C/O FATIGUE NO FEVER/SWEAT/CHILLS NO HEADACHE NO BODY ACHES NO COUGH/CONGESTION NO SHORTNESS OF BREATH NO LOSS OF TASTE OR SMELL HAS NOT TAKEN ANYTHING FOR SYMPTOMS PT STATES THAT "ALMOST EVERYONE" AT THE [facility] HAS COVID AND NO ONE HAS BEEN QUARANTINING, AND ALL GO BACK AND FORTH BETWEEN ROOMS. PT HAS NOT RECEIVED COVID-19 PT IS 37 WEEKS , WITH ACTIVE MOVEMENT PT IS AB 1 PT HAS NOT HAD ANY PROBLEMS WITH THIS PT HAS OB APPOINTMENT WITH DR. MONTIEL TOMORROW. PCP: [facility]. DR. MONTIEL Allergies and Home Medications Allergies Coded Allergies: No Known Drug Allergies (Unverified , 09/11/17) Home Medications No.137/Iron/Folic Acd 1 Each Tablet, 1 EACH PO DAILY, (Reported) Patient Home Medication List Home Medication List Reviewed: Yes Review of Systems Review of Systems Constitutional: see HPI; No chills, No diaphoresis, No dizziness, No fever; malaise; No weakness Eyes: No Symptoms Reported Ears: No Symptoms Reported Nose: no symptoms reported Mouth: no symptoms reported Throat: see HPI Respiratory: no symptoms reported; No cough, No short of breath Cardiovascular: no symptoms reported Gastrointestinal: no symptoms reported : Yes Musculoskeletal: no symptoms reported Skin: no symptoms reported Neurological: No Symptoms Reported; Denies Headache Hematologic/Lymphatic: No Symptoms Reported Immunological/Allergic: no symptoms reported Past Ijipkit-Ssvbtv-Mevxkn Hx Patient Social History Tobacco Use?: Yes Tobacco type used: Cigarettes Smoking Status: Current Everyday Smoker Substance use?: Yes Substance type: Methamphetamine Additional substance use comme: EXTENSIVE DRUG USE, MANY KINDS, BUT ESPECIALLY METH. Alcohol Use?: Yes (HX OF HEAVY USE, CLAIMS NO RECENT USE) Immunizations Up To Date Tetanus Booster (TDap): Less than 5yrs PED Vaccines UTD: Yes Seasonal Allergies Seasonal Allergies: Yes Past Medical History Surgeries: No Respiratory: No Cardiac: No Neurological: No : Yes Hx : 4 Hx Para: 2 Hx Total # of Abortions (Sp): 1 (SPONTANEOUS MISCARRIAGE IN FIRST TRIMESTER 03/2016) Reproductive Disorders: No Female Reproductive Disorders: Denies Sexually Transmitted Disease: Yes HIV/AIDS: No Genitourinary: No Kidney Infection, Bladder Infection Gastrointestinal: No Gastroesophageal Reflux, Esophagitis Musculoskeletal: No Endocrine: No HEENT: No Cancer: No Psychosocial: No Anxiety Integumentary: No Blood Disorders: No Family Medical History Arthritis G8 SISTER Cardiovascular disease PATERNAL GRANDFATHER Hypertension 19 MOTHER Seizure disorder 19 MOTHER No Pertinent Family Hx Physical Exam Vital Signs Vital Signs - First Documented Height, Weight, BMI Height: 5'1.00" Weight: 120lbs. 0.0oz. 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, no motor/sensory deficits, normal mood/affect, oriented x 3 Skin: normal color, warm/dry, tattoos/piercings Progress/Results/Core Measures Results/Orders Lab Results Laboratory Tests Test 09/07/20 21:15 Range/Units Influenza Type A (RT-PCR) Not Detected Not Detecte Influenza Type B (RT-PCR) Not Detected Not Detecte SARS-CoV-2 RNA (RT-PCR) Detected H Not Detecte Group A Streptococcus Screen NEGATIVE NEGATIVE My Orders Orders - TYESHA PAEZ DO Rapid Strep A Screen (09/07/20 21:10) Covid 19 Inhouse Test (09/07/20 21:10) Influenza A And B By Pcr (09/07/20 21:10) Vital Signs/I&O 09/07/20 09/07/20 09/07/20 21:00 21:00 22:20 Temp 36.4 36.4 Pulse 110 89 Resp 18 17 B/P (MAP) 122/81 (95) 122/81 (95) Pulse Ox 99 98 O2 Delivery Room Air Room Air Room Air Progress Progress Note : Progress Note PLACED IN ISOLATION ROOM PPE WORN AT ALL TIMES COVID-19 TESTING PERFORMED PT ADVISED AND STRESSED THE IMPORTANCE OF NEED FOR QUARANTINE FOR HERSELF, HER BOYFRIEND, ALL MEMBERS OF HER CURRENT RESIDENCE AND ALL CLOSE CONTACTS FOR THE NEXT 2 WEEKS Departure Communication (Admissions) 2155/2158--PAGED/SPOKE WITH DR. BETANCOURT, ELEVATOR REPAIRER FOR [facility] OB. SHE ADVISES TO HAVE PT CALL BEFORE HER NEXT OB VISIT, AND DR. MONTIEL WILL DO A CURBSIDE VISIT. Impression Primary Impression: COVID-19 virus infection Additional Impression: 37 weeks gestation of Disposition: 01 HOME, SELF-CARE Condition: Stable Departure-Patient Inst. Decision time for Depature: 21:55 Referrals: JOSE MONTIEL MD (PCP/Family) Primary Care Physician Patient Instructions: COVID-19 and , Preventing the Spread of an Infectious Disease Add. Discharge Instructions: LOTS OF CLEAR LIQUIDS--WATER, BROTH, JELLO, GATORADE TYLENOL NEEDED FOR PAIN OR FEVER FREQUENT SALT WATER GARGLES FOR SORE THROAT CALL [facility] [place], AND FOLLOW UP WITH DR. MONTIEL THIS WEEK FOR YOUR VISIT--WILL DO CURBSIDE VISIT, BUT YOU NEED TO CALL AHEAD BEFORE YOUR VISIT QUARANTINE YOURSELF AND CLOSE CONTACTS FOR THE NEXT 2 WEEKS--NO ONE ENTERS OR LEAVES WHERE THEY ARE STAYING FOR THE NEXT 2 WEEKS. All discharge instructions reviewed with patient and/or family. Voiced understanding. TYESHA PAEZ DO Sep 07, 2020 21:50
[2020-09-07 22:20] VITALS: BP 122/81
== END 2020-09-07 22:20 | disposition home or self-care (01) ==
LOC: EDUNIT# 20:09 → ER 20:12
DX: O98.513 Other viral diseases complicating pregnancy, third trimester (principal); F17.210 Nicotine dependence, cigarettes, uncomplicated; Z3A.37 37 weeks gestation of pregnancy
CPT/HCPCS: 87430; 87636

== ENCOUNTER 2020-09-10 02:51 | Emergency (ER) | payer MEDICAID ==
[~2020-09-10] VITALS: Ht 155 cm; Wt 64.4 kg
[2020-09-10 03:00] VITALS: BP 123/98
--- NOTE | 2020-09-10 03:20 | ED EENT ---
History of Present Illness General Chief Complaint: Dental Problems/Pain Stated Complaint: DENTAL PAIN,COVID+,7 MONTHS 19 DAYS Source: patient Exam Limitations: no limitations History of Present Illness Date Seen by Provider: Sep 10, 2020 Time Seen by Provider: 03:05 Initial Comments Patient is a 25-year-old female who presents to the emergency department today with a chief complaint of dental pain. Patient is approximately 7-1/2 months pr egnant. She has been taking some Tylenol and using eyyf-yfy-ncphlbb pain relievers and topical feeling medications to try and alleviate her dental pain without any relief of symptoms. She denies fevers or chills. She is Covid positive having been diagnosed 3 days ago. She denies shortness of breath or cough. She complains of just fatigue. Getting care through [facility]. Patient states she called the dentist at [facility] yesterday and has got an appointment to be seen later today at 1:00. All other review of systems reviewed and negative except as stated. Timing/Duration: gradual Severity: severe Location: dental Prearrival Treatment: over the counter meds Associated Symptoms: tooth pain Allergies and Home Medications Allergies Coded Allergies: No Known Drug Allergies (Unverified , 09/11/17) Home Medications No.137/Iron/Folic Acd 1 Each Tablet, 1 EACH PO DAILY, (Reported) Patient Home Medication List Home Medication List Reviewed: Yes Review of Systems Review of Systems Constitutional: see HPI Eyes: No Symptoms Reported Ears: No Symptoms Reported Nose: congestion Mouth: pain Throat: no symptoms reported Respiratory: no symptoms reported Cardiovascular: no symptoms reported Gastrointestinal: no symptoms reported : Yes Musculoskeletal: no symptoms reported Skin: no symptoms reported All Other Systems Reviewed Negative Unless Noted: Yes Past Hsrvgfo-Hdjlhc-Njerqv Hx Immunizations Up To Date Tetanus Booster (TDap): Less than 5yrs PED Vaccines UTD: Yes Seasonal Allergies Seasonal Allergies: Yes Past Medical History Surgeries: No Respiratory: No Cardiac: No Neurological: No Reproductive Disorders: No Female Reproductive Disorders: Denies Sexually Transmitted Disease: Yes HIV/AIDS: No Genitourinary: No Kidney Infection, Bladder Infection Gastrointestinal: No Gastroesophageal Reflux, Esophagitis Musculoskeletal: No Endocrine: No HEENT: No Cancer: No Psychosocial: No Anxiety Integumentary: No Blood Disorders: No Family Medical History Arthritis G8 SISTER Cardiovascular disease PATERNAL GRANDFATHER Hypertension 19 MOTHER Seizure disorder 19 MOTHER No Pertinent Family Hx Physical Exam Vital Signs Vital Signs - First Documented 09/10/20 03:00 Temp 36.4 Pulse 93 Resp 18 B/P (MAP) 123/98 (106) Pulse Ox 98 O2 Delivery Room Air Height, Weight, BMI Height: 5'1.00" Weight: 120lbs. 0.0oz. 54.583428fg; 26.00 BMI Method:Stated General Appearance: WD/WN, mild distress (Tearful) Eyes: bilateral eye normal inspection, bilateral eye PERRL, bilateral eye EOMI Nose: normal inspection Mouth/Throat: pharynx normal, other (Left lower premolar with obvious dental caries. No surrounding gingival erythema or edema. Mild percussive tenderness. She does not have widespread dental decay.) Neck: full range of motion, supple Cardiovascular: regular rate, rhythm Respiratory: lungs clear, normal breath sounds, no respiratory distress Gastrointestinal: other (Gravid) Neurologic/Psychiatric: alert, normal mood/affect, oriented x 3 Skin: normal color, warm/dry Progress/Results/Core Measures Results/Orders My Orders Orders - BLAISE MCDERMOTT MD Rx-Hydrocodone/Apap 5-325 Mg (Rx-Vicodin (09/10/20 03:15) Vital Signs/I&O 09/10/20 03:00 Temp 36.4 Pulse 93 Resp 18 B/P (MAP) 123/98 (106) Pulse Ox 98 O2 Delivery Room Air Progress Progress Note : Time: 03:16 Progress Note Patient advised to take dvth-plv-snlvaec Tylenol and continue to use olpa-qiq-vynehvr topical pain relief remedies. She is advised to follow-up with a dentist. She is given 24 hours of hydrocodone, 5 mg tablets x4 to be used 1 every 6 hours. Departure Impression Primary Impression: Pain, dental Disposition: 01 HOME, SELF-CARE Condition: Stable Departure-Patient Inst. Decision time for Depature: 03:17 Referrals: JOSE MONTIEL MD (PCP/Family) Primary Care Physician Patient Instructions: Dental Pain (DC) Add. Discharge Instructions: You can continue to take ffgu-bok-omoatuc Tylenol, extra strength 2 tablets every 4-6 hours as needed for pain. I have given you 4 tablets of 5 mg hydrocodone. This medication will contain Tylenol. Do not take extra wisg-ska-eodvloi Tylenol *with* the hydrocodone. Use a good mouthwash/dental rinse to help keep your teeth clean. Follow-up with the dentist at [facility]. Return to the emergency room for reevaluation if you have any fever or mouth or facial swelling swelling with worsening dental pain. BLAISE MCDERMOTT MD Sep 10, 2020 03:20
[2020-09-10] MEDS ORDERED: PENI500T PO (19:18)
== END 2020-09-10 03:30 | disposition home or self-care (01) ==
LOC: EDUNIT# 02:51 → ER 02:54
DX: O98.511 Other viral diseases complicating pregnancy, first trimester (principal); U07.1 COVID-19; K08.89 Other specified disorders of teeth and supporting structures; Z3A.00 Weeks of gestation of pregnancy not specified

== ENCOUNTER 2020-09-10 17:44 | Outpatient (CLI) | payer MEDICAID ==
[2020-09-10 18:15] VITALS: BP 127/88
[2020-09-10] MEDS ORDERED: PENI500T PO (19:18)
--- NOTE | 2020-09-11 07:39 | Physician Query-Final Dx ---
NANDO BANDA 09/11/20 0739: Clinic Account Progress/Dx Physician Query: Please give diagnosis Please include # weeks gestation Date of Service Sep 10, 2020 at 17:44 MIMI BETANCOURT DO 09/11/20 0829: Clinic Account Progress/Dx DIAGNOSIS: Diagnosis 36 wk GA tooth pain NANDO BANDA Sep 11, 2020 07:39 MIMI BETANCOURT DO Sep 11, 2020 08:29
== END 2020-09-10 18:55 | disposition home or self-care (01) ==
LOC: WSo 17:44 → LDRP 17:44 → WSo 18:55
PROVIDERS: ATTEND Family Medicine
DX: Z34.93 Encounter for supervision of normal pregnancy, unspecified, third trimester (principal); K08.89 Other specified disorders of teeth and supporting structures; Z3A.36 36 weeks gestation of pregnancy
CPT/HCPCS: 99212

== ENCOUNTER 2020-09-10 19:01 | Emergency (ER) | payer MEDICAID ==
[~2020-09-10] VITALS: Ht 155 cm; Wt 64.4 kg
[2020-09-10 19:01] VITALS: BP 130/90
[2020-09-10] MEDS ORDERED: PENI500T PO (19:18)
--- NOTE | 2020-09-10 19:18 | ED EENT ---
History of Present Illness General Chief Complaint: Dental Problems/Pain Stated Complaint: TOOTH PAIN / COVID POS Source: patient Exam Limitations: no limitations History of Present Illness Date Seen by Provider: Sep 10, 2020 Time Seen by Provider: 19:14 Initial Comments To ER with left lower dental pain. This would be her third ER visit for this. She is Covid positive, 37 weeks gestation. Seen here last night given hydrocodone No. 4, she would like some more of this. Timing/Duration: this morning Severity: moderate Location: dental Prearrival Treatment: no prearrival treatment Associated Symptoms: denies symptoms Allergies and Home Medications Allergies Coded Allergies: No Known Drug Allergies (Unverified , 09/11/17) Home Medications Penicillin V Potassium 500 Mg Tablet, 500 MG PO Q6H Prescribed by: NIESHA BADILLO on 09/10/201917 No.137/Iron/Folic Acd 1 Each Tablet, 1 EACH PO DAILY, (Reported) Patient Home Medication List Home Medication List Reviewed: Yes Review of Systems Review of Systems Constitutional: see HPI Eyes: No Symptoms Reported Ears: No Symptoms Reported Nose: no symptoms reported Mouth: see HPI Throat: no symptoms reported Respiratory: no symptoms reported Cardiovascular: no symptoms reported Musculoskeletal: no symptoms reported Past Qstjscd-Rhrwzw-Kqvcft Hx Immunizations Up To Date Tetanus Booster (TDap): Less than 5yrs PED Vaccines UTD: Yes Seasonal Allergies Seasonal Allergies: Yes Past Medical History Surgeries: No Respiratory: No Cardiac: No Neurological: No Reproductive Disorders: No Female Reproductive Disorders: Denies Sexually Transmitted Disease: Yes HIV/AIDS: No Genitourinary: No Kidney Infection, Bladder Infection Gastrointestinal: No Gastroesophageal Reflux, Esophagitis Musculoskeletal: No Endocrine: No HEENT: No Cancer: No Psychosocial: No Anxiety Integumentary: No Blood Disorders: No Family Medical History Arthritis G8 SISTER Cardiovascular disease PATERNAL GRANDFATHER Hypertension 19 MOTHER Seizure disorder 19 MOTHER No Pertinent Family Hx Physical Exam Vital Signs Vital Signs - First Documented 09/10/20 19:01 Temp 36.9 Pulse 106 Resp 18 B/P (MAP) 130/90 (103) Pulse Ox 98 O2 Delivery Room Air Height, Weight, BMI Height: 5'1.00" Weight: 120lbs. 0.0oz. 54.370110qw; 26.00 BMI Method:Stated General Appearance: WD/WN, no apparent distress Eyes: bilateral eye normal inspection, bilateral eye PERRL, bilateral eye EOMI Ears: bilateral ear auricle normal, bilateral ear canal normal, bilateral ear TM normal Mouth/Throat: No mandibular swelling; other (Tooth #17 and 18 both have caries. No gingival or buccal abscess. I did offer her an inferior alveolar nerve block using lidocaine which she did agree to.) Neck: non-tender, full range of motion Respiratory: no respiratory distress, no accessory muscle use Neurologic/Psychiatric: alert, normal mood/affect, oriented x 3 Skin: normal color, warm/dry Progress/Results/Core Measures Results/Orders My Orders Orders - NIESHA BADILLO APRN Amoxicillin Capsule (Polymox Capsule) (09/10/20 19:18) Vital Signs/I&O 09/10/20 19:01 Temp 36.9 Pulse 106 Resp 18 B/P (MAP) 130/90 (103) Pulse Ox 98 O2 Delivery Room Air Departure Communication (Admissions) Discussed with her that I really cannot prescribe more opiates at this point in . Impression Primary Impression: Dental caries Disposition: HOME, SELF-CARE Condition: Stable Departure-Patient Inst. Decision time for Depature: 19:16 Referrals: JOSE MONTIEL MD (PCP/Family) Primary Care Physician Patient Instructions: Dental Pain (DC), Tooth Decay ED Add. Discharge Instructions: Antibiotics as directed. Tylenol as directed. Unfortunately we really cannot give any more strong pain medicines at this point. Methamphetamine use causes constriction of the arteries that supply blood flow to the teeth leading to dental cavities and pain such as this. 1 of many reasons to discontinue methamphetamine use. What you are experiencing is a delayed effect of drug use. Ongoing pain pills is only masking the problem and is harmful to your devloping baby. You must see a dentist. Scripts Penicillin V Potassium (Penicillin V Potassium) 500 Mg Tablet 500 MG PO Q6H, #20 TAB Prov: NIESHA BADILLO APRN 09/10/20 Images Mouth/Nose 1 - Caries, Tenderness NIESHA BADILLO APRN Sep 10, 2020 19:18
[2020-09-10] MEDS: AMOXICILLIN 500 MG (POLYMOX) CAP PO STA ×2 (19:20→19:29)
== END 2020-09-10 19:39 | disposition home or self-care (01) ==
LOC: EDUNIT# 19:01 → ER 19:03
DX: O98.513 Other viral diseases complicating pregnancy, third trimester (principal); U07.1 COVID-19; K02.9 Dental caries, unspecified; Z3A.37 37 weeks gestation of pregnancy
CPT/HCPCS: 99282

== ENCOUNTER 2020-09-28 19:11 | Inpatient (IN) | payer MEDICAID ==
[~2020-09-28] VITALS: Ht 61 cm; Wt 63.6 kg
[~2020-09-28 19:11] MED LIST changes: +PENI500T PO
[2020-09-28 20:00] VITALS: BP 122/78
[2020-09-28] MEDS ORDERED: LACTATED RINGERS 1,000 ML IV SCH (20:00)
[2020-09-28] MEDS ORDERED: MINERAL OIL CONCENTRATE 99.9% 15 ML UDC TOP PRN (20:00)
[2020-09-28] MEDS ORDERED: TERBUTALINE INJ 1 MG/ML (BRETHINE) AMP SC PRN (20:00)
[2020-09-28 20:15] VITALS: BP 122/78
[2020-09-28 20:19] LABS: BASOPHILS % (AUTO) 0 % (0-10); EOSINOPHILS % (AUTO) 0 % (0-10); HEMATOCRIT 30 % (35-52); HEMOGLOBIN 9.7 g/dL (11.5-16.0); LYMPHOCYTES # (AUTO) 2.1 10^3/uL (1.0-4.0); LYMPHOCYTES % (AUTO) 24 % (12-44); MEAN CORPUSCULAR HEMOGLOBIN 27 pg (25-34); MEAN CORPUSCULAR HGB CONC 32 g/dL (32-36); MEAN CORPUSCULAR VOLUME 84 fL (80-99); MEAN PLATELET VOLUME 9.4 fL (9.0-12.2); MONOCYTES # (AUTO) 0.9 10^3/uL (0.0-1.0); MONOCYTES % (AUTO) 10 % (0-12); NEUTROPHILS # (AUTO) 5.7 10^3/uL (1.8-7.8); NEUTROPHILS % (AUTO) 64 % (42-75); PLATELET COUNT 244 10^3/uL (130-400); WHITE BLOOD COUNT 8.9 10^3/uL (4.3-11.0)
[2020-09-28] MEDS: D5 LR IV SOLUTION 1,000 ML IV SCH (20:21)
[2020-09-28 20:29] LABS: AMPHETAMINE SCREEN, URINE NEGATIVE (NEGATIVE); BARBITURATE SCREEN URINE NEGATIVE (NEGATIVE); BENZODIAZEPINES SCREEN URINE NEGATIVE (NEGATIVE); CANNABINOID SCREEN, URINE NEGATIVE (NEGATIVE); COCAINE SCREEN URINE NEGATIVE (NEGATIVE); METHADONE STAT NEGATIVE (NEGATIVE); METHAMPHETAMINE SCREEN URINE S POSITIVE (NEGATIVE); OPIATE SCREEN URINE NEGATIVE (NEGATIVE); OXYCODONE STAT NEGATIVE (NEGATIVE); PROPOXYPHENE STAT NEGATIVE (NEGATIVE); TRICYCLIC ANTIDEPRESSANTS SCRE NEGATIVE (NEGATIVE)
[2020-09-28 21:00] VITALS: BP 112/62
[2020-09-28 22:00] VITALS: BP 118/70
[2020-09-28 23:30] VITALS: BP 112/63
[2020-09-29] VITALS (74 sets, daily range): BP systolic 82–167; BP diastolic 47–94
[2020-09-29] MEDS: D5 LR IV SOLUTION 1,000 ML IV SCH ×3 (00:28→16:35)
--- NOTE | 2020-09-29 07:50 | History & Physical-OB ---
OB - Chief Complaint & HPI Date/Time Date of Admission: Date of Admission: Sep 28, 2020 at 19:11 Date seen by a Provider: Sep 29, 2020 Time Seen by a Provider: 07:48 Chief Complaint/History OB-Reason for Admission/Chief: Induction of Labor Hx : 4 Hx Para: 2 Expected Date of Delivery: Oct 02, 2020 Gestational Age in Weeks: 39 Gestational Age in Days: 3 Indication for induction: other (Elective) History of Labs O+, Ab neg, Rub Imm HIV/RPR/HepB/C NR Normal GTT GBS Neg Allergies and Home Medications Allergies Coded Allergies: No Known Drug Allergies (Unverified , 09/11/17) Home Medications Penicillin V Potassium 500 Mg Tablet, 500 MG PO Q6H Prescribed by: NIESHA BADILLO on 09/10/201917 No.137/Iron/Folic Acd 1 Each Tablet, 1 EACH PO DAILY, (Reported) Patient Home Medication List Home Medication List Reviewed: Yes OB - History Hx of Present Care: Yes Ultrasounds: Normal mid trimester US Obstetrical Complications: None Medical Complications: None Obstetrical History Hx : 4 Hx Para: 2 Number of Living Children: 2 Delivery History Hx Blood Disorders: No Patient Past Medical History Substance Abuse with Meth Social History/Family History Smoking Cessation: Current every day smoker 2nd Hand Smoke Exposure: No Immunizations Hepatitis A: Yes Hepatitis B: Yes Tetanus Booster (TDap): Less than 5yrs Date of Influenza Vaccine: Nov 21, 2017 Rubella: immune RPR/VDRL: Negative GBS Status: Negative HBsAG: Negative OB - Admission Exam Physical Exam Vitals: Vital Signs 09/29/20 09/29/20 04:30 07:03 Temp 36.0 Pulse 59 Resp 20 B/P (MAP) 102/62 (75) Pulse Ox 99 O2 Delivery Room Air HEENT: NCAT Heart: Rhythm Normal Lungs: Clear Abdomen: Gravid Cervical Dilatation: 4cm Effacement: 50% Station: -1 Membranes: Intact Heart Rate: 130's Accelerations: Accelerations Present Decelerations: No Decelerations Short Term Variability: Present Custodial Variability: Average (6-25) Contractions on Admission: < 5 Minutes Apart Intensity: Moderate Srinivasan Scoring Tool (Modified) Dilation (cm): 1-2cm (1) Effacement (%): 51-79% (2) Descent/Station: -1,0 (2) Cervix Consistency: Medium(1) Cervix Position: Anterior (2) Add 1 point for: Each previous vaginal delivery (1) Srinivasan Score: 10 Labs Laboratory Tests Test 09/28/20 19:20 09/28/20 20:10 Range/Units Urine Opiates Screen NEGATIVE NEGATIVE Urine Oxycodone Screen NEGATIVE NEGATIVE Urine Methadone Screen NEGATIVE NEGATIVE Urine Propoxyphene Screen NEGATIVE NEGATIVE Urine Barbiturates Screen NEGATIVE NEGATIVE Ur Tricyclic Antidepressants Screen NEGATIVE NEGATIVE Urine Phencyclidine Screen NEGATIVE NEGATIVE Urine Amphetamines Screen NEGATIVE NEGATIVE Urine Methamphetamines Screen POSITIVE H NEGATIVE Urine Benzodiazepines Screen NEGATIVE NEGATIVE Urine Cocaine Screen NEGATIVE NEGATIVE Urine Cannabinoids Screen NEGATIVE NEGATIVE White Blood Count 8.9 4.3-11.0 10^3/uL Red Blood Count 3.58 L 3.80-5.11 10^6/uL Hemoglobin 9.7 L 11.5-16.0 g/dL Hematocrit 30 L 35-52 % Mean Corpuscular Volume 84 80-99 fL Mean Corpuscular Hemoglobin 27 25-34 pg Mean Corpuscular Hemoglobin Concent 32 32-36 g/dL Red Cell Distribution Width 15.1 H 10.0-14.5 % Platelet Count 244 130-400 10^3/uL Mean Platelet Volume 9.4 9.0-12.2 fL Immature Granulocyte % (Auto) 1 % Neutrophils (%) (Auto) 64 42-75 % Lymphocytes (%) (Auto) 24 12-44 % Monocytes (%) (Auto) 10 0-12 % Eosinophils (%) (Auto) 0 0-10 % Basophils (%) (Auto) 0 0-10 % Neutrophils # (Auto) 5.7 1.8-7.8 10^3/uL Lymphocytes # (Auto) 2.1 1.0-4.0 10^3/uL Monocytes # (Auto) 0.9 0.0-1.0 10^3/uL Eosinophils # (Auto) 0.0 0.0-0.3 10^3/uL Basophils # (Auto) 0.0 0.0-0.1 10^3/uL Immature Granulocyte # (Auto) 0.1 0.0-0.1 10^3/uL OB - Assessment/Plan/Diagnosis Assessment Assessment: induction of labor Admission Dx Third trimester 39 week gestation Substance abuse in Admission Status: Inpatient Order (span 2 midnights) Reason for Inpatient Admission: Labor Plan Other Plan 25 yo @ 39.4 wga here for elective IOL Plan AROM this AM 0802 clear Will augment if needed Expectant management Plan on epidural for pain control Copy Copies To 1: JOSE MONTIEL MD, HOLLY R MD Sep 29, 2020 07:50
[2020-09-29] MEDS ORDERED: fentaNYL 2 mcg/ml BUPIVA 0.125 0 ML ONE (08:10)
[2020-09-29] MEDS ORDERED: fentaNYL 2 mcg/ml BUPIVA 0.125 100 ML ONE (08:30)
[2020-09-29] MEDS: CATHETER FLUSH 10 ML SYR IV SCH ×2 (08:44→18:56)
[2020-09-29] MEDS ORDERED: NALOXONE 0.4 MG/ML 1 ML (NARCAN) VIAL IV PRN ×2 (10:00)
[2020-09-29] MEDS ORDERED: METOCLOPRAMIDE INJ 10 MG/2 ML (REGLAN) IV PRN (10:00)
[2020-09-29] MEDS ORDERED: diphenhydrAMINE 50 MG/ML INJ (BENADRYL) IV PRN (10:00)
[2020-09-29] MEDS ORDERED: ONDANSETRON 4 MG/2 ML (SDV) Z0FRAN IV PRN (10:00)
[2020-09-29] MEDS ORDERED: LACTATED RINGERS 1,000 ML IV SCH (10:00)
[2020-09-29] MEDS ORDERED: EPIDURAL (fentaNYL 2 MCG/ML BUPIVA 0.125%)100 ML BAG EPI SCH (10:00)
[2020-09-29] MEDS ORDERED: OXYTOCIN PRE-MIX DRIP 500 ML IV ONE (11:39)
[2020-09-29] MEDS: OXYTOCIN PRE-MIX DRIP 500 ML IV SCH ×2 (11:54→18:21)
[2020-09-29 12:39] LABS: BILIRUBIN,URINE NEGATIVE (NEGATIVE); CLARITY,URINE CLEAR; COLOR,URINE YELLOW; GLUCOSE, URINE (UA) NEGATIVE (NEGATIVE); KETONES,URINE NEGATIVE (NEGATIVE); LEUKOCYTE ESTERASE ,URINE NEGATIVE (NEGATIVE); NITRITE,URINE NEGATIVE (NEGATIVE); PH,URINE 7.5 (5-9); PROTEIN,URINE NEGATIVE (NEGATIVE)
[2020-09-29 12:57] LABS: BACTERIA,URINE NEGATIVE /HPF; SQUAMOUS EPITHELIAL CELL,UR RARE /HPF
--- NOTE | 2020-09-29 19:46 | OB Labor & Delivery Record ---
Vag Delivery Note Vag Delivery Note Date of Delivery: 09/29/20 Preoperative Diagnosis: Peyton Koch is a (25 /Para 4 / 2,Gestational Age (wks)39.4 here for elective IOL Postoperative Diagnosis: Same Surgeon: JOSE MONTIEL Lead Athlete: None Anesthesia: Epidural Delivery Type: @ 1746 Findings: Viable female infant, apgars 8/9, weight [] Lacerations: None Intact placenta with 3 vessel cord. No nuchal cord, body cord or shoulder dystocia Estimated Blood Loss: 125 ml Complications: None Condition: Stable Description of Procedure: The patient is a 25 year old female who presented for elective IOL. She was admitted and informed consent was obtained. Her labor course was unremarkable. She progressed to complete dilatation and began to push. She was then set up for delivery. The 's head was delivered atraumatically in the PORSHA position. The shoulders and remainder of the infant's body were then delivered without difficulty. Upon delivery, the head was held below the level of the perineum and the mouth and nares were bulb suctioned. The cord was doubly clamped and cut by FOB after 2 min delay and the infant was attedned to by the pediatric staff on maternal abdomen. An intact placenta with 3-vessel cord delivered via Ofelia and there was found to be minimal bleeding.~ Vigorous fundal massage was performed and the fundus was found to be firm. IV oxytocin was given. Examination of the vagina and perineum revealed no lacerations that require repair. Following the repair, sponge, instrument and needle counts were correct. Mom and baby were both in stable condition in the labor suite. Vitals - Labs Vital Signs - I&O Vital Signs Date Time Temp Pulse Resp B/P (MAP) Pulse Ox O2 Delivery O2 Flow Rate FiO2 09/29/20 10:55 71 20 82/47 (59) 99 Room Air 09/29/20 10:40 68 20 90/53 (65) 100 Room Air 09/29/20 10:26 90 20 105/53 (70) 100 Room Air 09/29/20 10:22 36.7 95 20 107/55 (72) 100 Room Air 09/29/20 10:17 69 20 88/53 (65) 100 Room Air 09/29/20 10:15 85 20 123/54 (77) 100 Room Air 09/29/20 10:10 85 20 123/54 (77) 100 Room Air 09/29/20 10:05 112 20 114/63 (80) 98 Room Air 09/29/20 10:00 100 20 92/51 (65) 98 Room Air 09/29/20 09:55 90 20 113/56 (75) 98 Room Air 09/29/20 09:51 92 20 135/72 (93) 99 Room Air 09/29/20 09:48 95 20 136/63 (87) 100 Room Air 09/29/20 09:45 97 20 139/69 (92) 100 Room Air 09/29/20 09:42 122 20 143/88 (106) 100 Room Air 09/29/20 09:39 126 20 144/90 (108) 100 Room Air 09/29/20 09:36 118 20 136/84 (101) 100 Room Air 09/29/20 09:33 104 20 163/94 (117) 100 Room Air 09/29/20 09:30 102 20 145/86 (105) 100 Room Air 09/29/20 09:03 37.0 79 18 122/74 (90) Room Air 09/29/20 07:03 59 20 102/62 (75) 09/29/20 06:00 57 18 88/52 (64) 09/29/20 05:00 82 18 121/70 (87) 09/29/20 04:30 36.0 77 99 Room Air 09/29/20 04:00 67 20 102/56 (71) 09/29/20 03:30 78 20 108/67 (81) 09/29/20 02:00 74 20 97/55 (69) 09/29/20 01:00 96 18 98/57 (71) 09/29/20 00:00 93 20 116/75 (89) 09/28/20 23:30 93 18 112/63 (79) 09/28/20 22:00 80 20 118/70 (86) 09/28/20 21:00 86 18 112/62 (79) Room Air 09/28/20 20:30 Room Air 09/28/20 20:15 36.7 101 18 98 Room Air 09/28/20 20:00 36.7 101 18 122/78 (93) 98 Room Air Labs Laboratory Tests 09/28/20 20:10: White Blood Count 8.9, Red Blood Count 3.58L, Hemoglobin 9.7L, Hematocrit 30L, Mean Corpuscular Volume 84, Mean Corpuscular Hemoglobin 27, Mean Corpuscular Hemoglobin Concent 32, Red Cell Distribution Width 15.1H, Platelet Count 244, Mean Platelet Volume 9.4, Immature Granulocyte % (Auto) 1, Neutrophils (%) (Auto) 64, Lymphocytes (%) (Auto) 24, Monocytes (%) (Auto) 10, Eosinophils (%) (Auto) 0, Basophils (%) (Auto) 0, Neutrophils # (Auto) 5.7, Lymphocytes # (Auto) 2.1, Monocytes # (Auto) 0.9, Eosinophils # (Auto) 0.0, Basophils # (Auto) 0.0, Immature Granulocyte # (Auto) 0.1 09/29/20 10:15: JOSE MONTIEL MD Sep 29, 2020 19:46
[2020-09-29] MEDS ORDERED: BENZOCAINE/MENTHOL (DERMOPLAST) 56 ML CAN TP ONE (20:37)
[2020-09-29] MEDS ORDERED: BENZOCAINE/MENTHOL (DERMOPLAST) 56 ML CAN TP PRN (21:00)
[2020-09-29] MEDS ORDERED: WITCH HAZEL(TUCKS) 40 EA JAR TOP PRN (21:00)
[2020-09-29 21:53] LABS: AMPHETAMINES URINE QUAL DS Negative (Negative); BARBITURATES URINE QUAL DS Negative (Negative); BENZODIAZEPINE URINE QUAL DS Negative (Negative)
[2020-09-29] MEDS: ACETAMINOPHEN 500 MG TAB (TYLENOL) PO SCH (23:16)
[2020-09-29] MEDS: DOCUSATE SODIUM 100 MG (COLACE) CAP PO SCH (23:16)
[2020-09-29] MEDS: IBUPROFEN 600 MG (MOTRIN) TAB PO SCH (23:16)
[2020-09-30 04:00] VITALS: BP 122/88
[2020-09-30] MEDS: CATHETER FLUSH 10 ML SYR IV SCH ×2 (04:21→14:00)
[2020-09-30] MEDS: IBUPROFEN 600 MG (MOTRIN) TAB PO SCH ×3 (04:21→20:38)
[2020-09-30 05:54] LABS: BASOPHILS % (AUTO) 0 % (0-10); EOSINOPHILS # (AUTO) 0.1 10^3/uL (0.0-0.3); EOSINOPHILS % (AUTO) 1 % (0-10); HEMATOCRIT 32 % (35-52); HEMOGLOBIN 9.9 g/dL (11.5-16.0); LYMPHOCYTES # (AUTO) 2.4 10^3/uL (1.0-4.0); LYMPHOCYTES % (AUTO) 23 % (12-44); MEAN CORPUSCULAR HEMOGLOBIN 27 pg (25-34); MEAN CORPUSCULAR HGB CONC 31 g/dL (32-36); MEAN CORPUSCULAR VOLUME 89 fL (80-99); MEAN PLATELET VOLUME 9.9 fL (9.0-12.2); MONOCYTES # (AUTO) 1.1 10^3/uL (0.0-1.0); MONOCYTES % (AUTO) 11 % (0-12); NEUTROPHILS # (AUTO) 6.9 10^3/uL (1.8-7.8); NEUTROPHILS % (AUTO) 65 % (42-75); PLATELET COUNT 235 10^3/uL (130-400); WHITE BLOOD COUNT 10.7 10^3/uL (4.3-11.0)
--- NOTE | 2020-09-30 07:34 | Anesthesia-Regional Post-Op ---
Regional Patient Condition Mental Status: Alert, Oriented x3 Circulation: Same as Pre-Op Headache: Absent Sensation: Full Recovery Motor Block: Absent Post Op Complications Complications None Follow Up Care/Instructions Patient Instructions None needed. Anesthesia/Patient Condition Patient is doing well, no complaints, stable vital signs, no apparent adverse anesthesia problems. No complications reported per nursing. [place] [facility] [place] ROSY ALLEN CRNA Sep 30, 2020 07:34
[2020-09-30 08:04] VITALS: BP 121/71
[2020-09-30] MEDS: DOCUSATE SODIUM 100 MG (COLACE) CAP PO SCH ×2 (09:27→20:38)
[2020-09-30] MEDS: ACETAMINOPHEN 500 MG TAB (TYLENOL) PO SCH ×3 (09:27→20:38)
[2020-09-30] MEDS: PRENATAL VITAMIN 1 EA TAB PO SCH (09:27)
[2020-09-30] MEDS: FERROUS SULF 325 MG (IRON) TAB PO SCH (09:28)
[2020-09-30 14:03] VITALS: BP 133/88
--- NOTE | 2020-09-30 15:16 | Progress Note ---
Subjective Subjective/Events-last exam Feeling well, denies chest pain or dizziness. Feels a little hard to get a deep breath intermittently, but overall doesn't feel short of breath. Denies pain, bleeding is decreasing. Objective Exam Last Set of Vital Signs Vital Signs Date Time Temp Pulse Resp B/P (MAP) Pulse Ox O2 Delivery O2 Flow Rate FiO2 09/30/20 14:03 36.6 75 20 133/88 (103) 99 Room Air Capillary Refill : Greater Than 3 Seconds I&O Intake and Output 09/30/20 00:00 Intake Total 3375 ml Balance 3375 ml Intake IV Total 3375 ml General: Alert, No Acute Distress Lungs: Clear to Auscultation, Normal Air Movement Heart: Regular Rate, No Murmurs Abdomen: Normal Bowel Sounds, Other (fundus firm below umbilicus) Extremities: No Edema Neuro: Normal Speech Psych/Mental Status: Mental Status NL Results/Procedures Lab Laboratory Tests 09/30/20 05:11: White Blood Count 10.7, Red Blood Count 3.64L, Hemoglobin 9.9L, Hematocrit 32L, Mean Corpuscular Volume 89, Mean Corpuscular Hemoglobin 27, Mean Corpuscular Hemoglobin Concent 31L, Red Cell Distribution Width 15.5H, Platelet Count 235, Mean Platelet Volume 9.9, Immature Granulocyte % (Auto) 1, Neutrophils (%) (Auto) 65, Lymphocytes (%) (Auto) 23, Monocytes (%) (Auto) 11, Eosinophils (%) (Auto) 1, Basophils (%) (Auto) 0, Neutrophils # (Auto) 6.9, Lymphocytes # (Auto) 2.4, Monocytes # (Auto) 1.1H, Eosinophils # (Auto) 0.1, Basophils # (Auto) 0.0, Immature Granulocyte # (Auto) 0.1 Assessment/Plan Assessment/Plan (1) Spontaneous vaginal delivery Status: Acute Assessment & Plan: Routine care (2) Anemia Status: Acute Assessment & Plan: Ferrous sulfate (3) Vaccine counseling Status: Acute Assessment & Plan: Discussed availability of COVID19 vaccination inpatient and she would like to proceed, however on chart review, note she had positive COVID test on 09/07/20, will discuss with her tomorrow if she wants to proceed now. AC DYSON MD Sep 30, 2020 15:16
[2020-09-30 20:45] VITALS: BP 124/79
[2020-10-01] MEDS: IBUPROFEN 600 MG (MOTRIN) TAB PO SCH ×2 (02:11→09:39)
[2020-10-01 02:24] VITALS: BP 116/79
[2020-10-01] MEDS: ACETAMINOPHEN 500 MG TAB (TYLENOL) PO SCH (05:09)
[2020-10-01] MEDS ORDERED: DCS100C PO (08:13)
[2020-10-01] MEDS ORDERED: IBUP-844 PO (08:13)
[2020-10-01] MEDS ORDERED: FERR325T24 PO (08:13)
[2020-10-01 09:38] VITALS: BP 131/84
[2020-10-01] MEDS: FERROUS SULF 325 MG (IRON) TAB PO SCH (09:39)
[2020-10-01] MEDS: DOCUSATE SODIUM 100 MG (COLACE) CAP PO SCH (09:40)
[2020-10-01] MEDS: PRENATAL VITAMIN 1 EA TAB PO SCH (09:40)
[2020-10-01] MEDS ORDERED: COVID-19 VACC,MRNA(MODERNA)/PF 100 MCG/0.5 ML VIAL IM ONE (11:15)
--- NOTE | 2020-10-01 12:15 | Discharge Summary ---
Discharge Summary Hospital Course Problems/Diagnosis: (1) Spontaneous vaginal delivery Status: Acute Assessment & Plan: Routine care (2) Anemia Status: Acute Assessment & Plan: Ferrous sulfate (3) Vaccine counseling Status: Acute Assessment & Plan: Discussed availability of COVID19 vaccination inpatient and she would like to proceed, however on chart review, note she had positive COVID test on 09/07/20, discussed recommendations to still receive COVID vaccination after infection and she agreed she would like vaccine. Hospital Course Date of Admission: Sep 28, 2020 at 19:11 Admission Diagnosis : Family Physician/Provider: Glo Scruggs MD Date of Discharge: 10/01/20 Discharge Diagnosis: See problem list Hospital Course: See problem list Labs and Pending Lab Test: Home Meds Active Dok (Docusate Sodium) 100 Mg Capsule 100 Mg PO BID Ibu (Ibuprofen) 600 Mg Tablet 600 Mg PO Q6HR PRN Ferosul (Ferrous Sulfate) 325 Mg Tablet 325 Mg PO DAILY@0700 Reported Vitamin Tablet ( No.137/Iron/Folic Acd) 1 Each Tablet 1 Each PO DAILY Assessment/Pt DC Instructions Follow up with Dr. Scruggs in 6 weeks for visit. Discharge Diet: Regular Diet Activity as Tolerated: Yes (avoid strenuous activity x 6 weeks) Discharge Physical Examination Allergies: Coded Allergies: No Known Drug Allergies (Unverified , 09/11/17) General Appearance: No Apparent Distress, WD/WN Respiratory: Lungs Clear, Normal Breath Sounds Cardiovascular: Regular Rate, Rhythm, No Murmur Extremity: No Pedal Edema Skin: Normal Color, Warm/Dry Neurologic/Psychiatric: Alert, Normal Mood/Affect AC DYSON MD Oct 01, 2020 12:15
--- NOTE | 2020-10-05 02:46 | Physician Query Clarification ---
PQ-Further Specificity Admission/Discharge Admission Date: Sep 28, 2020 at 19:11 Discharge Date: Oct 01, 2020 at 14:40 AC Rockwell MD The medical record reflects the following clinical scenario: History/Risk Factors: 25 y/o female admitted for labor with 39 weeks of gestation, underwent normal spontaneous delivery, anemia was documented in medical record. Clinical Findings: Hgb-9.7 L, hct- 30 L, estimated blood loss- 125 ml. Treatment:Ferrous sulphate. Question: Can you further specify anemia per the clinical indicators above? Please document a response in the Progress Notes or Discharge Summary. 1. Acute blood loss anemia 2. Iron deficiency anemia 3. Other, with explanation of the clinical findings. 4. Clinically undetermined, no explanation for the clinical findings. PHYSICIAN RESPONSE Can you specify per above: 1 Please remember a lack of response to the above will prompt a phone page by CD[facility]/Coding staff. In responding to this query, please exercise your independent professional judgment. The purpose of this communication is to more accurately reflect the complexity of your patients condition. The fact that a question is asked does not imply that any particular answer is desired or expected. Thank you for your timely response to this clarification. Requestors name: [ ] Phone # [ ] THIS PHYSICIAN QUERY FORM IS A PERMANENT PART OF THE MEDICAL RECORD DUNCAN LEWIS Oct 05, 2020 02:46 AC DYSON MD Oct 05, 2020 14:55
== END 2020-10-01 14:40 | disposition home or self-care (01) | DRG 806 ==
LOC: LDRP 19:11
PROVIDERS: ADMIT Family Medicine; ATTEND Family Medicine
PROC: 10E0XZZ Delivery of Products of Conception, External Approach (ICD-10-PCS; principal; 2020-10-01)
PROC: 10907ZC Drainage of Amniotic Fluid, Therapeutic from Products of Conception, Via Natural or Artificial Opening (ICD-10-PCS; 2020-10-01)
DX: O99.324 Drug use complicating childbirth (principal); D62 Acute posthemorrhagic anemia; Z37.0 Single live birth; Z3A.39 39 weeks gestation of pregnancy; F15.10 Other stimulant abuse, uncomplicated; O90.81 Anemia of the puerperium
CPT/HCPCS: 36415; 80306; 80307; 81000; 85025; 86850; 86900; 86901; 88307; 91301

== ENCOUNTER 2021-08-30 19:37 | Emergency (ER) | payer MEDICAID ==
[~2021-08-30] VITALS: Ht 154.9 cm; Wt 48.9 kg
[~2021-08-30 19:37] MED LIST changes: +DOCU-239 PO; +FERR325T24 PO; +FLUC100T10 PO; -FLUC100T6 PO; +OMEP20TA56 PO; -OMEP20TA7 PO
[2021-08-30 19:50] VITALS: BP 146/102
[2021-08-30] MEDS ORDERED: DOXY100T2 PO (20:42)
--- NOTE | 2021-08-30 20:42 | ED Integumentary General ---
General Chief Complaint: Skin/Wound Problems Stated Complaint: L SIDE FACE WOUND/CYST Nursing Triage Note: pt ambulatory to room. pt states she had a pimple on left cheekbone that she tried to pop and she states it got more swollen and it feels like the puffiness has spread out. pt reports it has given her headache starting yesterday. pt states she has a hx of staf infections on her face and was concerned Source: patient Exam Limitations: no limitations (NIESHA BADILLO APRN) History of Present Illness Date Seen by Provider: Aug 30, 2021 Time Seen by Provider: 20:38 Initial Comments Left cheek yazidi onset 2 days ago. She squeezed it this morning and got some purulent material out of it. Timing/Duration: just prior to arrival, getting worse Severity: moderate Location: face Possible Cause: no cause identified Associated Symptoms: denies symptoms (NIESHA BADILLO APRN) Allergies and Home Medications Allergies Coded Allergies: No Known Drug Allergies (Unverified , 09/11/17) Patient Home Medication List Home Medication List Reviewed: Yes (NIESHA BADILLO APRN) Docusate Sodium (Dok) 100 Mg Capsule, 100 MG PO BID Prescribed by: AC DYSON on 10/01/20 0813 Doxycycline Hyclate (Doxycycline Hyclate) 100 Mg Tablet, 100 MG PO BID Prescribed by: NIESHA BADILLO on 08/30/212041 Ferrous Sulfate (Ferosul) 325 Mg Tablet, 325 MG PO DAILY@0700 Prescribed by: AC DYSON on 10/01/20 0813 Ibuprofen (Ibu) 600 Mg Tablet, 600 MG PO Q6HR PRN for PAIN-MODERATE (5-7) Prescribed by: AC DYSON on 10/01/20 0813 No.137/Iron/Folic Acd ( Vitamin Tablet) 1 Each Tablet, 1 EACH PO DAILY, (Reported) Entered as Reported by: ANNABELLA WHITEHEAD on 01/31/181945 Review of Systems Review of Systems Constitutional: see HPI EENTM: see HPI Respiratory: no symptoms reported Cardiovascular: no symptoms reported Genitourinary: no symptoms reported Musculoskeletal: no symptoms reported Skin: no symptoms reported Psychiatric/Neurological: No Symptoms Reported Endocrine: No Symptoms Reported (NIESHA BADILLO APRN) Past Cylgggq-Iyjvkx-Ilowhk Hx Patient Social History Tobacco Use?: No Substance use?: Yes Substance type: Amphetamines Substance frequency: Daily Alcohol Use?: Yes Alcohol type: Hard Liquor Alcohol Frequency: Daily (NIESHA BADILLO APRN) Immunizations Up To Date Tetanus Booster (TDap): Less than 5yrs PED Vaccines UTD: Yes Influenza Vaccine Up-to-Date: No; Not Current (NIESHA BADILLO APRN) Seasonal Allergies Seasonal Allergies: Yes (NIESHA BADILLO APRN) Past Medical History Surgery/Hospitalization HX: no surgery or hospitalizations Surgeries: No Respiratory: No Cardiac: No Neurological: No Reproductive Disorders: No Female Reproductive Disorders: Denies Sexually Transmitted Disease: Yes HIV/AIDS: No Genitourinary: No Kidney Infection, Bladder Infection Gastrointestinal: No Gastroesophageal Reflux, Esophagitis Musculoskeletal: No Endocrine: No HEENT: No Cancer: No Psychosocial: No Anxiety Integumentary: No Blood Disorders: No (NIESHA BADILLO APRN) Family Medical History Arthritis G8 SISTER Cardiovascular disease PATERNAL GRANDFATHER Hypertension 19 MOTHER Seizure disorder 19 MOTHER No Pertinent Family Hx (NIESHA BADILLO APRN) Physical Exam Vital Signs Vital Signs - First Documented 08/30/21 19:50 Temp 36.3 Pulse 109 Resp 20 B/P (MAP) 146/102 (117) Pulse Ox 98 (JAD POWELL MD) Vital Signs Capillary Refill : (NIESHA BADILLO APRN) General Appearance: WD/WN, no apparent distress HEENT: PERRL/EOMI, normal ENT inspection Neck: non-tender, full range of motion Respiratory: no respiratory distress, no accessory muscle use Gastrointestinal: normal bowel sounds, non tender Neurologic/Psychiatric: alert, normal mood/affect, oriented x 3 Skin: normal color, warm/dry Skin Problem Location: face Skin Problem Character: other (indurated papule left cheekbone no surrounding erythema or cellulitis. No edema of the lower eyelid.) (NIESHA BADILLO APRN) Progress/Results/Core Measures Results/Orders Vital Signs/I&O 08/30/21 19:50 Temp 36.3 Pulse 109 Resp 20 B/P (MAP) 146/102 (117) Pulse Ox 98 (JAD POWELL MD) Blood Pressure Mean: 117 Departure Impression Primary Impression: Pustule Disposition: 01 HOME, SELF-CARE Condition: Stable Departure-Patient Inst. Decision time for Depature: 20:40 (NIESHA BADILLO APRN) Referrals: JOSE MONTIEL MD (PCP/Family) Primary Care Physician Patient Instructions: MRSA (DC) Add. Discharge Instructions: Warm compresses to the area. Tylenol and ibuprofen for pain control. Antibiotics as directed. Return to ER for any worsening. Follow-up with your doctor next week. All discharge instructions reviewed with patient and/or family. Voiced understanding. Scripts Doxycycline Hyclate (Doxycycline Hyclate) 100 Mg Tablet 100 MG PO BID, #10 TAB 0 Refills Prov: NIESHA BADILLO APRN 08/30/21 ATTENDING PHYSICIAN NOTE: I was physically present as attending physician in the emergency department during the care of this patient, but I was not directly involved in the decision making or delivery of care for this patient. (JAD POWELL MD) NIESHA BADILLO APRN Aug 30, 2021 20:42 JAD POWELL MD Sep 01, 2021 06:54
[2021-08-30] MEDS ORDERED: DOXYCYCLINE 100 MG (VIBRAMYCIN) TABLET PO SCH (20:45)
== END 2021-08-30 20:48 | disposition home or self-care (01) ==
LOC: EDUNIT# 19:37 → ER 19:38
DX: L08.9 Local infection of the skin and subcutaneous tissue, unspecified (principal); Z28.311 Partially vaccinated for COVID-19
CPT/HCPCS: 99283

== ENCOUNTER 2022-11-28 03:15 | Emergency (ER) | payer MEDICAID, OTHER ==
[~2022-11-28 03:15] MED LIST changes: +DOXY100T2 PO; +POTA-330 PO; -POTA-51 PO
--- NOTE | 2022-11-28 03:42 | ED Integumentary General ---
General Stated Complaint: RT INDEX FINGER,SWOLLEN,SORE Source: patient Exam Limitations: no limitations History of Present Illness Date Seen by Provider: Nov 28, 2022 Time Seen by Provider: 03:30 Initial Comments Patient is a 27-year-old right-handed female who presents to the emergency room with increased pain, redness and swelling to the distal phalanx of her right index finger. She states symptoms started 2 days ago. She was seen yesterday and started on Bactrim but she feels like the infection is getting worse. She states it feels like the tip of her finger is going to "explode". She did state that she poked the area with a sewing needle a day or 2 ago. She also states she has had about 4 doses of the bactrim. Timing/Duration: other (2d) Severity: moderate Location: hands (right index finger) Possible Cause: no cause identified (thinks a piece of glass from her phone screen may have "nicked" her finger) Associated Symptoms: denies symptoms Allergies and Home Medications Allergies Coded Allergies: No Known Drug Allergies (Unverified , 09/11/17) Patient Home Medication List Home Medication List Reviewed: Yes Docusate Sodium (Dok) 100 Mg Capsule, 100 MG PO BID Prescribed by: AC DYSON on 10/01/20812 Doxycycline Hyclate (Doxycycline Hyclate) 100 Mg Tablet, 100 MG PO BID Prescribed by: NIESHA BADILLO on 08/30/212041 Ferrous Sulfate (Ferosul) 325 Mg Tablet, 325 MG PO DAILY@0700 Prescribed by: AC DYSON on 10/01/20812 Ibuprofen (Ibu) 600 Mg Tablet, 600 MG PO Q6HR PRN for PAIN-MODERATE (5-7) Prescribed by: AC DYSON on 10/01/20812 No.137/Iron/Folic Acd ( Vitamin Tablet) 1 Each Tablet, 1 EACH PO DAILY, (Reported) Entered as Reported by: ANNABELLA WHITEHEAD on 01/31/181945 Review of Systems Review of Systems Constitutional: see HPI; No fever Gastrointestinal: no symptoms reported Musculoskeletal: joint pain (right index finger tip) Past Ysbvvni-Oqlpui-Cemyqe Hx Immunizations Up To Date Tetanus Booster (TDap): Less than 5yrs PED Vaccines UTD: Yes Seasonal Allergies Seasonal Allergies: Yes Past Medical History Surgery/Hospitalization HX: no surgery or hospitalizations Surgeries: No Respiratory: No Cardiac: No Neurological: No Reproductive Disorders: No Female Reproductive Disorders: Denies Sexually Transmitted Disease: Yes HIV/AIDS: No Genitourinary: No Kidney Infection, Bladder Infection Gastrointestinal: No Gastroesophageal Reflux, Esophagitis Musculoskeletal: No Endocrine: No HEENT: No Cancer: No Psychosocial: No Anxiety Integumentary: No Blood Disorders: No Family Medical History Arthritis G8 SISTER Cardiovascular disease PATERNAL GRANDFATHER Hypertension 19 MOTHER Seizure disorder 19 MOTHER No Pertinent Family Hx Physical Exam Vital Signs Vital Signs - First Documented 11/28/22 03:31 Temp 36.4 Pulse 115 Resp 18 B/P (MAP) 137/108 (118) Pulse Ox 98 O2 Delivery Room Air Capillary Refill : General Appearance: WD/WN, no apparent distress HEENT: PERRL/EOMI Respiratory: no respiratory distress, no accessory muscle use Extremities: other (Right index finger swelling over the distal phalanx with area of developing abscess at the midportion of the distal phalanx, lateral aspect. Tender to palpation. She has some erythema noted at the proximal fingernail. No tenderness along the flexor sheath, no pain with passive extension, the entire digit is not swollen. I do not suspect flexor tenosynovitis at this time. She does not have any tenderness or fluctuance or pain over the volar aspect of the index finger indicative of felon) Neurologic/Psychiatric: alert, normal mood/affect Skin: normal color, warm/dry Procedures/Interventions I&D : Blade Size: 11 I & D Procedure: betadine prep Progress 11blade used to incise about 1mm into the area of apparent purulence. +pus; area cleansed thoroughly and then the finger was soaked in surgical cleans and NS for 15 min; culture sent Progress/Results/Core Measures Results/Orders My Orders Orders - BLAISE MCDERMOTT MD Wound Culture (11/28/22 04:41) Vital Signs/I&O 11/28/22 03:31 Temp 36.4 Pulse 115 Resp 18 B/P (MAP) 137/108 (118) Pulse Ox 98 O2 Delivery Room Air Progress Progress Note : Time: 04:47 Departure Impression Primary Impression: Abscess of finger of right hand Disposition: 01 HOME, SELF-CARE Condition: Stable Departure-Patient Inst. Decision time for Depature: 04:47 Referrals: JOSE MONTIEL MD (PCP/Family) Primary Care Physician Patient Instructions: Abscess Incision and Drainage ED Add. Discharge Instructions: Keep the wound clean, dry amd covered with a bandaid. Wash with soap and water twice a day. Finish your entire course of antibiotics. Take ibuprofen 3 pills (600mg) every 6 hours as needed for pain - always take ibuprofen with food. If you notice that the finger is starting to get more swollen, red and painful, or streaking up the finger into the hand and arm, please come back to the Emergency Department for re-evaluation. Copy Copies To 1: JOSE MONTIEL MD, KATHRYN M MD Nov 28, 2022 03:42
[2022-11-28] MEDS ORDERED: IBUPROFEN 600 MG TABLET PO ONE (04:45)
[2022-11-28 05:00] VITALS: BP 135/99
[2022-11-28] MEDS ORDERED: CLIN-144 PO (21:51)
== END 2022-11-28 05:00 | disposition home or self-care (01) ==
LOC: EDUNIT# 03:15 → ER 03:20
DX: L02.511 Cutaneous abscess of right hand (principal)
CPT/HCPCS: 10060; 64450; 87070; 87077; 87186; 87205

== ENCOUNTER 2022-11-28 20:17 | Emergency (ER) | payer OTHER ==
[~2022-11-28] VITALS: Ht 155 cm; Wt 57.6 kg
[2022-11-28 21:51] VITALS: BP 144/103
[2022-11-28] MEDS ORDERED: CLIN-144 PO (21:51)
--- NOTE | 2022-11-28 21:51 | ED Integumentary General ---
General Chief Complaint: Skin/Wound Problems Stated Complaint: FINGER PAIN Nursing Triage Note: PT AMB TO TRIAGE W C/O RIGHT SECOND FINGER PAIN. STATES SHE WAS EVALUATED AND TREATED HERE IN THIS ED YESTERDAY, WOKE UP THIS AM W WORSENING PAIN TO WOUND. PT REPORTS WOUND FIRST APPEARED APPROX 1 WK AGO. A&OX4. Source: patient Exam Limitations: no limitations (ANTHONY STANLEY) History of Present Illness Date Seen by Provider: Nov 28, 2022 Time Seen by Provider: 22:10 Initial Comments Patient is a 27-year-old female presents ED with pain and swelling to her right index finger. Patient states she cut her finger on her phone case on Monday. Had swelling and redness. [facility] prescribed Bact[facility]. Patient Was seen here earlier this morning had her finger lanced. She states she is concerned that she has had continuous pain in her right index finger. She states the swelling and redness has improved. She is able to move her digits. She is currently taking Bactrim has taken at least 4 days worth. Denies any distal numbness and tingling, nausea, vomiting, diarrhea fever, chills, chest pain, shortness of breath (ANTHONY STANLEY) Allergies and Home Medications Allergies Coded Allergies: No Known Drug Allergies (Unverified , 09/11/17) Patient Home Medication List Home Medication List Reviewed: Yes (ANTHONY STANLEY) Clindamycin HCl (Clindamycin HCl) 300 Mg Capsule, 300 MG PO QID Prescribed by: STEPHANY KRUGER on 11/28/222150 Docusate Sodium (Dok) 100 Mg Capsule, 100 MG PO BID Prescribed by: AC DYSON on 10/01/20812 Doxycycline Hyclate (Doxycycline Hyclate) 100 Mg Tablet, 100 MG PO BID Prescribed by: NIESHA BADILLO on 08/30/212041 Ferrous Sulfate (Ferosul) 325 Mg Tablet, 325 MG PO DAILY@0700 Prescribed by: AC DYSON on 10/01/20812 Ibuprofen (Ibu) 600 Mg Tablet, 600 MG PO Q6HR PRN for PAIN-MODERATE (5-7) Prescribed by: AC DYSON on 10/01/20812 No.137/Iron/Folic Acd ( Vitamin Tablet) 1 Each Tablet, 1 EACH PO DAILY, (Reported) Entered as Reported by: ANNABELLA WHITEHEAD on 01/31/181945 Review of Systems Review of Systems Constitutional: No chills, No diaphoresis, No malaise, No weakness EENTM: No ear pain, No blurred vision, No double vision, No mouth pain, No mouth swelling, No throat pain, No throat swelling Respiratory: No cough, No dyspnea on exertion Cardiovascular: No chest pain Gastrointestinal: No abdominal pain, No diarrhea, No nausea, No vomiting Genitourinary: No decreased output, No discharge Musculoskeletal: No back pain; joint pain, joint swelling, muscle pain, muscle stiffness (ANTHONY STANLEY) All Other Systems Reviewed Negative Unless Noted: Yes (ANTHONY STANLEY) Past Lbcducj-Olnimu-Xvyisz Hx Patient Social History Tobacco Use?: No Use of E-Cig and/or Vaping dev: Yes E-Cig or Vaping type used: Nicotine Use of E-Cig and/or Vaping Stephen: Current Everyday User Substance use?: Yes Substance type: Methamphetamine Alcohol Use?: Yes Alcohol Frequency: Daily (ANTHONY STANLEY) Immunizations Up To Date Tetanus Booster (TDap): Less than 5yrs PED Vaccines UTD: Yes (ANTHONY STANLEY) Seasonal Allergies Seasonal Allergies: Yes (ANTHONY STANLEY) Past Medical History Surgery/Hospitalization HX: no surgery or hospitalizations Surgeries: No Respiratory: No Cardiac: No Neurological: No Reproductive Disorders: No Female Reproductive Disorders: Denies Sexually Transmitted Disease: Yes HIV/AIDS: No Genitourinary: No Kidney Infection, Bladder Infection Gastrointestinal: No Gastroesophageal Reflux, Esophagitis Musculoskeletal: No Endocrine: No HEENT: No Cancer: No Psychosocial: No Anxiety Integumentary: No Blood Disorders: No (ANTHONY STANLEY) Family Medical History Arthritis G8 SISTER Cardiovascular disease PATERNAL GRANDFATHER Hypertension 19 MOTHER Seizure disorder 19 MOTHER No Pertinent Family Hx (ANTHONY STANLEY) Physical Exam Vital Signs Vital Signs - First Documented 11/28/22 20:20 Temp 36.7 Pulse 100 Resp 18 B/P (MAP) 144/103 (117) Pulse Ox 100 O2 Delivery Room Air (ANISHA PAEZA K DO) Vital Signs Capillary Refill : Less Than 3 Seconds (ANTHONY STANLEY) General Appearance: WD/WN, no apparent distress HEENT: PERRL/EOMI, normal ENT inspection, TMs normal, pharynx normal Neck: non-tender, full range of motion, supple Cardiovascular: regular rate, rhythm, no edema, no gallop, no JVD Respiratory: chest non-tender, lungs clear, normal breath sounds, no respiratory distress, no accessory muscle use Gastrointestinal: normal bowel sounds, non tender, soft Back: normal inspection, no CVA tenderness Extremities: other (Flexion extension of the right index finger at the DIP, PIP joint intact. No fluctuant mass. 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 She is concerned for the continuous pain. She denies any increased redness or swelling. Finger appears to be healing. There is no obvious function of mass. No active drainage. No evidence of tenosynovitis. She does not appear toxic. She is requesting a different antibiotic. She has taken at least 4 days worth of Bactrim. We will switch from Bactrim to clindamycin. Anti-inflammatories for pain. If any increased redness or swelling to return back to ED. Follow-up your PCP in 2 to 3 days for evaluation (ANTHONY STANLEY) Impression Primary Impression: Cellulitis Disposition: 01 HOME, SELF-CARE Condition: Stable Departure-Patient Inst. Decision time for Depature: 21:51 (ANTHONY STANLEY) Referrals: GAULT,JOSE R MD (PCP/Family) Primary Care Physician Patient Instructions: Cellulitis (Skin Infection), Adult (DC) Scripts Clindamycin HCl (Clindamycin HCl) 300 Mg Capsule 300 MG PO QID for 7 Days, #28 CAP Prov: ANTHONY STANLEY 11/28/22 ATTENDING PHYSICIAN NOTE: I WAS PHYSICALLY PRESENT ER PHYSICIAN, BUT I WAS NOT INVOLVED IN ANY DECISION MAKING OR ANY CARE OF THIS PATIENT, AND I AM NOT COLLABORATING PHYSICIAN. (TYESHA PAEZ DO) ANTHONY STANLEY Nov 28, 2022 21:51 TYESHA PAEZ DO Nov 29, 2022 05:17
[2022-11-28] MEDS ORDERED: CLINDAMYCIN 150 MG CAPSULE PO STA (21:52)
== END 2022-11-28 21:55 | disposition home or self-care (01) ==
LOC: EDUNIT# 20:17 → ER 20:19
DX: L03.011 Cellulitis of right finger (principal); F17.290 Nicotine dependence, other tobacco product, uncomplicated
CPT/HCPCS: 99283